=== PATIENT | female | born 1965 | race Caucasian/White ===

== ENCOUNTER 2021-03-25 08:45 | Emergency (ER) | payer BC, SELFPAY ==
[2021-03-25 08:55] VITALS: BP 124/97; PULSE 108; RESP 16; TEMP 36.5; O2SAT 100
--- NOTE | 2021-03-25 09:45 | ED.EAR ---
HPI - Ear Problem General Chief complaint: Ear Stated complaint: Ear Pain Time Seen by Provider: 03/25/21 09:35 Source: patient Mode of arrival: ambulatory Limitations: no limitations History of Present Illness HPI Narrative: Shanika Vazquez is a 55 yo female with a PMH of lupus [facility]-day illness where her primary care physician gave her cefdinir but still has left ear pain and some chest congestion. She states she is improving except for the ear that is really bothering her at this moment and rates the pain a 6 out of 10 Related Data Home Medications Medication Instructions Recorded Confirmed losartan 25 mg PO DAILY 04/23/19 03/25/21 aspirin 81 mg tablet,delayed 81 mg PO DAILY 01/05/20 03/25/21 release loratadine 10 mg tablet 10 mg PO DAILY 01/05/20 03/25/21 Allergies Allergy/AdvReac Type Severity Reaction Status Date / Time methotrexate AdvReac Mild Drowsy Verified 02/24/21 14:03 Review of Systems Review of Systems: CONSTITUTIONAL: Denies fever, chills, sweats. General congestion EYES: Denies visual changes, redness, discharge. ENT: Denies rhinorrhea, congestion, sore throat, left otalgia. CARDIOVASCULAR: Denies chest pain, palpitations, edema. RESPIRATORY: Denies dyspnea, wheezing, cough GASTROINTESTINAL: Denies abdominal pain, nausea, vomiting, diarrhea. GENITOURINARY: Denies dysuria, hematuria, abnormal discharge SKIN: Denies rash or itching. NEUROLOGIC: Denies numbness, or focal weakness. PSYCHIATRIC: Denies anxiety or depression. [facility] Past Medical History Medical History Migraines Mitral valve disorder Other specified counseling SLE (systemic lupus erythematosus related syndrome) (~2019) Spondylosis without myelopathy or radiculopathy, lumbar region Surgical History Surgical History History of section Family History Family History Mother Patient's mother is in good health Family history of thyroid disease Sibling Patient's sister is in good health Patient's brother is in good health Father Family history of cardiac disorder Family history of cardiovascular disease Grandparent Family history of cardiovascular disease Social History Social History Smoking status: Never smoker Alcohol intake: never 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 HEAD: normocephalic, atraumatic. EYES: Sclera clear/white. Vision is grossly intact. EARS: External ears normal, auditory canals clear on right , left with erythema and without drainage, TMs normal without perforation. Hearing grossly intact. NOSE: External nose normal without nasal discharge, nares without redness, mild rhinorrhea. THROAT: Mucous membranes moist, posterior pharynx mild erythema NECK: Neck supple, left lymph node anterior to auricle CARDIOVASCULAR: Regular rate and rhythm without murmurs, gallops, or rubs. RESPIRATORY: Clear to auscultation. Breath sounds equal bilaterally. No wheezes, rales, or rhonchi. GASTROINTESTINAL: Abdomen soft, non-tender, SKIN: warm, intact with no suspicious lesions or rash, good texture and turgor. NEURO: awake, alert, and oriented to person, place and time. There were no obvious focal neurologic abnormalities. Steady gait EXTREMITIES: Normal range of motion. BACK: Nontender without deformity Course Course Emergency Course: Patient comes with left over earache and some congestion after 10-day illness where she was treated with cefdinir by her primary care physician Started on prednisone 40 mg x 5 days and polymyxin eardrop Vital Signs Vital signs: Vital Signs Temperature 97.7 F 03/25/21 08:55 Pulse Rate 108 H 03/25/21 08:55 Respiratory Rate 16 03/25/21 08:55 Blo
== END 2021-03-25 09:53 | disposition home or self-care (01) ==
PROVIDERS: Emergency Provider Nurse Practitioner; PCP Registered Nurse
DX: H92.02 Otalgia, left ear (principal); R09.89 Other specified symptoms and signs involving the circulatory and respiratory systems; I34.1 Nonrheumatic mitral (valve) prolapse; M32.9 Systemic lupus erythematosus, unspecified; M47.816 Spondylosis without myelopathy or radiculopathy, lumbar region
CPT/HCPCS: 99213; G0463

== ENCOUNTER 2024-06-14 18:23 | Emergency (ER) | payer BC, SELFPAY ==
[2024-06-14 18:24] VITALS: BP 139/80; PULSE 89; RESP 18; TEMP 36.2; O2SAT 97
--- NOTE | 2024-06-14 19:25 | ED_ITS ---
HPI - Female Genitourinary General Chief complaint: Urogenital-Female Stated complaint: UTI Time Seen by Provider: 06/14/24 18:50 History of Present Illness HPI Narrative: 58-year-old otherwise healthy female presenting to the emergency room with chief complaint of urinary tract infection symptoms. She states she is having some pressure and burning with urination and started today as well as a pain from the tinge to her urine. Yesterday she had no complaints and denies any fever, c hills, nausea vomiting, abdominal or back pain. She states she has had urinary tract infections previously and this feels very similar. Denies any other injuries or illnesses. Related Data Home Medications ?Medication ?Instructions ?Recorded ?Confirmed ?Last Taken ?Type losartan 25 mg tablet 25 mg PO DAILY 04/23/19 09/03/23 Unknown History aspirin 81 mg tablet,delayed 81 mg PO DAILY 01/05/20 09/03/23 Unknown History release loratadine 10 mg tablet (Claritin) 10 mg PO DAILY 01/05/20 09/03/23 Unknown History Allergies Allergy/AdvReac Type Severity Reaction Status Date / Time methotrexate AdvReac Mild Drowsy Verified 09/03/23 09:48 Review of Systems Review of Systems: As reviewed above in HPI [facility] Past Medical History Medical History Vitamin D deficiency Bilateral hand pain SLE (systemic lupus erythematosus related syndrome) (~2019) Other specified counseling Spondylosis without myelopathy or radiculopathy, lumbar region Mitral valve disorder Migraines Surgical History Surgical History History of section Family History Family History Mother Patient's mother is in good health Family history of thyroid disease Sibling Patient's sister is in good health Patient's brother is in good health Father Family history of cardiac disorder Family history of cardiovascular disease Grandparent Family history of cardiovascular disease Social History Social History Smoking status: Never smoker Alcohol intake: never Substance use: never Substance use type: does not use Do You Feel Safe in your Home?: Yes Lack of Transportation: No Lack of Food: Never True Current Housing: I Have Housing Concerned About Future Housing: No Difficulty Paying Gas/Electric Bills: No Difficulty Paying for Meds: No Currently Unemployed: No Education: Decline to Answer Difficulty w/ Childcare or Family Care: No Living arrangements: with family Exam Narrative: GENERAL: [Well-appearing, well-nourished, and in no acute distress.] HEAD: [Normocephalic, atraumatic.] EYES: [PERRLA and EOMI.] NECK: Supple. CHEST: No respiratory distress ABDOMEN: [Soft, nondistended], [nontender], [No rigidity or guarding] EXTREMITIES: Normal range of motion. [No edema.] SKIN: Warm, dry, no rash. NEURO: [No focal deficits]. Alert and oriented [x3.] PSYCH: [Normal mood and affect.] Course Vital Signs Vital signs: Vital Signs Temperature 36.2 C L 06/14/24 18:24 Pulse Rate 89 06/14/24 18:24 Respiratory Rate 18 06/14/24 18:24 Blood Pressure 139/80 06/14/24 18:24 Pulse Oximetry 97 06/14/24 18:24 Oxygen Delivery Room Air 06/14/24 18:24 Temperature 36.2 C L 06/14/24 18:24 Pulse Rate 89 06/14/24 18:24 Respiratory Rate 18 06/14/24 18:24 Blood Pressure 139/80 06/14/24 18:24 Pulse Oximetry 97 06/14/24 18:24 Oxygen Delivery Room Air 06/14/24 18:24 MDM - Female Genitourinary MDM Narrative Medical decision making narrative: 58-year-old otherwise healthy female presenting for concerning signs for UTI. Patient is otherwise healthy and well-appearing, normal vital signs without any fever, hypoxia, tachycardia or blood pressure concerns. Clinical history including burning and pressure sensation with urination as well as pink tinge to her urine. Urinalysis will be sent as well as urine culture and she will be started on appropriate antibiotics. Urinalysis does show florid urinary tract infection. Will be sent for culture. She was given a dose of Bactrim and sent home with a 7 day course. Follow-up instructions and return precautions provided. Medical Records Attestation: I reviewed the patient's medical records. Lab Data Attestation: I reviewed the patient's lab results. Labs: Lab Results 06/14/24 Range/Units 19:29 Urine Color [place] H (Yellow) Urine Appearance Turbid H (Clear) Urine pH 5.5 (5.0-9.0) Ur Specific [place] 1.018 (1.001-1.035) Urine Protein 2+ H (Negative) mg/dL Urine Glucose (UA) Negative (Negative) mg/dL Urine Ketones Trace H (Negative) mg/dL Ur Blood (Man) 3+ H (Negative) Urine Nitrate Negative (Negative) Urine Bilirubin Negative (Negative) Urine Urobilinogen 1.0 (<2.0) mg/dL Leukocyte Esterase Rfl 3+ H (Negative) SINDY/UL Urine RBC >100 H (0-2) /hpf Urine WBC >100 H (0-3) /hpf Ur Squamous Epith Cells None seen (Few) /hpf Urine Bacteria 2+ H /hpf Urine Casts 0-2 Discharge Plan Discharge Clinical Impression: UTI (urinary tract infection) Patient Disposition: Home, Self-Care Condition: Stable Instructions: Antibiotic Form, Urinary Tract Infection in Women (ED) Additional Instructions: Your urine did test positive for urinary tract infection. We will send you home with a course of antibiotics. Please return with any new or worsening concerns otherwise follow-up with your regular primary care provider. Patient Language: Albanian Prescriptions: New sulfamethoxazole-trimethoprim [Bactrim DS] 800-160 mg tablet 1 tablet PO Q12H Qty: 14 0RF No Action losartan 25 mg Tablet 25 mg PO DAILY loratadine [Claritin] 10 mg tablet 10 mg PO DAILY aspirin 81 mg tablet,delayed release (DR/EC) 81 mg PO DAILY hydroxychloroquine 200 mg tablet See Rx Instructions .ROUTE .COMPLEX Qty: 180 1RF Dose Instruction: TAKE 2 TABLETS BY MOUTH DAILY Rx Instructions: TAKE 2 TABLETS BY MOUTH DAILY cholecalciferol (vitamin D3) 1,250 mcg (50,000 unit) capsule 50,000 unit PO WEEKLY Qty: 12 1RF Follow-up/Referrals: Mili,JOSE Lezama [Primary Care Provider] - Time of Disposition: 20:18
[2024-06-14 20:00] LABS: Bacteria Urine 2+ /hpf; Non Pathogenic Casts 0-2; RBC Urine >100 /hpf (0-2); Squamous Epithelial Cell Urine None Seen /hpf (Few); WBC Urine >100 /hpf (0-3)
[2024-06-14 20:02] LABS: Add Urine Microscopic? YES; Appearance Urine Turbid (Clear); Bilirubin Urine Negative (Negative); Blood Urine 3+ (Negative); Color Urine Orange (Yellow); Glucose Urine UA Negative (Negative); Ketones Urine Trace mg/dL (Negative); Leukocyte Esterase Ur 3+ LEU/UL (Negative); Nitrate Urine Negative (Negative); Protein Urine 2+ mg/dL (Negative); Specific Grav Ur 1.018 (1.001-1.035); pH Urine 5.5 (5.0-9.0)
[2024-06-14] MEDS: SULFAMETHOXAZOLE/TRIMETHOPRIM 800/160 MG DS TABLET 1 TAB PO (20:37)
[2024-06-14 20:39] VITALS: BP 128/77; PULSE 82; RESP 18; O2SAT 98
--- OUTSIDE RECORDS SUMMARY | 2024-06-21 08:54 | XMS_ITS | Encounter Summary ---
Author Organization [facility] Address [address] [place] [address]. [place] [address] [place] [address] Care Team Providers Care Farmworker [employer] Name Role Phone Lise Garces Primary Care Provider [phone] Reason for Visit * Reason Onset Date Comments Results 03/09/2024 Encounter Details Date Type Department Care Team (Late st Contact Info) Description 03/09/[address] [facility] [address] [place] [address] Lise Garces APNP [address] [place], [place] [id number] Results Social History Tobacco Use Types Packs/Day Years Used Date Smoking Tobacco: Never Passive Smoke Exposure: Never Smokeless Tobacco: Never Alcohol Use Standard Drinks/Week Comments No 0 (1 standard drink = 0.6 oz pur e alcohol) AUDIT-C Answer Date Recorded Frequency of Alcohol Consumption Never 10/03/2018 Average Number of Drinks Not on file 019 Frequency of Binge Drinking Not on file 09/09 PHQ-2 Answer Date Recorded Patient Health Questionnaire-2 Score 0 02/11/2024 Comments No Sex and Gender Information Value Date Recorded Sex Assigned at Female 05/21/2024 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[employer] Legal Sex Female 4:43 PM CDT Gender Identity Female 05/21/2024 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[employer] Sexual Orientation Not on file documented as of this encounter Progress Notes * Pallavi Chappell MA - 03/09/2024 1:38 PM CDT ----- Message from Lise Garces sent at 03/09/2024 12:35 PM CDT ----- Negative Repeat in 3 years documented in this encounter Plan of Treatment Not on file documented as of this encounter Visit Diagnoses Not on filedocumented in this encounter Additional Health Concerns Assessment Noted Time PHQ-9 Depression Total Score: 0 08/28/19 24 9:10 AM CDT documented as of this encounter Care Teams Farmworker [employer] Relationship Specialty Start Date End Date Lise Garces APNP [address] [place] [id number] PCP - General NURSE PRACTITIONER 10/03/18 documented as of this encounter
--- OUTSIDE RECORDS SUMMARY | 2024-06-21 08:54 | XMS_ITS | Encounter Summary ---
Author Organization [facility] Address [address] [place] [place] [address] Care Team Providers Care Mma Fighter Name Role Phone Natalia Rodriguez MD Primary Care Provider + Reason for Visit * Reason Onset Date Comments Follow-up 05/24/2016 Encounter Details Date Type Department Care Team (Late st Contact Info) Description 05/24/2016 Telephone [facility] [employer] [facility] [address] [phone] Jacob Augustin Follow-up Social History Tobacco Use Types Packs/Day Years Used Date Smoking Tobacco: Never Sex and Gender Information Value Date Recorded Sex Assigned at Not on file Gender Identity Not on file Sexual Orientation Not on file documented as of this encounter Plan of Treatment Not on file documented as of this encounter Visit Diagnoses Not on filedocumented in this encounter Care Teams Mma Fighter Relationship Specialty Start Date End Date Natalia Rodriguez MD [address] [facility] [address] [place] [address] PCP - General Family Medicine 05/22/16 documented as of this encounter
--- OUTSIDE RECORDS SUMMARY | 2024-06-21 08:54 | XMS_ITS | Encounter Summary ---
Author Organization [facility] Address [address] [facility] [place] [place] [address] Care Team Providers Care Stucco Applicator Name Role Phone Natalia Rodriguez MD Primary Care Provider + Reason for Visit * Reason Comments Congestion Ear Pain Headache Encounter Details Date Type Department Care Team (Late st Contact Info) Description 05/22/2016 11:20 AM OUTSOLE HANDLER Office Visit [facility] [address] [phone] Provider, [facility] Acute maxillary sinusitis, recurrence not specified (Primary Dx) Social History Tobacco Use Types Packs/Day Years Used Date Smoking Tobacco: Never Sex and Gender Information Value Date Recorded Sex Assigned at Not on file Gender Identity Not on file Sexual Orientation Not on file documented as of this encounter Last Filed Vital Signs Vital Sign Reading Time Taken Comments Blood Pressure 132/86 05/22/2016 11:56 AM OUTSOLE HANDLER Pulse 92 05/22/2016 11:56 AM OUTSOLE HANDLER Temperature 37.4 ??C (99.4 ??F) 05/22/2016 11:[address] Respiratory Rate 16 05/22/2016 11:56 AM OUTSOLE HANDLER Oxygen Saturation 98% 05/22/2016 11:56 AM OUTSOLE HANDLER Inhaled Oxygen Concentration - - Weight 81.6 kg (180 lb) 05/22/2016 11:56 AM OUTSOLE HANDLER Height 175.3 cm (5' 9 ) 05/22/2016 11:56 AM OUTSOLE HANDLER Body Mass Index 26.58 05/22/2016 11:56 AM OUTSOLE HANDLER documented in this encounter Patient Instructions * Patient Instructions* Lucina Rivers APRN-ROSY - 05/22/2016 12:06 PM OUTSOLE HANDLER Increase water intake and rest May take tylenol or ibuprofen per package directions for pain or fever. Continue flonase nasal spray for at least 2 weeks per package directions Consider plain mucinex for 3-5 days per package directions Be sure to take all the antibiotic Follow up if symptoms do not improve in 3-4 days or resolve as expected, sooner with any questions or concerns. Sinusitis, Controlled Area Checker GENERAL INFORMATION: Sinusitis is inflammation or infection of your sinuses. It is most often caused by a virus. Acute sinusitis may last up to 12 weeks. Chronic sinusitis lasts longer than 12 weeks. Recurrent sinusitis is when you have 3 or more episodes of sinusitis in 1 year. Common symptoms include the following: ?? Fever ?? Pain, pressure, redness, or swelling around the forehead, cheeks, or eyes ?? Thick yellow or green discharge from your nose ?? Tenderness when you touch your face over your sinuses ?? Dry cough that happens mostly at night or when you lie down ?? Headache and face pain that is worse when you lean forward ?? Teeth pain or pain when you chew Seek immediate care for the following symptoms: ?? Vision changes such as double vision ?? Confusion or trouble thinking clearly ?? Headache and stiff neck ?? Trouble breathing Treatment for sinusitis may include medicines to relieve nasal and sinus congestion or to decrease pain and fever. Ask your healthcare provider which medicines you should take and how much is safe. Manage sinusitis: ?? Drink liquids as directed. Ask your healthcare provider how much liquid to drink each day and which liquids are best for you. Liquids will help loosen and drain the mucus in your sinuses. ?? Breathe in steam. Heat a bowl of water until you see steam. Lean over the bowl and make a tent over your head with a large towel. Breathe deeply for about 20 minutes. Be careful not to get too close to the steam or burn yourself. Do this 3 times a day. You can also breathe deeply when you take ahot shower. ?? Rinse your sinuses. Use a sinus rinse device to rinse your nasal passages with a saline (salt water) solution. This will help thin the mucus in your nose and rinse away pollen and dirt. It will also help reduce swelling so you can breathe normally. Ask how often to do this. ?? Use heat on your sinuses to decrease pain. Apply heat for 15 to 20 minutes every hour for as many days as directed. ?? Sleep with your head elevated. Place an extra pillow under your head before you go to sleep to help your sinuses drain. ?? Do not smoke and avoid secondhand smoke. If you smoke, it is never too late to quit. Ask for information about how to stop smoking if you need help. Prevent the spread of germs that cause sinusitis: Wash your hands often with soap and water. Wash your hands after you use the bathroom, change a child's diaper, or sneeze. Wash your hands before youprepare or eat food. Follow up with your healthcare provider as directed: Write down your questions so you remember to ask them during your visits. CARE AGREEMENT: You have the right to help plan your care. Learn about your health condition and how it may be treated. Discuss treatment options with your caregivers to decide what care you want to receive. You always have the right to refuse treatment. The above information is an in home aide only. It is not intended as medical advice for individual conditions or treatments. Talk to your doctor, nurse or pharmacist before following any medical regimen to see if it is safe and effective for you. ?? 2015 [employer]. Information is for End User's use only and may not be sold, redistributed or otherwise used for commercial purposes. All illustrations and images included in CareNotes?? are the copyrighted property of [employer] or [employer]. OLE HANDLER documented in this encounter Progress Notes * Lucina Rivers APRN-CNP - 05/22/2016 11:57 AM CST [facility] Chief Complaint Patient presents with ??? Congestion ??? Ear Pain ??? Headache SUBJECTIVE: General The history is provided by the patient. This is a new problem. The current episode started more than 1 week ago. The problem occurs constantly. The problem has been gradually worsening. Associated symptoms include headaches. Pertinent negatives include no shortness of breath. Treatments tried: coricidin, robitussin at bedtime. The treatment provided mild relief. 10 days of uri symptoms worsening with sinus pressure and pain, ears ache and fatigue. She is a [employer] Past Medical History Diagnosis Date ??? Hypertension No current outpatient prescriptions on file prior to visit. No current facility-administered medications on file prior to visit. No past surgical history on file. History Social History ??? Marital status: Spouse name: N/A ??? Number of children: N/A ??? Years of education: N/A Occupational History ??? Not on file. Social History Main Topics ??? Smoking status: Never Smoker ??? Smokeless tobacco: Not on file ??? Alcohol use: Not on file ??? Drug use: Not on file ??? Sexual activity: Not on file Other Topics Concern ??? Not on file Social History Narrative ??? No narrative on file No family history on file. Current Outpatient Prescriptions Medication Sig Dispense Refill ??? LOSARTAN POTASSIUM PO ??? amoxicillin-clavulanate (AUGMENTIN) 875-125 MG tablet Take 1 Tab by mouth every 12 hours for 10days 20 Tab 0 No current facility-administered medications for this visit. No Known Allergies REVIEW OF SYSTEMS: Review of Systems Constitutional: Positive for fever and malaise/fatigue. HENT: Positive for congestion and ear pain. Post nasal drainage Respiratory: Positive for cough. Negative for sputum production, shortness of breath and wheezing. Gastrointestinal: Negative for nausea and vomiting. Skin: Negative for rash. Neurological: Positive for headaches. Negative for dizziness. OBJECTIVE: General appearance: alert, well appearing, and in no distress. BP 132/86 Pulse 92 Temp 99.4 ??F (Oral) Resp 16 Wt 81.6 kg (180 lb) BMI 26.58 kg/m2 Physical Exam Physical Exam Constitutional: He is well-developed, well-nourished, and in no distress. HENT: ?? Head: Normocephalic. Right Ear: Ear canal normal. Tympanic membrane is erythematous. Tympanic membrane is not bulging. Left Ear: Ear canal normal. Tympanic membrane is erythematous. Tympanic membrane is not bulging. ?? Nose: Mucosal edema and rhinorrhea present. Right sinus exhibits maxillary sinus tenderness. Purulent nasal drainage. Right sinus exhibits no masillary sinus tenderness. Left sinus exhibits maxillarysinus tenderness. Left sinus exhibits no frontal sinus tenderness. ?? Mouth/Throat: Uvula is midline and mucous membranes are normal. Oropharyngeal exudate present. No posterior oropharyngeal edema. Posterior oropharyngeal erythema present. Thick post nasal drainage present. Eyes: Conjunctivae are normal. Neck: Normal range of motion. Cardiovascular: elevated heart rate, regular rhythm. Pulmonary/Chest: Effort normal and breath sounds normal. He has no wheezes. He has no rales. No cough with deep breathing Lymphadenopathy: He has no cervical adenopathy. Right cervical: No superficial cervical and no posterior cervical adenopathy present. Left cervical: No superficial cervical and no posterior cervical adenopathy present. Neurological: He is alert. Skin: Skin is warm and dry. Psychiatric: Affect normal. Vitals reviewed. ASSESSMENT: Encounter Diagnosis Name Primary? Acute maxillary sinusitis, recurrence not specified Yes PLAN: Orders Placed This Encounter ??? amoxicillin-clavulanate (AUGMENTIN) 875-125 MG tablet Sig: Take 1 Tab by mouth every 12 hours for 10 days Dispense: 20 Tab Refill: 0 Increase water intake and rest May take tylenol or ibuprofen per package directions for pain or fever. flonase nasal spray for at least 2 weeks per package directions Consider plain robitussin for 3-5 days per package directions, decongestant may be elevating your heart rate Be sure to take all the antibiotic Follow up if symptoms do not improve in 3-4 days or resolve as expected, sooner with any questions or concerns. OLE HANDLER documented in this encounter Plan of Treatment Not on file documented as of this encounter Visit Diagnoses Diagnosis Acute maxillary sinusitis, recurrence not specified- Primary documented in this encounter Care Teams Stucco Applicator Relationship Specialty Start Date End Date Natalia Rodriguez MD [address] [place] [address] PCP - General Family Medicine 05/22/16 documented as of this encounter
--- OUTSIDE RECORDS SUMMARY | 2024-06-21 08:54 | XMS_ITS | Encounter Summary ---
Author Organization [facility] Address [address] [place] [address]. 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 Legal Sex Female 4:43 PM CDT Gender Identity Female 05/21/2024 8:15 AM LOGISTICS SYSTEM ENGINEER Sexual Orientation Not on file documented as of this encounter Plan of Treatment Not on file documented as of this encounter Visit Diagnoses Not on filedocumented in this encounter Additional Health Concerns Assessment Noted Time PHQ-9 Depression Total Score: 0 08/28/19 24 9:10 AM CDT documented as of this encounter Care Teams Instructor Knitting Relationship Specialty Start Date End Date Lise Garces APNP [address] [place] [address] PCP - General NURSE PRACTITIONER 10/03/18 documented as of this encounter
--- OUTSIDE RECORDS SUMMARY | 2024-06-21 08:54 | XMS_ITS | Clinical Summary ---
Author Organization [facility] Address [address] [place] [address]. [place] [address] [place] [address] Care Team Providers Care Manufacturing Supervisor 2Nd Shift Name Role Phone David Garces Primary Care Provider Allergies No known active allergies Medications Loratadine (CLARITIN OR) Take by mouth daily. Active hydroxychloroquin e 200 MG tablet Take 2 tablets (400 mg total) by mouth daily. 0 Active aspirin EC (ECOTRIN) 81 MG tablet Take 1 tablet (81 mg total) by mouth daily. Active Probiotic Product (PROBIOTIC OR) Take 2 capsules by mouth daily. Brand name: provitalize. Active vitamin D3 (CHOLECALCIFEROL) 1.25 mg capsule Take 1 capsule (1.25 mg total) by mouth once a week. 4 Active losartan (COZAAR) 25 MG tabletIndications :Essential hypertension Take 1 tablet (25 mg total) by mouth daily. 90 tablet 3 4 Active Active Problems Problem Noted Date Diagnosed Date Essential hypertension 10/03/2018 Vitamin D deficiency 10/03/2018 Lupus Encounters Date Type Department Care Team Description 06/02/2024 Telephone [facility] Medical Group Family & Internal Medicine [address] [address] David Garces APNP Radiology Results 05/25/2024 7:51 AM FILM DEVELOPING MACHINE OPERATOR - 05/25/2024 11:59 PM FILM DEVELOPING MACHINE OPERATOR Hospital Encounter [facility] [address] [place] [address] David Garces APNP Discharge Disposition: Home or Self Care (Routine Discharge) 05/25/2024 Travel from Last 3 Months Immunizations Name Administration Dates Next Due PFIZER COVID-19 (ORIGINAL FO RMULATION, PURPLE CAP) mRNA, LNP-S, PF, 30 MCG/0.3 ML DOSE 11/17/2020,10/27/2020 Tdap (Boostrix) 02/01/2017 Family History Medical History Relation Comments Miscarriages / Stillbirths Daughter Diagn osis PCOS Heart Disease Father Hypertension Father Heart Disease Maternal Grandmother Thyroid Mother HYPO Heart Disease Paternal Grandmother Miscarriages / Stillbirths Son 1 Miscarriages / Stillbirths Son 2 Relation Status Comments Daughter Father Alive Maternal Grandmother Mother Alive Paternal Grandmother Son 1 Son 2 Social History Tobacco Use Types Packs/Day Years Used Date Smoking Tobacco: Never Passive Smoke Exposure: Never Smokeless Tobacco: Never Tobacco Cessation:Counseling Given: Not Answered Alcohol Use Standard Drinks/Week Comments No 0 [...] Sex Assigned at Female 05/21/2024 8:15 AM FILM DEVELOPING MACHINE OPERATOR Legal Sex Female 4:43 PM CDT Gender Identity Female 05/21/2024 8:15 AM FILM DEVELOPING MACHINE OPERATOR Sexual Orientation Not on file Last Filed Vital Signs Vital Sign Reading Time Taken Comments Blood Pressure 118/78 02/11/2024 2:57 PM CDT Pulse 96 02/11/2024 2:57 PM CDT Temperature 36.2 ??C (97.2 ??F) 02/11/2024 2:57 PM CD T Respiratory Rate 16 02/11/2024 2:57 PM CDT Oxygen Saturation 96% 02/11/2024 2:57 PM CDT Inhaled Oxygen Concentration - - Weight 95.8 kg (211 lb 3.2 oz) 02/11/2024 2:57 P M CDT Height 175.3 cm (5' 9 ) 02/11/2024 2:57 PM CDT Body Mass Index 31.19 02/11/2024 2:57 PM CDT Plan of Treatment Health Maintenance Due Date Last Done Comments Hepatitis B Vaccines (1 of 3 - 19+ 3-dose series) 1984 Cervical Cancer Screening Pap with HPV Testing (Age 30 to 64) Every 5 Years 1995 Zoster Vaccines (1 of 2) 2015 COVID-19 Vaccine (3 - 2023- season) 2024 11/17/2020, 10/27/2020 Influenza Adult (#1) 2024 Cervical Cancer Screening Pap Smear (Age 30 to 64) Every 3 Years 01/02/2025 01/02/2022 Cervical Cancer Screening with HPV 01/02/2025 Annual Physical 02/10/2025 02/11/2024, 01/08, 01/02/2022, Additional history exists Mammogram Screening 05/25/2026 05/25/2024, DTaP, Tdap and Td Vaccines (2 - Td or Tdap) 02/01/2027 02/01/2017 Colorectal Cancer Screening FIT-DNA (3 Years) 03/02/2027 03/02/2024, 03/02/2024, 07/17/2020, Additional history exists Hepatitis C Completed 04/27/2020 Meningococcal Vaccine Aged Out No ivy anshu eligible based on patient's age to complete this topic Pneumococcal Vaccine: Pediatrics (0 to 5 Years) and At-Risk Patients (6 to 64 Years) Aged Out No longer eligible based on patient's age to complete this topic RSV Immunizations Under 20 Months Aged Out No longer eligible based on patient's age to complete this topic Procedures Procedure Name Priority Date/Time Associated Diagnosis Comments MG SCREENING W KHANG MILLY DIGI Routine 05/25/2024 8:24 AM FILM DEVELOPING MACHINE OPERATOR Encounter for screening mammogram for malignant neoplasm of breast BONE DENSITY/DEXA Routine 05/25/2024 8:2 3 AM FILM DEVELOPING MACHINE OPERATOR Postmenopausal COLOGUARD (EXACT SCIENCE) Routine 03/02/2024 5:15 PM CDT Colon cancer screening CYTOPATH CERV/VAG THIN LAYER Routine 01/02/2022 9:16 AM CDT Well woman exam with routine gynecological exam HEPATITIS C ANTIBODY W/RFX TO HCV RNA Routine 04/27/2020 6:20 AM FILM DEVELOPING MACHINE OPERATOR from Last 3 Months or Most Recently Relevant to Health Maintenance Results * MG SCREENING W KHANG MILLY DIGI (05/25/2024 8:24 AM FILM DEVELOPING MACHINE OPERATOR) Anatomical Region Laterality Modality Breast Bilateral Mammography 05/25/2024 11:2 9 AM FILM DEVELOPING MACHINE OPERATOR Impressions 05/25/2024 11:31 AM FILM DEVELOPING MACHINE OPERATOR ===== IMPRESSION: ===== 1. ??Stable mammographic appearance with no new findings to suggest malignancy in either breast. Assessment: ACR BI-RADS 1 - NEGATIVE Recommendation: 1:Routine Screening Bilateral Comments: Ordered By: DAVID GARCES Interpreted By: Ira Kirk, 05/25/2024 11:29 AM Narrative 05/25/2024 11:31 AM FILM DEVELOPING MACHINE OPERATOR [facility] [address] [place] [address] EXAMINATION: Digital bilateral screening mammogram with 3-D tomosynthesis EXAM DATE/TIME: 05/25/2024 8:23 AM REASON FOR EXAM: ??screening ? COMPARISON: 05/18/2023 Technique: Digital screening mammography of both breasts was performed in addition to 3-D Tomosynthesis technique. This study was read with the assistance of a computer-aided detection system. Tissue density: There are scattered areas of fibroglandular density. Findings: There is no new focal asymmetry, dominant mass lesion, area of skin thickening, or cluster of suspicious appearing calcifications in either breast to suggest malignancy. us David Garces APNP MAMMO Final Resul t * BONE DENSITY/DEXA (05/25/2024 8:23 AM FILM DEVELOPING MACHINE OPERATOR) Anatomical Region Laterality Modality Bone Mammography 05/25/2024 9:42 AM FILM DEVELOPING MACHINE OPERATOR Impressions 05/25/2024 9:42 AM FILM DEVELOPING MACHINE OPERATOR IMPRESSION: WHO Classification: Osteopenia. RECOMMENDATIONS: All patients should ensure an adequate intake of dietary calcium and vitamin D. The NOF recommend adults under the age of 50 need 1000 mg of calcium and 400-800 IU of vitamin D daily. Effective therapy for the prevention and treatment of osteoporosis include bisphosphonates. FOLLOW-UP: People with diagnosed cases of osteoporosis or at high risk for fracture should have regular bone mineral density test. For patients eligible for Medicare, routine testing is allowed once every 2 years. Testing frequency can be increased to one year for patients who have rapidly progressing disease, those who are receiving or discontinuing medical therapy to restore bone mass, or have additional risk factors. Ordered By: DAVID GARCES Interpreted By: Piero Mcgee, 05/25/2024 9:42 AM Narrative 05/25/2024 9:42 AM FILM DEVELOPING MACHINE OPERATOR [facility] [address] [place] [address] EXAMINATION: BONE DENSITY/DEXA INDICATIONS: Asymptomatic menopausal state COMPARISON: None TECHNIQUE: DEXA bone mineral density evaluation was performed in the AP projection over the lumbar spine and both hips utilizing standard imaging techniques. FINDINGS: The BMD measured at the AP spine L1-L4 is 0.913 g/cm? with a T-score of -1.2. The BMD measured at the left femoral neck is 0.700 g/cm? with a T-score of -1.3. The BMD measured at the left hip is 0.844 g/cm? with a T-score of -0.8. The BMD measured at the right femoral neck is 0.728 g/cm? with a T-score of - 1.1. The BMD measured at the right hip is 0.826 g/cm? with a T-score of -1.0. FRAX 10-year fracture risk: Major Osteoporotic Fracture: 12% Hip Fracture: 0.9% Procedure Note Piero Mcgee MD - 05/25/2024 [facility] [address] [place] [address] EXAMINATION: BONE DENSITY/DEXA INDICATIONS: Asymptomatic menopausal state COMPARISON: None TECHNIQUE: DEXA bone mineral density evaluation was performed in the APprojection over the lumbar spine and both hips utilizing standard imagingtechniques. FINDINGS: The BMD measured at the AP spine L1-L4 is 0.913 g/cm? with a T-score of-1.2. The BMD measured at the left femoral neck is 0.700 g/cm? with a T-score of-1.3. The BMD measured at the left hip is 0.844 g/cm? with a T-score of -0.8. The BMD measured at the right femoral neck is 0.728 g/cm? with a T-scoreof -1.1. The BMD measured at the right hip is 0.826 g/cm? with a T-score of -1.0. FRAX 10-year fracture risk: Major Osteoporotic Fracture: 12% Hip Fracture: 0.9% IMPRESSION: WHO Classification: Osteopenia. RECOMMENDATIONS: All patients should ensure an adequate intake of dietary calcium andvitamin D. The NOF recommend adults under the age of 50 need 1000 mg ofcalcium and 400-800 IU of vitamin D daily. Effective therapy for theprevention and treatment of osteoporosis include bisphosphonates. FOLLOW-UP: People with diagnosed cases of osteoporosis or at high risk for fractureshould have regular bone mineral density test. For patients eligible forMedicare, routine testing is allowed once every 2 years. Testing frequencycan be increased to one year for patients who have rapidly progressingdisease, those who are receiving or discontinuing medical therapy torestore bone mass, or have additional risk factors. Ordered By: DAVID GARCES Interpreted By: Piero Mcgee, 05/25/2024 9:42 AM us David Garces APNP DEXA Final Resul t * WILLIAMS (GenomOncology SCIENCE) (03/02/2024 5:15 PM CDT) [facility] Signature COLOGUARD RESULT Negative Negative Dishable [place] (CLIA #:[id number]) Comment: NEGATIVE TEST RESULT. A negative Cologuard result indicates a low likelihood that a colorectal cancer (CRC) or advanced adenoma (adenomatous polyps with more advanced pre-malignant features) ??is present. The chance that a person with a negative Cologuard test has a colorectal cancer is less than 1 in 1500 (negative predictive value >99.9%) or has an ??advanced adenoma is less than ??5.3% (negative predictive value 94.7%). These data are based on a prospective cross-sectional study of 10,000 individuals at average risk for colorectal cancer who were screened with both Cologuard and colonoscopy. (Jaspal Cobos al, N Engl J Med 2014;370(14):1286- 1297) The normal value (reference range) for this assay is negative. COLOGUARD RE-SCREENING RECOMMENDATION: Periodic colorectal cancer screening is an important part of preventive healthcare for asymptomatic individuals at average risk for colorectal cancer. ??Following a negative Cologuard result, the [place] Cancer Society and U.S. Multi-Society Task Force screening guidelines recommend a Cologuard re-screening interval of 3 years. References: [place] [employer] Guideline for Colorectal Cancer Screening: https://www.cancer.org/cancer/fptnw-uybepg-ptuukm/nikxyjjmx-ytkjtgows-zrddhea/ac s-rec ommendations.html.; Miguel Angel DK, Galen CR, Milagros NicoleK, Colorectal Cancer Screening: Recommendations for Physicians and Patients from the U.S. Multi-Society Task Force on Colorectal Cancer Screening , Am J Gastroenterology 2017; 112:8915-9642. TEST DESCRIPTION: Composite algorithmic analysis of stool DNA-biomarkers with hemoglobin immunoassay. ?? Quantitative values of individual biomarkers are not reportable and are not associated with individual biomarker result reference ranges. Cologuard is intended for colorectal cancer screening of adults of either sex, 45 years or older, who are at average-risk for colorectal cancer (CRC). Cologuard has been approved for use by the U.S. FDA. The performance of Cologuard was established in a cross sectional study of average-risk adults aged 50-84. Cologuard performance in patients ages 45 to 49 years was estimated by sub-group analysis of near-age groups. Colonoscopies performed for a positive result may find as the most clinically significant lesion: colorectal cancer [4.0%], advanced adenoma (including sessile serrated polyps greater than or equal to 1cm diameter) [20%] or non- advanced adenoma [31%]; or no colorectal neoplasia [45%]. These estimates are derived from a prospective cross-sectional screening study of 10,000 individuals at average risk for colorectal cancer who were screened with both Cologuard and colonoscopy. (Jaspal Cobos al, N Engl J Med 2014;370(14):9187-6279.) Cologuard may produce a false negative or false positive result (no colorectal cancer or precancerous polyp present at colonoscopy follow up). A negative Cologuard test result does not guarantee the absence of CRC or advanced adenoma (pre-cancer). The current Cologuard screening interval is every 3 years. ([place] [employer] Society and U.S. Multi-Society Task Force). Cologuard performance data in a 10,000 patient pivotal study using colonoscopy as the reference method can be accessed at the following location: www.[employer].Nasseo/results. Additional description of the Cologuard test process, warnings and precautions can be found at www.cologuard.com. STOOL STOOL SPECIMEN / Unknown 03/02/2024 5:15 PM CDT 03/04/2024 10:00 AM CDT David MCDOWELL BODY FLUIDS AND STOOLS RACHANA PRABHAKAR Final Result [facility] ([employer] [facility]) [address] [place] [address], Need (CLIA #:[id number]) [address] [place] [address] * Cytopath Cerv/Vag Thin Layer (01/02/2022 9:16 AM CDT) CLINICAL INFORMATION: Postmenopausal [facility] Clinical Information: 10 YRS AGO POST RACIEL [employer] [facility] Date of Last Pap INFORMATION NOT PROVIDED [facility] Previous Biopsy? INFORMATION NOT PROVIDED [facility] SOURCE (QST) Cervix, Endocervix [facility] STATEMENT OF ADEQUACY: [facility] Comment: Satisfactory for evaluation. Endocervical/transformation zone component present. PAP INTERPRETATION/RESU LTS Negative for intraepithelial lesion or malignancy. [facility] QUALITY REVIEW TRAINER [facility] Comment: YQ, CT(ASCP) CT screening location: [place] [address] Administration ELI [place] [address] REVIEW QUALITY REVIEW TRAINER: [facility] Comment: GAVIN, CT(ASCP) CT screening location: [place] [address] Administration [place] [address] COMMENT: [facility] Comment: EXPLANATORY NOTE: The Pap is a screening test for cervical cancer. It is not a diagnostic test and is subject to false negative and false positive results. It is most reliable when a satisfactory sample, regularly obtained, is submitted with relevant clinical findings and history, and when the Pap result is evaluated along with historic and current clinical information. 01/02/2022 9:16 AM CDT 01/03/2022 6:04 AM CDT David MCDOWELL PATHOLOGY/CYTOLOGY ORDERABL ES Final Result [facility] [place] [address] Administration [place] [id number] * HEPATITIS C ANTIBODY W/RFX TO HCV RNA (04/27/2020 6:20 AM FILM DEVELOPING MACHINE OPERATOR) HEPATITIS C AB NON-REACTI VE NON-REACT [facility] [employer] SIGNAL TO CUTOFF 0.01 <1.00 [facility] Comment: HCV antibody was non-reactive. There is no laboratory evidence of HCV infection. In most cases, no further action is required. However, if recent HCV exposure is suspected, a test for HCV RNA (test code 89436) is suggested. For additional information please refer to http://education.[employer]/faq/ZOR83e4 (This link is being provided for informational/ educational purposes only.) 04/27/2020 6:20 AM FILM DEVELOPING MACHINE OPERATOR 04/27/2020 6:22 AM FILM DEVELOPING MACHINE OPERATOR Narrative [facility] - 04/30/2020 6:30 PM FILM DEVELOPING MACHINE OPERATOR FASTING:YES FASTING: YES David MCDOWELL LABORATORY Final Resul t [facility] [address] [id number] from Last 3 Months or Most Recently Relevant to Health Maintenance Insurance Care Teams Manufacturing Supervisor 2Nd Shift Relationship Specialty Start Date End Date David Garces APNP [address] [place] [address] PCP - General NURSE PRACTITIONER 10/03/18
--- OUTSIDE RECORDS SUMMARY | 2024-06-21 08:54 | XMS_ITS | Encounter Summary ---
Author Organization [facility] Address [address] [place] [address]. [place] [address] [place] [address] Care Team Providers Care Assortment Planner Name Role Phone Lise Garces Primary Care Provider [phone]- [phone] Reason for Visit * Reason Onset Date Comments Lab Results 03/06/2024 Encounter Details Date Type Department Care Team (Late st Contact Info) Description 03/06/2024 Telephone [facility] Medical Group Family & Internal Medicine [facility] [address] [place] [address] Lise Garces APNP [address] [place], [place] [id number] Lab Results Social History Tobacco Use Types Packs/Day [...] Sex Assigned at Female 05/21/2024 8:15 AM POOL TABLE MECHANIC Legal Sex Female 4:43 PM CDT Gender Identity Female 05/21/2024 8:15 AM POOL TABLE MECHANIC Sexual Orientation Not on file documented as of this encounter Progress Notes * Pallavi Chappell MA - 03/06/2024 1:28 PM CDT ----- Message from Lise Garces sent at 03/06/2024 1:17 PM CDT ----- Labs stable Vit D is still a little low--increase Vit D by 1000 IU once daily documented in this encounter Plan of Treatment Not on file documented as of this encounter Visit Diagnoses Not on filedocumented in this encounter Additional Health Concerns Assessment Noted Time PHQ-9 Depression Total Score: 0 08/28/19 24 9:10 AM CDT documented as of this encounter Care Teams Assortment Planner Relationship Specialty Start Date End Date Lise Garces APNP [address] [place] [address] PCP - General NURSE PRACTITIONER 10/03/18 documented as of this encounter
--- OUTSIDE RECORDS SUMMARY | 2024-06-21 08:54 | XMS_ITS | Clinical Summary ---
Author Organization [facility] Address [address] [place] [address] Care Team Providers Care Caster Operator Name Role Phone Natalia Rodriguez MD Primary Care Provider + Source Comments [facility],non-owned Affiliates and Associated Physician Practices is amultiple site organization consisting of ambulatory clinics and hospital sitesin [place], [place] and [place]. This disclosure is being madepursuant to the Care Everywhere program and may not contain all information available regarding this patient. Last updated 18.[facility] Allergies No known active allergies Medications * Be aware that medications may not be up to date on this document. Alwaysverify current medications with the patient. Medication Sig Dispensed Refills Start Date End Date Status LOSARTAN POTASSIUM PO Act beto Social History Tobacco Use Types Packs/Day Years Used Date Smoking Tobacco: Never Sex and Gender Information Value Date Recorded Sex Assigned at Not on file Gender Identity Not on file Sexual Orientation Not on file Last Filed Vital Signs Vital Sign Reading Time Taken Comments Blood Pressure 132/86 05/22/2016 11:56 AM SALES ESTIMATOR Pulse 92 05/22/2016 11:56 AM SALES ESTIMATOR Temperature 37.4 ??C (99.4 ??F) 05/22/2016 11:[address] Respiratory Rate 16 05/22/2016 11:56 AM SALES ESTIMATOR Oxygen Saturation 98% 05/22/2016 11:56 AM SALES ESTIMATOR Inhaled Oxygen Concentration - - Weight 81.6 kg (180 lb) 05/22/2016 11:56 AM SALES ESTIMATOR Height 175.3 cm (5' 9 ) 05/22/2016 11:56 AM SALES ESTIMATOR Body Mass Index 26.58 05/22/2016 11:56 AM SALES ESTIMATOR Plan of Treatment Health Maintenance Due Date Last Done Comments COLOGUARD (AGES 45-75) - COL ON CA SCREENING 1965 COLON MONITORING 1965 COLONOSCOPY - COLON CA SCREENING 1965 CT COLONOGRAPHY - COLON CA SCREENING 1965 Colorectal Cancer Screening 1965 FIT - COLON CA SCREENING 1965 FLEX SIG - COLON CA SCREENING 1965 LIPID TESTING 1965 MAMMOGRAM 1965 PAP SMEAR 1965 HIV SCREENING 1980 HEPATITIS C SCREENING 06/26/1983 DTAP/TDAP/TD VACCINES (1 - Tdap) 1984 HEPATITIS B VACCINE (1 of 3 - 19+ 3-dose series) 1984 ZOSTER VACCINE (1 of 2) 2015 DEPRESSION SCREENING 06/10/2023 COVID-19 VACCINE (1 - 2023-2 5 season) 2024 INFLUENZA VACCINE (#1) 2024 HIB VACCINE Aged Out No longer eligi ble based on patient's age to complete this topic HPV VACCINE Aged Out No longer eligi ble based on patient's age to complete this topic MENINGOCOCCAL VACCINE Aged Out No ivy anshu eligible based on patient's age to complete this topic PNEUMOCOCCAL VACCINE Aged Out No long er eligible based on patient's age to complete this topic Care Teams Caster Operator Relationship Specialty Start Date End Date Natalia Rodriguez MD [address] [place] [address] PCP - General Family Medicine 05/22/16
--- OUTSIDE RECORDS SUMMARY | 2024-06-21 08:54 | XMS_ITS | Encounter Summary ---
Author Organization [facility] Address [address] [place] [address]. [place] [address] [place] [address] Care Team Providers Care Receiving Specialist Name Role Phone Lise Garces Primary Care Provider [phone]- [phone] Reason for Visit * Reason Onset Date Comments Results 02/20/2024 Encounter Details Date Type Department Care Team (Late st Contact Info) Description 02/20/2024 Telephone [facility] Family [facility] [address] [place] [address] Lise Garces APNP [address] [place], [place] [id number] Results Social History Tobacco Use Types Packs/Day [...] Sex Assigned at Female 05/21/2024 8:15 AM BULK STATION OPERATOR Legal Sex Female 4:43 PM CDT Gender Identity Female 05/21/2024 8:15 AM BULK STATION OPERATOR Sexual Orientation Not on file documented as of this encounter Progress Notes * Rosmery Cruz MA - 02/20/2024 9:29 AM CDT ----- Message from Lise Garces sent at 02/19/2024 1:11 PM CDT ----- Left neck palpable area corresponds with benign morphology lymph nodes detailed above. No sonographic findings of associated lymphadenitis suggested at this time. documented in this encounter Plan of Treatment Not on file documented as of this encounter Visit Diagnoses Not on filedocumented in this encounter Additional Health Concerns Assessment Noted Time PHQ-9 Depression Total Score: 0 08/28/19 9:10 AM CDT documented as of this encounter Care Teams Receiving Specialist Relationship Specialty Start Date End Date Lise Garces APNP [address] [place] [id number] PCP - General NURSE PRACTITIONER 10/03/18 documented as of this encounter
--- OUTSIDE RECORDS SUMMARY | 2024-06-21 08:54 | XMS_ITS | Encounter Summary ---
Author Organization [facility] Address [address] [place] [address]. [place] [address] [place] [address] Care Team Providers Care Data Typist Name Role Phone Lise Garces Primary Care Provider [phone] Reason for Visit * Reason Onset Date Comments Radiology Results 06/02/2024 Encounter Details Date Type Department Care Team (Late st Contact Info) Description 06/02/2024 Telephone [facility] Medical Group Family & Internal Medicine [facility] [address] [place] [address] Lise Garces APNP [address] [place] [address] Radiology Results Social History Tobacco Use Types Packs/Day [...] Sex Assigned at Female 05/21/2024 8:15 AM FISCAL ANALYST Legal Sex Female 4:43 PM CDT Gender Identity Female 05/21/2024 8:15 AM FISCAL ANALYST Sexual Orientation Not on file documented as of this encounter Progress Notes * Pallavi Chappell MA - 06/02/2024 9:24 AM CST ----- Message from Lise Garces sent at 05/27/2024 1:28 PM FISCAL ANALYST ----- ===== IMPRESSION: ===== 1. Stable mammographic appearance with no new findings to suggest malignancy in either breast. Assessment: ACR BI-RADS 1 - NEGATIVE Recommendation: 1:Routine Screening Bilateral Osteopenia noted with DEXA. Suggest resistance exercises And Calcium 1200 mg and Vit D3 2000 IU once daily AL ANALYST documented in this encounter Plan of Treatment Not on file documented as of this encounter Visit Diagnoses Not on filedocumented in this encounter Additional Health Concerns Assessment Noted Time PHQ-9 Depression Total Score: 0 08/28/19 9:10 AM CDT documented as of this encounter Care Teams Data Typist Relationship Specialty Start Date End Date Lise Garces APNP [address] [place] [id number] PCP - General NURSE PRACTITIONER 10/03/18 documented as of this encounter
--- OUTSIDE RECORDS SUMMARY | 2024-06-21 08:54 | XMS_ITS | Patient Health Summary ---
Author Organization [facility] Address [address] [place] [address] Care Team Providers Care Seo Team Lead Name Role Phone Natalia Rodriguez MD Primary Care Provider + Note from [facility],non-owned Affiliates and Associated Physician Practices is amultiple site organization consisting of ambulatory clinics and hospital sitesin [place], [place], [place] and [place]. This disclosure is being madepursuant to the Care Everywhere program and may not contain all information available regarding this patient. Last updated 18.[facility] Allergies No known active allergies Medications * Be aware that medications may not be up to date on this document. Alwaysverify current medications with the patient. * LOSARTAN POTASSIUM PO Social History Tobacco Use Types Packs/Day Years Used Date Smoking Tobacco: Never Sex and Gender Information Value Date Recorded Sex Assigned at Not on file Gender Identity Not on file Sexual Orientation Not on file Last Filed Vital Signs Vital Sign Reading Time Taken Comments Blood Pressure 132/86 05/22/2016 11:56 AM SET UP MACHINIST Pulse 92 05/22/2016 11:56 AM SET UP MACHINIST Temperature 37.4 ??C (99.4 ??F) 05/22/2016 11:[address] Respiratory Rate 16 05/22/2016 11:56 AM SET UP MACHINIST Oxygen Saturation 98% 05/22/2016 11:56 AM SET UP MACHINIST Inhaled Oxygen Concentration - - Weight 81.6 kg (180 lb) 05/22/2016 11:56 AM SET UP MACHINIST Height 175.3 cm (5' 9 ) 05/22/2016 11:56 AM SET UP MACHINIST Body Mass Index 26.58 05/22/2016 11:56 AM SET UP MACHINIST Care Teams Seo Team Lead Relationship Specialty Start Date End Date Natalia Rodriguez MD [address] [facility] [address] [place] [address] PCP - General Family Medicine 05/22/16
--- OUTSIDE RECORDS SUMMARY | 2024-06-21 08:54 | XMS_ITS | Encounter Summary ---
Author Organization [facility] Address [address] [place] [address]. 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 Legal Sex Female 4:43 PM CDT Gender Identity Female 05/21/2024 8:15 AM GLASS PULVERIZER EQUIPMENT OPERATOR Sexual Orientation Not on file documented as of this encounter Plan of Treatment Not on file documented as of this encounter Visit Diagnoses Not on filedocumented in this encounter Additional Health Concerns Assessment Noted Time PHQ-9 Depression Total Score: 0 08/28/19 24 9:10 AM CDT documented as of this encounter Care Teams Computer Programming Supervisor Relationship Specialty Start Date End Date Lise Garces APNP [address] [place] [address] PCP - General NURSE PRACTITIONER 10/03/18 documented as of this encounter
--- OUTSIDE RECORDS SUMMARY | 2024-06-21 08:54 | XMS_ITS | Referral Summary ---
Author Organization [facility] Address [address] [place] [address] Care Team Providers Care Rail Car Painter/Sandblaster Name Role Phone Natalia Rodriguez MD Primary Care Provider + Source Comments [facility],non-owned Affiliates and Associated Physician Practices is amultiple site organization consisting of ambulatory clinics and hospital sitesin [place], [place], [place] and [place]. This disclosure is being madepursuant to the Care Everywhere program and may not contain all information available regarding this patient. Last updated 18.[facility] Allergies No known active allergies Medications * [...] Comments Blood Pressure 132/86 05/22/2016 11:56 AM TAR WORKER Pulse 92 05/22/2016 11:56 AM TAR WORKER Temperature 37.4 ??C (99.4 ??F) 05/22/2016 11:[address] Respiratory Rate 16 05/22/2016 11:56 AM TAR WORKER Oxygen Saturation 98% 05/22/2016 11:56 AM TAR WORKER Inhaled Oxygen Concentration - - Weight 81.6 kg (180 lb) 05/22/2016 11:56 AM TAR WORKER Height 175.3 cm (5' 9 ) 05/22/2016 11:56 AM TAR WORKER Body Mass Index 26.58 05/22/2016 11:56 AM TAR WORKER Plan of Treatment Not on file Care Teams Rail Car Painter/Sandblaster Relationship Specialty Start Date End Date Natalia Rodriguez MD [address] [place] [address] PCP - General Family Medicine 05/22/16
--- OUTSIDE RECORDS SUMMARY | 2024-06-21 08:54 | XMS_ITS | Encounter Summary ---
Author Organization [facility] Address [address] [place] [address]. [place] [address] [place] [address] Care Team Providers Care Communications Consultant Name Role Phone David Garces Primary Care Provider [phone] Reason for Referral * Imaging (Routine) - New Request Specialty Diagnoses / Procedures Referred By Blake ceja Referred To Contact RADIOLOGY Diagnoses Encounter for screening mammogram for malignant neoplasm of breast Procedures MG SCREENING W KHANG MILLY DIGI David Garces APNP [address] [place] [address] Phone: tel: fax: Referral ID Status Reason Start Date Expiration Date V isits Requested Visits Authorized [id number] New Request 02/11/2024 04/12/2025 1 1 ASS TECHNICIAN * Imaging (Routine) - New Request Specialty Diagnoses / Procedures Referred By Blake ceja Referred To Contact RADIOLOGY Diagnoses Postmenopausal Procedures BONE DENSITY/DEXA David Garces APNP [address] [place] [address] Phone: tel: fax: Referral ID Status Reason Start Date Expiration Date V isits Requested Visits Authorized [id number] New Request 02/11/2024 03/12/2025 1 1 ASS TECHNICIAN Reason for Visit * Imaging (Routine) - New Request Specialty Diagnoses / Procedures Referred By Blake ceja Referred To Contact RADIOLOGY Diagnoses Postmenopausal Procedures BONE DENSITY/DEXA David Garces APNP [address] [place] [address] Phone: tel: fax: Referral ID Status Reason Start Date Expiration Date V isits Requested Visits Authorized [id number] New Request 02/11/2024 03/12/2025 1 1 Encounter Details Date Type Department Care Team (Latest Contact Info) Description 05/25/2024 7:51 AM BIOMASS TECHNICIAN - 05/25/2024 11:59 PM BIOMASS TECHNICIAN Hospital Encounter [facility] Mammography [address] [address] David Garces APNP [address] [place] [address] Discharge Disposition: Home or Self Care (Routine Discharge) Social History Tobacco Use Types Packs/Day Years [...] Sex Assigned at Female 05/21/2024 8:15 AM BIOMASS TECHNICIAN Legal Sex Female 4:43 PM CDT Gender Identity Female 05/21/2024 8:15 AM BIOMASS TECHNICIAN Sexual Orientation Not on file documented as of this encounter Medications at Time of Discharge aspirin EC (ECOTRIN) 81 MG tablet Take 1 tablet (81 mg total) by mouth daily. hydroxychloroquine 200 MG tablet Take 2 tablets (400 mg total) by mouth daily. 04/03/2020 Loratadine (CLARITIN OR) Take by mouth daily. losartan (COZAAR) 25 MG tabletIndications: Essential hypertension Take 1 tablet (25 mg total) by mouth daily. 90 tablet 3 02/11/2024 Probiotic Product (PROBIOTIC OR) Take 2 capsules by mouth daily. Brand name: provitalize. vitamin D3 (CHOLECALCIFEROL) 1.25 mg capsule Take 1 capsule (1.25 mg total) by mouth once a week. 11/23/2023 documented as of this encounter Plan of Treatment Not on file documented as of this encounter Procedures Procedure Name Priority Date/Time Associated Diagnosis Comments MG SCREENING W KHANG MILLY DIGI Routine 05/25/2024 8:24 AM BIOMASS TECHNICIAN Encounter for screening mammogram for malignant neoplasm of breast BONE DENSITY/DEXA Routine 05/25/2024 8:2 3 AM BIOMASS TECHNICIAN Postmenopausal documented in this encounter Results * MG SCREENING W KHANG MILLY DIGI (05/25/2024 8:24 AM BIOMASS TECHNICIAN) Anatomical Region Laterality Modality Breast Bilateral Mammography 05/25/2024 11:2 9 AM BIOMASS TECHNICIAN Impressions 05/25/2024 11:31 AM BIOMASS TECHNICIAN ===== IMPRESSION: ===== 1. ??Stable mammographic appearance with no new findings to suggest malignancy in either breast. Assessment: ACR BI-RADS 1 - NEGATIVE Recommendation: 1:Routine Screening Bilateral Comments: Ordered By: DAVID GARCES Interpreted By: Ira Kirk, 05/25/2024 11:29 AM Narrative 05/25/2024 11:31 AM BIOMASS TECHNICIAN [facility] [address] [place] [address] EXAMINATION: Digital bilateral screening mammogram with 3-D [...] t * BONE DENSITY/DEXA (05/25/2024 8:23 AM BIOMASS TECHNICIAN) Anatomical Region Laterality Modality Bone Mammography 05/25/2024 9:42 AM BIOMASS TECHNICIAN Impressions 05/25/2024 9:42 AM BIOMASS TECHNICIAN IMPRESSION: WHO Classification: Osteopenia. RECOMMENDATIONS: All patients [...] 05/25/2024 9:42 AM Narrative 05/25/2024 9:42 AM BIOMASS TECHNICIAN [facility] [address] [place] [address] EXAMINATION: BONE DENSITY/DEXA INDICATIONS: Asymptomatic menopausal state [...] Procedure Note Piero Mcgee MD - 05/25/2024 [facility] [address] [place] [address] EXAMINATION: BONE DENSITY/DEXA INDICATIONS: Asymptomatic menopausal state [...] Interpreted By: Piero Mcgee, 05/25/2024 9:42 AM David CHRISTINA Final Resul t documented in this encounter Visit Diagnoses Diagnosis Postmenopausal Asymptomatic postmenopausal status (age-related) (natural) Encounter for screening mammogram for malignant neoplasm of breast Other screening mammogram documented in this encounter Additional Health Concerns Assessment Noted Time PHQ-9 Depression Total Score: 0 08/28/19 24 9:10 AM CDT documented as of this encounter Care Teams Communications Consultant Relationship Specialty Start Date End Date David Garces APNP [address] [place] [address] PCP - General NURSE PRACTITIONER 10/03/18 documented as of this encounter
--- OUTSIDE RECORDS SUMMARY | 2024-06-21 08:55 | XMS_ITS | Encounter Summary ---
Author Organization [facility] Address [address] [place] [address]. [place] [address] [place] [address] Care Team Providers Care Biological Engineer Name Role Phone Mili Lise MCDOWELL Primary Care Provider [phone] Reason for Visit * Reason Comments Allergic Reaction Encounter Details Date Type Department Care Team (Latest Contact Info) Description 03/10/2023 3:10 PM CDT - 03/10/2023 4:01 PM CDT Hospital Encounter [facility] [address] [place] [address] Sakina Vazquez, HOLLEY [address] [place] [address] Allergic Reaction Discharge Disposition: Home or Self Care (Routine [...] Date Recorded Patient Health Questionnaire-2 Score 0 01/18/2023 Comments No Sex and Gender Information Value Date Recorded Sex Assigned at Female 05/21/2024 8:15 AM 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 Legal Sex Female 4:43 PM CDT Gender Identity Female 05/21/2024 8:15 AM 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 Sexual Orientation Not on file documented as of this encounter Last Filed Vital Signs Vital Sign Reading Time Taken Comments Blood Pressure 139/65 03/10/2023 3:14 PM CDT Pulse 88 03/10/2023 3:14 PM CDT Temperature 37.2 ??C (99 ??F) 03/10/2023 3:14 PM CDT Respiratory Rate 16 03/10/2023 3:14 PM CDT Oxygen Saturation 98% 03/10/2023 3:14 PM CDT Inhaled Oxygen Concentration - - Weight 90.7 kg (200 lb) 03/10/2023 3:14 PM CDT Height 175.3 cm (5' 9 ) 03/10/2023 3:14 PM CDT Body Mass Index 29.53 03/10/2023 3:14 PM CDT documented in this encounter Discharge Instructions * Discharge Instructions* HOLLEY Redding - 03/10/2023 3:44 PM CDT Stop the augmentin today. I would recommend taking something like pepcid or prilosec for stomach. * Attachments The following attachments cannot be sent through Care Everywhere. * Abdominal pain (Romansh) documented in this encounter Medications at Time of Discharge aspirin EC (ECOTRIN) 81 MG tablet Take 1 tablet (81 mg total) by mouth daily. hydroxychloroquine 200 MG tablet Take 2 tablets (400 mg total) by mouth daily. 04/03/2020 Loratadine (CLARITIN OR) Take by mouth daily. Probiotic Product (PROBIOTIC OR) Take 2 capsules by mouth daily. Brand name: provitalize. azithromycin (ZITHROMAX Z-PAULINE) 250 MG tablet 2 tablets today then 1 tab daily for the next 4 days 6 tablet 03/10/2023 3 benzonatate (TESSALON) 100 MG capsule Take 1 capsule (100 mg total) by mouth 3 (three) times daily as needed for Cough. 20 capsule 03/04/2023 3 losartan (COZAAR) 25 MG tabletIndications: Essential hypertension Take 1 tablet (25 mg total) by mouth daily. 90 tablet 3 01/18/2023 4 documented as of this encounter ED Notes * Sakina Vazquez, HOLLEY - 03/10/2023 4:01 PM CDTAssociated Order(s): EKG Reading Chief Complaint Chief Complaint Patient presents with Allergic Reaction History of Present Illness 57-year-old female into urgent care today for concern of having allergic response to her Augmentin.Patient has been on Augmentin for approximately. Over the past few days she has developed some chest pressure in her anterior chest right in the epigastric or sternal region. It does not radiate. Shestates that it feels more like a pressure. She has any nausea with it. She does feel like it is hard to get a big breath at times. She also has a new cough. Is a dry hacking cough. Denies any nausea or vomiting. Patient did state that she previously was on a probiotic and when she started taking the antibiotic she stopped the probiotic. Patient denies any diarrhea currently. Medical History ALLERGIES: Review of patient's allergies indicates: No Known Allergies MEDICATIONS: Prior to Admission medications Medication Sig Start Date End Date Taking? Authorizing Provider aspirin EC (ECOTRIN) 81 MG tablet Take 1 tablet (81 mg total) by mouth daily. Yes Doc [facility] azithromycin (ZITHROMAX Z-PAULINE) 250 MG tablet 2 tablets today then 1 tab daily for the next 4 days 03/10/23 03/15/23 Yes Sakina VazquezHOLLEY benzonatate (TESSALON) 100 MG capsule Take 1 capsule (100 mg total) by mouth 3 (three) times daily as needed for Cough. 03/04/23 03/11/23 Yes Denia Veliz, hydroxychloroquine 200 MG tablet Take 2 tablets (400 mg total) by mouth daily. 04/03/20 Yes Doc [facility] Loratadine (CLARITIN OR) Take by mouth daily. Yes Doc [facility] losartan (COZAAR) 25 MG tablet Take 1 tablet (25 mg total) by mouth daily. 01/18/23 Yes JULY Min Probiotic Product (PROBIOTIC OR) Take 2 capsules by mouth daily. Brand name: provitalize. Yes Doc [facility] PAST MEDICAL HISTORY: Past Medical History: Diagnosis Date Arthritis 11/2018 COVID-19 Heart murmur 01/1975 Hypertension Lupus ([facility]/HCC) ([facility]/H[facility]) PAST SURGICAL HISTORY: Past Surgical History: Procedure Laterality Date SECTION HC ABLATION UTERINE BALLOON TUBAL LIGATION 01/2000 FAMILY HISTORY: Family History Problem Relation Name Age of Onset Thyroid Mother HYPO Hypertension Father Brissa Mendoza Heart Disease Father Brissa Mendoza Heart Disease Maternal Grandmother Jordyn Saldaña Heart Disease Paternal Grandmother Miscarriages / Stillbirths Daughter Yury Eddy Diagnosis PCOS SOCIAL HISTORY: Social History Tobacco Use Smoking status: Never Passive exposure: Never Smokeless tobacco: Never Vaping Use Vaping Use: Never used Substance Use Topics Alcohol use: No Drug use: No Review of Systems Review of Systems Constitutional: Negative for chills, diaphoresis, fatigue and fever. HENT: Positive for sore throat. Negative for congestion, ear discharge, ear pain, mouth sores, postnasal drip, rhinorrhea, sinus pressure, sinus pain and tinnitus. Eyes: Negative for discharge and redness. Respiratory: Positive for cough. Negative for chest tightness, shortness of breath, wheezing and stridor. Cardiovascular: Negative for chest pain. Gastrointestinal: Negative for diarrhea, nausea and vomiting. Endocrine: Negative. Genitourinary: Negative. Musculoskeletal: Negative for arthralgias and myalgias. Skin: Negative for color change and rash. Neurological: Negative. Negative for dizziness, weakness, numbness and headaches. Psychiatric/Behavioral: Negative. Physical Exam Filed Vitals: 03/10/23 1514 BP: 139/65 Pulse: 88 Resp: 16 Temp: 99 ??F (37.2 ??C) TempSrc: Temporal SpO2: 98% Weight: 90.7 kg (200 lb) Height: 5' 9 (1.753 m) Physical Exam Vitals and nursing note reviewed. Constitutional: Appearance: Normal appearance. She is normal weight. HENT: Head: Normocephalic. Right Ear: Tympanic membrane, ear canal and external ear normal. Left Ear: Tympanic membrane, ear canal and external ear normal. Nose: Nose normal. Mouth/Throat: Mouth: Mucous membranes are moist. Cardiovascular: Rate and Rhythm: Normal rate and regular rhythm. Pulses: Normal pulses. Heart sounds: Normal heart sounds. Pulmonary: Effort: Pulmonary effort is normal. Breath sounds: Normal breath sounds. Abdominal: Tenderness: There is abdominal tenderness in the epigastric area. Comments: Tenderness epigastric extending upward. Skin: General: Skin is warm and dry. Capillary Refill: Capillary refill takes less than 2 seconds. Findings: No rash. Neurological: Mental Status: She is alert and oriented to person, place, and time. Psychiatric: Mood and Affect: Mood normal. Behavior: Behavior normal. Diagnostic Studies / Procedures ELECTROCARDIOGRAMS: Results for orders placed or performed during the hospital encounter of 03/10/[address] 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 IMAGING STUDIES No orders to display EKG Reading Date/Time: 03/10/2023 4:04 PM Performed by: HOLLEY Redding Authorized by: HOLLEY Redding Comparison: not compared with previous ECG Previous ECG: no previous ECG available Comments: Non Ischemic EKG. ED Course / Medical Decision Making Medical Decision Making 57-year-old female with history of hypertension currently on blood pressure medications. Well-controlled. Patient presenting for concern of reaction to Augmentin. Patient does have some reproducible pain in her epigastric region extending up to mid sternum. Otherwise exam unremarkable. Amount and/or Complexity of Data Reviewed Discussion of management or test interpretation with external provider(s): Patient had new onset ofcough in the past few days with this chest heaviness and epigastric discomfort. EKG was nonischemic. Patient did have some reproducible pain. Most likely patient has discomfort due to the Augmentin and the fact that she stopped her probiotics. She does diet denying any diarrhea. I did ask for COVIDtest as patient did have new cough that was dry. However patient declined to have it. She does not feel like she has COVID and she states she had before and she did not feel like this. Risk OTC drugs. Prescription drug management. Risk Details: Reviewed plan of care with patient to include diagnoses, Test results, medication andplan of care. Pt verbalized understanding. All questions answered. ED Course as of 03/10/23 1612 Sun Mar 10, 2023 1537 Pt with new onset of cough and chest heaviness, requested covid test , pt refused. [MB] ED Course User Index [MB] HOLLEY Redding Clinical Impression Epigastric abdominal pain (Primary) Cough Disposition: Discharge HOLLEY Redding 03/10/231611 Cosigned by Heather Arvizu MD at 03/20/2023 10:23 AM CDT * Sharon Manning RN - 03/10/2023 3:37 PM CDT Pt refuses COVID testing. 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 Pt states she has not taken Augmentin 875\mg previously and still is thinking she may be having an allergicreaction to Augmentin. Provider aware. * Sharon Manning RN - 03/10/2023 3:11 PM CDT Pt to with complaint of possible medicine reaction. Pt complains of heaviness in her chest and SOB for 2 days. Recently started taking Augmentin 03/04. Pt is being treated for Strep throat. Pt states she has developed dry cough in last 4 days. Pt states cough does not provoke chest pain. She cannot think of anything that provokes or relieves chest pain/SOB. documented in this encounter Plan of Treatment Not on file documented as of this encounter Procedures Procedure Name Priority Date/Time Associated Diagnosis Comments ELECTROCARDIOGRAM REPORT Routine 023 4:04 PM CDT ECG 12-LEAD STAT 03/10/2023 3:20 PM CDT documented in this encounter Results * EKG Reading (03/10/2023 4:04 PM CDT) Narrative Heather Arvizu MD - 03/10/2023 4:04 PM CDT HOLLEY Redding ? 03/10/2023 ??4:12 PM EKG Reading Date/Time: 03/10/2023 4:04 PM Performed by: HOLLEY Redding Authorized by: HOLLEY Redding Comparison: not compared with previous ECG Previous ECG: no previous ECG available Comments: Non Ischemic EKG. Sakina BABB MA [facility] Final Result * ECG 12 lead (03/10/2023 3:20 PM CDT) 03/10/2023 3:20 PM CDT Narrative [facility] LUIS MIGUEL - 03/12/2023 10:15 AM CDT ?[facility] ? [address] ? Test Date: ?2023-03-10 Pat Name: ? LUIS VAZQUEZ ?Department: ?? 41 ? Room: ? [facility] Gender: ? Female ? Automobile Spring Repairer: ?? [place] : ?1965 ? Requested By: SAKINA VAZQUEZ Order Number: [id number] ? Reading MD: ?? Alfredito Quiroga ? Measurements Intervals ?[place] ? Rate: ? 81 ? P: ?60 MA: ? 136 ?QRS: ?-26 QRSD: ? 107 ?T: ?57 QT: ? 346 ? QTc: ?403 ? 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 : 1965 Requested By: SAKINA VAZQUEZ Order Number: [id number] Reading MD: Alfredito Quiroga Measurements Intervals [place] Rate: 81 P: 60 MA: 136 QRS: -26 QRSD: 107 T: 57 QT: 346 QTc: 403 Interpretive Statements SINUS RHYTHM BORDERLINE LEFT AXIS DEVIATION [QRS AXIS < -20] INCOMPLETE RIGHT BUNDLE BRANCH BLOCK [90+ ms QRS DURATION, TERMINAL RIN V1/V2, 40+ ms S IN I/aVL/V4/V5/V6] Compared to ECG 08/16/2021 07:32:06 Left anterior fascicular block no longer present Myocardial infarct finding no longer present us Sakina Vazquez FINAL DRESSING CUTTER ECG ORDERABLES Final Re sult [facility] documented in this encounter Visit Diagnoses Diagnosis Epigastric abdominal pain- Primary Abdominal pain, epigastric Cough documented in this encounter Additional Health Concerns Infection Onset Date Last Indicated Resolved Time COVID-19 Rule Out 03/10/2023 03/10/2023 03/17/2023 12:32 AM CDT Assessment Noted Time PHQ-9 Depression Total Score: 3 01/03/20 22 9:20 AM CDT documented as of this encounter Care Teams Biological Engineer Relationship Specialty Start Date End Date Lise Garces APNP [address] [place] [id number] PCP - General NURSE PRACTITIONER 10/03/18 documented as of this encounter
--- OUTSIDE RECORDS SUMMARY | 2024-06-21 08:55 | XMS_ITS | Encounter Summary ---
Author Organization [facility] Address [address] [place] [address]. [place] [address] [place] [address] Care Team Providers Care Ruby Engineer Name Role Phone Mili Lise MCDOWELL Primary Care Provider [phone]- [phone] Reason for Visit * Reason Comments URI Encounter Details Date Type Department Care Team (Latest Contact Info) Description 03/04/2023 10:43 AM CDT - 03/04/2023 11:15 AM CDT Hospital Encounter [facility] [address] [place] [address] Denia Veliz, DO [address] [place] [address] URI Discharge Disposition: Home or Self Care (Routine [...] Sex Assigned at Female 05/21/2024 8:15 AM FERRULER Legal Sex Female 4:43 PM CDT Gender Identity Female 05/21/2024 8:15 AM FERRULER Sexual Orientation Not on file documented as of this encounter Last Filed Vital Signs Vital Sign Reading Time Taken Comments Blood Pressure 150/65 03/04/2023 10:47 AM CDT Pulse 100 03/04/2023 10:47 AM CDT Temperature 36.1 ??C (97 ??F) 03/04/2023 10:47 AM CDT Respiratory Rate 18 03/04/2023 10:47 AM CDT Oxygen Saturation 98% 03/04/2023 10:47 AM CDT Inhaled Oxygen Concentration - - Weight 92.5 kg (204 lb) 03/04/2023 10:47 AM CDT Height 175.3 cm (5' 9 ) 03/04/2023 10:47 AM CDT Body Mass Index 30.13 03/04/2023 10:47 AM CDT documented in this encounter Discharge Instructions * Discharge Instructions* Denia Veliz DO - 03/04/2023 11:09 AM CDT Please take the antibiotics as directed Recommend probiotics or yogurt with active cultures any time you take antibiotics Drink plenty of fluids and get adequate rest You can alternate Tylenol and Ibuprofen as needed for pain or fevers Please follow up with your primary care provider and return to urgent care for new or worsened symptoms * Attachments The following attachments cannot be sent through Care Everywhere. * Strep Throat Discharge Instructions ([place]) documented in this encounter Medications at Time of Discharge aspirin EC (ECOTRIN) 81 MG tablet Take 1 tablet (81 mg total) by mouth daily. hydroxychloroquine 200 MG tablet Take 2 tablets (400 mg total) by mouth daily. 04/03/2020 Loratadine (CLARITIN OR) Take by mouth daily. Probiotic Product (PROBIOTIC OR) Take 2 capsules by mouth daily. Brand name: provitalize. amoxicillin-clavul anate (AUGMENTIN) 875-125 MG tablet Take 1 tablet (875 mg total) by mouth 2 (two) times daily for 10 days. 20 tablet 03/04/2023 3 benzonatate (TESSALON) 100 MG capsule Take 1 capsule (100 mg total) by mouth 3 (three) times daily as needed for Cough. 20 capsule 03/04/2023 3 losartan (COZAAR) 25 MG tabletIndications: Essential hypertension Take 1 tablet (25 mg total) by mouth daily. 90 tablet 3 01/18/2023 4 documented as of this encounter ED Notes * Denia Veliz DO - 03/04/2023 11:01 AM CDT [facility] Urgent Care- [place], [place] HISTORICAL INFORMATION Primary Care Doctor: JULY Min Patient information was obtained primarily from the patient, nursing notes. History/Exam limitations: None Provider at Bedside Date/Time Event User Comments 03/04/23 1101 Provider at Bedside Assessing Patient DENIA VELIZ -- CHIEF COMPLAINT URI Chief Complaint Patient presents with URI HPI Shanika Vazquez is a 57-year-old female who presents with a ten day hx of congestion, drainage, sinuspressure/headaches, cough (particularly at night), and sore throat. 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 Has been taking allergy meds, Mucinex, and Flonase w/o s ignificant improvement in sxs ROS as per HPI PAST MEDICAL HISTORY Past Medical History: Diagnosis Date Arthritis 11/2018 COVID-19 Heart murmur 01/1975 Hypertension Lupus ([facility]/HCC) ([facility]/HCC) SURGICAL HISTORY Past Surgical History: Procedure Laterality Date SECTION HC ABLATION UTERINE BALLOON TUBAL LIGATION 01/2000 CURRENT MEDICATIONS No current facility-administered medications for this encounter. Current Outpatient Medications: amoxicillin-clavulanate (AUGMENTIN) 875-125 MG tablet, Take 1 tablet (875 mg total) by mouth 2 (two) times daily for 10 days., Disp: 20 tablet, Rfl: 0 benzonatate (TESSALON) 100 MG capsule, Take 1 capsule (100 mg total) by mouth 3 (three) times dailyas needed for Cough., Disp: 20 capsule, Rfl: 0 aspirin EC (ECOTRIN) 81 MG tablet, Take 1 tablet (81 mg total) by mouth daily., Disp: , Rfl: hydroxychloroquine 200 MG tablet, Take 2 tablets (400 mg total) by mouth daily., Disp: , Rfl: Loratadine (CLARITIN OR), Take by mouth daily., Disp: , Rfl: losartan (COZAAR) 25 MG tablet, Take 1 tablet (25 mg total) by mouth daily., Disp: 90 tablet, Rfl: 3 Probiotic Product (PROBIOTIC OR), Take 2 capsules by mouth daily. Brand name: provitalize., Disp: ,Rfl: ALLERGIES Review of patient's allergies indicates: No Known Allergies FAMILY HISTORY Family History Problem Relation Name Age of Onset Thyroid Mother HYPO Hypertension Father Brissa Mendoza Heart Disease Father Brissa Mendoza Heart Disease Maternal Grandmother Jordyn Saldaña Heart Disease Paternal Grandmother Miscarriages / Stillbirths Daughter Yury Eddy Diagnosis PCOS Family History of Heart Disease, Diabetes, Cancer Negative. SOCIAL HISTORY Social History Socioeconomic History Marital status: Tobacco Use Smoking status: Never Passive exposure: Never Smokeless tobacco: Never Vaping Use Vaping Use: Never used Substance and Sexual Activity Alcohol use: No Drug use: No Sexual activity: Yes Partners: Male control/protection: Post-menopausal , None Comment: only Review of Systems Constitutional: Negative for chills and fever. Respiratory: Positive for cough. Negative for shortness of breath. Gastrointestinal: Negative for abdominal pain, diarrhea, nausea and vomiting. Musculoskeletal: Negative for myalgias. Skin: Negative for rash. Psychiatric/Behavioral: Negative for depression and suicidal ideas. Physical Exam VITAL SIGNS: Filed Vitals: 03/04/23 1047 BP: (!) 150/65 Pulse: 100 Resp: 18 Temp: 97 ??F (36.1 ??C) TempSrc: Temporal SpO2: 98% Weight: 92.5 kg (204 lb) Height: 5' 9 (1.753 m) Physical Exam Vitals and nursing note reviewed. Constitutional: General: She is not in acute distress. Appearance: Normal appearance. She is normal weight. She is not ill-appearing, toxic-appearing or diaphoretic. HENT: Head: Normocephalic and atraumatic. Right Ear: Tympanic membrane, ear canal and external ear normal. There is no impacted cerumen. Left Ear: Tympanic membrane, ear canal and external ear normal. There is no impacted cerumen. Nose: Congestion present. No rhinorrhea. Comments: (+) erythematous, edematous nasal mucosa and turbinates BL Mouth/Throat: Mouth: Mucous membranes are moist. Pharynx: Oropharynx is clear. Posterior oropharyngeal erythema present. No oropharyngeal exudate. Comments: (+) post nasal drainage Eyes: General: No scleral icterus. Right eye: No discharge. Left eye: No discharge. Extraocular Movements: Extraocular movements intact. Conjunctiva/sclera: Conjunctivae normal. Pupils: Pupils are equal, round, and reactive to light. Cardiovascular: Rate and Rhythm: Normal rate and regular rhythm. Heart sounds: Normal heart sounds. No murmur heard. No gallop. Pulmonary: Effort: Pulmonary effort is normal. No respiratory distress. Breath sounds: Normal breath sounds. No stridor. No wheezing, rhonchi or rales. Musculoskeletal: General: No deformity. Normal range of motion. Cervical back: Normal range of motion and neck supple. No rigidity or tenderness. Lymphadenopathy: Cervical: No cervical adenopathy. Skin: General: Skin is warm and dry. Coloration: Skin is not jaundiced. Neurological: General: No focal deficit present. Mental Status: She is alert. Mental status is at baseline. Gait: Gait normal. Psychiatric: Mood and Affect: Mood normal. Behavior: Behavior normal. Thought Content: Thought content normal. Judgment: Judgment normal. EKG (interpreted by ED provider) No results found for this visit on 03/04/23. LABORATORY Labs Reviewed RAPID STREP A - Abnormal; Notable for the following components: Result Value RAPID STREP TEST POSITIVE (*) All other components within normal limits RADIOLOGY No orders to display PROCEDURES Procedures MDM Pt with HTN, SLE (immunosuppressed on Plaquenil), and allergic rhinitis presenting with a ten day Hx of URI sxs. Pulm exam clear, low suspicion for PNA so CXR not done. Flu/COVID swabs not obtained as would not changer fixer given duration of sxs. Strep swab pos (precautions discussed) but willbroaden coverage to Augmentin to cover concomitant bacterial sinusitis, to which she is agreeable. I have discussed today's findings with the patient and provided information regarding the likely diagnosis. The patient has been given information regarding their treatment, follow up and concerning symptoms for which they should seek urgent or emergent attention. I have expressed the the importance of seeking attention should there be any new, or worsening symptoms or persistence of their condition. The patient is stable at discharge and has verbalized understanding of these instructions. Impression/Disposition SNOMED CT(R) 1. Bacterial sinusitis BACTERIAL SINUSITIS 2. Strep pharyngitis STREPTOCOCCAL SORE THROAT Disposition: Discharge Medications - No data to display Current Discharge Medication List START taking these medications Details amoxicillin-clavulanate (AUGMENTIN) 875-125 MG tablet Take 1 tablet (875 mg total) by mouth 2 (two)times daily for 10 days. Qty: 20 tablet, Refills: 0 Class: Eprescribe Pharmacy: [facility] #[id number] [place] [address] [place] [address] (Ph #: [phone]) benzonatate (TESSALON) 100 MG capsule Take 1 capsule (100 mg total) by mouth 3 (three) times daily as needed for Cough. Qty: 20 capsule, Refills: 0 Class: Eprescribe Pharmacy: [facility] [address] [place] [address] [address] [facility] [place] [address] (Ph #: [phone]) DO Denia PAYAN DO 03/04/23 1109 * Maria Eugenia Dickey RN - 03/04/2023 10:46 AM CDT Reports 10 day hx of sinus congestion with post nasal drip. Reports increased sore throat with hoarseness upon waking this am. Denies fevers. documented in this encounter Plan of Treatment Not on file documented as of this encounter Procedures Procedure Name Priority Date/Time Associated Diagnosis Comments RAPID STREP A STAT 03/04/2023 10:51 AM CDT documented in this encounter Results * (ABNORMAL) RAPID STREP A (03/04/2023 10:51 AM CDT) SPECIMEN TYPE THROAT 03/04/2023 10:51 AM CDT [facility] CONVENIENT CARE RAPID STREP TEST POSITIVE(A ) NEGATIVE 03/04/2023 11:00 AM CDT [facility] CARE STRUCTURE OF ANTERIOR PORTION OF NECK / Unknown 03/04/2023 10:51 AM CDT us Denia Veliz DO MICROBIOLOGY - GENERAL ORDERA BLES Final Result [address] [address], documented in this encounter Visit Diagnoses Diagnosis Bacterial sinusitis- Primary Unspecified sinusitis (chronic) Strep pharyngitis Streptococcal sore throat documented in this encounter Additional Health Concerns Assessment Noted Time PHQ-9 Depression Total Score: 3 01/03/20 22 9:20 AM CDT documented as of this encounter Care Teams Ruby Engineer Relationship Specialty Start Date End Date Lise Garces APNP [address] [place] [id number] PCP - General NURSE PRACTITIONER 10/03/18 documented as of this encounter
--- OUTSIDE RECORDS SUMMARY | 2024-06-21 08:55 | XMS_ITS | Encounter Summary ---
Author Organization [facility] Address [address] [place] [address]. [place], [place] [id number] [place] [address] Care Team Providers Care Esthetician Permanent Makeup Artist Name Role Phone Lise Garces Primary Care Provider [phone]- [phone] Encounter Details Date Type Department Care Team (Latest Contact Info) Description 07/30/2022 Travel Social History Tobacco Use Types Packs/Day [...] on file 09/09 PHQ-2 Answer Date Recorded PHQ-2 Score - If the patient scores above 3, please move on to questions 3-9 0 01/02/2022 Comments No Sex and Gender Information Value Date Recorded Sex Assigned at Female 05/21/2024 8:15 AM RABBIT FANCIER Legal Sex Female 4:43 PM CDT Gender Identity Female 05/21/2024 8:15 AM RABBIT FANCIER Sexual Orientation Not on file COVID-19 Exposure Response Date Recorded In the last 10 days, have yo u been in contact with someone who was confirmed or suspected to have Coronavirus/COVID-19? Unable to assess 07/30/2022 8:46 AM RABBIT FANCIER documented as of this encounter Plan of Treatment Not on file documented as of this encounter Visit Diagnoses Not on filedocumented in this encounter Additional Health Concerns Assessment Noted Time PHQ-9 Depression Total Score: 3 01/03/20 22 9:20 AM CDT documented as of this encounter Care Teams Esthetician Permanent Makeup Artist Relationship Specialty Start Date End Date Lise Garces APNP [address] [place] [id number] PCP - General NURSE PRACTITIONER 10/03/18 documented as of this encounter
--- OUTSIDE RECORDS SUMMARY | 2024-06-21 08:55 | XMS_ITS | Encounter Summary ---
Author Organization [facility] Address [address] [place] [address]. [place] [address] [place] [address] Care Team Providers Care Flower Grader Name Role Phone Lise Garces Primary Care Provider [phone]- [phone] Reason for Visit * Reason Onset Date Comments Lab Results 02/22/2023 Encounter Details Date Type Department Care Team (Late st Contact Info) Description 02/22/2023 Telephone [facility] [address] [place] [address] Lise Garces APNP [address] [place], [place] [id number] Lab Results Social History Tobacco Use Types [...] Sex Assigned at Female 05/21/2024 8:15 AM TANK TERMINAL GAUGER Legal Sex Female 4:43 PM CDT Gender Identity Female 05/21/2024 8:15 AM TANK TERMINAL GAUGER Sexual Orientation Not on file documented as of this encounter Progress Notes * Pallavi Chappell MA - 02/22/2023 12:52 PM CDT Maddit message sent to pt. * Pallavi Chappell MA - 02/22/2023 12:48 PM CDT ----- Message from JULY Min sent at 02/01/2023 1:00 PM CDT ----- Let patient know that her white blood cell count has dipped down just below normal. Not a big concern at this time but I would like to recheck a CBC in about 2 months. Lipids are stable. Vitamin D is low. Would like for her to increase her daily vitamin D3 dose by 1 to 2000 IUs once daily. documented in this encounter Plan of Treatment Not on file documented as of this encounter Visit Diagnoses Not on filedocumented in this encounter Additional Health Concerns Assessment Noted Time PHQ-9 Depression Total Score: 3 01/03/20 22 9:20 AM CDT documented as of this encounter Care Teams Flower Grader Relationship Specialty Start Date End Date Lise Garces APNP [address] [place] [id number] PCP - General NURSE PRACTITIONER 10/03/18 documented as of this encounter
--- OUTSIDE RECORDS SUMMARY | 2024-06-21 08:55 | XMS_ITS | Encounter Summary ---
Author Organization [facility] Address [address] [place] [address]. [place] [address] [place] [address] Care Team Providers Care Plastic Dolls Mold Filler Name Role Phone Mili Lise MCDOWELL Primary Care Provider [phone]- [phone] Reason for Visit * Reason Comments URI Encounter Details Date Type Department Care Team (Latest Contact Info) Description 08/01/2023 4:48 PM MERCHANDISE CARRIER - 08/01/2023 5:46 PM MERCHANDISE CARRIER Hospital Encounter [facility] Care [address] [place] [address] [place] [address] Denia Veliz, DO [address] [place] [address] URI Discharge Disposition: Home or Self [...] Sex Assigned at Female 05/21/2024 8:15 AM MERCHANDISE CARRIER Legal Sex Female 4:43 PM CDT Gender Identity Female 05/21/2024 8:15 AM MERCHANDISE CARRIER Sexual Orientation Not on file documented as of this encounter Last Filed Vital Signs Vital Sign Reading Time Taken Comments Blood Pressure 123/66 08/01/2023 4:54 PM MERCHANDISE CARRIER Pulse 86 08/01/2023 4:54 PM MERCHANDISE CARRIER Temperature 37.4 ??C (99.4 ??F) 08/01/2023 4:54 PM CS T Respiratory Rate 18 08/01/2023 4:54 PM MERCHANDISE CARRIER Oxygen Saturation 98% 08/01/2023 4:54 PM MERCHANDISE CARRIER Inhaled Oxygen Concentration - - Weight 93 kg (205 lb) 08/01/2023 4:54 PM MERCHANDISE CARRIER Height 175.3 cm (5' 9 ) 08/01/2023 4:54 PM MERCHANDISE CARRIER Body Mass Index 30.27 08/01/2023 4:54 PM MERCHANDISE CARRIER documented in this encounter Discharge Instructions * Discharge Instructions* Denia Veliz DO - 08/01/2023 5:44 PM MERCHANDISE CARRIER Please take the antibiotics as directed Recommend probiotics or yogurt with active cultures any time you take antibiotics Drink plenty of fluids and get adequate rest Please follow up with your primary care provider and return to urgent care for new or worsened symptoms HANDISE CARRIER HANDISE CARRIER * Attachments The following attachments cannot be sent through Care Everywhere. * Strep Throat Discharge Instructions (Maori) documented in this encounter Medications at Time of Discharge aspirin EC (ECOTRIN) 81 MG tablet Take 1 tablet (81 mg total) by mouth daily. hydroxychloroquine 200 MG tablet Take 2 tablets (400 mg total) by mouth daily. 04/03/2020 Loratadine (CLARITIN OR) Take by mouth daily. Probiotic Product (PROBIOTIC OR) Take 2 capsules by mouth daily. Brand name: provitalize. amoxicillin (AMOXIL) 500 MG capsule Take 1 capsule (500 mg total) by mouth 2 (two) times daily for 10 days. 20 capsule 08/01/2023 4 benzonatate (TESSALON) 100 MG capsule Take 1 capsule (100 mg total) by mouth 3 (three) times daily as needed for Cough. 20 capsule 08/01/2023 4 losartan (COZAAR) 25 MG tabletIndications: Essential hypertension Take 1 tablet (25 mg total) by mouth daily. 90 tablet 3 01/18/2023 4 documented as of this encounter ED Notes * Denia Veliz, DO - 08/01/2023 5:11 PM CST [facility] Urgent Care- [place], [place] HISTORICAL INFORMATION Primary Care Doctor: JULY Min Patient information was obtained primarily from the patient, nursing notes. History/Exam limitations: None Provider at Bedside None CHIEF COMPLAINT URI Chief Complaint Patient presents with URI HPI Shanika Vazquez is a 58-year-old female who presents with a two week Hx of sore throat, congestion, Lsided otalgia, and cough. 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 Has tried OTC Tx w/o relief ROS as per HPI PAST MEDICAL HISTORY Past Medical History: Diagnosis Date Arthritis 11/2018 COVID-19 Heart murmur 01/1975 Hypertension Lupus ([facility]/HCC) (CMS/HCC) SURGICAL HISTORY Past Surgical History: Procedure Laterality Date SECTION HC ABLATION UTERINE BALLOON TUBAL LIGATION 01/2000 CURRENT MEDICATIONS No current facility-administered medications for this encounter. Current Outpatient Medications: amoxicillin (AMOXIL) 500 MG capsule, Take 1 capsule (500 mg total) by mouth 2 (two) times daily for10 days., Disp: 20 capsule, Rfl: 0 benzonatate (TESSALON) 100 MG capsule, [...] only Review of Systems Constitutional: Negative for fever. HENT: Positive for congestion, ear pain and sore throat. Respiratory: Positive for cough. Gastrointestinal: Negative for abdominal pain, diarrhea, nausea and vomiting. Physical Exam VITAL SIGNS: Filed Vitals: 08/01/23 1654 BP: 123/66 Pulse: 86 Resp: 18 Temp: 99.4 ??F (37.4 ??C) TempSrc: Temporal SpO2: 98% Weight: 93 kg (205 lb) Height: 1.753 m (5' 9 ) Physical Exam Vitals and nursing note reviewed. [...] impacted cerumen. Nose: Congestion present. No rhinorrhea. Mouth/Throat: Mouth: Mucous membranes are moist. Pharynx: Oropharynx is clear. Posterior oropharyngeal erythema (1+ tonsillar hypertrophy BL, uvula midline) present. No oropharyngeal exudate. Eyes: General: No scleral icterus. Right eye: No discharge. Left eye: No discharge. Extraocular Movements: Extraocular movements intact. Conjunctiva/sclera: Conjunctivae normal. Pupils: Pupils are equal, round, and reactive to light. Cardiovascular: Rate and Rhythm: Normal rate and regular rhythm. Heart sounds: Murmur heard. No gallop. Pulmonary: Effort: Pulmonary effort [...] No results found for this visit on 08/01/23. LABORATORY Labs Reviewed RAPID STREP A - Abnormal; Notable for the following components: Result Value RAPID STREP TEST POSITIVE (*) All other components within normal limits INFLUENZA A & B RADIOLOGY No orders to display PROCEDURES Procedures MDM Pt with Hx of HTN, arthritis, heart murmur, SLE, and high risk med use (immunosuppressed on Plaquenil) presenting today with a two week Hx of URI sxs. Maintaining airway, symmetric oropharyngeal exam, uvula midline. Low suspicion for Duane's angina or peritonsillar abscess. Flu swab neg. COVID swab not done as would not exchange underwriting consultant given duraiton of sxs. Pulmonary exam clear and VSS. Low suspicion for pneumonia so chest Xray not ordered (Offered and she declines). Strep swab pos - will Rx for Amox, Strep precautions discussed. I have discussed today's findings with the [...] of these instructions. Impression/Disposition SNOMED CT(R) 1. Strep pharyngitis STREPTOCOCCAL SORE THROAT 2. Cough COUGH Disposition: Discharge Medications - No data to display Current Discharge Medication List START taking these medications Details amoxicillin (AMOXIL) 500 MG capsule Take 1 capsule (500 mg total) by mouth 2 (two) times daily for 10 days. Qty: 20 capsule, Refills: 0 Class: Eprescribe [id number] - [place], [place] - [address] [place] [address] RD AT [facility] [address] (Ph #: [phone]) benzonatate (TESSALON) 100 MG capsule Take 1 capsule (100 mg total) by mouth 3 (three) times daily as needed for Cough. Qty: 20 capsule, Refills: 0 Class: Eprescribe [id number] AT [facility] [address] (Ph #: [phone]) DO Denia PAYAN DO 08/01/23 1745 HANDISE CARRIER * Arleth Marcum RN - 08/01/2023 4:54 PM CST Pt to cc with c/o sinus pressure headache and earache intermittently x two weeks. Pt took OTC products with some relief. Recent strep exposure. HANDISE CARRIER documented in this encounter Plan of Treatment Not on file documented as of this encounter Procedures Procedure Name Priority Date/Time Associated Diagnosis Comments RAPID STREP A STAT 08/01/2023 4:57 PM MERCHANDISE CARRIER INFLUENZA A & B STAT 08/01/2023 4:57 PM MERCHANDISE CARRIER documented in this encounter Results * INFLUENZA A & B (08/01/2023 4:57 PM MERCHANDISE CARRIER) SPECIMEN TYPE NASOPHARYNGEAL SWAB 08/01/2023 5:[address] [facility] INFLUENZA A NEGATIVE NEGATIVE 08/01/2023 5:19 PM MERCHANDISE CARRIER [facility] INFLUENZA B NEGATIVE NEGATIVE 08/01/2023 5:[address] [facility] Comment: Interpretation: Negative for Influenza A and B. A negative result does not exclude influenza virus infection. If influenza is circulating in your community, a diagnosis of influenza should be considered based on a patient's clinical presentation and empiric antiviral treatment should be considered, if indicated. If more conclusive testing is needed for hospitalized inpatients, follow-up confirmatory testing with RT-PCR requires a separate order. NASOPHARYNGEAL SWAB / Unknown 08/01/2023 4:57 PM MERCHANDISE CARRIER Denia Veliz DO MICROBIOLOGY - GENERAL ORDERA BLES Final Result Performing Organization Address City/[facility]/ZIP Co de Phone Number [facility] [address] [place] [address], * (ABNORMAL) RAPID STREP A (08/01/2023 4:57 PM MERCHANDISE CARRIER) SPECIMEN TYPE THROAT 08/01/2023 4:58 PM MERCHANDISE CARRIER [facility] RAPID STREP TEST POSITIVE(A ) NEGATIVE 08/01/2023 5:05 PM MERCHANDISE CARRIER [facility] STRUCTURE OF ANTERIOR PORTION OF NECK / Unknown 08/01/2023 4:57 PM MERCHANDISE CARRIER Denia Veliz DO MICROBIOLOGY - GENERAL ORDERA BLES Final Result Performing Organization Address [facility] [place] [address], documented in this encounter Visit Diagnoses Diagnosis Strep pharyngitis- Primary Streptococcal sore throat Cough documented in this encounter Additional Health Concerns Assessment Noted Time PHQ-9 Depression Total Score: 3 01/03/20 22 9:20 AM CDT documented as of this encounter Care Teams Plastic Dolls Mold Filler Relationship Specialty Start Date End Date Lise Garces APNP [address] [place] [address] PCP - General NURSE PRACTITIONER 10/03/18 documented as of this encounter
--- OUTSIDE RECORDS SUMMARY | 2024-06-21 08:55 | XMS_ITS | Encounter Summary ---
Author Organization [facility] Address [address] [place] [address]. [place], [place] [address] [place] [address] Care Team Providers Care Adjunct Mathematics Instructor Name Role Phone Lise Garces Primary Care Provider [phone]- [phone] Encounter Details Date Type Department Care Team (Latest Contact Info) Description 01/18/2023 Travel Social History Tobacco Use Types Packs/Day [...] Sex Assigned at Female 05/21/2024 8:15 AM STRATEGIC PARTNERSHIP SPECIALIST Legal Sex Female 4:43 PM CDT Gender Identity Female 05/21/2024 8:15 AM STRATEGIC PARTNERSHIP SPECIALIST Sexual Orientation Not on file documented as of this encounter Plan of Treatment Not on file documented as of this encounter Visit Diagnoses Not on filedocumented in this encounter Additional Health Concerns Assessment Noted Time PHQ-9 Depression Total Score: 3 01/03/20 22 9:20 AM CDT documented as of this encounter Care Teams Adjunct Mathematics Instructor Relationship Specialty Start Date End Date Lise Garces APNP [address] [place] [address] PCP - General NURSE PRACTITIONER 10/03/18 documented as of this encounter
--- OUTSIDE RECORDS SUMMARY | 2024-06-21 08:55 | XMS_ITS | Encounter Summary ---
Author Organization [facility] Address [address] [place] [address]. [place], [place] [address] [place] [address] Care Team Providers Care Orange Grower Name Role Phone Lise Garces Primary Care Provider [phone]- [phone] Encounter Details Date Type Department Care Team (Latest Contact Info) Description 09/03/2023 Travel Social History Tobacco Use Types Packs/Day [...] Date Recorded Patient Health Questionnaire-2 Score 0 08/28/2023 Comments No Sex and Gender Information Value Date Recorded Sex Assigned at Female 05/21/2024 8:15 AM VARITYPE OPERATOR Legal Sex Female 4:43 PM CDT Gender Identity Female 05/21/2024 8:15 AM VARITYPE OPERATOR Sexual Orientation Not on file documented as of this encounter Plan of Treatment Not on file documented as of this encounter Visit Diagnoses Not on filedocumented in this encounter Additional Health Concerns Infection Onset Date Last Indicated Resolved Time Influenza - Seasonal 08/28/2023 08/28/2023 024 12:32 AM CDT Assessment Noted Time PHQ-9 Depression Total Score: 0 08/28/19 24 9:10 AM CDT documented as of this encounter Care Teams Orange Grower Relationship Specialty Start Date End Date Lise Garces APNP [address] [place] [id number] PCP - General NURSE PRACTITIONER 10/03/18 documented as of this encounter
--- OUTSIDE RECORDS SUMMARY | 2024-06-21 08:55 | XMS_ITS | Encounter Summary ---
Author Organization [facility] Address [address] [place] [address]. [place] [address] [place] [address] Care Team Providers Care Portable Feed Mill Operator Name Role Phone David Garces Primary Care Provider [phone]- [phone] Reason for Visit * Reason Onset Date Comments Medication Request 01/08/2023 Encounter Details Date Type Department Care Team (Late st Contact Info) Description 01/08/2023 Telephone [facility] Family & Internal Medicine [facility] [address] [place] [address] David Garces APNP [address] [place], [place] [id number] Medication Request Social History Tobacco Use Types Packs/Day Years [...] Sex Assigned at Female 05/21/2024 8:15 AM MULTILITH OPERATOR Legal Sex Female 4:43 PM CDT Gender Identity Female 05/21/2024 8:15 AM MULTILITH OPERATOR Sexual Orientation Not on file documented as of this encounter Progress Notes * Pallavi Chappell MA - 01/09/2023 8:39 AM CDT Patient was notified last time this was sent that she needed to be seen for any further refills. There is still no upcoming appt scheduled. I am sending 30 day supply with duplicate instruction that she needs to be seen for further refills. Sending letter in mail as well. * Chasity Luevano - 01/08/2023 7:16 AM CDT Refill request received from Patient losartan (COZAAR) 25 MG tablet Last visit with DAVID GARCES in [facility] was on: 01/02/2022 in [facility] No future appointments. [id number] - [place], [place] - [address] [facility] [address] [facility] & [facility] [address] [facility] [phone] documented in this encounter Plan of Treatment Not on file documented as of this encounter Visit Diagnoses Diagnosis Essential hypertension Unspecified essential hypertension documented in this encounter Additional Health Concerns Assessment Noted Time PHQ-9 Depression Total Score: 3 01/03/20 22 9:20 AM CDT documented as of this encounter Care Teams Portable Feed Mill Operator Relationship Specialty Start Date End Date David Garces APNP [address] [place] [address] PCP - General NURSE PRACTITIONER 10/03/18 documented as of this encounter
--- OUTSIDE RECORDS SUMMARY | 2024-06-21 08:55 | XMS_ITS | Encounter Summary ---
Author Organization [facility] Address [address] [place] [address]. [place], [place] [address] [place] [address] Care Team Providers Care Mathematics Technician Name Role Phone Lise Garces Primary Care Provider +1- [phone] Encounter Details Date Type Department Care Team (Latest Contact Info) Description 08/01/2023 Travel Social History Tobacco Use Types Packs/Day [...] Sex Assigned at Female 05/21/2024 8:15 AM CHAIN TENDER Legal Sex Female 4:43 PM CDT Gender Identity Female 05/21/2024 8:15 AM CHAIN TENDER Sexual Orientation Not on file documented as of this encounter Plan of Treatment Not on file documented as of this encounter Visit Diagnoses Not on filedocumented in this encounter Additional Health Concerns Assessment Noted Time PHQ-9 Depression Total Score: 3 01/03/20 22 9:20 AM CDT documented as of this encounter Care Teams Mathematics Technician Relationship Specialty Start Date End Date Lise Garces APNP [address] [place] [address] PCP - General NURSE PRACTITIONER 10/03/18 documented as of this encounter
--- OUTSIDE RECORDS SUMMARY | 2024-06-21 08:55 | XMS_ITS | Encounter Summary ---
Author Organization [facility] Address [address] [place] [address]. [place] [address] [place] [address] Care Team Providers Care Civil Litigation Attorney Name Role Phone Lise Garces Primary Care Provider [phone] Reason for Visit * Reason Comments Physical Encounter Details Date Type Department Care Team (Late st Contact Info) Description 01/18/2023 8:00 AM CDT Office Visit [facility] Family & Internal Medicine [id number] [place] [address] Lise Garces APNP [facility] [place] [address] Physical Social History Tobacco Use Types Packs/Day Years [...] Sex Assigned at Female 05/21/2024 8:15 AM DRESSED POULTRY GRADER Legal Sex Female 4:43 PM CDT Gender Identity Female 05/21/2024 8:15 AM DRESSED POULTRY GRADER Sexual Orientation Not on file documented as of this encounter Last Filed Vital Signs Vital Sign Reading Time Taken Comments Blood Pressure 124/70 01/18/2023 8:09 AM CDT Pulse 93 01/18/2023 8:09 AM CDT Temperature 36.6 ??C (97.9 ??F) 01/18/2023 8:09 AM CD T Respiratory Rate 16 01/18/2023 8:09 AM CDT Oxygen Saturation 95% 01/18/2023 8:09 AM CDT Inhaled Oxygen Concentration - - Weight 92.9 kg (204 lb 12.8 oz) 01/18/2023 8:09 AM CDT Height 175.3 cm (5' 9 ) 01/18/2023 8:09 AM CDT Body Mass Index 30.24 01/18/2023 8:09 AM CDT documented in this encounter Progress Notes * JULY Min - 01/18/2023 8:00 AM CDT Images from the original note were not included. [facility] FAMILY AND INTERNAL MEDICINE OFFICE VISIT Reason for Visit: Physical History of Present Illness: The patient is being seen for a health maintenance evaluation. General Health: good Dental Health: Sees dentist regularly Vision Health: eye exam UTD Hearing Health: No hearing problems Immunizations Needed: Zoster Weight: Body mass index is 30.2 kg/m??. Physical Activity: Excersises regularly Cervical Cancer Screening: UTD She is not on any hormone therapy. Breast Cancer Screening: Ordered today. Last mammo was done in 2021---no abnormals in past Colorectal Cancer Screening: Cologuard done in 2020--negative Metabolic Screening: Patient needs to be screened today. PHQ-9 Screening Score: 0 Smoking Status: Smoking status: Never Smoker Smokeless tobacco: Never Used Chronic health conditions: HTN - takes losartan. Tolerates well. BP controlled. Denies any CP, SOB, CASIANO, dizziness, heart palpitations or lower ext edema. HLD - not currently on meds Vit D def--due to have checked, takes OTC Vit D ROS: Review of Systems Constitutional: Negative for chills, fever, malaise/fatigue and weight loss. HENT: Negative for congestion, ear pain, sinus pain and sore throat. Eyes: Negative for blurred vision and double vision. Respiratory: Negative for cough, shortness of breath and wheezing. Cardiovascular: Negative for chest pain, palpitations and leg swelling. Gastrointestinal: Negative for abdominal pain, constipation, diarrhea, heartburn, nausea and vomiting. Genitourinary: Negative for dysuria, frequency and urgency. Musculoskeletal: Negative for back pain, falls, joint pain and myalgias. Neurological: Negative for dizziness, speech change, loss of consciousness, weakness and headaches. Psychiatric/Behavioral: Negative for depression and suicidal ideas. Medications: Current Outpatient Medications: aspirin EC (ECOTRIN) 81 MG tablet, Take [...] mouth daily. Brand name: provitalize., Disp: ,Rfl: Allergies: Review of patient's allergies indicates: No Known Allergies Medical History: Past Medical History: Diagnosis Date Arthritis 11/2018 COVID-19 Heart murmur 01/1975 Hypertension Lupus ([facility]/HCC) ([facility]) Surgical History: Past Surgical History: Procedure Laterality Date SECTION HC ABLATION UTERINE BALLOON TUBAL LIGATION 01/2000 Social History: Social History Socioeconomic History Marital status: Tobacco Use Smoking status: Never Passive exposure: Never Smokeless tobacco: Never Vaping Use Vaping Use: Never used Substance and Sexual Activity Alcohol use: No Drug use: No Sexual activity: Yes Partners: Male control/protection: Post-menopausal , None Comment: only Family History: Family History Problem Relation Name Age of Onset Thyroid Mother HYPO Hypertension Father Brissa Mendoza Heart Disease Father Brissa Mendoza Heart Disease Maternal Grandmother Jordyn Saldaña Heart Disease Paternal Grandmother Miscarriages / Stillbirths Daughter Yury Eddy Diagnosis PCOS PE: Physical Exam Vitals and nursing note reviewed. HENT: Head: Atraumatic. Right Ear: Tympanic membrane normal. Left Ear: Tympanic membrane normal. Eyes: General: No scleral icterus. Extraocular Movements: Extraocular movements intact. Conjunctiva/sclera: Conjunctivae normal. Pupils: Pupils are equal, round, and reactive to light. Neck: Thyroid: No thyromegaly. Vascular: No JVD. Trachea: No tracheal deviation. Cardiovascular: Rate and Rhythm: Normal rate and regular rhythm. Heart sounds: No murmur heard. No friction rub. No gallop. Pulmonary: Effort: Pulmonary effort is normal. No respiratory distress. Breath sounds: Normal breath sounds. No wheezing or rales. Chest: Chest wall: No tenderness. Abdominal: General: Bowel sounds are normal. There is no distension. Palpations: Abdomen is soft. There is no mass. Tenderness: There is no abdominal tenderness. There is no guarding or rebound. Musculoskeletal: General: No tenderness. Normal range of motion. Cervical back: Normal range of motion and neck supple. Lymphadenopathy: Cervical: No cervical adenopathy. Skin: General: Skin is warm and dry. Coloration: Skin is not pale. Findings: No erythema or rash. Neurological: Mental Status: She is alert and oriented to person, place, and time. Gait: Gait is intact. Deep Tendon Reflexes: Reflexes are normal and symmetric. Psychiatric: Mood and Affect: Mood and affect normal. Filed Vitals: 01/18/23 0809 BP: 124/70 Pulse: 93 Resp: 16 Temp: 97.9 ??F (36.6 ??C) TempSrc: Skin SpO2: 95% Weight: 92.9 kg (204 lb 12.8 oz) Height: 5' 9 (1.753 m) Labs: Labs Reviewed Diagnoses/Impression: 1. General medical examination CBC W/DIFF AUTOMATED LIPID PANEL TSH W/REFLEX URINALYSIS WI REFLEX TO CULTURE COMPREHENSIVE METABOLIC PANEL 2. Encounter for screening mammogram for malignant neoplasm of breast MG SCREENING MILLY DIGI 3. Vitamin D deficiency VITAMIN D, 25 OH 4. Mixed hyperlipidemia LIPID PANEL TSH W/REFLEX 5. Essential hypertension Chronic losartan (COZAAR) 25 MG tablet Recommendations and Plan: 1. Encounter for screening mammogram for malignant neoplasm of breast - MG SCREENING MILLY DIGI; Future 2. General medical examination - CBC W/DIFF AUTOMATED; Future - LIPID PANEL; Future - TSH W/REFLEX; Future - URINALYSIS WI REFLEX TO CULTURE; Future - COMPREHENSIVE METABOLIC PANEL; Future - CBC W/DIFF AUTOMATED - LIPID PANEL - TSH W/REFLEX - URINALYSIS WI REFLEX TO CULTURE - COMPREHENSIVE METABOLIC PANEL Doing well. Will continue to discuss breast cancer screening and screen per patient preference and guidelines. Self-breast exams are a level D recommendation by the USPSTF. Follow up with PCM if any abnormalities are noted. Mammograms should continue annually. Reviewed with the patient BMI, blood pr essure, diet, exercise, and encouraged healthy lifestyle choices. I recommended weight-bearing exercise to decrease risks of osteoporosis. Screened for substance use, risk factors for STIs, diet and exercise habits, and symptoms of depression. Colon screening starting at 45. Recommended preventive immunizations according to age. 3. Vitamin D deficiency - VITAMIN D, 25 OH; Future - VITAMIN D, 25 OH 4. Mixed hyperlipidemia - LIPID PANEL; Future - TSH W/REFLEX; Future - LIPID PANEL - TSH W/REFLEX More plan after results 5. Essential hypertension - losartan (COZAAR) 25 MG tablet; Take 1 tablet (25 mg total) by mouth daily. Dispense: 90 tablet; Refill: 3 Stable. Continue meds Orders Placed This Encounter CBC W/DIFF AUTOMATED LIPID PANEL TSH W/REFLEX VITAMIN D, 25 OH URINALYSIS WI REFLEX TO CULTURE COMPREHENSIVE METABOLIC PANEL MG SCREENING MILLY DIGI losartan (COZAAR) 25 MG tablet Cannot display discharge medications since this is not an admission. PCP: JULY Min 01/18/2023 documented in this encounter Plan of Treatment Scheduled Orders Name Type Priority Associated Diagnoses Orde r Schedule VITAMIN D, 25 OH Lab Routine Vitamin D deficiency Expected: 01/18/2023, Expires: 01/19/2024 URINALYSIS WI REFLEX TO CULTURE Lab Routine General medical examination Expected: 01/18/2023, Expires: 01/19/2024 documented as of this encounter Procedures Procedure Name Priority Date/Time Associated Diagnosis Comments URINALYSIS WI REFLEX TO CULTURE Routine 01/26/2023 7:31 AM CDT TSH W/REFLEX Routine 01/26/2023 7:31 AM CDT General medical examination Mixed hyperlipidemia COMPREHENSIVE METABOLIC PANEL Routine 01/26/2023 7:31 AM CDT General medical examination LIPID PANEL Routine 01/26/2023 7:31 AM CDT General medical examination Mixed hyperlipidemia CBC W/DIFF AUTOMATED Routine 01/26/2023 7:31 AM CDT General medical examination VITAMIN D, 25 OH Routine 01/26/2023 7:31 AM CDT documented in this encounter Results * (ABNORMAL) VITAMIN D, 25 OH (01/26/2023 7:31 AM CDT) VITAMIN D 25 HYDROXY TOTAL S/P/B 23.1(L) >29.9 ng/mL [facility] Comment: This test was developed and its analytical performance characteristics have been determined by [employer] [facility]. It has not been cleared or approved by the U.S. Food and Drug Administration. This assay has been validated pursuant to the CLIA regulations and is used for clinical purposes. Vitamin D, 25-Hydroxy reports concentrations of two common forms, 25-OHD2 and 25-OHD3. 25-OHD3 indicates both endogenous production and supplementation. 25-OHD2 is an indicator of exogenous sources, such as diet or supplementation. Therapy is based on measurement of Total 25-OHD, with levels <20 ng/mL indicative of Vitamin D deficiency, while levels between 20 ng/mL and 30 ng/mL suggest insufficiency. Optimal levels are >=30 ng/mL. Vitamin D, 25-Hydroxy reports concentrations of two common forms, 25-OHD2 and 25-OHD3. 25-OHD3 indicates both endogenous production and supplementation. 25-OHD2 is an indicator of exogenous sources, such as diet or supplementation. Therapy is based on measurement of Total 25-OHD, with levels <20 ng/mL indicative of Vitamin D deficiency, while levels between 20 ng/mL and 30 ng/mL suggest insufficiency. Optimal levels are > or = 30 ng/mL. VITAMIN D 25 HYDROXY D3 S/P/B 23.1 ng/mL [facility] Comment: This test was developed and its analytical performance characteristics have been determined by [employer]. It has not been cleared or approved by the FDA. This assay has been validated pursuant to the CLIA regulations and is used for clinical purposes. VITAMIN D 25 HYDROXY D2 S/P/B <1.0 ng/mL [facility] Comment: This test was developed and its analytical performance characteristics have been determined by [employer]. It has not been cleared or approved by the FDA. This assay has been validated pursuant to the CLIA regulations and is used for clinical purposes. 01/26/2023 7:31 AM CDT 01/26/2023 7:33 AM CDT Narrative Resulting Agency Comment Performing Organization Information: ?Site ID: [id number] ?Name: [email or web address] ?Address: [address] [place] [address], [address] [place] [address] ?Director: Pramod Valles MD us Lise [facility] Final Resul t [facility] [address], [address] [place] [address], * (ABNORMAL) URINALYSIS WI REFLEX TO CULTURE (01/26/2023 7:31 AM CDT) COLOR (U) YELLOW YELLOW [facility] APPEARANCE SEMEN CLEAR CLEAR [facility] SPECIFIC GRAVITY (U) 1.007 1.001 - 1.035 [facility] PH (U) 6.5 5.0 - 8.0 [facility] URINE GLUCOSE NEGATIVE NEGATIVE [facility] BILIRUBIN (U) NEGATIVE NEGATIVE [facility] KETONE (U) NEGATIVE NEGATIVE [facility] BLOOD (U) NEGATIVE NEGATIVE [facility] PROTEIN (U) NEGATIVE NEGATIVE [facility] NITRITES NEGATIVE NEGATIVE [facility] LEUKOCYTES (U) 1+(A) NEGATIVE [facility] WBC/HPF NONE SEEN < OR = 5 /HPF [facility] RBC/HPF NONE SEEN < OR = 2 /HPF [facility] SQUAMOUS EPITHELIAL (U) NONE SEEN < OR = 5 /HPF [facility] BACTERIA (U) NONE SEEN NONE SEEN /HPF [facility] HYALINE CASTS NONE SEEN NONE SEEN /LPF [facility] REFLEX URINE CULTURE: [facility] Comment:CULTURE INDICATED - RESULTS TO FOLLOW CULTURE RESULT [facility] Comment: ??CULTURE, URINE, ROUTINE ?Micro Number: ?[id number] ??Test Status: ? Final ??Specimen Source: ?? Urine ??Specimen Quality: ??Adequate ??Result: ?Mixed genital margaret isolated. These superficial ? bacteria are not indicative of a urinary tract ? infection. No further organism identification is ? warranted on this specimen. If clinically ? indicated, recollect clean-catch, mid-stream ? urine and transfer immediately to Urine Culture ? Transport Tube. 01/26/2023 7:31 AM CDT 01/26/2023 7:33 AM CDT Narrative Resulting Agency Comment Performing Organization Information: ?Site ID: [place] ?Name: [facility] ?Address: [address] [facility] [place] [address] ?Director: Fawad Colmenares MD Lise [facility] ORDERABLES Final Resu lt [facility] [address] [place] [address], * COMPREHENSIVE METABOLIC PANEL (01/26/2023 7:31 AM CDT) GLUCOSE 96 65 - 99 mg/dL [facility] Comment: ? Fasting reference interval BUN 16 7 - 25 mg/dL [facility] CREATININE S/P/B 1.02 0.50 - 1.03 mg/dL [facility] GFR ESTIMATE 64 > OR = 60 mL/min/1. 73m2 [facility] BUN CREATININE RATIO SEE NOTE: (calc) [facility] Comment: ?? Not Reported: BUN and Creatinine are within ?? reference range. ? SODIUM S/P/B 138 135 - 146 mmol/L [facility] POTASSIUM S/P/B 4.3 3.5 - 5.3 mmol/L [facility] CHLORIDE S/P/B 105 98 - 110 mmol/L [facility] CO2 26 20 - 32 mmol/L [facility] CALCIUM S/P/B 9.4 8.6 - 10.4 mg/dL [facility] TOTAL PROTEIN S/P/B 6.6 6.1 - 8.1 g/dL [facility] ALBUMIN S/P/B 4.1 3.6 - 5.1 g/dL [facility] GLOBULIN 2.5 1.9 - 3.7 g/dL (calc) [facility] ALBUMIN/GLOBULI N RATIO 1.6 1.0 - 2.5 (calc) [facility] BILIRUBIN TOTAL S/P/B 0.7 0.2 - 1.2 mg/dL [facility] ALKALINE PHOSPHATASE S/P/B 100 37 - 153 U/L [facility] AST 18 10 - 35 U/L [facility] ALT 15 6 - 29 U/L [facility] 01/26/2023 7:31 AM CDT 01/26/2023 7:33 AM CDT Narrative Resulting Agency Comment Performing Organization Information: ?Site ID: [place] ?Name: [facility] ?Address: [address] [place] [address] ?Director: Fawad Colmenares MD us Lise [facility] Final Resul t [facility] [address] [place] [address], * TSH W/REFLEX (01/26/2023 7:31 AM CDT) TSH 1.37 0.40 - 4.50 mIU/L [facility] 01/26/2023 7:31 AM CDT 01/26/2023 7:33 AM CDT Narrative Resulting Agency Comment Performing Organization Information: ?Site ID: CHLOE ?Name: [facility] ?Address: [address] [place] [address] ?Director: Fawad Colmenares MD us Lise Garces [facility] Final Resul t [facility] [address] [place] [address], * (ABNORMAL) LIPID PANEL (01/26/2023 7:31 AM CDT) CHOLESTEROL 183 <200 mg/dL [facility] HDL 59 > OR = 50 mg/dL [facility] TRIGLYCERIDES 75 <150 mg/dL [facility] LDL (CALCULATED) 108(H) mg/dL (calc) [facility] Comment: Reference range: <100 Desirable range <100 mg/dL for primary prevention; ?? <70 mg/dL for patients with CHD or diabetic patients with > or = 2 CHD risk factors. LDL-C is now calculated using the Owen-Rox calculation, which is a validated novel method providing better accuracy than the Friedewald equation in the estimation of LDL-C. Owen SS et al. VIKI. 2013;310(19): 1170-1271 (http://education.Eventdoo/faq/GGI907) CHOL/HDL RATIO 3.1 <5.0 (calc) [facility] NON HDL CHOLESTEROL 124 <130 mg/dL (calc) [facility] Comment: For patients with diabetes plus 1 major ASCVD risk factor, treating to a non-HDL-C goal of <100 mg/dL (LDL-C of <70 mg/dL) is considered a therapeutic option. 01/26/2023 7:31 AM CDT 01/26/2023 7:33 AM CDT Narrative Resulting Agency Comment Performing Organization Information: ?Site ID: CHLOE ?Name: [facility] ?Address: [address] [place] [address] ?Director: Fawad Colmenares MD us Lise H Mili [facility] Final Resul t [facility] [address] [place] [address], * (ABNORMAL) CBC W/DIFF AUTOMATED (01/26/2023 7:31 AM CDT) WBC 3.4(L) 3.8 - 10.8 Thousand/u L [facility] RBC 3.97 3.80 - 5.10 Million/uL [facility] HGB 12.4 11.7 - 15.5 g/dL [facility] HCT 36.4 35.0 - 45.0 % [facility] MCV 91.7 80.0 - 100.0 fL [facility] MCH 31.2 27.0 - 33.0 pg [facility] MCHC 34.1 32.0 - 36.0 g/dL [facility] RDW 11.8 11.0 - 15.0 % [facility] PLT 256 140 - 400 Thousand/u L [facility] MPV 9.9 7.5 - 12.5 fL [facility] ABS. NEUTROPHILS 1,567 1,500 - 7,800 cells/uL [facility] ABS. LYMPHOCYTES 1,224 850 - 3,900 cells/uL [facility] ABS. MONOCYTES 320 200 - 950 cells/uL [facility] ABS. EOSINOPHILS 258 15 - 500 cells/uL [facility] ABS. BASOPHILS 31 0 - 200 cells/uL [facility] SEG NEUTROPHILS 46.1 % [facility] LYMPHOC[facility]TES 36.0 % [facility] MONOCYTES 9.4 % [facility] EOSINOPHILS 7.6 % [facility] BASOPHILS 0.9 % [facility] 01/26/2023 7:31 AM CDT 01/26/2023 7:33 AM CDT Narrative Resulting Agency Comment Performing Organization Information: ?Site ID: [place] ?Name: [facility] ?Address: [address] [place] [address] ?Director: Fawad Colmenares MD us Lise [facility] Final Resul t [facility] [address] [place] [address], documented in this encounter Visit Diagnoses Diagnosis General medical examination- Primary Unspecified general medical examination Encounter for screening mammogram for malignant neoplasm of breast Other screening mammogram Vitamin D deficiency Unspecified vitamin D deficiency Mixed hyperlipidemia Essential hypertension Unspecified essential hypertension documented in this encounter Additional Health Concerns Assessment Noted Time PHQ-9 Depression Total Score: 3 01/03/20 22 9:20 AM CDT documented as of this encounter Care Teams Civil Litigation Attorney Relationship Specialty Start Date End Date Lise Garces APNP [address] [place] [address] PCP - General NURSE PRACTITIONER 10/03/18 documented as of this encounter
--- OUTSIDE RECORDS SUMMARY | 2024-06-21 08:55 | XMS_ITS | Encounter Summary ---
Author Organization [facility] Address [address] [place] [address]. [place] [address] [place] [address] Care Team Providers Care Jet Ski Mechanic Name Role Phone Lise Garces Primary Care Provider [phone]- [phone] Reason for Visit * Reason Comments URI Sinus pressure and c ongestion/drainage-onset 08/21 Encounter Details Date Type Department Care Team (Late st Contact Info) Description 08/28/2023 9:00 AM CDT Office Visit [facility] Family & Internal Medicine [facility] [address] [place] [address] Lise Garces APNP [address] [place], [place] [id number] URI (Sinus pressure and congestion/drainage-o nset 08/21) Social History Tobacco Use Types Packs/Day Years [...] Sex Assigned at Female 05/21/2024 8:15 AM MACHINE DESIGN CHECKER Legal Sex Female 4:43 PM CDT Gender Identity Female 05/21/2024 8:15 AM MACHINE DESIGN CHECKER Sexual Orientation Not on file documented as of this encounter Last Filed Vital Signs Vital Sign Reading Time Taken Comments Blood Pressure 122/72 08/28/2023 9:12 AM CDT Pulse 97 08/28/2023 9:12 AM CDT Temperature 36.2 ??C (97.2 ??F) 08/28/2023 9:12 AM CD T Respiratory Rate 16 08/28/2023 9:12 AM CDT Oxygen Saturation 98% 08/28/2023 9:12 AM CDT Inhaled Oxygen Concentration - - Weight 92.5 kg (204 lb) 08/28/2023 9:12 AM CDT Height 175.3 cm (5' 9 ) 08/28/2023 9:12 AM CDT Body Mass Index 30.13 08/28/2023 9:12 AM CDT documented in this encounter Progress Notes * JULY Min - 08/28/2023 9:00 AM CDT Images from the original note were not included. [facility]ILY [facility] INTERNAL [facility]ICINE OFFICE VISIT Reason for Visit: URI (Sinus pressure and congestion/drainage-onset 08/21) History of Present Illness: 58 yo female here today with a 6-7 day history of sinus pain and pressure, sore throat. 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 She denies CP or SOB She has been treating at home with symptomatic meds ROS: Review of Systems Constitutional: Negative for chills and fever. HENT: Positive for congestion, sinus pain and sore throat. Respiratory: Positive for cough. Negative for shortness of breath. Cardiovascular: Negative for chest pain and palpitations. Gastrointestinal: Negative for abdominal pain, diarrhea, nausea and vomiting. Neurological: Negative for dizziness and headaches. Medications: Current Outpatient Medications: aspirin EC (ECOTRIN) [...] 11/2018 COVID-19 Heart murmur 01/1975 Hypertension Lupus ([facility]) Surgical History: Past Surgical History: [...] Vitals and nursing note reviewed. HENT: Head: Normocephalic and atraumatic. Comments: Maxillary sinus tenderness up on palpation Eyes: General: No scleral icterus. Conjunctiva/sclera: Conjunctivae normal. Neck: Trachea: No tracheal deviation. Cardiovascular: Rate and Rhythm: Normal rate and regular rhythm. Heart sounds: Normal heart sounds. No murmur heard. Pulmonary: Effort: Pulmonary effort is normal. No respiratory distress. Breath sounds: Normal breath sounds. No stridor. No wheezing. Musculoskeletal: General: No deformity. Normal range of motion. Cervical back: Normal range of motion and neck supple. Skin: General: Skin is warm and dry. Findings: No erythema. Neurological: Mental Status: She is alert and oriented to person, place, and time. Gait: Gait is intact. Psychiatric: Mood and Affect: Mood and affect normal. Filed Vitals: 08/28/23 0912 BP: 122/72 Pulse: 97 Resp: 16 Temp: 97.2 ??F (36.2 ??C) TempSrc: Skin SpO2: 98% Weight: 92.5 kg (204 lb) Height: 1.753 m (5' 9 ) Labs: Labs Reviewed Diagnoses/Impression: 1. Sore throat RAPID STREP A 2. Sinus congestion CORONAVIRUS (COVID-19) INFLUENZA A & B ANTIGEN IA PANEL Recommendations and Plan: 1. Sore throat - RAPID STREP A 2. Sinus congestion - CORONAVIRUS (COVID-19) INFLUENZA A & B ANTIGEN IA PANEL Pt tested positive for flu B. Declines tamiflu. We discussed OTC, symptomatic treatment and quarantine suggestions. Pt notes actually feeling a little better. She will let me know if symptoms do not continue to improve. Orders Placed This Encounter CORONAVIRUS (COVID-19) INFLUENZA A & B ANTIGEN IA PANEL RAPID STREP A Cannot display discharge medications since this is not an admission. PCP: JULY Min 08/28/2023 Cosigned by Ata Coughlin MD at 08/30/2023 9:22 AM CDT documented in this encounter Plan of Treatment Not on file documented as of this encounter Procedures Procedure Name Priority Date/Time Associated Diagnosis Comments CORONAVIRUS (COVID-19) INFLUENZA A & B ANTIGEN IA PANEL Routine 08/28/2023 Sinus congestion RAPID STREP A Routine 08/28/2023 Sore throat documented in this encounter Results * RAPID STREP A (08/28/2023) RAPID STREP TEST NEGATIVE NEGATIVE [facility] Internal Control: VALID VALID [facility] STRUCTURE OF ANTERIOR PORTION OF NECK / Unknown 08/28/2023 us Lise MCDOWELL MICROBIOLOGY - GENERAL ORDE AKI Final Result [facility] [address] [place] [address], * (ABNORMAL) CORONAVIRUS (COVID-19) INFLUENZA A & B ANTIGEN IA PANEL (08/28/2023) CORONAVIRUS ANTIGEN IA NEGATIVE NEGATIVE [facility] INFLUENZA A NEGATIVE NEGATIVE [facility] INFLUENZA B POSITIVE(A) NEGATIVE [facility] Internal Control: VALID VALID [facility] NASAL STRUCTURE / Unknown 08/28/2023 us Lise MCDOWELL MICROBIOLOGY - GENERAL RACHANA PRABHAKAR Final Result -[facility] [address] [place] [address], documented in this encounter Visit Diagnoses Diagnosis Sore throat- Primary Acute pharyngitis Sinus congestion Other diseases of nasal cavity and sinuses documented in this encounter Additional Health Concerns Infection Onset Date Last Indicated Resolved Time COVID-19 Rule Out 08/28/2023 08/28/2023 08/28/2023 9:36 AM CDT Influenza - Seasonal 08/28/2023 08/28/2023 024 12:32 AM CDT Assessment Noted Time PHQ-9 Depression Total Score: 0 08/28/19 24 9:10 AM CDT documented as of this encounter Care Teams Jet Ski Mechanic Relationship Specialty Start Date End Date Lise Garces APNP [facility] [place] [address] PCP - General NURSE PRACTITIONER 10/03/18 documented as of this encounter
--- OUTSIDE RECORDS SUMMARY | 2024-06-21 08:55 | XMS_ITS | Encounter Summary ---
Author Organization [facility] Address [address] [place] [address]. [place] [address] [place] [address] Care Team Providers Care Street Contractor Name Role Phone Lise Garces Primary Care Provider [phone] Encounter Details Date Type Department Care Team (Latest Contact Info) Description 04/13/2023 Scan [facility] INFO [facility] Scanned, Doc Med Group Social History Tobacco Use Types Packs/Day Years [...] Sex Assigned at Female 05/21/2024 8:15 AM DINKEY LOCOMOTIVE ENGINEER Legal Sex Female 4:43 PM CDT Gender Identity Female 05/21/2024 8:15 AM DINKEY LOCOMOTIVE ENGINEER Sexual Orientation Not on file documented as of this encounter Plan of Treatment Not on file documented as of this encounter Visit Diagnoses Not on filedocumented in this encounter Additional Health Concerns Assessment Noted Time PHQ-9 Depression Total Score: 3 01/03/20 22 9:20 AM CDT documented as of this encounter Care Teams Street Contractor Relationship Specialty Start Date End Date Lise Garces APNP [address] [place] [address] PCP - General NURSE PRACTITIONER 10/03/18 documented as of this encounter
--- OUTSIDE RECORDS SUMMARY | 2024-06-21 08:55 | XMS_ITS | Encounter Summary ---
Author Organization [facility] Address [address] [place] [address]. [place] [address] [place] [address] Care Team Providers Care Database Programmer Analyst Name Role Phone David Garces Primary Care Provider [phone] Reason for Referral * Imaging (Routine) - Closed Specialty Diagnoses / Procedures Referred By Blake ceja Referred To Contact Diagnoses Encounter for screening mammogram for malignant neoplasm of breast Procedures MG SCREENING W KHANG MILLY DIGI MG SCREENING MILLY David Hurtado APNP [address] [place] [address] Phone: tel: fax: [address] [place] [address] Phone: tel: fax: Referral ID Status Reason Start Date Expiration Date Visits Re quested Visits Authorized [id number] Closed 01/18/2023 01/19/2024 1 99 MANAGER Reason for Visit * Imaging (Routine) - Closed Specialty Diagnoses / Procedures Referred By Blake ceja Referred To Contact Diagnoses Encounter for screening mammogram for malignant neoplasm of breast Procedures MG SCREENING W KHANG MILLY DIGI MG SCREENING MILLY David Hurtado APNP [address] [place] [address] Phone: tel: fax: [address] [place] [address] Phone: tel: fax: Referral ID Status Reason Start Date Expiration Date Visits Re quested Visits Authorized [id number] Closed 01/18/2023 01/19/2024 1 99 Encounter Details Date Type Department Care Team (Latest Contact Info) Description 05/18/2023 2:20 PM CAFE MANAGER - 05/18/2023 11:59 PM CAFE MANAGER Hospital Encounter [facility] Mammography [address] [place] [address] David Garces APNP [address] [place] [address] Discharge Disposition: Home or Self Care (Routine [...] Sex Assigned at Female 05/21/2024 8:15 AM CAFE MANAGER Legal Sex Female 4:43 PM CDT Gender Identity Female 05/21/2024 8:15 AM CAFE MANAGER Sexual Orientation Not on file documented as [...] capsules by mouth daily. Brand name: provitalize. losartan (COZAAR) 25 MG tabletIndications: Essential hypertension Take 1 tablet (25 mg total) by mouth daily. 90 tablet 3 01/18/2023 4 documented as of this encounter Plan of Treatment Not on file documented as of this encounter Procedures Procedure Name Priority Date/Time Associated Diagnosis Comments MG SCREENING W KHANG MILLY DIGI Routine 05/18/2023 2:40 PM CAFE MANAGER Encounter for screening mammogram for malignant neoplasm of breast documented in this encounter Results * MG SCREENING W KHANG MILLY DIGI (05/18/2023 2:40 PM CAFE MANAGER) Anatomical Region Laterality Modality Breast Bilateral Mammography 06/13/2023 9:09 AM CAFE MANAGER Narrative 06/13/2023 9:12 AM CAFE MANAGER Examination: Screening bilateral mammogram Exam Date/Time: 05/18/2023 2:22 PM Clinical history: No current complaints. Comparison: None available, reestablishment of baseline imaging. Technique: Digital screening mammography of both breasts was performed. ? Breast tomosynthesis acquisitions were obtained and reviewed. ??This study was read with the assistance of a computer-aided detection system. Tissue density: There are scattered areas of fibroglandular density. Findings: No suspicious masses, malignant appearing calcifications, skin thickening or other abnormalities are present. ?? IMPRESSION: No suspicious mammographic findings. Recommendation: 1. Routine Screening, Bilateral Assessment: ACR BI-RADS 2 - BENIGN FINDING(S) Ordered By: DAVID GARCES Interpreted By: Inderjit Dougherty, 06/13/2023 9:09 AM us David MCDOWELL MAMMO Final Resul t documented in this encounter Visit Diagnoses Diagnosis Encounter for screening mammogram for malignant neoplasm of breast Other screening mammogram documented in this encounter Additional Health Concerns Assessment Noted Time PHQ-9 Depression Total Score: 3 01/03/20 22 9:20 AM CDT documented as of this encounter Care Teams Database Programmer Analyst Relationship Specialty Start Date End Date David Garces APNP [address] [place] [address] PCP - General NURSE PRACTITIONER 10/03/18 documented as of this encounter
--- OUTSIDE RECORDS SUMMARY | 2024-06-21 08:55 | XMS_ITS | Encounter Summary ---
Author Organization [facility] Address [address] [place] [address]. [place] [address] [place] [address] Care Team Providers Care Validation Technician Name Role Phone Lise Garces Primary Care Provider [phone]- [phone] Reason for Visit * Reason Comments Sinusitis Encounter Details Date Type Department Care Team (Late st Contact Info) Description 07/30/2022 11:00 AM WAITER/WAITRESS Telemedicine [facility] Family & Internal Medicine [place] [place] [address] Lise Garces APNP [facility] [place], [place] [id number] Sinusitis Social History Tobacco Use Types Packs/Day Years [...] Sex Assigned at Female 05/21/2024 8:15 AM WAITER/WAITRESS Legal Sex Female 4:43 PM CDT Gender Identity Female 05/21/2024 8:15 AM WAITER/WAITRESS Sexual Orientation Not on file COVID-19 Exposure Response Date Recorded In the last 10 days, have yo u been in contact with someone who was confirmed or suspected to have Coronavirus/COVID-19? Unable to assess 07/30/2022 8:46 AM WAITER/WAITRESS documented as of this encounter Progress Notes * Lise Garces, TIFFANIENP - 07/30/2022 11:00 AM CST Images from the original note were not included. [facility] FAMILY AND INTERNAL MEDICINE OFFICE VISIT I introduced and identified myself, received verbal consent from the patient to proceed with this video visit and made the patient aware that the same confidentiality and information systems operator practices apply. The patient joined the video visit from Home. I completed the virtual visit from Office. The following clinical staff helped with this visit MA: Katie. Total Time Spent in Minutes: 10 Reason for Visit: Sinusitus History of Present Illness: 57 yo female presents today via VV with complaints of cough, sore throat, nausea, vomiting, ear pain that started a little over a week ago. She notes ear pain and sore throat are the most bothersome of the symptoms and remain. Ear pain has worsened over the last few days. She was seen at on Saturday---tested negative for COVID, influenza, and strep. Does not recall if they checked her ears or not. Denies any fever or chills. She has been treating at home with multisymptom cold and flu and mucinex. ROS: Review of Systems Constitutional: Negative for chills and fever. HENT: Positive for congestion, ear pain and sore throat. Negative for ear discharge and sinus pain. Respiratory: Positive for cough. Negative for shortness of breath. Cardiovascular: Negative for chest pain and palpitations. Gastrointestinal: Negative for abdominal pain, diarrhea, nausea and vomiting. Musculoskeletal: Negative for myalgias. Neurological: Negative for dizziness and headaches. Medications: Current Outpatient Medications: ??? aspirin EC (ECOTRIN) 81 MG tablet, Take 81 mg by mouth daily., Disp: , Rfl: ??? cefdinir (OMNICEF) 300 MG Cap capsule, Take 1 capsule (300 mg total) by mouth 2 (two) times daily., Disp: 20 capsule, Rfl: 0 ??? fluticasone propionate (FLONASE) 50 MCG/ACT nasal spray, 1 spray by Nasal route daily., Disp: 18.2 mL, Rfl: 0 ??? hydroxychloroquine 200 MG tablet, Take 400 mg by mouth daily. , Disp: , Rfl: ??? Loratadine (CLARITIN OR), Take by mouth daily., Disp: , Rfl: ??? losartan (COZAAR) 25 MG tablet, Take 1 tablet (25 mg total) by mouth daily., Disp: 90 tablet, Rfl: 3 ??? Probiotic Product (PROBIOTIC OR), Take 2 capsules by mouth daily. Brand name: provitalize., Disp: , Rfl: Allergies: No Known Allergies Medical History: Past Medical History: Diagnosis Date ??? COVID-19 ??? Hypertension ??? Lupus (CMS/HCC) Surgical History: Past Surgical History: Procedure Laterality Date ??? SECTION ??? HC ABLATION UTERINE BALLOON Social History: Social History Socioeconomic History ??? Marital status: Tobacco Use ??? Smoking status: Never Passive exposure: Never ??? Smokeless tobacco: Never Vaping Use ??? Vaping Use: Never used Substance and Sexual Activity ??? Alcohol use: No ??? Drug use: No ??? Sexual activity: Yes Partners: Male Family History: Family History Problem Relation Name Age of Onset ??? Thyroid Mother HYPO ??? Hypertension Father ??? Heart Disease Father ??? Heart Disease Maternal Grandmother ??? Heart Disease Paternal Grandmother PE: Physical Exam Pulmonary: Effort: Pulmonary effort is normal. No respiratory distress. Neurological: Mental Status: She is alert and oriented to person, place, and time. There were no vitals filed for this visit. Labs: Labs Reviewed Diagnoses/Impression: 1. Upper respiratory tract infection, unspecified type cefdinir (OMNICEF) 300 MG Cap capsule 2. Dysfunction of both eustachian tubes fluticasone propionate (FLONASE) 50 MCG/ACT nasal spray Recommendations and Plan: 1. Upper respiratory tract infection, unspecified type - cefdinir (OMNICEF) 300 MG Cap capsule; Take 1 capsule (300 mg total) by mouth 2 (two) times daily. Dispense: 20 capsule; Refill: 0 2. Dysfunction of both eustachian tubes - fluticasone propionate (FLONASE) 50 MCG/ACT nasal spray; 1 spray by Nasal route daily. Dispense: 18.2 mL; Refill: 0 Symptoms suggesting of URI, ETD and possible AOM. Will treat accordingly. OTC and at home treatmentdiscussed and if no improvement in the next few days, she will let me know. Orders Placed This Encounter ??? fluticasone propionate (FLONASE) 50 MCG/ACT nasal spray ??? cefdinir (OMNICEF) 300 MG Cap capsule Cannot display discharge medications since this is not an admission. PCP: JULY Min 07/30/2022 ER/WAITRESS documented in this encounter Plan of Treatment Not on file documented as of this encounter Visit Diagnoses Diagnosis Upper respiratory tract infection, unspecified type- Primary Dysfunction of both eustachian tubes Dysfunction of Eustachian tube documented in this encounter Additional Health Concerns Assessment Noted Time PHQ-9 Depression Total Score: 3 01/03/20 22 9:20 AM CDT documented as of this encounter Care Teams Validation Technician Relationship Specialty Start Date End Date Lise Garces APNP [address] [place] [address] PCP - General NURSE PRACTITIONER 10/03/18 documented as of this encounter
--- OUTSIDE RECORDS SUMMARY | 2024-06-21 08:55 | XMS_ITS | Encounter Summary ---
Author Organization [facility] Address [address] [place] [address]. [place], [place] [address] [place] [address] Care Team Providers Care Bar Waiter/Waitress Name Role Phone Lise Garces Primary Care Provider [phone] Encounter Details Date Type Department Care Team (Latest Contact Info) Description 03/04/2023 Travel Social History Tobacco Use Types Packs/Day [...] Sex Assigned at Female 05/21/2024 8:15 AM EQUAL OPPORTUNITY COUNSELOR Legal Sex Female 4:43 PM CDT Gender Identity Female 05/21/2024 8:15 AM EQUAL OPPORTUNITY COUNSELOR Sexual Orientation Not on file documented as of this encounter Plan of Treatment Not on file documented as of this encounter Visit Diagnoses Not on filedocumented in this encounter Additional Health Concerns Assessment Noted Time PHQ-9 Depression Total Score: 3 01/03/20 22 9:20 AM CDT documented as of this encounter Care Teams Bar Waiter/Waitress Relationship Specialty Start Date End Date Lise Garces APNP [address] [place] [address] PCP - General NURSE PRACTITIONER 10/03/18 documented as of this encounter
--- OUTSIDE RECORDS SUMMARY | 2024-06-21 08:55 | XMS_ITS | Encounter Summary ---
Author Organization [facility] Address [address] [place] [address]. [place] [address] [place] [address] Care Team Providers Care Machine Hamper Maker Name Role Phone David Garces Primary Care Provider [phone] Reason for Referral * Imaging (Routine) - Closed Specialty Diagnoses / Procedures Referred By Coleenac t Referred To Contact RADIOLOGY Diagnoses Neck mass Procedures US SOFT TISS HEAD OR NECK David Garces APNP [address] [place] [address] Phone: tel: fax: Referral ID Status Reason Start Date Expiration Date Visits Re quested Visits Authorized [id number] Closed 02/11/2024 02/10/2025 1 1 Reason for Visit * Imaging (Routine) - Closed Specialty Diagnoses / Procedures Referred By Contele ceja Referred To Contact RADIOLOGY Diagnoses Neck mass Procedures US SOFT TISS HEAD OR NECK David Garces APNP [address] [place] [address] Phone: tel: fax: Referral ID Status Reason Start Date Expiration Date Visits Re quested Visits Authorized [id number] Closed 02/11/2024 02/10/2025 1 1 Encounter Details Date Type Department Care Team (Latest Contact Info) Description 02/17/2024 2:56 PM CDT - 02/17/2024 11:59 PM CDT Hospital Encounter [facility] [place] [address] David Garces, JULY [address] [place] [address] Discharge Disposition: Home or Self Care (Routine [...] Sex Assigned at Female 05/21/2024 8:15 AM REFRIGERATION SUPERVISOR Legal Sex Female 4:43 PM CDT Gender Identity Female 05/21/2024 8:15 AM REFRIGERATION SUPERVISOR Sexual Orientation Not on file documented as [...] Procedure Name Priority Date/Time Associated Diagnosis Comments US SOFT TISS HEAD OR NECK Routine 02/17/2024 3:19 PM CDT Neck mass documented in this encounter Results * US SOFT TISS HEAD OR NECK (02/17/2024 3:19 PM CDT) Anatomical Region Laterality Modality Head, Neck Ultrasound 02/18/2024 6:56 AM CDT Impressions 02/18/2024 6:59 AM CDT IMPRESSION: Left neck palpable area corresponds with benign morphology lymph nodes detailed above. No sonographic findings of associated lymphadenitis suggested at this time. AHIP Ordered By: DAVID GARCES Interpreted By: Juhi Berumen MD, 02/18/2024 6:56 AM Narrative 02/18/2024 6:59 AM CDT [address] [address] EXAMINATION: SUPERFICIAL SOFT TISSUE ULTRASOUND Exam Date: 02/17/2024 2:56 PM INDICATION: Left neck ordering provider appreciated palpable area of concern with associated tenderness to touch TECHNIQUE: Static sonographic grayscale images obtained and supplemented with Doppler. COMPARISON: None FINDINGS: In the palpable area of concern a benign morphology lymph node identified. Vascular hilum confirmed. No significant associated or surrounding hyperemic changes. No cortical thickening by criteria. Overall spans maximally nearly 7 mm transverse dimension. Procedure Note Juhi Berumen MD - 02/18/[address] [address] EXAMINATION: SUPERFICIAL SOFT TISSUE ULTRASOUND Exam Date: 02/17/2024 2:56 PM INDICATION: Left neck ordering provider appreciated palpable area ofconcern with associated tenderness to touch TECHNIQUE: Static sonographic grayscale images obtained and supplementedwith Doppler. COMPARISON: None FINDINGS: In the palpable area of concern a benign morphology lymph nodeidentified. Vascular hilum confirmed. No significant associated orsurrounding hyperemic changes. No cortical thickening by criteria. Overallspans maximally nearly 7 mm transverse dimension. IMPRESSION: Left neck palpable area corresponds with benign morphology lymph nodesdetailed above. No sonographic findings of associated lymphadenitis suggested at thistime. AHIP Ordered By: DAVID GARCES Interpreted By: Juhi Berumen MD, 02/18/2024 6:56 AM us David MCDOWELL ULTRASOUND Final Resul t documented in this encounter Visit Diagnoses Diagnosis Neck mass Swelling, mass, or lump in head and neck documented in this encounter Additional Health Concerns Assessment Noted Time PHQ-9 Depression Total Score: 0 08/28/19 24 9:10 AM CDT documented as of this encounter Care Teams Machine Hamper Maker Relationship Specialty Start Date End Date David Garces APNP [facility] [place] [address] PCP - General NURSE PRACTITIONER 10/03/18 documented as of this encounter
--- OUTSIDE RECORDS SUMMARY | 2024-06-21 08:55 | XMS_ITS | Encounter Summary ---
Author Organization [facility] Address [address] [place] [address]. [place] [address] [place] [address] Care Team Providers Care Hand Cigar Maker Name Role Phone David Piedra Primary Care Provider [phone] Reason for Referral * Imaging (Routine) - Closed Specialty Diagnoses / Procedures Referred By Blake ceja Referred To Contact RADIOLOGY Diagnoses Neck mass Procedures US SOFT TISS HEAD OR NECK David Piedra APNP [address] [id number] Phone: tel: fax: Referral ID Status Reason Start Date Expiration Date Visits Re quested Visits Authorized [id number] Closed 02/11/2024 02/10/2025 1 1 * Imaging (Routine) - New Request Specialty Diagnoses / Procedures Referred By Contac t Referred To Contact RADIOLOGY Diagnoses Encounter for screening mammogram for malignant neoplasm of breast Procedures MG SCREENING W KHANG MILLY DIGI David Piedra APNP [address] [place] [address] Phone: tel: fax: Referral ID Status Reason Start Date Expiration Date V isits Requested Visits Authorized [id number] New Request 02/11/2024 04/12/2025 1 1 * Imaging (Routine) - New Request Specialty Diagnoses / Procedures Referred By Contac t Referred To Contact RADIOLOGY Diagnoses Postmenopausal Procedures BONE DENSITY/DEXA David Piedra APNP [facility] [place] [address] Phone: tel: fax: Referral ID Status Reason Start Date Expiration Date V isits Requested Visits Authorized [id number] New Request 02/11/2024 03/12/2025 1 1 Reason for Visit * Reason Comments Physical Encounter Details Date Type Department Care Team (Late st Contact Info) Description 02/11/2024 2:40 PM CDT Office Visit [facility] Family & Internal Medicine - [address] [phone] David Piedra APNP [address] [place] [address] Physical Social History Tobacco Use Types Packs/Day [...] Sex Assigned at Female 05/21/2024 8:15 AM ADMINISTRATOR PESTICIDE Legal Sex Female 4:43 PM CDT Gender Identity Female 05/21/2024 8:15 AM ADMINISTRATOR PESTICIDE Sexual Orientation Not on file documented as [...] Mass Index 31.19 02/11/2024 2:57 PM CDT documented in this encounter Progress Notes * David Piedra JULY - 02/11/2024 2:40 PM CDT Images from the original note were not included. [facility] INTERNAL [facility]ICINE OFFICE VISIT Reason for Visit: Physical History of Present Illness: The patient is being seen for a health maintenance evaluation. General Health: good Dental Health: Sees dentist regularly Vision Health: eye exam UTD Hearing Health: No hearing problems Immunizations Needed: Zoster, declines Hep B Weight: Body mass index is 31.19 kg/m??. Physical Activity: Excersises regularly Cervical Cancer Screening: UTD She is not on any hormone therapy. Breast Cancer Screening: Ordered today. Last mammo was done in 2022---no abnormals in past Colorectal Cancer Screening: Cologuard done in 2020--negative Metabolic Screening: Patient needs to be screened today. PHQ-9 Screening Score: 0 Smoking Status: Smoking status: Never Smoker Smokeless tobacco: Never Used Chronic health conditions: HTN - takes losartan. Tolerates well. BP controlled. Denies any CP, SOB, CASIANO, dizziness, heart palpitations or lower ext edema. HLD - not currently on meds, due to have lipids checkd Vit D def--due to have checked, takes OTC Vit D BMI 31.19 - since menopause, has been steadily gaining weight. Concerning for her. Mother always had thyroid issues. Does not wish to start meds She has a lump to the left side of her neck, first noticed about a month ago. Has not changed in size over the last month, is not painful. Denies any URI type symptoms. ROS: Review of Systems Constitutional: Negative for chills and fever. HENT: Negative for congestion and hearing loss. Eyes: Negative for blurred vision and double vision. Respiratory: Negative for cough and shortness of breath. Cardiovascular: Negative for chest pain and palpitations. Gastrointestinal: Negative for abdominal pain and vomiting. Genitourinary: Negative for dysuria and urgency. Skin: Negative for itching and rash. Neurological: Negative for dizziness and headaches. Psychiatric/Behavioral: Negative for depression. The patient is not nervous/anxious. Medications: Current Outpatient Medications: aspirin EC (ECOTRIN) [...] mouth daily. Brand name: provitalize., Disp: ,Rfl: vitamin D3 (CHOLECALCIFEROL) 1.25 mg capsule, Take 1 capsule (1.25 mg total) by mouth once a week.,Disp: , Rfl: Allergies: Review of patient's allergies indicates: No Known Allergies Medical History: Past Medical History: Diagnosis Date Arthritis 11/2018 COVID-19 Heart murmur 01/1975 Hypertension Lupus ([facility]) MRSA (methicillin resistant Staphylococcus aureus) Surgical History: Past Surgical History: Procedure Laterality Date SECTION HC ABLATION UTERINE BALLOON TUBAL LIGATION 01/2000 Social History: Social History Socioeconomic History Marital status: Tobacco Use Smoking status: Never Passive exposure: Never Smokeless tobacco: Never Vaping Use Vaping status: Never Used Substance and Sexual Activity Alcohol use: No Drug use: No Sexual activity: Yes Partners: Male control/protection: Post-menopausal , None Comment: only Family History: Family History Problem Relation Name Age of Onset Thyroid Mother HYPO Hypertension Father Brissa Mendoza Heart Disease Father Brissa Mendoza Heart Disease Maternal Grandmother Jordyn Saldaña Heart Disease Paternal Grandmother Tolu Mendoza Miscarriages / Stillbirths Daughter Yury Eddy Diagnosis PCOS Miscarriages / Stillbirths Son Priyanka Vazquez Miscarriages / Stillbirths Son Cipriano Vazquez PE: Physical Exam Vitals and nursing note reviewed. HENT: Head: Normocephalic and atraumatic. Left Ear: Tympanic membrane normal. Mouth/Throat: Mouth: Mucous membranes are moist. Pharynx: No posterior oropharyngeal erythema. Eyes: General: No scleral icterus. Conjunctiva/sclera: Conjunctivae normal. Neck: Vascular: No carotid bruit. Trachea: No tracheal deviation. Comments: Soft, nonmobile lymph node noted of left side of neck Cardiovascular: Rate and Rhythm: Normal rate and regular rhythm. Heart sounds: Normal heart sounds. No murmur heard. Pulmonary: Effort: Pulmonary effort is normal. No respiratory distress. Breath sounds: Normal breath sounds. No stridor. No wheezing. Abdominal: General: Bowel sounds are normal. There is no distension. Palpations: Abdomen is soft. There is no mass. Tenderness: There is no abdominal tenderness. There is no guarding or rebound. Musculoskeletal: General: No deformity. Normal range of motion. Cervical back: Normal range of motion and neck supple. No rigidity or tenderness. Lymphadenopathy: Cervical: Cervical adenopathy present. Skin: General: Skin is warm and dry. Findings: No erythema. Neurological: Mental Status: She is alert and oriented to person, place, and time. Gait: Gait is intact. Psychiatric: Mood and Affect: Mood and affect normal. Filed Vitals: 02/11/24 1457 BP: 118/78 Pulse: 96 Resp: 16 Temp: 97.2 ??F (36.2 ??C) TempSrc: Skin SpO2: 96% Weight: 95.8 kg (211 lb 3.2 oz) Height: 1.753 m (5' 9 ) Labs: Labs Reviewed Diagnoses/Impression: 1. Colon cancer screening COLOGUARD (EXACT SCIENCE) 2. Encounter for screening mammogram for malignant neoplasm of breast MG SCREENING W KHANG MILLY DIGI 3. Postmenopausal BONE DENSITY/DEXA 4. Essential hypertension Chronic TSH W/REFLEX URIC ACID BLOOD COMPREHENSIVE METABOLIC PANEL URINALYSIS losartan (COZAAR) 25 MG tablet 5. Vitamin D deficiency VITAMIN D, 25 OH 6. General medical exam CBC W/DIFF AUTOMATED LIPID PANEL TSH W/REFLEX URIC ACID BLOOD COMPREHENSIVE METABOLIC PANEL URINALYSIS 7. BMI 31.0-31.9,adult CBC W/DIFF AUTOMATED LIPID PANEL TSH W/REFLEX URIC ACID BLOOD COMPREHENSIVE METABOLIC PANEL URINALYSIS 8. Screening for lipid disorders LIPID PANEL 9. Neck mass US SOFT TISS HEAD OR NECK Recommendations and Plan: 1. Colon cancer screening - COLOGUARD (EXACT SCIENCE) 2. Encounter for screening mammogram for malignant neoplasm of breast - MG SCREENING W KHANG MILLY DIGI; Future 3. Postmenopausal - BONE DENSITY/DEXA; Future 4. Essential hypertension - TSH W/REFLEX; Future - URIC ACID BLOOD; Future - COMPREHENSIVE METABOLIC PANEL; Future - URINALYSIS; Future - TSH W/REFLEX - URIC ACID BLOOD - COMPREHENSIVE METABOLIC PANEL - URINALYSIS - losartan (COZAAR) 25 MG tablet; Take 1 tablet (25 mg total) by mouth daily. Dispense: 90 tablet; Refill: 3 Stable. Cont meds 5. Vitamin D deficiency - VITAMIN D, 25 OH; Future - VITAMIN D, 25 OH 6. General medical exam - CBC W/DIFF AUTOMATED; Future - LIPID PANEL; Future - TSH W/REFLEX; Future - URIC ACID BLOOD; Future - COMPREHENSIVE METABOLIC PANEL; Future - URINALYSIS; Future - CBC W/DIFF AUTOMATED - LIPID PANEL - TSH W/REFLEX - URIC ACID BLOOD - COMPREHENSIVE METABOLIC PANEL - URINALYSIS Doing well. Will continue to discuss breast [...] 45. Recommended preventive immunizations according to age. 7. BMI 31.0-31.9,adult - CBC W/DIFF AUTOMATED; Future - LIPID PANEL; Future - TSH W/REFLEX; Future - URIC ACID BLOOD; Future - COMPREHENSIVE METABOLIC PANEL; Future - URINALYSIS; Future - CBC W/DIFF AUTOMATED - LIPID PANEL - TSH W/REFLEX - URIC ACID BLOOD - COMPREHENSIVE METABOLIC PANEL - URINALYSIS 8. Screening for lipid disorders - LIPID PANEL; Future - LIPID PANEL 9. Neck mass - US SOFT TISS HEAD OR NECK; Future More plan after results Orders Placed This Encounter CBC W/DIFF AUTOMATED LIPID PANEL TSH W/REFLEX VITAMIN D, 25 OH URIC ACID BLOOD COMPREHENSIVE METABOLIC PANEL URINALYSIS MG SCREENING W KHANG MILLY DIGI US SOFT TISS HEAD OR NECK vitamin D3 (CHOLECALCIFEROL) 1.25 mg capsule losartan (COZAAR) 25 MG tablet BONE DENSITY/DEXA COLOGUARD ([email or web address]) Cannot display discharge medications since this is not an admission. PCP: JULY Min 02/11/2024 documented in this encounter Plan of Treatment Scheduled Orders Name Type Priority Associated Diagnoses Orde r Schedule VITAMIN D, 25 OH Lab Routine Vitamin D deficiency Expected: 02/11/2024, Expires: 02/10/2025 URINALYSIS Lab Routine Essential hypertension General medical exam BMI 31.0-31.9,adult Expected: 02/11/2024, Expires: 02/10/2025 documented as of this encounter Procedures Procedure Name Priority Date/Time Associated Diagnosis Comments COLOGUARD (EXACT SCIENCE) Routine 03/02/2024 5:15 PM CDT Colon cancer screening TSH W/REFLEX Routine 02/22/2024 7:45 AM CDT Essential hypertension General medical exam BMI 31.0-31.9,adult URINALYSIS Routine 02/22/2024 7:45 AM CDT COMPREHENSIVE METABOLIC PANEL Routine 02/22/2024 7:45 AM CDT Essential hypertension General medical exam BMI 31.0-31.9,adult LIPID PANEL Routine 02/22/2024 7:45 AM CDT General medical exam BMI 31.0-31.9,adult Screening for lipid disorders CBC W/DIFF AUTOMATED Routine 02/22/2024 7:45 AM CDT General medical exam BMI 31.0-31.9,adult VITAMIN D, 25 OH Routine 02/22/2024 7:45 AM CDT URIC ACID BLOOD Routine 02/22/2024 7:45 AM CDT Essential hypertension General medical exam BMI 31.0-31.9,adult documented in this encounter Results * MG SCREENING W KHANG MILLY DIGI (05/25/2024 8:24 AM ADMINISTRATOR PESTICIDE) Anatomical Region Laterality Modality Breast Bilateral Mammography 05/25/2024 11:2 9 AM ADMINISTRATOR PESTICIDE Impressions 05/25/2024 11:31 AM ADMINISTRATOR PESTICIDE ===== IMPRESSION: ===== 1. ??Stable mammographic appearance with no new findings to suggest malignancy in either breast. Assessment: ACR BI-RADS 1 - NEGATIVE Recommendation: 1:Routine Screening Bilateral Comments: Ordered By: DAVID PIEDRA Interpreted By: Ira Kirk, 05/25/2024 11:29 AM Narrative 05/25/2024 11:31 AM ADMINISTRATOR PESTICIDE [facility] [place] [address] EXAMINATION: Digital bilateral screening mammogram with 3-D [...] calcifications in either breast to suggest malignancy. David Piedra AP MAMMO Final Resul t * BONE DENSITY/DEXA (05/25/2024 8:23 AM ADMINISTRATOR PESTICIDE) Anatomical Region Laterality Modality Bone Mammography 05/25/2024 9:42 AM ADMINISTRATOR PESTICIDE Impressions 05/25/2024 9:42 AM ADMINISTRATOR PESTICIDE IMPRESSION: WHO Classification: Osteopenia. RECOMMENDATIONS: All patients [...] have additional risk factors. Ordered By: DAVID PIEDRA Interpreted By: Piero Mcgee, 05/25/2024 9:42 AM Narrative 05/25/2024 9:42 AM ADMINISTRATOR PESTICIDE [facility] [address] [place] [address] EXAMINATION: BONE DENSITY/DEXA INDICATIONS: Asymptomatic menopausal state [...] Procedure Note Piero Mcgee MD - 05/25/2024 [facility] [address] [place] [address] EXAMINATION: BONE DENSITY/DEXA INDICATIONS: Asymptomatic menopausal state [...] or have additional risk factors. Ordered By: DAIVD PIEDRA Interpreted By: Piero Mcgee, 05/25/2024 9:42 AM David Piedra APNP DEXA Final Resul t * COLOGUARD ([employer] SCIENCE) (03/02/2024 5:15 PM CDT) COLOGUARD RESULT Negative Negative [employer] (CLIA #:[id number]) Comment: NEGATIVE TEST RESULT. A negative Cologuard [...] cancer. ??Following a negative Cologuard result, the [place] Cancer Society and U.S. Multi-Society Task Force screening guidelines recommend a Cologuard re-screening interval of 3 years. References: [place] [employer] Guideline for Colorectal Cancer Screening: https://www.cancer.org/cancer/qfrkk-btolae-tqpbsv/xyoevsbwk-seodxlgeh-edxanjd/ac s-rec ommendations.html.; Miguel Angel DK, Galen KULKARNI, Milagros NicoleK, Colorectal Cancer Screening: Recommendations for Physicians and Patients from the U.S. Multi-Society Task Force on Colorectal Cancer Screening , Am J Gastroenterology 2017; 112:4914-1895. TEST DESCRIPTION: Composite algorithmic analysis of stool [...] screened with both Cologuard and colonoscopy. (Jaspal Bartholomew et al, N Engl J Med 2014;370(14):6685-4814.) Cologuard may produce a false negative or false positive result (no colorectal cancer or precancerous polyp present at colonoscopy follow up). A negative Cologuard test result does not guarantee the absence of CRC or advanced adenoma (pre-cancer). The current Cologuard screening interval is every 3 years. ([place] [employer] Society and U.S. Multi-Society Task Force). Cologuard performance data in a 10,000 patient pivotal study using colonoscopy as the reference method can be accessed at the following location: www.[email or web address].com/results. Additional description of the Cologuard test process, warnings and precautions can be found at [email or web address] [email or web address]. STOOL STOOL SPECIMEN / Unknown 03/02/2024 5:15 PM CDT 03/04/2024 10:00 AM CDT David MCDOWELL BODY FLUIDS AND STOOLS RACHANA PRABHAKAR Final Result [facility] ([facility]) [address] [place] [address], [employer] (CLIA #:[id number]) [address] [place] [address] * (ABNORMAL) VITAMIN D, 25 OH (02/22/2024 7:45 AM CDT) VITAMIN D 25 HYDROXY TOTAL S/P/B 27.4(L) >29.9 ng/mL [facility] Comment: This test was developed and its analytical performance characteristics have been determined by [facility]. It has not been cleared or approved [...] ng/mL. VITAMIN D 25 HYDROXY D3 S/P/B 27.4 ng/mL [facility] Comment: This test was developed and its analytical performance characteristics have been determined by [facility]. It has not been cleared or approved by the FDA. This assay has been validated pursuant to the CLIA regulations and is used for clinical purposes. VITAMIN D 25 HYDROXY D2 S/P/B <1.0 ng/mL [facility] Comment: This test was developed and its analytical performance characteristics have been determined by [facility]. It has not been cleared or approved by the FDA. This assay has been validated pursuant to the CLIA regulations and is used for clinical purposes. 02/22/2024 7:45 AM CDT 02/22/2024 7:46 AM CDT Narrative Resulting Agency Comment Performing Organization Information: ?Site ID: [id number] ?Name: [facility] ?Address: [address] [place] [address], [address] [place] [address] ?Director: Presley Moncada PhD,[facility] David MCDOWELL LABORATORY Final Resul t [facility] [address], [address] [place] [address], * URINALYSIS (02/22/2024 7:45 AM CDT) COLOR (U) YELLOW YELLOW [employer] [facility] APPEARANCE SEMEN CLEAR CLEAR [employer] [facility] SPECIFIC GRAVITY (U) 1.006 1.001 - 1.[address] [employer] [facility] PH (U) 6.0 5.0 - 8.[address] [employer] [facility] URINE GLUCOSE NEGATIVE NEGATIVE [employer] [facility] KETONE (U) NEGATIVE NEGATIVE [employer] [facility] BLOOD (U) NEGATIVE NEGATIVE [employer] PATRICIA PROTEIN (U) NEGATIVE NEGATIVE [employer] [facility] 02/22/2024 7:45 AM CDT 02/22/2024 7:46 AM CDT Narrative Resulting Agency Comment Performing Organization Information: ?Site ID: [id number] ?Name: [facility] ?Address: [address] [place] [address] [place] [address] ?Director: Fawad Colmenares MD David MCDOWELL URINE ORDERABLES Final Resu lt Performing Organization Address City/State/[facility] Co de Phone Number [employer] [facility] [address] [place] [address], * COMPREHENSIVE METABOLIC PANEL (02/22/2024 7:45 AM CDT) [facility] GLUCOSE 86 65 - 99 mg/dL [facility] [employer] [facility] Comment: ? Fasting reference interval BUN 18 7 - 25 mg/dL [employer] [facility] CREATININE S/P/B 1.03 0.50 - 1.03 mg/dL [employer] [facility] GFR ESTIMATE 63 > OR = 60 mL/min/1. 73m2 [facility] BUN CREATININE RATIO SEE NOTE: (calc) [employer] [facility] Comment: ?? Not Reported: BUN and Creatinine are within ?? reference range. ? SODIUM S/P/B 141 135 - 146 mmol/L [employer] [facility] POTASSIUM S/P/B 4.5 3.5 - 5.3 mmol/L [employer] [facility] CHLORIDE S/P/B 106 98 - 110 mmol/L [employer] [facility] CO2 25 20 - 32 mmol/L [employer] [facility] CALCIUM S/P/B 9.1 8.6 - 10.4 mg/dL [facility] TOTAL PROTEIN S/P/B 6.5 6.1 - 8.1 g/dL [facility] ALBUMIN S/P/B 4.0 3.6 - 5.1 g/dL [facility] GLOBULIN 2.5 1.9 - 3.7 g/dL (calc) [facility] ALBUMIN/GLOBULI N RATIO 1.6 1.0 - 2.5 (calc) [facility] BILIRUBIN TOTAL S/P/B 0.6 0.2 - 1.2 mg/dL [facility] ALKALINE PHOSPHATASE S/P/B 99 37 - 153 U/L [facility] AST 18 10 - 35 U/L [facility] ALT 17 6 - 29 U/L [employer] [facility] 02/22/2024 7:45 AM CDT 02/22/2024 7:46 AM CDT Narrative Resulting Agency Comment Performing Organization Information: ?Site ID: OK ?Name: [facility] ?Address: [address] [place] [phone] ?Director: Fawad Colmenares MD David MCDOWELL LABORATORY Final Resul t [facility] [id number] [place] [address], * URIC ACID BLOOD (02/22/2024 7:45 AM CDT) URIC ACID 6.0 2.5 - 7.0 mg/dL [facility] Comment: Therapeutic target for gout patients: <6.0 mg/dL ?? 02/22/2024 7:45 AM CDT 02/22/2024 7:46 AM CDT Narrative Resulting Agency Comment Performing Organization Information: ?Site ID: OK ?Name: [facility] ?Address: [address] [place] [phone] ?Director: Fawad Colmenares MD David MCDOWELL LABORATORY Final Resul t Performing Organization Address City/[facility] Co de Phone Number [employer] [facility] [employer] [facility] [address] [place] [address], * TSH W/REFLEX (02/22/2024 7:45 AM CDT) Pathologist [facility] TSH 1.63 0.40 - 4.50 mIU/L [facility] 02/22/2024 7:45 AM CDT 02/22/2024 7:46 AM CDT Narrative Resulting Agency Comment Performing Organization Information: ?Site ID: OK ?Name: [facility] ?Address: [address] [place] [phone] ?Director: Fawad Colmenares MD David MCDOWELL LABORATORY Final Resul t Performing Organization Address [facility] de Phone Number [employer] Tye CARTER [employer] [facility] [address] [place] [address], * (ABNORMAL) LIPID PANEL (02/22/2024 7:45 AM CDT) [facility] CHOLESTEROL 176 <200 mg/dL [facility] HDL 56 > OR = 50 mg/dL [facility] TRIGLYCERIDES 73 <150 mg/dL [facility] LDL (CALCULATED) 104(H) mg/dL (calc) [facility] Comment: Reference range: <100 Desirable range <100 mg/dL for primary prevention; ?? <70 mg/dL for patients with CHD or diabetic patients with > or = 2 CHD risk factors. LDL-C is now calculated using the Alba calculation, which is a validated novel method providing better accuracy than the Friedewald equation in the estimation of LDL-C. Owen SS et al. VIKI. 2013;310(19): 6583-7207 (http://education.boarding pass/faq/SJD176) CHOL/HDL RATIO 3.1 <5.0 (calc) [facility] NON HDL CHOLESTEROL 120 <130 mg/dL (calc) [facility] Comment: For patients with diabetes plus 1 major ASCVD risk factor, treating to a non-HDL-C goal of <100 mg/dL (LDL-C of <70 mg/dL) is considered a therapeutic option. 02/22/2024 7:45 AM CDT 02/22/2024 7:46 AM CDT Narrative Resulting Agency Comment Performing Organization Information: ?Site ID: OK ?Name: [facility] [facility] ?Address: [address] [place] [phone] ?Director: Fawad Colmenares MD us David MCDOWELL LABORATORY Final Resul t [employer] Tye CARTER [employer] [facility] [address] [place] [address], * CBC W/DIFF AUTOMATED (02/22/2024 7:45 AM CDT) WBC 4.2 3.8 - 10.8 Thousand/u L [employer] [facility] RBC 4.01 3.80 - 5.10 Million/uL [employer] [facility] HGB 12.6 11.7 - 15.5 g/dL [employer] PATRICIA HCT 38.8 35.0 - 45.0 % [employer] [facility] MCV 96.8 80.0 - 100.[address] [employer] [facility] MCH 31.4 27.0 - 33.[address] [employer] [facility] MCHC 32.5 32.0 - 36.0 g/dL [employer] [facility] RDW 11.9 11.0 - 15.0 % [employer] [facility] PLT 274 140 - 400 Thousand/u L [employer] [facility] MPV 10.1 7.5 - 12.5 fL [employer] PATRICIA ABS. NEUTROPHILS 2,066 1,500 - 7,800 cells/uL [facility] PATRICIA ABS. LYMPHOCYTES 1,365 850 - 3,900 cells/uL [facility] PATRICIA ABS. MONOCYTES 353 200 - 950 cells/uL [facility] PATRICIA ABS. EOSINOPHILS 374 15 - 500 cells/uL [facility] PATRICIA ABS. BASOPHILS 42 0 - 200 cells/uL [facility] PATRICIA SEG NEUTROPHILS 49.2 % [place] [employer] [facility] LYMPHOCYTES 32.5 % [facility] [place] MONOCYTES 8.4 % [facility] [place] EOSINOPHILS 8.9 % [facility] [place] BASOPHILS 1.0 % [facility] [place] 02/22/2024 7:45 AM CDT 02/22/2024 7:46 AM CDT Narrative Resulting Agency Comment Performing Organization Information: ?Site ID: [id number] ?Name: Thiago Grigsby ?Address: [address] [id number] ?Director: Fawad Colmenares MD us [facility] Final Resul t THIAGO GOMEZ [address] [address], [place] * US SOFT TISS HEAD OR NECK (02/17/2024 3:19 PM CDT) Anatomical Region Laterality Modality Head, Neck Ultrasound 02/18/2024 6:56 AM CDT Impressions 02/18/2024 6:59 AM CDT IMPRESSION: Left neck palpable area corresponds with benign morphology lymph nodes detailed above. No sonographic findings of associated lymphadenitis suggested at this time. AHIP Ordered By: DAVID PIEDRA Interpreted By: Juhi Berumen MD, 02/18/2024 6:56 AM Narrative 02/18/2024 6:59 AM CDT [address] [address] EXAMINATION: SUPERFICIAL SOFT TISSUE ULTRASOUND Exam Date: [...] Procedure Note Juhi Berumen MD - 02/18/[address] [address] EXAMINATION: SUPERFICIAL SOFT TISSUE ULTRASOUND Exam Date: [...] suggested at thistime. AHIP Ordered By: DAVID PIEDRA Interpreted By: Juhi Berumen MD, 02/18/2024 6:56 AM [facility] Final Resul t documented in this encounter Visit Diagnoses Diagnosis Colon cancer screening- Primary Special screening for malignant neoplasms, colon Encounter for screening mammogram for malignant neoplasm of breast Other screening mammogram Postmenopausal Asymptomatic postmenopausal status (age-related) (natural) Essential hypertension Unspecified essential hypertension Vitamin D deficiency Unspecified vitamin D deficiency General medical exam Unspecified general medical examination BMI 31.0-31.9,adult Body Mass Index 31.0-31.9, adult Screening for lipid disorders Neck mass Swelling, mass, or lump in head and neck Neck mass Swelling, mass, or lump in head and neck Postmenopausal Asymptomatic postmenopausal status (age-related) (natural) Encounter for screening mammogram for malignant neoplasm of breast Other screening mammogram documented in this encounter Additional Health Concerns Assessment Noted Time PHQ-9 Depression Total Score: 0 08/28/19 24 9:10 AM CDT documented as of this encounter Care Teams Hand Cigar Maker Relationship Specialty Start Date End Date David Piedra APNP [address] [place] [address] PCP - General NURSE PRACTITIONER 10/03/18 documented as of this encounter
--- OUTSIDE RECORDS SUMMARY | 2024-06-21 08:55 | XMS_ITS | Encounter Summary ---
Author Organization [facility] Address [address] [place] [address]. [place], [place] [address] [place] [address] Care Team Providers Care Car Examiner Name Role Phone Lise Garces Primary Care Provider +1- [phone] Encounter Details Date Type Department Care Team (Latest Contact Info) Description 08/07/2023 Travel Social History Tobacco Use Types Packs/Day [...] Sex Assigned at Female 05/21/2024 8:15 AM LOAN APPROVER Legal Sex Female 4:43 PM CDT Gender Identity Female 05/21/2024 8:15 AM LOAN APPROVER Sexual Orientation Not on file documented as of this encounter Plan of Treatment Not on file documented as of this encounter Visit Diagnoses Not on filedocumented in this encounter Additional Health Concerns Assessment Noted Time PHQ-9 Depression Total Score: 3 01/03/20 22 9:20 AM CDT documented as of this encounter Care Teams Car Examiner Relationship Specialty Start Date End Date Lise Garces APNP [address] [place] [address] PCP - General NURSE PRACTITIONER 10/03/18 documented as of this encounter
--- OUTSIDE RECORDS SUMMARY | 2024-06-21 08:55 | XMS_ITS | Encounter Summary ---
Author Organization [facility] Address [address] [place] [address]. [place] [address] [place] [address] Care Team Providers Care Street Light Mechanic Name Role Phone Lise Garces Primary Care Provider +1- [phone] Reason for Visit * Reason Onset Date Comments Results 06/13/2023 Encounter Details Date Type Department Care Team (Late st Contact Info) Description 06/13/2023 Telephone [facility] Family & Internal Medicine [facility] [address] [place] [address] Lise Garces APNP [address] [place], [place] [id number] Results Social History Tobacco Use Types Packs/Day [...] Sex Assigned at Female 05/21/2024 8:15 AM LINEN ATTENDANT Legal Sex Female 4:43 PM CDT Gender Identity Female 05/21/2024 8:15 AM LINEN ATTENDANT Sexual Orientation Not on file documented as of this encounter Progress Notes * Monika Bellamy MA - 06/13/2023 4:01 PM CST Patient notified and v/u N ATTENDANT * Monika Bellamy MA - 06/13/2023 4:01 PM CST ----- Message from JULY Min sent at 06/13/2023 1:01 PM LINEN ATTENDANT ----- IMPRESSION: No suspicious mammographic findings. Recommendation: 1. Routine Screening, Bilateral N ATTENDANT documented in this encounter Plan of Treatment Not on file documented as of this encounter Visit Diagnoses Not on filedocumented in this encounter Additional Health Concerns Assessment Noted Time PHQ-9 Depression Total Score: 3 01/03/20 22 9:20 AM CDT documented as of this encounter Care Teams Street Light Mechanic Relationship Specialty Start Date End Date Lise Garces APNP [address] [place] [address] PCP - General NURSE PRACTITIONER 10/03/18 documented as of this encounter
--- OUTSIDE RECORDS SUMMARY | 2024-06-21 08:55 | XMS_ITS | Encounter Summary ---
Author Organization [facility] Address [address] [place] [address]. [place], [place] [address] [place] [address] Care Team Providers Care Medical Communication Specialist Name Role Phone Lise Garces Primary Care Provider +1- [phone] Encounter Details Date Type Department Care Team (Latest Contact Info) Description 02/11/2024 Travel Social History Tobacco Use Types Packs/Day [...] Sex Assigned at Female 05/21/2024 8:15 AM PROJECT ENGINEERING MANAGER Legal Sex Female 4:43 PM CDT Gender Identity Female 05/21/2024 8:15 AM PROJECT ENGINEERING MANAGER Sexual Orientation Not on file documented as of this encounter Plan of Treatment Not on file documented as of this encounter Visit Diagnoses Not on filedocumented in this encounter Additional Health Concerns Assessment Noted Time PHQ-9 Depression Total Score: 0 08/28/19 24 9:10 AM CDT documented as of this encounter Care Teams Medical Communication Specialist Relationship Specialty Start Date End Date Lise Garces APNP [address] [place] [address] PCP - General NURSE PRACTITIONER 10/03/18 documented as of this encounter
--- OUTSIDE RECORDS SUMMARY | 2024-06-21 08:55 | XMS_ITS | Encounter Summary ---
Author Organization [facility] Address [address] [place] [address]. [place], [place] [address] [place] [address] Care Team Providers Care Machine Repairer Maintenance Name Role Phone Lise Garces Primary Care Provider +1- [phone] Encounter Details Date Type Department Care Team (Latest Contact Info) Description 03/10/2023 Travel Social History Tobacco Use Types Packs/Day [...] Sex Assigned at Female 05/21/2024 8:15 AM MINE EXPERT Legal Sex Female 4:43 PM CDT Gender Identity Female 05/21/2024 8:15 AM MINE EXPERT Sexual Orientation Not on file documented as [...] as of this encounter Care Teams Machine Repairer Maintenance Relationship Specialty Start Date End Date Lise Garces APNP [address] [place] [address] PCP - General NURSE PRACTITIONER 10/03/18 documented as of this encounter
--- OUTSIDE RECORDS SUMMARY | 2024-06-21 08:55 | XMS_ITS | Encounter Summary ---
Author Organization [facility] Address [address] [place] [address]. [place], [place] [address] [place] [address] Care Team Providers Care Crisis Counselor Name Role Phone Lise Garces Primary Care Provider +1- [phone] Encounter Details Date Type Department Care Team (Latest Contact Info) Description 05/09/2023 Travel Social History Tobacco Use Types Packs/Day [...] Sex Assigned at Female 05/21/2024 8:15 AM MOLECULAR BIOLOGY PROFESSOR Legal Sex Female 4:43 PM CDT Gender Identity Female 05/21/2024 8:15 AM MOLECULAR BIOLOGY PROFESSOR Sexual Orientation Not on file documented as of this encounter Plan of Treatment Not on file documented as of this encounter Visit Diagnoses Not on filedocumented in this encounter Additional Health Concerns Assessment Noted Time PHQ-9 Depression Total Score: 3 01/03/20 22 9:20 AM CDT documented as of this encounter Care Teams Crisis Counselor Relationship Specialty Start Date End Date Lise Garces APNP [address] [place] [address] PCP - General NURSE PRACTITIONER 10/03/18 documented as of this encounter
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
--- OUTSIDE RECORDS SUMMARY | 2024-06-21 08:55 | XMS_ITS | Encounter Summary ---
Author Organization [facility] Address [address] [place] [address]. [place], [place] [address] [place] [address] Care Team Providers Care Clerk Guide Name Role Phone Lise Garces Primary Care Provider +1- [phone] Encounter Details Date Type Department Care Team (Latest Contact Info) Description 05/18/2023 Travel Social History Tobacco Use Types Packs/Day [...] Sex Assigned at Female 05/21/2024 8:15 AM PIANO TUNER Legal Sex Female 4:43 PM CDT Gender Identity Female 05/21/2024 8:15 AM PIANO TUNER Sexual Orientation Not on file documented as of this encounter Plan of Treatment Not on file documented as of this encounter Visit Diagnoses Not on filedocumented in this encounter Additional Health Concerns Assessment Noted Time PHQ-9 Depression Total Score: 3 01/03/20 22 9:20 AM CDT documented as of this encounter Care Teams Clerk Guide Relationship Specialty Start Date End Date Lise Garces APNP [address] [place] [address] PCP - General NURSE PRACTITIONER 10/03/18 documented as of this encounter
--- OUTSIDE RECORDS SUMMARY | 2024-06-21 08:55 | XMS_ITS | Encounter Summary ---
Author Organization [facility] Address [address] [place] [address]. [place], [place] [phone] [place] [address] Care Team Providers Care Validation Manager Name Role Phone Lise Garces Primary Care Provider +1- [phone] Encounter Details Date Type Department Care Team (Latest Contact Info) Description 08/28/2023 Travel Social History Tobacco Use Types Packs/Day [...] Sex Assigned at Female 05/21/2024 8:15 AM HYDROGEN PLANT OPERATIONS MANAGER Legal Sex Female 4:43 PM CDT Gender Identity Female 05/21/2024 8:15 AM HYDROGEN PLANT OPERATIONS MANAGER Sexual Orientation Not on file documented [...] as of this encounter Care Teams Validation Manager Relationship Specialty Start Date End Date Lise Garces APNP [address] [place] [address] PCP - General NURSE PRACTITIONER 10/03/18 documented as of this encounter
--- OUTSIDE RECORDS SUMMARY | 2024-06-21 08:55 | XMS_ITS | Encounter Summary ---
Author Organization [facility] Address [address] [place] [address]. [place], [place] [address] [place] [address] Care Team Providers Care Accountant Certified Public Name Role Phone Lise Garces Primary Care Provider +1- [phone] Encounter Details Date Type Department Care Team (Latest Contact Info) Description 07/28/2022 Travel Social History Tobacco Use Types Packs/Day [...] Sex Assigned at Female 05/21/2024 8:15 AM MARBLE RUBBER Legal Sex Female 4:43 PM CDT Gender Identity Female 05/21/2024 8:15 AM MARBLE RUBBER Sexual Orientation Not on file COVID-19 Exposure Response Date Recorded In the last 10 days, have yo u been in contact with someone who was confirmed or suspected to have Coronavirus/COVID-19? No / Unsure 07/28/2022 5:38 PM MARBLE RUBBER documented as of this encounter Plan of Treatment Not on file documented as of this encounter Visit Diagnoses Not on filedocumented in this encounter Additional Health Concerns Infection Onset Date Last Indicated Resolved Time COVID-19 Rule Out 07/28/2022 07/28/2022 07/28/2022 8:29 PM MARBLE RUBBER Assessment Noted Time PHQ-9 Depression Total Score: 3 01/03/20 22 9:20 AM CDT documented as of this encounter Care Teams Accountant Certified Public Relationship Specialty Start Date End Date Lise Garces APNP [address] [place] [address] PCP - General NURSE PRACTITIONER 10/03/18 documented as of this encounter
--- OUTSIDE RECORDS SUMMARY | 2024-06-21 08:55 | XMS_ITS | Encounter Summary ---
Author Organization [facility] Address [address] [place] [address]. [place] [address] [place] [address] Care Team Providers Care Supervisor Wet End Name Role Phone Mili Lise MCDOWELL Primary Care Provider [phone] Reason for Visit * Reason Comments Foot Pain Encounter Details Date Type Department Care Team (Latest Contact Info) Description 08/07/2023 4:31 PM DELIMBER OPERATOR - 08/07/2023 5:17 PM DELIMBER OPERATOR Hospital Encounter [facility] Care [address] [place] [address] [place] [address] Denia Veliz, DO [address] [place] [address] Foot Pain Discharge Disposition: Home or Self Care [...] Sex Assigned at Female 05/21/2024 8:15 AM DELIMBER OPERATOR Legal Sex Female 4:43 PM CDT Gender Identity Female 05/21/2024 8:15 AM DELIMBER OPERATOR Sexual Orientation Not on file documented as of this encounter Last Filed Vital Signs Vital Sign Reading Time Taken Comments Blood Pressure 128/80 08/07/2023 4:29 PM DELIMBER OPERATOR Pulse 82 08/07/2023 4:29 PM DELIMBER OPERATOR Temperature 36.7 ??C (98 ??F) 08/07/2023 4:29 PM DELIMBER OPERATOR Respiratory Rate 16 08/07/2023 4:29 PM DELIMBER OPERATOR Oxygen Saturation 99% 08/07/2023 4:29 PM DELIMBER OPERATOR Inhaled Oxygen Concentration - - Weight 88.5 kg (195 lb) 08/07/2023 4:29 PM DELIMBER OPERATOR Height 175.3 cm (5' 9 ) 08/07/2023 4:29 PM DELIMBER OPERATOR Body Mass Index 28.8 08/07/2023 4:29 PM DELIMBER OPERATOR documented in this encounter Discharge Instructions * Discharge Instructions* Denia Veliz DO - 08/07/2023 5:10 PM DELIMBER OPERATOR Wear the walking boot until cleared by podiatry Apply ice 3-4 times daily Elevate leg as much as possible to help with swelling Alternate Tylenol and Ibuprofen as needed for pain Follow up with podiatry Return for further injury or other new symptoms MBER OPERATOR * Attachments The following attachments cannot be sent through Care Everywhere. * Foot Fracture Discharge Instructions ([place]ierra Leonean) documented in this encounter Medications at Time [...] ED Notes * Denia Veliz, DO - 08/07/2023 4:45 PM CST Images from the original note were not included. [facility] Urgent Care- [place], [place] HISTORICAL INFORMATION Primary Care Doctor: JULY Min Patient information was obtained primarily from the patient, nursing notes. History/Exam limitations: None Provider at Bedside None CHIEF COMPLAINT Foot Pain Chief Complaint Patient presents with Foot Pain HPI Shanika Vazquez is a 58-year-old female who presents with L foot pain. She reports she rolled her foot stepping off a sidewalk yesterday (did not fall at this time) and has had foot pain since. Denies other injury, weakness, numbness, or tingling. Has been applying ice and taking OTC analgesics w/o relief. Still able to weight bear ROS as per HPI PAST MEDICAL HISTORY Past Medical History: Diagnosis Date Arthritis 11/2018 COVID-19 Heart murmur 01/1975 Hypertension Lupus (HHS/HCC) ([facility]/HCC) SURGICAL HISTORY Past Surgical History: Procedure Laterality Date SECTION HC ABLATION UTERINE BALLOON TUBAL LIGATION 01/2000 CURRENT MEDICATIONS No current facility-administered medications for this encounter. Current Outpatient Medications: amoxicillin (AMOXIL) 500 MG capsule, Take 1 capsule (500 mg total) by mouth 2 (two) times daily for10 days., Disp: 20 capsule, Rfl: 0 aspirin EC (ECOTRIN) 81 MG tablet, Take 1 tablet (81 mg total) by mouth daily., Disp: , Rfl: benzonatate (TESSALON) 100 MG capsule, Take 1 capsule (100 mg total) by mouth 3 (three) times dailyas needed for Cough., Disp: 20 capsule, Rfl: 0 hydroxychloroquine 200 MG tablet, Take 2 tablets [...] , None Comment: only Review of Systems Musculoskeletal: Positive for falls and joint pain. Neurological: Negative for sensory change and focal weakness. Psychiatric/Behavioral: Negative for suicidal ideas. Physical Exam VITAL SIGNS: Filed Vitals: 08/07/23 1629 BP: 128/80 Pulse: 82 Resp: 16 Temp: 98 ??F (36.7 ??C) TempSrc: Temporal SpO2: 99% Weight: 88.5 kg (195 lb) Height: 1.753 m (5' 9 ) Physical Exam Vitals and nursing note reviewed. Constitutional: General: She is not in acute distress. Appearance: Normal appearance. She is normal weight. She is not ill-appearing, toxic-appearing or diaphoretic. HENT: Head: Normocephalic and atraumatic. Eyes: General: No scleral icterus. Right eye: No discharge. Left eye: No discharge. Extraocular Movements: Extraocular movements intact. Conjunctiva/sclera: Conjunctivae normal. Cardiovascular: Rate and Rhythm: Normal rate and regular rhythm. Pulses: Normal pulses. Comments: L dorsalis pedis 2+ Pulmonary: Effort: Pulmonary effort is normal. No respiratory distress. Breath sounds: No stridor. Musculoskeletal: General: No deformity. Normal range of motion. Cervical back: Normal range of motion and neck supple. No rigidity. Feet: Skin: General: Skin is warm and dry. Capillary Refill: Capillary refill takes less than 2 seconds. L foot Neurological: General: No focal deficit present. Mental Status: She is alert. Mental status is at baseline. Sensory: No sensory deficit (intact to light touch distal L foot). Motor: No weakness (5/5 L foot). Gait: Gait abnormal (slowed, favoring LLE). Psychiatric: Mood and Affect: Mood normal. Behavior: Behavior normal. Thought Content: Thought content normal. Judgment: Judgment normal. EKG (interpreted by ED provider) No results found for this visit on 08/07/23. LABORATORY Labs Reviewed - No data to display RADIOLOGY XR FOOT LT 3V (Results Pending) PROCEDURES Procedures MDM Pt with Hx of arthritis, SLE, HTN, heart murmur, arthritis, and high risk med use (immunosuppressedon Plaquenil) presenting today with post-traumatic L foot pain. Neurovascularly intact w/o evidenceof cellulitis or septic joint. Per my read, XR shows displaced fx of distal fifth metatarsal. Advised pt of results. Placed in walking boot. Offered [place] script, which she declines. Recommend RICE, NSAIDs, and f/u with podiatry I have discussed today's findings with the [...] of these instructions. Impression/Disposition SNOMED CT(R) 1. 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 Pain to top of foot with bruising noted. Pt has taken ibuprofen and used ice for relief. MBER OPERATOR MBER OPERATOR documented in this encounter Plan of Treatment Not on file documented as of this encounter Procedures Procedure Name Priority Date/Time Associated Diagnosis Comments XR FOOT LT 3V STAT 08/07/2023 5:03 PM DELIMBER OPERATOR documented in this encounter Results * XR FOOT LT 3V (08/07/2023 5:03 PM DELIMBER OPERATOR) Anatomical Region Laterality Modality Foot Radiographic Brianna ging 08/07/2023 6:06 PM DELIMBER OPERATOR Impressions 08/07/2023 6:10 PM DELIMBER OPERATOR IMPRESSION: Fracture of the fifth metatarsal. Referred By: ?? Interpreted By: Jonh Martinez MD, 08/07/2023 6:06 PM Narrative 08/07/2023 6:10 PM DELIMBER OPERATOR EXAM: XR FOOT LT 3V DATE: 08/07/2023 ?? No comparison INDICATION: Rolled foot yesterday, pain and bruising laterally. TECHNIQUE: 3 views FINDINGS: There is an oblique fracture of the distal shaft of the fifth metatarsal. ??Mild displacement and mild overriding. ??Normal alignment of the tarsal- metatarsal joint and the metatarsal phalangeal joint. Bone and soft tissue bunion changes at the first metatarsal-phalangeal joint with mild hallux valgus. ??Osteoarthritis with osteophytes and diffuse joint space reduction. ??Lateral displacement of mildly hypertrophied sesamoid bones. Possible accessory ossicle near the talonavicular joint measures about 5 mm. Procedure Note Jonh Martinez MD - 08/07/2023 EXAM: XR FOOT LT 3V DATE: 08/07/2023 No comparison INDICATION: Rolled foot yesterday, pain and bruising laterally. TECHNIQUE: 3 views FINDINGS: There is an oblique fracture of the distal shaft of the fifthmetatarsal. Mild displacement and mild overriding. Normal alignment ofthe tarsal-metatarsal joint and the metatarsal phalangeal joint. Bone and soft tissue bunion changes at the first metatarsal-phalangealjoint with mild hallux valgus. Osteoarthritis with osteophytes anddiffuse joint space reduction. Lateral displacement of mildlyhypertrophied sesamoid bones. Possible accessory ossicle near the talonavicular joint measures about 5mm. IMPRESSION: Fracture of the fifth metatarsal. Referred By: Interpreted By: Jonh Martinez MD, 08/07/2023 6:06 PM Denia Veliz DO GENERAL IMAGING Final Result documented in this encounter Visit Diagnoses Diagnosis Closed fracture of fifth metatarsal bone of left foot, initial encounter- Primary documented in this encounter Additional Health Concerns Assessment Noted Time PHQ-9 Depression Total Score: 3 01/03/20 22 9:20 AM CDT documented as of this encounter Care Teams Supervisor Wet End Relationship Specialty Start Date End Date Lise Garces APNP [address] [place] [id number] PCP - General NURSE PRACTITIONER 10/03/18 documented as of this encounter
--- OUTSIDE RECORDS SUMMARY | 2024-06-21 08:55 | XMS_ITS | Encounter Summary ---
Author Organization [facility] Address [address] [place] [address]. [place] [address] [place] [address] Care Team Providers Care Optical Laboratory Technician Name Role Phone Mili Lise MCDOWELL Primary Care Provider [phone] Reason for Visit * Reason Comments Eye Problem Encounter Details Date Type Department Care Team (Latest Contact Info) Description 09/03/2023 11:23 AM CDT - 09/03/2023 11:46 AM T Hospital Encounter [facility] Care [address] [place] [address] Sakina Vazquez, H[address]LEY [address] [place] [address] Eye Problem Discharge Disposition: Home or Self Care (Routine [...] Assigned at Female 05/21/2024 8:15 AM LEAD DESIGNER Legal Sex Female 4:43 PM CDT Gender Identity Female 05/21/2024 8:15 AM LEAD DESIGNER Sexual Orientation Not on file documented as of this encounter Last Filed Vital Signs Vital Sign Reading Time Taken Comments Blood Pressure 146/91 09/03/2023 11:25 AM CDT Pulse 87 09/03/2023 11:25 AM CDT Temperature 36.6 ??C (97.8 ??F) 09/03/2023 11:25 AM C DT Respiratory Rate 20 09/03/2023 11:25 AM CDT Oxygen Saturation 99% 09/03/2023 11:25 AM CDT Inhaled Oxygen Concentration - - Weight 88.5 kg (195 lb) 09/03/2023 11:25 AM CDT Height 175.3 cm (5' 9 ) 09/03/2023 11:25 AM CDT Body Mass Index 28.8 09/03/2023 11:25 AM CDT documented in this encounter Discharge Instructions * Discharge Instructions* HOLLEY [place] - 09/03/2023 11:42 AM CDT Avoid touching the eye. Avoid using make-up as she can contaminate your make up. Make sure you clean the eye with soap and warm water. May use soap such as Arnold's baby soap. You are considered contagious until you have been on your antibiotics for 24 hours * Attachments The following attachments cannot be sent through Care Everywhere. * Conjunctivitis ([facility]) ED ([place]) * How to Use Eye Drops ([place]) documented in this encounter Medications at Time [...] by mouth daily. 90 tablet 3 01/18/2023 ofloxacin (OCUFLOX) 0.3 % ophthalmic solution Place 1 drop into the right eye 4 (four) times daily for 7 days. 5 mL 09/03/2023 4 documented as of this encounter ED Notes * Sakina VazquezHOLLEY - 09/03/2023 11:43 AM CDT Chief Complaint Chief Complaint Patient presents with Eye Problem History of Present Illness 58-year-old female in the clinic for complaint of right eye drainage. That started last night. Now has green drainage little bit of crusting on the lashes. Increased redness in the eye itself. No earpain, no fevers. Patient did have influenza 10 days ago. Medical History ALLERGIES: Review of patient's allergies [...] total) by mouth daily. 01/18/23 JULY Min ofloxacin (OCUFLOX) 0.3 % ophthalmic solution Place 1 drop into the right eye 4 (four) times daily for 7 days. 09/03/23 09/10/23 Sakina Veliz HOLLEY Vazquez Probiotic Product (PROBIOTIC OR) Take 2 capsules by mouth daily. Brand name: provitalize. Doc [facility] Abstract PAST MEDICAL HISTORY: Past Medical History: Diagnosis Date Arthritis 11/2018 COVID-19 Heart murmur 01/1975 Hypertension Lupus ([facility]) MRSA (methicillin resistant Staphylococcus aureus) PAST SURGICAL HISTORY: Past Surgical History: Procedure Laterality Date SECTION HC ABLATION UTERINE BALLOON TUBAL LIGATION 01/2000 FAMILY HISTORY: Family History Problem Relation Name Age of Onset Thyroid Mother HYPO Hypertension Father Brissa Mendoza Heart Disease Father Brissa Mendoza Heart Disease Maternal Grandmother Jordynsravani BranchPiotr Heart Disease Paternal Grandmother Miscarriages / Stillbirths Daughter Yury Eddy Diagnosis PCOS SOCIAL HISTORY: Social History Tobacco Use Smoking status: Never Passive exposure: Never Smokeless tobacco: Never Vaping Use Vaping Use: Never used Substance Use Topics Alcohol use: No Drug use: No Review of Systems Review of Systems Constitutional: Negative. HENT: Negative. Eyes: Positive for discharge, redness and itching. Negative for photophobia, pain and visual disturbance. Respiratory: Negative. Cardiovascular: Negative. Physical Exam Filed Vitals: 09/03/23 1125 BP: (!) 146/91 Pulse: 87 Resp: 20 Temp: 97.8 ??F (36.6 ??C) TempSrc: Temporal SpO2: 99% Weight: 88.5 kg (195 lb) Height: 1.753 m (5' 9 ) Physical Exam Vitals and nursing note reviewed. Constitutional: Appearance: Normal appearance. She is normal weight. HENT: Head: Normocephalic. Right Ear: Tympanic membrane, ear canal and external ear normal. Left Ear: Tympanic membrane, ear canal and external ear normal. Eyes: General: Lids are normal. Right eye: Discharge present. Left eye: No discharge. Conjunctiva/sclera: Right eye: Right conjunctiva is injected. Left eye: Left conjunctiva is not injected. Pupils: Pupils are equal, round, and reactive to light. Cardiovascular: Rate and Rhythm: Normal rate. Pulmonary: Effort: Pulmonary effort is normal. Skin: General: Skin is warm and dry. Neurological: Mental Status: She is alert and oriented to person, place, and time. Sensory: No sensory deficit. Psychiatric: Mood and Affect: Mood normal. Behavior: Behavior normal. Diagnostic Studies / Procedures ELECTROCARDIOGRAMS: No results found for this visit on 09/03/23. LABORATORY STUDIES: No results found for this visit on 09/03/23. IMAGING STUDIES No orders to display ED Course / Medical Decision Making Medical Decision Making 58-year-old female with history of lupus, high blood pressure and arthritis. Patient is on medication for her lupus and her blood pressure. Blood pressure slightly elevated today at 146/91. Patient presenting for possible pinkeye. Has greenish drainage and conjunctiva is injected in the right eye. Amount and/or Complexity of Data Reviewed Discussion of management or test interpretation with external provider(s): Reviewed findings with the patient. At this time we will start on antibiotic eyedrops. Use as directed. Reiterated good handwashing. Advised her that she is contagious until she been on the drops 24 hours. Risk OTC drugs. Prescription drug management. Risk Details: Reviewed plan of care with patient to include diagnoses, Test results, medication andplan of care. Pt verbalized understanding. All questions answered. Clinical Impression Conjunctivitis (Primary) Disposition: Discharge Sakina VazquezHOLLEY 09/03/23 1146 Cosigned by Heather Arvizu MD at 09/14/2023 8:59 AM CDT * Jane Trejo RN - 09/03/2023 11:24 AM CDT Pt reports last PM she developed Right eye drainage, redness, and mild itching. Pt does not wear contact lenses. Wearing glasses upon arrival. Denies blurred viion. documented in this encounter Plan of Treatment Not on file documented as of this encounter Visit Diagnoses Diagnosis Conjunctivitis- Primary Conjunctivitis, unspecified documented in this encounter Additional Health Concerns Infection Onset Date Last Indicated Resolved Time Influenza - Seasonal 08/28/2023 08/28/2023 024 12:32 AM CDT Assessment Noted Time PHQ-9 Depression Total Score: 0 08/28/19 24 9:10 AM CDT documented as of this encounter Care Teams Optical Laboratory Technician Relationship Specialty Start Date End Date Lise Garces APNP [address] [place] [id number] PCP - General NURSE PRACTITIONER 10/03/18 documented as of this encounter
--- OUTSIDE RECORDS SUMMARY | 2024-06-21 08:56 | XMS_ITS | Encounter Summary ---
Author Organization [facility] Address [address] [place] [address]. [place] [address] [place] [address] Care Team Providers Care Sergeant Of Officers Name Role Phone Lise Garces Primary Care Provider [phone] Encounter Details Date Type Department Care Team (Late st Contact Info) Description 07/06/2021 Orders Only [facility] Family & Internal Medicine [facility] [address] [place] [address] Lise Garces APNP [facility] [place] [address] Social History Tobacco Use Types Packs/Day Years Used Date Smoking Tobacco: Never Smokeless Tobacco: Never Alcohol Use Standard Drinks/Week Comments No 0 (1 standard drink = 0.6 oz pur e alcohol) AUDIT-C Answer Date Recorded Frequency of Alcohol Consumption Never 10/03/2018 Average Number of Drinks Not on file 019 Frequency of Binge Drinking Not on file 09/09 PHQ-2 Answer Date Recorded PHQ-2 Score 1 10/03/2018 Comments No Sex and Gender Information Value Date Recorded Sex Assigned at Female 05/21/2024 8:15 AM TENTER FEEDER Legal Sex Female 4:43 PM CDT Gender Identity Female 05/21/2024 8:15 AM TENTER FEEDER Sexual Orientation Not on file COVID-19 Exposure Response Date Recorded In the last month, have you been in contact with someone who was confirmed or suspected to have Coronavirus / COVID-19? Unable to assess 07/06/2021 8:05 AM TENTER FEEDER documented as of this encounter Plan of Treatment Not on file documented as of this encounter Procedures Procedure Name Priority Date/Time Associated Diagnosis Comments CORONAVIRUS (COVID 19) PCR Routine 07/06/2021 2:12 PM TENTER FEEDER Acute intractable headache, unspecified headache type Fever, unspecified fever cause Body aches Close exposure to COVID-19 virus documented in this encounter Results * (ABNORMAL) CORONAVIRUS (COVID 19) PCR ([facility]) (07/06/2021 2:12 PM TENTER FEEDER) SPEC DESCRIPTION NASAL 07/06/19 2:12 PM TENTER FEEDER [facility] CORONAVIRUS SARS COV 2 PCR (RESP) POSITIVE(AA ) NEGATIVE 07/07/2021 2:00 AM TENTER FEEDER [facility] Comment: THE SARS-CoV-2 TEST HAS BEEN AUTHORIZED BY THE FDA UNDER AN EUA FOR USE BY AUTHORIZED LABORATORIES. PERFORMED BY NUCLEIC ACID AMPLIFICATION PCR FIRST TEST NO 07/06/2021 2:12 PM TENTER FEEDER [facility] EMPLOYED IN HEALTHCARE NO 07/06/2021 2:12 PM TENTER FEEDER [facility] SYMPTOMATIC DEFINED BY CDC YES 07/06/2021 2:12 PM TENTER FEEDER [facility] DATE OF SYMPTOM ONSET [id number]/06/2021 2:12 PM TENTER FEEDER [facility] HOSPITALIZATION STATUS NO 07/06/2021 2:12 PM TENTER FEEDER [facility] PATIENT IN ICU NO 07/06/2021 2:12 PM TENTER FEEDER [facility] RESIDENT OF [facility] NO 07/06/2021 2:12 PM TENTER FEEDER [facility] NOT 07/06/2021 2:12 PM TENTER FEEDER [facility] NASOPHARYNGEAL SWAB / Unknown 07/06/2021 2:12 PM TENTER FEEDER Lise MCDOWELL MICROBIOLOGY - GENERAL RACHANA PRABHAKAR Final Result [facility] [address] [place] [address], documented in this encounter Visit Diagnoses Diagnosis Acute intractable headache, unspecified headache type Fever, unspecified fever cause Body aches Generalized pain Close exposure to COVID-19 virus documented in this encounter Additional Health Concerns Infection Onset Date Last Indicated Resolved Time COVID-19 Rule Out 07/06/2021 07/06/2021 07/06/2021 10:14 AM TENTER FEEDER COVID-19 Rule Out 07/06/2021 07/06/2021 07/07/2021 2:00 AM TENTER FEEDER COVID-19 Confirmed 07/06/2021 07/06/2021 12:32 AM TENTER FEEDER documented as of this encounter Care Teams Sergeant Of Officers Relationship Specialty Start Date End Date Lise Garces APNP [address] [place] [id number] PCP - General NURSE PRACTITIONER 10/03/18 documented as of this encounter
--- OUTSIDE RECORDS SUMMARY | 2024-06-21 08:56 | XMS_ITS | Encounter Summary ---
Author Organization [facility] Address [address] [place] [address]. [place] [address] [place] [address] Care Team Providers Care Rod Mill Operator Name Role Phone Lise Garces Primary Care Provider [phone] Encounter Details Date Type Department Care Team (Latest Contact Info) Description 03/25/2021 Scan [facility] Scanned, Documents Social History Tobacco Use Types Packs/Day Years [...] Sex Assigned at Female 05/21/2024 8:15 AM MANAGER INTERFACE Legal Sex Female 4:43 PM CDT Gender Identity Female 05/21/2024 8:15 AM MANAGER INTERFACE Sexual Orientation Not on file COVID-19 Exposure Response Date Recorded In the last month, have you been in contact with someone who was confirmed or suspected to have Coronavirus / COVID-19? Unable to assess 03/08/2021 6:42 AM CDT documented as of this encounter Plan of Treatment Not on file documented as of this encounter Visit Diagnoses Not on filedocumented in this encounter Care Teams Rod Mill Operator Relationship Specialty Start Date End Date Lise Garces APNP [address] [place] [id number] PCP - General NURSE PRACTITIONER 10/03/18 documented as of this encounter
--- OUTSIDE RECORDS SUMMARY | 2024-06-21 08:56 | XMS_ITS | Encounter Summary ---
Author Organization [facility] Address [address] [place] [address]. [place] [address] [place] [address] Care Team Providers Care Divinity Teacher Name Role Phone Lise Garces Primary Care Provider [phone] Reason for Referral * Imaging (Emergency) - Closed Specialty Diagnoses / Procedures Referred By Blake ceja Referred To Contact RADIOLOGY Procedures CTA CHEST J Carlos Russo MD [address] [address] Phone: tel: fax: Referral ID Status Reason Start Date Expiration Date Visits Re quested Visits Authorized [id number] Closed 08/16/2021 09/16/2022 1 1 ENSATION AND BENEFITS ANALYST Reason for Visit * Reason Comments Palpitations Encounter Details Date Type Department Care Team (Late st Contact Info) Description 08/16/2021 7:27 AM COMPENSATION AND BENEFITS ANALYST - 08/16/2021 12:18 PM COMPENSATION AND BENEFITS ANALYST Emergency [facility] [place] [address] J Carlos Russo MD [address] [address] Palpitations Discharge Disposition: Home or Self Care (Routine [...] Sex Assigned at Female 05/21/2024 8:15 AM COMPENSATION AND BENEFITS ANALYST Legal Sex Female 4:43 PM CDT Gender Identity Female 05/21/2024 8:15 AM COMPENSATION AND BENEFITS ANALYST Sexual Orientation Not on file COVID-19 Exposure Response Date Recorded In the last 10 days, have yo u been in contact with someone who was confirmed or suspected to have Coronavirus/COVID-19? No / Unsure 08/16/2021 7:19 AM COMPENSATION AND BENEFITS ANALYST documented as of this encounter Last Filed Vital Signs Vital Sign Reading Time Taken Comments Blood Pressure 108/61 08/16/2021 12:15 PM COMPENSATION AND BENEFITS ANALYST Pulse 84 08/16/2021 12:15 PM COMPENSATION AND BENEFITS ANALYST Temperature 37 ??C (98.6 ??F) 08/16/2021 7:19 AM COMPENSATION AND BENEFITS ANALYST Respiratory Rate 24 08/16/2021 12:15 PM COMPENSATION AND BENEFITS ANALYST Oxygen Saturation 97% 08/16/2021 12:15 PM COMPENSATION AND BENEFITS ANALYST Inhaled Oxygen Concentration - - Weight 91 kg (200 lb 9.9 oz) 08/16/2021 7:19 AM COMPENSATION AND BENEFITS ANALYST Height 175.3 cm (5' 9 ) 08/16/2021 7:19 AM COMPENSATION AND BENEFITS ANALYST Body Mass Index 29.63 08/16/2021 7:19 AM COMPENSATION AND BENEFITS ANALYST documented in this encounter Discharge Instructions * Discharge Instructions* J Carlos Russo MD - 08/16/2021 11:40 AM COMPENSATION AND BENEFITS ANALYST Thank you for entrusting your health with me. I have obtained information about your health and reviewed your work-up. Please access [employer] to see my note and work-up. Medical care is complex and your health is important to me. I encourage you to ask questions for further understanding of today's visit and return if something changes. Sincerely, Dr. Russo ENSATION AND BENEFITS ANALYST * Attachments The following attachments cannot be sent through Care Everywhere. * Palpitations ([place]) * Palpitations Discharge Instructions ([place]) documented in this encounter Medications at Time of Discharge aspirin EC (ECOTRIN) 81 MG tablet Take 1 tablet (81 mg total) by mouth daily. hydroxychloroquine 200 MG tablet Take 2 tablets (400 mg total) by mouth daily. 04/03/2020 Loratadine (CLARITIN OR) Take by mouth daily. Probiotic Product (PROBIOTIC OR) Take 2 capsules by mouth daily. Brand name: provitalize. LOSARTAN 25 MG tabletIndications: Essential hypertension TAKE 1 TABLET(25 MG) BY MOUTH DAILY 90 tablet 3 04/13/2021 2 documented as of this encounter ED Notes * Britteny Anderson CNA - 08/16/2021 9:44 AM CST Patient Experience rounding completed. Brittney Anderson CNA, Director Of Operations, Patient Experience ENSATION AND BENEFITS ANALYST * Kisha Turcios - 08/16/2021 8:50 AM CST Blue top sent down to lab for added on DDimer ENSATION AND BENEFITS ANALYST * J Carlos Russo MD - 08/16/2021 8:01 AM CST Emergency Department Note Chief Complaint Chief Complaint Patient presents with ??? Palpitations History of Present Illness Luis Vazquez is a 56-year-old female who presents with palpitations that began early this morning.She reports some associated nausea. No chest pain. Denies any shortness of breath. Denies any lowerextremity pain or edema. Currently feeling improved upon her arrival. Denies any current palpitations. No recent infections. No recent medication changes. Denies the use of alcohol. History of MVP, HTN, and Lupus. Medical History ALLERGIES: No Known Allergies MEDICATIONS: Prior to Admission medications Medication Sig Start Date End Date Taking? Authorizing Provider aspirin EC (ASPIRIN EC) 81 MG tablet Take 81 mg by mouth daily. Yes Doc Abstract hydroxychloroquine 200 MG tablet Take 400 mg by mouth daily. 04/03/20 Yes Doc Abstract Loratadine (CLARITIN OR) Take by mouth daily. Yes Doc Abstract LOSARTAN 25 MG tablet TAKE 1 TABLET(25 MG) BY MOUTH DAILY 04/13/21 Yes JULY Min Probiotic Product (PROBIOTIC OR) Take 2 capsules by mouth daily. Brand name: provitalize. Yes Doc Abstract PAST MEDICAL HISTORY: Past Medical History: Diagnosis Date ??? Hypertension ??? Lupus (CMS/HCC) PAST SURGICAL HISTORY: Past Surgical History: Procedure Laterality Date ??? SECTION ??? HC ABLATION UTERINE BALLOON FAMILY HISTORY: Family History Problem Relation Name Age of Onset ??? Hypertension Father ??? Heart Disease Father ??? Heart Disease Paternal Grandmother ??? Thyroid Mother HYPO ??? Heart Disease Maternal Grandmother SOCIAL HISTORY: Social History Tobacco Use ??? Smoking status: Never Smoker ??? Smokeless tobacco: Never Used Substance Use Topics ??? Alcohol use: No ??? Drug use: No Review of Systems Review of Systems Constitutional: Denies fever Eyes: Denies visual changes HENT: Denies sore throat or ear pain. Respiratory: Denies shortness of breath. Cardiovascular: See HPI. GI: See HPI. Musculoskeletal: Denies back pain Skin: Denies rash. Neurologic: Denies headache Endocrine: Denies hypoglycemia Lymphatic: Denies swollen glands. Psychiatric: Denies depression, SI See HPI for further details. All systems negative except as marked. Physical Exam Filed Vitals: 08/16/21 0719 08/16/21 0745 08/16/21 0830 08/16/21 0930 BP: (!) 145/90 123/80 (!) 142/82 112/69 Pulse: 94 86 90 83 Resp: 16 15 20 14 Temp: 98.6 ??F (37 ??C) TempSrc: Temporal SpO2: 100% 97% 97% 98% Weight: 91 kg (200 lb 9.9 oz) Height: 5' 9 (1.753 m) Physical Exam Constitutional: Well developed, Well nourished, No acute distress, Non-toxic appearance. HEENT: Normocephalic, Atraumatic, Bilateral external ears normal, EOMI, Conjunctiva normal, No discharge.Oropharynx moist, Nose normal. Respiratory: Normal breath sounds, No respiratory distress. Cardiovascular: Normal heart rate, Normal rhythm GI: Soft, No tenderness, No masses, No pulsatile masses. Neck: Normal range of motion, No tenderness, Supple, No stridor. Back: No tenderness Extremities: Intact distal pulses, No edema, No tenderness, Good range of motion in all major joints. Skin: Warm, Dry, No erythema, No rash. Neurologic: Alert & oriented x 3, Normal motor function, Normal sensory function, No focal deficits noted. Psychiatric: Affect normal, Judgment normal, Mood normal. Medical decision making: Problem list: Palpitations Differential: Arrhythmia, anemia, dehydration, less likely PE, other Plan for diagnostic labs, EKG, troponin, D-dimer, TSH Diagnostic Studies / Procedures ELECTROCARDIOGRAMS: 0737 EKG by my interpretation demonstrates sinus rhythm, rate of 93. Normal NV interval, normal QTc. Incomplete RBBB. PULSE OX: SpO2: 100 % Normal LABORATORY STUDIES: Results for orders placed or performed during the hospital encounter of 08/16/21 CBC W/DIFF AUTOMATED Result Value Ref Range WBC 7.5 4.5 - 11.0 x10'3/uL RBC 4.08 (L) 4.20 - 5.40 x10'6/uL HGB 12.8 12.0 - 16.0 G/DL HCT 39.1 38.0 - 48.0 % MCV 95.8 81.0 - 99.0 FL MCH 31.4 (H) 27.0 - 31.0 PG MCHC 32.7 32.0 - 36.0 G/DL RDW 12.7 11.5 - 14.5 % PLT 281 130 - 400 x10'3/uL MPV 9.5 9.3 - 12.2 FL DIFFERENTIAL TYPE MANUAL DIFFERENTIAL SEG NEUTROPHILS 83 % LYMPHOCYTES 4 % MONOCYTES 5 % EOSINOPHILS 8 % ABS. NEUTROPHIL COUNT 6.23 1.80 - 7.70 x10'3/uL ABS.LYMPHOCYTES CALCULATED 0.30 (L) 1.00 - 4.80 x10'3/uL ABS. MONOCYTES CALCULATED 0.38 0.24 - 0.86 x10'3/uL ABS. EOSINOPHIL CALCULATED 0.60 (H) 0.04 - 0.36 x10'3/uL RBC MORPHOLOGY RBC MORPHOLOGY APPEARS NORMAL. SLIDE REVIEWED. PLT EST. ADEQUATE COMPREHENSIVE METABOLIC PANEL Result Value Ref Range GLUCOSE 98 70 - 99 MG/DL BUN 19 (H) 7 - 18 MG/DL CREATININE S/P/B 1.01 0.55 - 1.02 MG/DL SODIUM 139 136 - 145 MMOL/L POTASSIUM 4.0 3.5 - 5.1 MMOL/L CHLORIDE S/P/B 109 (H) 100 - 108 MMOL/L CO2 24.3 21 - 32 MMOL/L CALCIUM 9.1 8.5 - 10.1 MG/DL BILIRUBIN TOTAL S/P/B 0.8 0.2 - 1.2 MG/DL TOTAL PROTEIN S/P/B 7.5 6.4 - 8.2 G/DL ALBUMIN S/P/B 3.7 3.4 - 5.0 G/DL AST 24 15 - 37 U/L ALT 26 14 - 55 U/L ALKALINE PHOSPHATASE S/P/B 114 50 - 136 U/L ANION GAP 5.7 5 - 15 MMOL/L BUN CREATININE RATIO 18.8 6 - 26 A/G RATIO 1.0 1.0 - 2.0 RATIO eGFR Non-Afr. Amer. 62 (L) >90 ML/MIN/1.73 M2 eGFR Afr. Amer. 72 (L) >90 ML/MIN/1.73 M2 TROPONIN, QUANT Result Value Ref Range TROPONIN I HIGH SENSITIVITY 3 <54 ng/L THYROID STIM HORMONE, TSH Result Value Ref Range TSH 1.370 0.358 - 3.74 uIU/ML D-DIMER, QUANTITATIVE Result Value Ref Range D-DIMER 666 (HH) 0 - 500 ng[FEU]/mL IMAGING STUDIES CTA CHEST Result Date: 08/16/2021 IMPRESSION: ===== 1. No pulmonary embolism. Normal caliber aorta. 2. No acute thoracic abnormalities. 3. Small hiatal hernia. Referred By: Interpreted By: King Chavis MD, 08/16/2021 11:13 AM XR CHEST PORTABLE Result Date: 08/16/2021 IMPRESSION: No active cardiopulmonary disease. Ordered By: J CARLOS RUSSO Interpreted By: Chano Christopher MD, 08/16/2021 7:52 AM ED Course Hemoglobin 12. Labs benign. Troponin negative. TSH normal. Patient with elevated D-dimer. Chest x-ray negative. Will proceed with CT chest CT without evidence of PE. No other acute process seen. Reevaluated the patient. No return of symptoms while in the ER. I discussed the workup as well as plan of care. I discussed medications and well as other therapiesneeded. I discussed follow-up instructions as well as return precautions. The patient agrees with the plan of care and is stable for discharge at this time. Medications iopamidol (ISOVUE-370) 76 % injection 80 mL (80 mLs Intravenous Given 08/16/21 1033) Clinical Impression Palpitations (Primary) Current Discharge Medication List Disposition: Discharge Follow-Up: JULY Min [address] [facility] [address] Call in 1 day As needed Colt Tinoco MD,PHD [address] [facility], [address] [facility] [address] Call in 1 day for cardiology follow-up J CARLOS RUSSO MD 08/16/2021 J Carlos Russo MD 08/16/21 1201 ENSATION AND BENEFITS ANALYST * Nuzhat Hurtado RN - 08/16/2021 7:21 AM CST Ambulatory to triage with financial reporting accountant heart palpitations that started early this morning. She denies any SOB or chest pain. She reports feeling nauseated. Hx of heart murmur in the past. VSS. NUZHAT HURTADO RN ENSATION AND BENEFITS ANALYST documented in this encounter Plan of Treatment Not on file documented as of this encounter Procedures Procedure Name Priority Date/Time Associated Diagnosis Comments CTA CHEST STAT 08/16/2021 10:33 AM COMPENSATION AND BENEFITS ANALYST D-DIMER, QUANTITATIVE STAT 08/16/2021 8:53 AM COMPENSATION AND BENEFITS ANALYST XR CHEST PORTABLE STAT 08/16/2021 7:5 2 AM COMPENSATION AND BENEFITS ANALYST COMPREHENSIVE METABOLIC PANEL STAT 08/16/2021 7:43 AM COMPENSATION AND BENEFITS ANALYST CBC W/DIFF AUTOMATED STAT 08/16/2021 7:43 AM COMPENSATION AND BENEFITS ANALYST TROPONIN, QUANT STAT 08/16/2021 7:43 AM COMPENSATION AND BENEFITS ANALYST THYROID STIM HORMONE TSH STAT 08/16/2021 7:43 AM COMPENSATION AND BENEFITS ANALYST ECG 12-LEAD STAT 08/16/2021 7:32 AM COMPENSATION AND BENEFITS ANALYST documented in this encounter Results * CTA CHEST (08/16/2021 10:33 AM COMPENSATION AND BENEFITS ANALYST) Anatomical Region Laterality Modality Chest Computed Tomogra phy 08/16/2021 11:1 3 AM COMPENSATION AND BENEFITS ANALYST Impressions 08/16/2021 11:16 AM COMPENSATION AND BENEFITS ANALYST IMPRESSION: ===== 1. ??No pulmonary embolism. ??Normal caliber aorta. 2. ??No acute thoracic abnormalities. 3. ??Small hiatal hernia. Referred By: ?? Interpreted By: King Chavis MD, 08/16/2021 11:13 AM Narrative 08/16/2021 11:16 AM COMPENSATION AND BENEFITS ANALYST EXAMINATION: CTA CHEST WITH CONTRAST EXAM DATE/TIME: 08/16/2021 10:27 AM REASON FOR EXAM: ??PE suspected, low/intermediate prob, positive D-dimer ?? Heart palpitations began earlier this morning. ??Nausea. ??Elevated d-dimer. COMPARISON: No prior CT TECHNIQUE: Axial CT images of the chest are obtained following uneventful intravenous administration of 80 cc Isovue-370. Subsequent coronal and sagittal reformatted sequences are greater for evaluation. In addition 3-D rotational MIP imaging of the thoracic arterial vasculature is created on a separate workstation for review. ??A dose lowering technique was used for this procedure, which may include, but is not limited to, dose reduction technique, automated exposure control, iterative reconstruction, ALARA (As Low As Reasonably Achievable), or Image Gently techniques. FINDINGS: Pulmonary arteries are well-opacified. ??No evidence of pulmonary embolism. ??Left aortic arch. ??Thoracic aorta normal in caliber throughout. ??No dissection, extravasation, or significant stenosis. ??Minimal dependent atelectasis bilaterally. ??No abnormal pulmonary nodules or masses. ??No pleural effusion or pneumothorax. ??The central airways are patent. ??No mucous plugging. ??No axillary or mediastinal lymphadenopathy. ??Heart size normal. ??No pericardial effusion. ??Limited evaluation of upper abdominal viscera shows no acute abnormality. ??There is a tiny hiatal hernia. ??Bone level imaging shows no acute osseous abnormalities. ===== Procedure Note King Chavis MD - 08/16/2021 EXAMINATION: CTA CHEST WITH CONTRAST EXAM DATE/TIME: 08/16/2021 10:27 AM REASON FOR EXAM: PE suspected, low/intermediate prob, positive D-dimer Heart palpitations began earlier this morning. Nausea. Elevatedd-dimer. COMPARISON: No prior CT TECHNIQUE: Axial CT images of the chest are obtained following uneventfulintravenous administration of 80 cc Isovue-370. Subsequent coronal andsagittal reformatted sequences are greater for evaluation. In addition 3-Drotational MIP imaging of the thoracic arterial vasculature is created nida separate workstation for review. A dose lowering technique was used forthis procedure, which may include, but is not limited to, dose reductiontechnique, automated exposure control, iterative reconstruction, ALARA (AsLow As Reasonably Achievable), or Image Gently techniques. FINDINGS: Pulmonary arteries are well-opacified. No evidence of pulmonary embolism.Left aortic arch. Thoracic aorta normal in caliber throughout. Nodissection, extravasation, or significant stenosis. Minimal dependentatelectasis bilaterally. No abnormal pulmonary nodules or masses. Nopleural effusion or pneumothorax. The central airways are patent. Nomucous plugging. No axillary or mediastinal lymphadenopathy. Heart sizenormal. No pericardial effusion. Limited evaluation of upper abdominalviscera shows no acute abnormality. There is a tiny hiatal hernia. Bonelevel imaging shows no acute osseous abnormalities. ===== IMPRESSION: ===== 1. No pulmonary embolism. Normal caliber aorta. 2. No acute thoracic abnormalities. 3. Small hiatal hernia. Referred By: Interpreted By: King Chavis MD, 08/16/2021 11:13 AM J Carlos Russo MD CT Final Result * (ABNORMAL) D-DIMER, QUANTITATIVE (08/16/2021 8:53 AM COMPENSATION AND BENEFITS ANALYST) D-DIMER 666(HH) 0 - 500 ng{FEU}/mL 08/16/2021 9:45 AM COMPENSATION AND BENEFITS ANALYST [facility] Comment: D-Dimer values less than or equal to 500 ng/mL FEU have a negative predictive value of >95% for exclusion of deep vein thrombosis and pulmonary embolism. In patients over 50 (who tend to have higher normal baseline D-Dimer values), recent studies suggest age-adjusted D-Dimer cutoff values (calculated as: age [years] x 10 ng/mL) result in equivalent outcomes and no additional false negative findings. Successful Call: DDIMR called 08/16/2021 09:46 AM to EMERGENCY ROOM ([id number]/VADIM ZHOU) by [id number]. Read Back: Yes 08/16/2021 8:53 AM COMPENSATION AND BENEFITS ANALYST J Carlos Russo MD LABORATORY Final Result [facility] [address] [place] [address], [place] [phone] * XR CHEST PORTABLE (08/16/2021 7:52 AM COMPENSATION AND BENEFITS ANALYST) Anatomical Region Laterality Modality Chest Radiographic Brianna ging 08/16/2021 7:52 AM COMPENSATION AND BENEFITS ANALYST Impressions 08/16/2021 7:53 AM COMPENSATION AND BENEFITS ANALYST IMPRESSION: No active cardiopulmonary disease. Ordered By: J CARLOS RUSSO Interpreted By: Chano Christopher MD, 08/16/2021 7:52 AM Narrative 08/16/2021 7:53 AM COMPENSATION AND BENEFITS ANALYST 08/16/2021, 7:45 AM. HISTORY: Heart palpitations that started this morning. History of heart murmur. EXAM: Erect portable AP chest. No comparison. FINDINGS: The lungs are clear of active infiltrates. The heart size and pulmonary vascularity are within normal limits. No pleural effusion. No pneumothorax. Procedure Note Chano Christopher MD - 08/16/2021 08/16/2021, 7:45 AM. HISTORY: Heart palpitations that started this morning. History of heartmurmur. EXAM: Erect portable AP chest. No comparison. FINDINGS: The lungs are clear of active infiltrates. The heart size andpulmonary vascularity are within normal limits. No pleural effusion. Nopneumothorax. IMPRESSION: No active cardiopulmonary disease. Ordered By: J CARLOS RUSSO Interpreted By: Chano Christopher MD, 08/16/2021 7:52 AM J Carlos Russo MD GENERAL IMAGING Final Result * THYROID STIM HORMONE, TSH (08/16/2021 7:43 AM COMPENSATION AND BENEFITS ANALYST) TSH 1.370 0.358 - 3.74 uIU/ML 08/16/2021 8:27 AM COMPENSATION AND BENEFITS ANALYST [facility] Comment: HIGH DOSES OF BIOTIN MAY INTERFERE WITH THIS TEST RESULT. CORRELATION TO CLINICAL HISTORY AND PRESENTATION RECOMMENDED. 08/16/2021 7:43 AM COMPENSATION AND BENEFITS ANALYST J Carlos Russo MD LABORATORY Final Result [facility] [address] [place] [address], [place] [phone] * TROPONIN, QUANT (08/16/2021 7:43 AM COMPENSATION AND BENEFITS ANALYST) Pathologist [facility] [place] TROPONIN I HIGH SENSITIVITY 3 <54 ng/L 08/16/2021 8:27 AM COMPENSATION AND BENEFITS ANALYST [facility] Comment: HIGH DOSES OF BIOTIN, TROPONIN-SPECIFIC AUTOANTIBODIES, AND ANTIBODY THERAPY CONTAINING HAMA MAY INTERFERE WITH THIS TEST RESULT. CORRELATION TO CLINICAL HISTORY AND PRESENTATION RECOMMENDED. 08/16/2021 7:43 AM COMPENSATION AND BENEFITS ANALYST J Carlos Russo MD LABORATORY Final Result [facility] [address] [place] [address], * (ABNORMAL) COMPREHENSIVE METABOLIC PANEL (08/16/2021 7:43 AM COMPENSATION AND BENEFITS ANALYST) Pathologist [facility] [place] GLUCOSE 98 70 - 99 MG/DL 08/16/2021 8:27 AM COMPENSATION AND BENEFITS ANALYST [facility] BUN 19(H) 7 - 18 MG/DL 08/16/2021 8:27 AM [facility] CREATININE S/P/B 1.01 0.55 - 1.02 MG/DL 08/16/2021 8:27 AM COMPENSATION AND BENEFITS ANALYST [facility] SODIUM S/P/B 139 136 - 145 MMOL/L 08/16/2021 8:27 AM [facility] POTASSIUM S/P/B 4.0 3.5 - 5.1 MMOL/L 08/16/2021 8:27 AM [facility] CHLORIDE S/P/B 109(H) 100 - 108 MMOL/L 08/16/2021 8:27 AM COMPENSATION AND BENEFITS ANALYST [facility] CO2 24.3 21 - 32 MMOL/L 08/16/2021 8:27 AM [facility] CALCIUM S/P/B 9.1 8.5 - 10.1 MG/DL 08/16/2021 8:27 AM [facility] BILIRUBIN TOTAL S/P/B 0.8 0.2 - 1.2 MG/DL 08/16/2021 8:27 AM [facility] Comment: THIS ASSAY IS NOT RECOMMENDED FOR PATIENTS UNDERGOING TREATMENT WITH ELTROMBOPAG DUE TO THE POTENTIAL FOR FALSELY ELEVATED RESULTS. TOTAL PROTEIN S/P/B 7.5 6.4 - 8.2 G/DL 08/16/2021 8:27 AM [facility] ALBUMIN S/P/B 3.7 3.4 - 5.0 G/DL 08/16/2021 8:27 AM [facility] AST 24 15 - 37 U/L 08/16/2021 8:27 AM [facility] ALT 26 14 - 55 U/L 08/16/2021 8:27 AM [facility] ALKALINE PHOSPHATASE S/P/B 114 50 - 136 U/L 08/16/2021 8:27 AM [facility] ANION GAP 5.7 5 - 15 MMOL/L 08/16/2021 8:27 AM [facility] BUN CREATININE RATIO 18.8 6 - 26 08/16/2021 8:27 AM [facility] A/G RATIO 1.0 1.0 - 2.0 RATIO 08/16/2021 8:27 AM [facility] EGFR NON-AFR. AMER. 62(L) >90 ML/MIN/1.7 3 M2 08/16/2021 8:27 AM [facility] EGFR AFR. AMER. 72(L) >90 ML/MIN/1.7 3 M2 08/16/2021 8:27 AM [facility] Comment: NOTE: eGFR is not calculated for patients <18 years of age. This is an estimated GFR (CKD EPI) and should not be used for calculating drug doses. 08/16/2021 7:43 AM COMPENSATION AND BENEFITS ANALYST us J Carlos Russo MD LABORATORY Final Result [facility] [address] [place] [address], [place] [phone] * (ABNORMAL) CBC W/DIFF AUTOMATED (08/16/2021 7:43 AM COMPENSATION AND BENEFITS ANALYST) [facility] WBC 7.5 4.5 - 11.0 x10'3/uL 08/16/2021 7:53 AM [facility] RBC 4.08(L) 4.20 - 5.40 x10'6/uL 08/16/2021 7:53 AM [facility] HGB 12.8 12.0 - 16.0 G/DL 08/16/2021 7:53 AM [facility] HCT 39.1 38.0 - 48.0 % 08/16/2021 7:53 AM [facility] MCV 95.8 81.0 - 99.0 FL 08/16/2021 7:53 AM [facility] MCH 31.4(H) 27.0 - 31.0 PG 08/16/2021 7:53 AM [facility] MCHC 32.7 32.0 - 36.0 G/DL 08/16/2021 7:53 AM [facility] RDW 12.7 11.5 - 14.5 % 08/16/2021 7:53 AM [facility] PLT 281 130 - 400 x10'3/uL 08/16/2021 7:53 AM [facility] MPV 9.5 9.3 - 12.2 FL 08/16/2021 7:53 AM [facility] DIFFERENTIAL TYPE MANUAL DIFFERENTIAL 08/16/2021 8:19 AM [facility] SEG NEUTROPHILS 83 % 8:19 AM [facility] LYMPHOCYTES 4 % 08/16/2021 8:19 AM [facility] MONOCYTES 5 % 08/16/2021 8:19 AM [facility] EOSINOPHILS 8 % 08/16/2021 8:19 AM [facility] ABS. NEUTROPHILS CALCULATED 6.23 1.80 - 7.70 x10'3/uL 08/16/2021 8:19 AM [facility] ABS.LYMPHOCYTES CALCULATED 0.30(L) 1.00 - 4.80 x10'3/uL 08/16/2021 8:19 AM [facility] ABS. MONOCYTES CALCULATED 0.38 0.24 - 0.86 x10'3/uL 08/16/2021 8:19 AM [facility] ABS. EOSINOPHIL CALCULATED 0.60(H) 0.04 - 0.36 x10'3/uL 08/16/2021 8:19 AM [facility] RBC MORPHOLOGY RBC MORPHOLOGY APPEARS NORMAL. SLIDE REVIEWED. 08/16/2021 8:19 AM [facility] PLT EST. ADEQUATE 08/16/2021 8:19 AM [facility] 08/16/2021 7:43 AM COMPENSATION AND BENEFITS ANALYST us J Carlos Russo MD LABORATORY Final Result [facility] [address] [place] [address], [place] [phone] * ECG 12 lead (08/16/2021 7:32 AM COMPENSATION AND BENEFITS ANALYST) 08/16/2021 7:32 AM COMPENSATION AND BENEFITS ANALYST Narrative [facility] - 08/16/2021 2:55 PM COMPENSATION AND BENEFITS ANALYST ?[facility] ? [address], [place] ? Test Date: ?2021-08-16 Pat Name: ? LUIS VAZQUEZ ?Department: ? Room: ? EXAM09 Gender: ? Female ? 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 [employer] : ?1965 ? Requested By: J CARLOS RUSSO Order Number: [id number] ? Reading MD: ?? Merrick Hushion ? Measurements Intervals ?[place] ? Rate: ? 93 ? P: ?44 NV: ? 159 ?QRS: ?-46 QRSD: ? 96 ? T: ?59 QT: ? 339 ? QTc: ?422 ? Interpretive Statements SINUS RHYTHM INCOMPLETE RIGHT BUNDLE BRANCH BLOCK LEFT ANTERIOR FASCICULAR BLOCK PROBABLE SEPTAL MYOCARDIAL INFARCTION, PROBABLY OLD No previous ECG available for comparison Preliminary EKG interpretation by ED Physician No ischemic changes J Carlos Russo M.D. CRITICAL ALERT ISSUED ON 08-16-2021 7:37:17 ENSATION AND BENEFITS ANALYST Procedure Note Merrick Sam MD - 08/16/2021 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 CRITICAL ALERT ISSUED ON 08-16-2021 7:37:17 ENSATION AND BENEFITS ANALYST us J Carlos Russo MD ECG ORDERABLES Final Result [facility] RAD documented in this encounter Visit Diagnoses Diagnosis Palpitations- Primary documented in this encounter Administered Medications Inactive Administered Medications - up to 3 most recent administrations Medication Order MAR Action Action Date Dose Rate Site iopamidol (ISOVUE-370) 76 % injection 80 mL 80 mL, Intravenous, IMG once as needed, Contrast, 1 dose, Starting on Sat08/16/21 at 1033, Until Sat08/16/21 at 1033 Given 08/16/2021 10:33 AM COMPENSATION AND BENEFITS ANALYST 80 mLs documented in this encounter Active and Recently Administered Medications Times are shown in COMPENSATION AND BENEFITS ANALYST. PRN Medication Order 08/14/2021 08/15/2021 08/16/2021 iopamidol (ISOVUE-370) 76 % injection 80 mL (COMPLETED) 80 mL, Intravenous, IMG once as needed, Contrast, 1 dose, Starting on Sat08/16/21 at 1033, Until Sat08/16/21 at 1033 1033 (Given - Provid er: He Mcdowell, RTR) documented in this encounter Care Teams Divinity Teacher Relationship Specialty Start Date End Date Lise Garces APNP [address] [place] [id number] PCP - General NURSE PRACTITIONER 10/03/18 documented as of this encounter
--- OUTSIDE RECORDS SUMMARY | 2024-06-21 08:56 | XMS_ITS | Encounter Summary ---
Author Organization [facility] Address [address] [place] [address]. [place] [address] [place] [address] Care Team Providers Care Stock Dealer Name Role Phone Lise Garces Primary Care Provider [phone] Encounter Details Date Type Department Care Team (Latest Contact Info) Description 05/04/2020 Scan [facility] Scanned, Documents [...] Sex Assigned at Female 05/21/2024 8:15 AM PROFESSIONAL EMPLOYER CONSULTANT Legal Sex Female 4:43 PM CDT Gender Identity Female 05/21/2024 8:15 AM PROFESSIONAL EMPLOYER CONSULTANT Sexual Orientation Not on file COVID-19 Exposure Response Date Recorded In the last month, have you been in contact with someone who was confirmed or suspected to have Coronavirus / COVID-19? No / Unsure 04/11/2020 10:45 AM PROFESSIONAL EMPLOYER CONSULTANT documented as of this encounter Plan of Treatment Not on file documented as of this encounter Visit Diagnoses Not on filedocumented in this encounter Care Teams Stock Dealer Relationship Specialty Start Date End Date Lise Garces APNP [address] [place] [id number] PCP - General NURSE PRACTITIONER 10/03/18 documented as of this encounter
--- OUTSIDE RECORDS SUMMARY | 2024-06-21 08:56 | XMS_ITS | Encounter Summary ---
Author Organization [facility] Address [address] [place] [address]. [place] [address] [place] [address] Care Team Providers Care Compensator Name Role Phone Lise Garces Primary Care Provider [phone] Reason for Referral * Imaging (Routine) - Closed Specialty Diagnoses / Procedures Referred By Contac t Referred To Contact RADIOLOGY Diagnoses Encounter for screening mammogram for malignant neoplasm of breast Procedures MG SCREENING MILLY DIGI Lise Garces APNP [address] [place] [address] Phone: tel: fax: [address] [place] [address] Phone: tel: fax: Referral ID Status Reason Start Date Expiration Date Visits Re quested Visits Authorized [id number] Closed 01/02/2022 01/03/2023 1 1 Reason for Visit * Reason Comments Physical Encounter Details Date Type Department Care Team (Late st Contact Info) Description 01/02/2022 8:20 AM CDT Office Visit [facility] Family & Internal Medicine - [address] [phone] Lise Garces APNP [address] [place] [phone] Physical Social History Tobacco Use Types Packs/Day [...] Sex Assigned at Female 05/21/2024 8:15 AM COSTUME MAKER Legal Sex Female 4:43 PM CDT Gender Identity Female 05/21/2024 8:15 AM COSTUME MAKER Sexual Orientation Not on file COVID-19 Exposure Response Date Recorded In the last 10 days, have yo u been in contact with someone who was confirmed or suspected to have Coronavirus/COVID-19? No / Unsure 01/02/2022 8:05 AM CDT documented as of this encounter Last Filed Vital Signs Vital Sign Reading Time Taken Comments Blood Pressure 117/75 01/02/2022 8:19 AM CDT Pulse 84 01/02/2022 8:19 AM CDT Temperature 36.8 ??C (98.3 ??F) 01/02/2022 8:19 AM CD T Respiratory Rate 12 01/02/2022 8:19 AM CDT Oxygen Saturation 96% 01/02/2022 8:19 AM CDT Inhaled Oxygen Concentration - - Weight 93.9 kg (207 lb) 01/02/2022 8:19 AM CDT Height 175.3 cm (5' 9 ) 01/02/2022 8:19 AM CDT Body Mass Index 30.57 01/02/2022 8:19 AM CDT documented in this encounter Progress Notes * JULY Min - 01/02/2022 8:20 AM CDT Images from the original note were not included. [facility] FAMILY AND INTERNAL MEDICINE OFFICE VISIT Reason for Visit: Physical History of Present Illness: The patient is being seen for a health maintenance evaluation. General Health: good Dental Health: Sees dentist regularly Vision Health: eye exam UTD Hearing Health: No hearing problems Immunizations Needed: Zoster, 2nd COVID booster Weight: Body mass index is 30.57 kg/m??. Physical Activity: Excersises regularly Cervical Cancer Screening: obtained today--Last pap was about 5 years ago. Denies any hx of negative results. Due for routine screening mammo. Denies any abnormal vaginal d/c or bleeding. LMP was 10 years ago. She is sexually active with one partner and has no concerns for STD's. Unsure if she has had a DEXA or not, but thinks she has --ordered per her administrative medical director. She is not on any hormone therapy. Breast Cancer Screening: Ordered today. Last mammo was done in 2018---no abnormals in past Colorectal Cancer Screening: Cologuard done in 2020--negative Metabolic Screening: Patient needs to be screened today. PHQ-9 Screening Score: 3 Smoking Status: Smoking status: Never Smoker Smokeless tobacco: Never Used Chronic health conditions: HTN - takes losartan. Tolerates well. BP controlled. ROS: Review of Systems Constitutional: Negative for chills, fever and malaise/fatigue. HENT: Negative for congestion, sinus pain and sore throat. Eyes: Negative for blurred vision and double vision. Respiratory: Negative for cough and shortness of breath. Cardiovascular: Negative for chest pain and palpitations. Gastrointestinal: Negative for abdominal pain, diarrhea, nausea and vomiting. Genitourinary: Negative for dysuria and urgency. Musculoskeletal: Negative for myalgias. Skin: Negative for itching and rash. Neurological: Negative for dizziness and headaches. Psychiatric/Behavioral: Negative for depression. The patient is not nervous/anxious. Medications: Current Outpatient Medications: ??? aspirin EC (ECOTRIN) 81 MG tablet, Take 81 mg by mouth daily., Disp: , Rfl: ??? hydroxychloroquine 200 MG tablet, Take 400 [...] History: Past Medical History: Diagnosis Date ??? Hypertension ??? Lupus (CMS/HCC) Surgical History: Past Surgical History: Procedure Laterality Date ??? SECTION ??? HC ABLATION UTERINE BALLOON Social History: Social History Socioeconomic History ??? Marital status: Tobacco Use ??? Smoking status: Never Smoker ??? Smokeless tobacco: Never Used Substance and Sexual Activity ??? Alcohol use: No ??? Drug use: No ??? Sexual activity: Yes Partners: Male Family History: Family History Problem Relation Name Age of Onset ??? Hypertension Father ??? Heart Disease Father ??? Heart Disease Paternal Grandmother ??? Thyroid Mother HYPO ??? Heart Disease Maternal Grandmother PE: Physical Exam Vitals and nursing note reviewed. HENT: Head: Normocephalic and atraumatic. Right Ear: Tympanic membrane normal. Left Ear: Tympanic membrane normal. Eyes: General: No scleral icterus. Extraocular Movements: Extraocular movements intact. Conjunctiva/sclera: Conjunctivae normal. Pupils: Pupils are equal, round, and reactive to light. Neck: Trachea: No tracheal deviation. Cardiovascular: Rate [...] tenderness. There is no guarding or rebound. Genitourinary: General: Normal vulva. Rectum: Normal. Comments: Sensitive portion of exam completed with Katie as a brand protection manager. Breast exam-no abnormal lumps, masses or adenopathy noted. Breast symmetrical. No skin abnormalities noted. No nipple drainage noted. No axillary lymphadenopathy noted. DIRECTOR OF PARTNERSHIPS exam -no external lumps or skin abnormalities noted. Hair distribution appears to be normal. Nourethral prolapse noted. Vaginal oviedo mood, no abnormalities noted. Cervix closed, no cysts noted.No CMT. No adnexal tenderness noted with palpation. No urethral prolapse noted. No tenderness with palpation of uterus or bladder. No hemorrhoids noted. No rectal fissure noted. Musculoskeletal: General: No deformity. Normal range of motion. Cervical back: Normal range of motion and neck supple. Skin: General: Skin is warm and dry. Findings: No erythema. Neurological: Mental Status: She is alert and oriented to person, place, and time. Gait: Gait is intact. Psychiatric: Mood and Affect: Mood and affect normal. Filed Vitals: 01/02/22 0819 BP: 117/75 Pulse: 84 Resp: 12 Temp: 98.3 ??F (36.8 ??C) SpO2: 96% Weight: 93.9 kg (207 lb) Height: 5' 9 (1.753 m) Labs: Labs Reviewed Diagnoses/Impression: 1. Well woman exam with routine gynecological exam CBC W/DIFF AUTOMATED LIPID PANEL TSH W/REFLEX VITAMIN D, 25 OH URINALYSIS WI REFLEX TO CULTURE URIC ACID BLOOD COMPREHENSIVE METABOLIC PANEL Cytopath Cerv/Vag Thin Layer 2. Essential hypertension Chronic losartan (COZAAR) 25 MG tablet TSH W/REFLEX URINALYSIS WI REFLEX TO CULTURE URIC ACID BLOOD COMPREHENSIVE METABOLIC PANEL 3. Vitamin D deficiency VITAMIN D, 25 OH 4. Lupus (CMS/HCC) Chronic CBC W/DIFF AUTOMATED TSH W/REFLEX URINALYSIS WI REFLEX TO CULTURE URIC ACID BLOOD COMPREHENSIVE METABOLIC PANEL 5. Encounter for screening mammogram for malignant neoplasm of breast MG SCREENING MILLY DIGI Recommendations and Plan: 1. Well woman exam with routine gynecological exam - CBC W/DIFF AUTOMATED; Future - LIPID PANEL; Future - TSH W/REFLEX; Future - VITAMIN D, 25 OH; Future - URINALYSIS WI REFLEX TO CULTURE; Future - URIC ACID BLOOD; Future - COMPREHENSIVE METABOLIC PANEL; Future - CBC W/DIFF AUTOMATED - LIPID PANEL - TSH W/REFLEX - VITAMIN D, 25 OH - URINALYSIS WI REFLEX TO CULTURE - URIC ACID BLOOD - COMPREHENSIVE METABOLIC PANEL - Cytopath Cerv/Vag Thin Layer; Future - Cytopath Cerv/Vag Thin Layer Routine fasting labs ordered today. Immunizations up-to-date other than her Shingrix. Well woman/Pap performed and will notify patient of results. Well woman education to include appropriate doses of calcium and vitamin D discussed. 2. Essential hypertension - losartan (COZAAR) 25 MG tablet; Take 1 tablet (25 mg total) by mouth daily. Dispense: 90 tablet; Refill: 3 - TSH W/REFLEX; Future - URINALYSIS WI REFLEX TO CULTURE; Future - URIC ACID BLOOD; Future - COMPREHENSIVE METABOLIC PANEL; Future - TSH W/REFLEX - URINALYSIS WI REFLEX TO CULTURE - URIC ACID BLOOD - COMPREHENSIVE METABOLIC PANEL Stable. Continue meds 3. Vitamin D deficiency - VITAMIN D, 25 OH; Future - VITAMIN D, 25 OH 4. Lupus (CMS/HCC) - CBC W/DIFF AUTOMATED; Future - TSH W/REFLEX; Future - URINALYSIS WI REFLEX TO CULTURE; Future - URIC ACID BLOOD; Future - COMPREHENSIVE METABOLIC PANEL; Future - CBC W/DIFF AUTOMATED - TSH W/REFLEX - URINALYSIS WI REFLEX TO CULTURE - URIC ACID BLOOD - COMPREHENSIVE METABOLIC PANEL Patient will continue follow-up with rheumatology. We will continue current dose of hydroxychloroquine for now. 5. Encounter for screening mammogram for malignant neoplasm of breast - MG SCREENING MILLY DIGI More plan after results. Orders Placed This Encounter ??? CBC W/DIFF AUTOMATED ??? LIPID PANEL ??? TSH W/REFLEX ??? VITAMIN D, 25 OH ??? URINALYSIS WI REFLEX TO CULTURE ??? URIC ACID BLOOD ??? COMPREHENSIVE METABOLIC PANEL ??? MG SCREENING MILLY DIGI ??? Cytopath Cerv/Vag Thin Layer ??? losartan (COZAAR) 25 MG tablet Cannot display discharge medications since this is not an admission. PCP: JULY Min 01/02/2022 documented in this encounter Plan of Treatment Scheduled Orders Name Type Priority Associated Diagnoses Orde r Schedule MG SCREENING MILLY DIGI MAMMO Routine Encounter for screening mammogram for malignant neoplasm of breast Ordered: 01/02/2022 documented as of this encounter Procedures Procedure Name Priority Date/Time Associated Diagnosis Comments URINALYSIS WI REFLEX TO CULTURE Routine 01/04/2022 6:14 AM CDT Well woman exam with routine gynecological exam Essential hypertension Lupus (CMS/HCC HHS/HCC) TSH W/REFLEX Routine 01/04/2022 6:14 AM CDT COMPREHENSIVE METABOLIC PANEL Routine 01/04/2022 6:14 AM CDT LIPID PANEL Routine 01/04/2022 6:14 AM CDT CBC W/DIFF AUTOMATED Routine 01/04/2022 6:14 AM CDT VITAMIN D, 25 OH Routine 01/04/2022 6:14 AM CDT Well woman exam with routine gynecological exam Vitamin D deficiency URIC ACID BLOOD Routine 01/04/2022 6:14 AM CDT CYTOPATH CERV/VAG THIN LAYER Routine 01/02/2022 9:16 AM CDT Well woman exam with routine gynecological exam documented in this encounter Results * TSH W/REFLEX (01/04/2022 6:14 AM CDT) TSH 3.09 0.40 - 4.50 mIU/L [facility] 01/04/2022 6:14 AM CDT 01/04/2022 6:18 AM CDT Narrative [facility] - 01/10/2022 5:09 PM CDT FASTING:YES FASTING: YES Lise [facility]OWE[facility] Final Resul t [facility] [address] [place] [address] * CBC W/DIFF AUTOMATED (01/04/2022 6:14 AM CDT) WBC 4.3 3.8 - 10.8 Thousand/u L [facility] RBC 3.82 3.80 - 5.10 Million/uL [facility] HGB 11.9 11.7 - 15.5 g/dL [facility] HCT 35.2 35.0 - 45.0 % [facility] MCV 92.1 80.0 - 100.0 fL [facility] MCH 31.2 27.0 - 33.0 pg [facility] MCHC 33.8 32.0 - 36.0 g/dL [facility] RDW 12.3 11.0 - 15.0 % [facility] PLT 245 140 - 400 Thousand/u L [facility] MPV 9.8 7.5 - 12.5 fL [facility] ABS. NEUTROPHILS 2,017 1,500 - 7,800 cells/uL [facility] ABS. LYMPHOCYTES 1,496 850 - 3,900 cells/uL [facility] ABS. MONOCYTES 378 200 - 950 cells/uL [facility] ABS. EOSINOPHILS 378 15 - 500 cells/uL [facility] ABS. BASOPHILS 30 0 - 200 cells/uL [facility] SEG NEUTROPHILS 46.9 % [facility] LYMPHOCYTES 34.8 % [facility] MONOCYTES 8.8 % [facility] EOSINOPHILS 8.8 % [facility] BASOPHILS 0.7 % [facility] 01/04/2022 6:14 AM CDT 01/04/2022 6:18 AM CDT Narrative [facility] - 01/10/2022 5:09 PM CDT FASTING:YES FASTING: YES Lise [facility] Final Resul t [facility] [address] [place] [address] * COMPREHENSIVE METABOLIC PANEL (01/04/2022 6:14 AM CDT) Pathologist [facility] GLUCOSE 83 65 - 99 mg/dL [facility] Comment: ? Fasting reference interval BUN 19 7 - 25 mg/dL [facility] CREATININE S/P/B 0.99 0.50 - 1.03 mg/dL [facility] GFR ESTIMATE 67 > OR = 60 mL/min/1. 73m2 [facility] Comment: The eGFR is based on the CKD-EPI 2020 equation. To calculate the new eGFR from a previous Creatinine or Cystatin C result, go to https://www.kidney.org/professionals/ kdoqi/gfr%5Fcalculator BUN CREATININE RATIO NOT APPLICABLE (calc) [facility] SODIUM S/P/B 140 135 - 146 mmol/L [facility] POTASSIUM S/P/B 4.0 3.5 - 5.3 mmol/L [facility] CHLORIDE S/P/B 104 98 - 110 mmol/L [facility] CO2 28 20 - 32 mmol/L [facility] CALCIUM S/P/B 9.3 8.6 - 10.4 mg/dL [facility] TOTAL PROTEIN S/P/B 6.6 6.1 - 8.1 g/dL [facility] ALBUMIN S/P/B 4.1 3.6 - 5.1 g/dL [facility] GLOBULIN 2.5 1.9 - 3.7 g/dL (calc) [facility] ALBUMIN/GLOBULI N RATIO 1.6 1.0 - 2.5 (calc) [facility] BILIRUBIN TOTAL S/P/B 0.8 0.2 - 1.2 mg/dL [facility] ALKALINE PHOSPHATASE S/P/B 102 37 - 153 U/L [facility] AST 18 10 - 35 U/L [facility] ALT 19 6 - 29 U/L [facility] 01/04/2022 6:14 AM CDT 01/04/2022 6:18 AM CDT Narrative [facility] - 01/10/2022 5:09 PM CDT FASTING:YES FASTING: YES us Lise [facility] Final Resul t [facility] [address] [place] [address] * URIC ACID BLOOD (01/04/2022 6:14 AM CDT) URIC ACID 5.8 2.5 - 7.0 mg/dL [facility] Comment: Therapeutic target for gout patients: <6.0 mg/dL ?? 01/04/2022 6:14 AM CDT 01/04/2022 6:18 AM CDT Narrative [facility] - 01/10/2022 5:09 PM CDT FASTING:YES FASTING: YES us Lise [facility] Final Resul t Performing Organization Address [facility]/ZIP Co de Phone Number [facility] [address] [place] [phone] * (ABNORMAL) LIPID PANEL (01/04/2022 6:14 AM CDT) CHOLESTEROL 201(H) <200 mg/dL [facility] HDL 48(L) > OR = 50 mg/dL [facility] TRIGLYCERIDES 141 <150 mg/dL [facility] LDL (CALCULATED) 128(H) mg/dL (calc) [facility] Comment: Reference range: <100 Desirable range <100 mg/dL for primary prevention; ?? <70 mg/dL for patients with CHD or diabetic patients with > or = 2 CHD risk factors. LDL-C is now calculated using the Alba calculation, which is a validated novel method providing better accuracy than the Friedewald equation in the estimation of LDL-C. Owen SILVEIRA et al. VIKI. 2013;310(19): 4088-6732 (http://education.GAMINSIDE/faq/SJM669) CHOL/HDL RATIO 4.2 <5.0 (calc) [facility] NON HDL CHOLESTEROL 153(H) <130 mg/dL (calc) [facility] Comment: For patients with diabetes plus 1 major ASCVD risk factor, treating to a non-HDL-C goal of <100 mg/dL (LDL-C of <70 mg/dL) is considered a therapeutic option. 01/04/2022 6:14 AM CDT 01/04/2022 6:18 AM CDT Narrative [facility] - 01/10/2022 5:09 PM CDT FASTING:YES FASTING: YES Lise [facility] Final Resul t Performing Organization Address City/[facility]/ZIP Co de Phone Number [facility] [address] [place] [phone] * (ABNORMAL) URINALYSIS WI REFLEX TO CULTURE (01/04/2022 6:14 AM CDT) COLOR (U) YELLOW YELLOW [facility] APPEARANCE SEMEN CLEAR CLEAR [facility] SPECIFIC GRAVITY (U) 1.007 1.001 - 1.035 [facility] PH (U) 5.5 5.0 - 8.0 [facility] URINE GLUCOSE NEGATIVE NEGATIVE [facility] BILIRUBIN (U) NEGATIVE NEGATIVE [facility] KETONE (U) NEGATIVE NEGATIVE [facility] BLOOD (U) NEGATIVE NEGATIVE [facility] PROTEIN (U) NEGATIVE NEGATIVE [facility] NITRITES NEGATIVE NEGATIVE [facility] LEUKOCYTES (U) 2+(A) NEGATIVE [facility] WBC/HPF 6-10(A) < OR = 5 /HPF [facility] RBC/HPF NONE SEEN < OR = 2 /HPF [facility] SQUAMOUS EPITHELIAL (U) 0-5 < OR = 5 /HPF [facility] BACTERIA (U) NONE SEEN NONE SEEN /HPF [facility] HYALINE CASTS NONE SEEN NONE SEEN /LPF [facility] REFLEX URINE CULTURE: [facility] Comment:CULTURE INDICATED - RESULTS TO FOLLOW CULTURE RESULT [facility] Comment: ??CULTURE, URINE, ROUTINE ?Micro Number: ?[id number] ??Test Status: ? Final ??Specimen Source: ?? Urine ??Specimen Quality: ??Adequate ??Result: ?No Growth URINE SPECIMEN OBTAINED BY CLEAN CATCH PROCEDURE / Unknown 01/04/2022 6:14 AM CDT 01/04/2022 6:18 AM CDT Narrative [facility] - 01/10/2022 5:09 PM CDT FASTING:YES FASTING: YES us Lise MCDOWELL URINE ORDERABLES Final Resu lt [facility] [address] [place] [phone] * (ABNORMAL) VITAMIN D, 25 OH (01/04/2022 6:14 AM CDT) [facility] VITAMIN D 25 HYDROXY TOTAL S/P/B 28.4(L) >29.9 ng/mL [facility] julia [facility]. Comment: Vitamin D, 25-Hydroxy reports concentrations of two common forms, 25-OHD2 and 25-OHD3. 25-OHD3 indicates both endogenous production and supplementation. 25-OHD2 is an indicator of exogenous sources, such as diet or supplementation. Therapy is based on measurement of Total 25-OHD, with levels <20 ng/mL indicative of Vitamin D deficiency, while levels between 20 ng/mL and 30 ng/mL suggest insufficiency. Optimal levels are >=30 ng/mL. Vitamin-D is fat-soluble and therefore inadvertent or intentional ingestion of excessively high amounts could be toxic. Studies in children and adults suggest blood levels would need to exceed 150 ng/mL before there is any concern. Kota MF, Jyothi HULL, Alda CASIANO, et al. Evaluation, treatment, and prevention of vitamin D deficiency: an Endocrine Society clinical practice guideline. J Clin Endocrinol Metab. 2011;96(7):1911-30.This test is performed by a Liquid Chromatography-Tandem Mass Spectrometry (LC-MS/MS) method. This test was developed and its performance characteristics determined by the [facility], [facility]. It has not been cleared or approved by the U.S. FDA. The [facility], [employer]. is regulated under Clinical Laboratory Improvement Amendments (CLIA) as qualified to perform high-complexity testing. This test is used for clinical purposes. It should not be regarded as investigational or for research. Vitamin D, 25-Hydroxy reports concentrations of two [...] levels are > or = 30 ng/mL. Vitamin D is fat-soluble and therefore inadvertent or intentional ingestion of excessively high amounts could be toxic. Studies in children and adults suggest blood levels would need to exceed 150 ng/mL before there is any concern. Kota MF, Jyothi NC, Alda CASIANO, et al., Evaluation, treatment, and prevention of vitamin D deficiency: an Endocrine Society clinical practice guideline. J Clin. Endocrinol. Metab. 2011;96(7):1911-30. VITAMIN D 25 HYDROXY D3 S/P/B 28.4 ng/mL [facility] Comment: This test was developed and its analytical performance characteristics have been determined by [employer]. It has not been cleared or approved by the FDA. This assay has been validated pursuant to the CLIA regulations and is used for clinical purposes. VITAMIN D 25 HYDROXY D2 S/P/B <1.0(L) ng/mL [facility] [employer] [employer]. Comment: This test was developed and its analytical performance characteristics have been determined by [employer]. It has not been cleared or approved by the FDA. This assay has been validated pursuant to the CLIA regulations and is used for clinical purposes. 01/04/2022 6:14 AM CDT 01/04/2022 6:18 AM CDT Narrative [facility] - 01/10/2022 5:09 PM CDT FASTING:YES FASTING: YES Lise [facility] Final Resul t [facility] [employer] [employer] [address] [place] [address] * Cytopath Cerv/Vag Thin Layer (01/02/2022 9:16 AM CDT) CLINICAL INFORMATION: Postmenopausal [facility] Clinical Information: 10 YRS AGO POST RACIEL [facility] Date of Last Pap INFORMATION NOT PROVIDED [facility] [employer] [facility] Previous Biopsy? INFORMATION NOT PROVIDED [facility] [employer] [facility] SOURCE (QST) Cervix, Endocervix [employer] STATEMENT OF ADEQUACY: [employer] [facility] Comment: Satisfactory for evaluation. Endocervical/transformation zone component present. PAP INTERPRETATION/RESU LTS Negative for intraepithelial lesion or malignancy. [facility] THERAPEUTIC RECREATION ASSISTANT [facility] Comment: YQ, CT(ASCP) CT screening location: [place] [address] Administration ELI [place] [address] REVIEW THERAPEUTIC RECREATION ASSISTANT: [facility] Comment: GAVIN, CT(ASCP) CT screening location: [place] [address] Administration ELI [place] [address] COMMENT: [facility] Comment: EXPLANATORY NOTE: The Pap is [...] 9:16 AM CDT 01/03/2022 6:04 AM CDT Lise MCDOWELL PATHOLOGY/CYTOLOGY ORDERABL ES Final Result [facility] [place] [address] Administration ELI [place] [phone] documented in this encounter Visit Diagnoses Diagnosis Well woman exam with routine gynecological exam- Primary Routine gynecological examination Essential hypertension Unspecified essential hypertension Vitamin D deficiency Unspecified vitamin D deficiency Lupus Systemic lupus erythematosus Encounter for screening mammogram for malignant neoplasm of breast Other screening mammogram documented in this encounter Additional Health Concerns Assessment Noted Time PHQ-9 Depression Total Score: 3 01/03/20 22 9:20 AM CDT documented as of this encounter Care Teams Compensator Relationship Specialty Start Date End Date Lise Garces APNP [address] [place] [id number] PCP - General NURSE PRACTITIONER 10/03/18 documented as of this encounter
--- OUTSIDE RECORDS SUMMARY | 2024-06-21 08:56 | XMS_ITS | Encounter Summary ---
Author Organization [facility] Address [address] [place] [address]. [place] [address] [place] [address] Care Team Providers Care Brush Clearing Laborer Name Role Phone Lise Garces Primary Care Provider +1- [phone] Reason for Visit * Reason Comments Sinus Problem Encounter Details Date Type Department Care Team (Late st Contact Info) Description 03/08/2021 11:20 AM CDT Telemedicine [facility] Family & Internal Medicine [id number] [place] [address] Lise Garces APNP [facility] [place] [address] Sinus Problem Social History Tobacco Use Types Packs/Day Years [...] Sex Assigned at Female 05/21/2024 8:15 AM PRINCIPAL SYSTEMS ENGINEER Legal Sex Female 4:43 PM CDT Gender Identity Female 05/21/2024 8:15 AM PRINCIPAL SYSTEMS ENGINEER Sexual Orientation Not on file COVID-19 Exposure Response Date Recorded In the last month, have you been in contact with someone who was confirmed or suspected to have Coronavirus / COVID-19? Unable to assess 03/08/2021 6:42 AM CDT documented as of this encounter Progress Notes * Lise Garces, JULY - 03/08/2021 11:20 AM CDT Images from the original note were not included. [facility] FAMILY AND INTERNAL MEDICINE OFFICE VISIT I introduced and identified myself, received verbal consent from the patient to proceed with this video visit and made the patient aware that the same confidentiality and information technology audit manager practices apply. The patient joined the video visit from Home. I completed the virtual visit from Office. The following clinical staff helped with this visit MA: Katie. Total Time Spent in Minutes: 10 Reason for Visit: Sinus Problem History of Present Illness: 55 yo female presents today via VV with complaints of sore throat, post nasal drainage, ear pain/pressure, frontal headache that started about a week ago. She denies fever/chills, body aches, fatigue, loss of taste or smell, GI symptoms. She has treated at home with ibuprofen, coricidin HBP with no real improvement in symptoms. 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 ROS: Review of Systems Constitutional: Negative for chills, fever and malaise/fatigue. HENT: Positive for congestion, ear pain, sinus pain and sore throat. Negative for hearing loss. Respiratory: Negative for cough and shortness of breath. Cardiovascular: Negative for chest pain and palpitations. Gastrointestinal: Negative for abdominal pain, diarrhea, nausea and vomiting. Musculoskeletal: Negative for myalgias. Neurological: Positive for headaches. Negative for dizziness. Medications: Current Outpatient Medications: ??? cefdinir 300 MG Cap capsule, Take 1 capsule (300 mg total) by mouth 2 (two) times daily., Disp:20 capsule, Rfl: 0 ??? hydroxychloroquine 200 MG tablet, TK 2 TS PO D, Disp: , Rfl: ??? Loratadine (CLARITIN OR), Take by mouth daily., Disp: , Rfl: ??? losartan 25 MG tablet, Take 1 tablet (25 mg total) by mouth daily., Disp: 90 tablet, Rfl: 3 Allergies: No Known Allergies Medical History: Past Medical History: Diagnosis Date ??? Hypertension ??? Lupus (CMS/HCC) Surgical History: Past Surgical History: Procedure Laterality Date ??? SECTION ??? HC ABLATION UTERINE BALLOON Social History: Social History Socioeconomic History ??? Marital status: Spouse name: Not on file ??? Number of children: Not on file ??? Years of education: Not on file ??? Highest education level: Not on file Occupational History ??? Not on file Tobacco Use ??? Smoking status: Never Smoker ??? Smokeless tobacco: Never Used Substance and Sexual Activity ??? Alcohol use: No ??? Drug use: No ??? Sexual activity: Yes Partners: Male Other Topics Concern ??? Not on file Social History Narrative ??? Not on file Social Determinants of Health Financial Resource Strain: ??? Difficulty of Paying Living Expenses: Food Insecurity: ??? Worried About Running Out of Food in the Last Year: ??? Ran Out of Food in the Last Year: Transportation Needs: ??? Lack of Transportation (Medical): ??? Lack of Transportation (Non-Medical): Physical Activity: ??? Days of Exercise per Week: ??? Minutes of Exercise per Session: Stress: ??? Feeling of Stress : Social Connections: ??? Frequency of Communication with Friends and Family: ??? Frequency of Social Gatherings with Friends and Family: ??? Attends [employer] Services: ??? Active Member of Clubs or Organizations: ??? Attends Club or Organization Meetings: ??? Marital Status: Intimate Partner Violence: ??? Fear of Current or Ex-Partner: ??? Emotionally Abused: ??? Physically Abused: ??? Sexually Abused: Family History: Family History Problem Relation Name Age of Onset ??? Hypertension Father ??? Heart Disease Father ??? Heart Disease Paternal Grandmother ??? Thyroid Mother HYPO ??? Heart Disease Maternal Grandmother PE: Physical Exam Constitutional: She is oriented to person, place, and time and well-developed, well-nourished, and in no distress. HENT: Head: Normocephalic and atraumatic. Pulmonary/Chest: Effort normal. No respiratory distress. Neurological: She is alert and oriented to person, place, and time. Psychiatric: Mood and affect normal. There were no vitals filed for this visit. Labs: Labs Reviewed Diagnoses/Impression: 1. Acute non-recurrent maxillary sinusitis cefdinir 300 MG Cap capsule Recommendations and Plan: 1. Acute non-recurrent maxillary sinusitis - cefdinir 300 MG Cap capsule; Take 1 capsule (300 mg total) by mouth 2 (two) times daily. Dispense: 20 capsule; Refill: 0 Due to overlapping symptoms I did suggest patient be Covid tested, patient declined at this time. Would suggest patient quarantine for 10 days from symptom onset if she does not want to be Covid tested. She is let me know if symptoms change or worsen. She will let me know if she changes her mind regarding Covid testing. Orders Placed This Encounter ??? cefdinir 300 MG Cap capsule Cannot display discharge medications since this is not an admission. PCP: JULY Min 03/08/2021 documented in this encounter Plan of Treatment Not on file documented as of this encounter Visit Diagnoses Diagnosis Acute non-recurrent maxillary sinusitis- Primary documented in this encounter Care Teams Brush Clearing Laborer Relationship Specialty Start Date End Date Lise Garces APNP [address] [place] [address] PCP - General NURSE PRACTITIONER 10/03/18 documented as of this encounter
--- OUTSIDE RECORDS SUMMARY | 2024-06-21 08:56 | XMS_ITS | Encounter Summary ---
Author Organization [facility] Address [address] [place] [address]. [place] [address] [place] [address] Care Team Providers Care Nurse Wound Name Role Phone Lise Garces Primary Care Provider +1- [phone] Reason for Visit * Reason Comments Headache Encounter Details Date Type Department Care Team (Late st Contact Info) Description 07/06/2021 9:00 AM POT PRESS OPERATOR Telemedicine [facility] Medical Group Family & Internal Medicine [id number] [place] [address] Lise Garces APNP [facility] [place], [place] [id number] Headache Social History Tobacco Use Types Packs/Day Years [...] Sex Assigned at Female 05/21/2024 8:15 AM POT PRESS OPERATOR Legal Sex Female 4:43 PM CDT Gender Identity Female 05/21/2024 8:15 AM POT PRESS OPERATOR Sexual Orientation Not on file COVID-19 Exposure Response Date Recorded In the last month, have you been in contact with someone who was confirmed or suspected to have Coronavirus / COVID-19? Unable to assess 07/06/2021 8:05 AM POT PRESS OPERATOR documented as of this encounter Progress Notes * Lise Garces, JULY - 07/06/2021 9:00 AM CST Images from the original note were not included. [facility] FAMILY AND INTERNAL MEDICINE OFFICE VISIT I introduced and identified myself, received verbal consent from the patient to proceed with this video visit and made the patient aware that the same confidentiality and computer information systems instructor practices apply. The patient joined the video visit from Home. I completed the virtual visit from Office. The following clinical staff helped with this visit MA: Katie. Total Time Spent in Minutes: 10 Reason for Visit: Headache History of Present Illness: 56 yo female presents today via VV with c/o headache, fever, chills, body aches, She did have a close exposure as her just tested positive. She denies any CP or SOB, loss of taste or smell, GI symptoms. She has been treating with ibuprofen. She is vaccinated, but not boosted. ROS: Review of Systems Constitutional: Positive for chills, fever and malaise/fatigue. HENT: Positive for congestion. Negative for sore throat. Respiratory: Negative for cough and shortness of breath. Cardiovascular: Negative for chest pain and palpitations. Gastrointestinal: Negative for abdominal pain, diarrhea, nausea and vomiting. Musculoskeletal: Positive for myalgias. Neurological: Positive for headaches. Negative for dizziness. Medications: Current Outpatient Medications: ??? hydroxychloroquine 200 MG tablet, TK 2 TS PO D, Disp: , Rfl: ??? Loratadine (CLARITIN OR), Take by mouth daily., Disp: , Rfl: ??? LOSARTAN 25 MG tablet, TAKE 1 TABLET(25 MG) BY MOUTH DAILY, Disp: 90 tablet, Rfl: 3 Allergies: No [...] Social Determinants of Health Financial Resource Strain: Not on file Food Insecurity: Not on file Transportation Needs: Not on file Physical Activity: Not on file Stress: Not on file Social Connections: Not on file Intimate Partner Violence: Not on file Family History: Family History Problem Relation Name Age of Onset ??? Hypertension Father ??? Heart Disease Father ??? Heart Disease Paternal Grandmother ??? Thyroid Mother HYPO ??? Heart Disease Maternal Grandmother PE: Physical Exam Pulmonary: Effort: Pulmonary effort is normal. No respiratory distress. Neurological: Mental Status: She is alert and oriented to person, place, and time. There were no vitals filed for this visit. Labs: Labs Reviewed Diagnoses/Impression: 1. Acute intractable headache, unspecified headache type CORONAVIRUS (COVID 19) PCR ([facility]) CORONAVIRUS (COVID-19) ANTIGEN 2. Fever, unspecified fever cause CORONAVIRUS (COVID 19) PCR ([facility]) CORONAVIRUS (COVID-19) ANTIGEN 3. Body aches CORONAVIRUS (COVID 19) PCR ([facility]) CORONAVIRUS (COVID-19) ANTIGEN 4. Close exposure to COVID-19 virus CORONAVIRUS (COVID 19) PCR ([facility]) CORONAVIRUS (COVID-19) ANTIGEN Recommendations and Plan: 1. Acute intractable headache, unspecified headache type - CORONAVIRUS (COVID 19) PCR ([facility]); Future - CORONAVIRUS (COVID-19) ANTIGEN 2. Fever, unspecified fever cause - CORONAVIRUS (COVID 19) PCR ([facility]); Future - CORONAVIRUS (COVID-19) ANTIGEN 3. Body aches - CORONAVIRUS (COVID 19) PCR ([facility]); Future - CORONAVIRUS (COVID-19) ANTIGEN 4. Close exposure to COVID-19 virus - CORONAVIRUS (COVID 19) PCR ([facility]); Future - CORONAVIRUS (COVID-19) ANTIGEN Symptoms suggestive of have a viral illness. Due to her close exposure to Covid suspect her Covid to be positive. Patient will come to office for testing. Home treatment discussed. Danger signs discussed and patient is aware of when to seek a higher level of care. Will notify patient of results andmake treatment recommendations accordingly. Orders Placed This Encounter ??? CORONAVIRUS (COVID 19) PCR ([facility]) ??? CORONAVIRUS (COVID-19) ANTIGEN Cannot display discharge medications since this is not an admission. PCP: JULY Min 07/06/2021 PRESS OPERATOR documented in this encounter Plan of Treatment Not on file documented as of this encounter Procedures Procedure Name Priority Date/Time Associated Diagnosis Comments CORONAVIRUS (COVID-19) ANTIGEN Routine 07/06/2021 Acute intractable headache, unspecified headache type Fever, unspecified fever cause Body aches Close exposure to COVID-19 virus documented in this encounter Results * (ABNORMAL) CORONAVIRUS (COVID 19) PCR ([facility]) (07/06/2021 2:12 PM POT PRESS OPERATOR) SPEC DESCRIPTION NASAL 07/06/19 2:12 PM POT PRESS OPERATOR [facility] CORONAVIRUS SARS COV 2 PCR (RESP) POSITIVE(AA ) NEGATIVE 07/07/2021 2:00 AM POT PRESS OPERATOR [facility] Comment: THE SARS-CoV-2 TEST HAS BEEN AUTHORIZED BY THE FDA UNDER AN EUA FOR USE BY AUTHORIZED LABORATORIES. PERFORMED BY NUCLEIC ACID AMPLIFICATION PCR FIRST TEST NO 07/06/2021 2:12 PM [facility] EMPLOYED IN HEALTHCARE NO 07/06/2021 2:12 PM POT PRESS OPERATOR [facility] SYMPTOMATIC DEFINED BY CDC YES 07/06/2021 2:12 PM POT PRESS OPERATOR [facility] DATE OF SYMPTOM ONSET [id number]/06/2021 2:12 PM POT PRESS OPERATOR [facility] HOSPITALIZATION STATUS NO 07/06/2021 2:12 PM POT PRESS OPERATOR [facility] PATIENT IN ICU NO 07/06/2021 2:12 PM POT PRESS OPERATOR [facility] RESIDENT OF [facility] NO 07/06/2021 2:12 PM [facility] NOT 07/06/2021 2:12 PM POT PRESS OPERATOR [facility] NASOPHARYNGEAL SWAB / Unknown 07/06/2021 2:12 PM POT PRESS OPERATOR Lise MCDOWELL MICROBIOLOGY - GENERAL ORDE AKI Final Result [facility] [address] [place] [address], * CORONAVIRUS (COVID-19) ANTIGEN (07/06/2021) CORONAVIRUS ANTIGEN IA POSITIVE NEGATIVE [facility] Internal Control: VALID VALID [facility] Specimen from nose (specimen) NASAL STRUCTURE / Unknown 07/06/2021 Lise MCDOWELL MICROBIOLOGY - GENERAL RACHANA PRABHAKAR Final Result Performing Organization Address [facility]/ZIP Co de Phone Number [facility] [address] [place] [address], documented in this encounter Visit Diagnoses Diagnosis Acute intractable headache, unspecified headache type- Primary Fever, unspecified fever cause Body aches Generalized pain Close exposure to COVID-19 virus documented in this encounter Additional Health Concerns Infection Onset Date Last Indicated Resolved Time COVID-19 Rule Out 07/06/2021 07/06/2021 07/06/2021 10:14 AM POT PRESS OPERATOR documented as of this encounter Care Teams Nurse Wound Relationship Specialty Start Date End Date Lise Garces APNP [address] [place] [phone] PCP - General NURSE PRACTITIONER 10/03/18 documented as of this encounter
--- OUTSIDE RECORDS SUMMARY | 2024-06-21 08:56 | XMS_ITS | Encounter Summary ---
Author Organization [facility] Address [address] [place] [address]. [place] [address] [place] [address] Care Team Providers Care Pattern Data Operator Name Role Phone Lise Garces Primary Care Provider +1- [phone] Reason for Visit * Reason Onset Date Comments Question 06/15/2020 Encounter Details Date Type Department Care Team (Late st Contact Info) Description 06/15/2020 Telephone [facility] Medical Group Family & Internal Medicine [facility] [address] [place] [address] Lise Garces APNP [address] [place] [address] Question Social History Tobacco Use Types Packs/Day Years [...] Sex Assigned at Female 05/21/2024 8:15 AM FIBERGLASS INSULATION INSTALLER Legal Sex Female 4:43 PM CDT Gender Identity Female 05/21/2024 8:15 AM FIBERGLASS INSULATION INSTALLER Sexual Orientation Not on file documented as of this encounter Progress Notes * Katie Bearden MA - 06/15/2020 3:24 PM CST Pt does plan on getting cologuard test done. BB 06/15/20. RGLASS INSULATION INSTALLER documented in this encounter Plan of Treatment Not on file documented as of this encounter Visit Diagnoses Not on filedocumented in this encounter Care Teams Pattern Data Operator Relationship Specialty Start Date End Date Lise Garces APNP [address] [place] [address] PCP - General NURSE PRACTITIONER 10/03/18 documented as of this encounter
--- OUTSIDE RECORDS SUMMARY | 2024-06-21 08:56 | XMS_ITS | Encounter Summary ---
Author Organization [facility] Address [address] [place] [address]. [place], [place] [address] [place] [address] Care Team Providers Care Cylinder Die Machine Helper Name Role Phone Lise Garces Primary Care Provider +1- [phone] Encounter Details Date Type Department Care Team (Latest Contact Info) Description 02/24/2021 Scan [facility] Scanned, Documents [...] Sex Assigned at Female 05/21/2024 8:15 AM PRESALES ENGINEER Legal Sex Female 4:43 PM CDT Gender Identity Female 05/21/2024 8:15 AM PRESALES ENGINEER Sexual Orientation Not on file documented as of this encounter Plan of Treatment Not on file documented as of this encounter Visit Diagnoses Not on filedocumented in this encounter Care Teams Cylinder Die Machine Helper Relationship Specialty Start Date End Date Lise Garces APNP [address] [place] [address] PCP - General NURSE PRACTITIONER 10/03/18 documented as of this encounter
--- OUTSIDE RECORDS SUMMARY | 2024-06-21 08:56 | XMS_ITS | Encounter Summary ---
Author Organization [facility] Address [address] [place] [address]. [place], [place] [address] [place] [address] Care Team Providers Care Commander Police Reserves Name Role Phone Mili Lise MCDOWELL Primary Care Provider +1- [phone] Reason for Visit * Reason Comments Lab (SCAN) Encounter Details Date Type Department Care Team (Latest Contact Info) Description 07/17/2020 Scan [facility] Scanned, Documents Lab (SCAN) Social History Tobacco Use Types Packs/Day Years [...] Sex Assigned at Female 05/21/2024 8:15 AM DIRECTOR REACTOR PROJECTS Legal Sex Female 4:43 PM CDT Gender Identity Female 05/21/2024 8:15 AM DIRECTOR REACTOR PROJECTS Sexual Orientation Not on file documented as of this encounter Plan of Treatment Not on file documented as of this encounter Procedures Procedure Name Priority Date/Time Associated Diagnosis Comments COLOGUARD (SCAN ORDER) Routine 07/17/2020 documented in this encounter Results * COLOGUARD (SCAN) (07/17/2020) COLOGUARD NEGATIVE [facility] Stool specimen (specimen) 07/17/2020 us Documents Scanned SCANNING Final Result [facility] documented in this encounter Visit Diagnoses Not on filedocumented in this encounter Care Teams Commander Police Reserves Relationship Specialty Start Date End Date Lise Garces APNP [address] [place] [address] PCP - General NURSE PRACTITIONER 10/03/18 documented as of this encounter
--- OUTSIDE RECORDS SUMMARY | 2024-06-21 08:56 | XMS_ITS | Encounter Summary ---
Author Organization [facility] Address [address] [place] [address]. [place] [address] [place] [address] Care Team Providers Care Silverware Washer Name Role Phone Lise Garces Primary Care Provider +1- [phone] Encounter Details Date Type Department Care Team (Latest Contact Info) Description 03/08/2021 Travel Social History Tobacco Use Types Packs/Day [...] Assigned at Female 05/21/2024 8:15 AM DIRECTOR OF OUTREACH Legal Sex Female 4:43 PM CDT Gender Identity Female 05/21/2024 8:15 AM DIRECTOR OF OUTREACH Sexual Orientation Not on file COVID-19 Exposure [...] on filedocumented in this encounter Care Teams Silverware Washer Relationship Specialty Start Date End Date Lise Garces APNP [address] [place] [address] PCP - General NURSE PRACTITIONER 10/03/18 documented as of this encounter
--- OUTSIDE RECORDS SUMMARY | 2024-06-21 08:56 | XMS_ITS | Encounter Summary ---
Author Organization [facility] Address [address] [place] [address]. [place] [address] [place] [address] Care Team Providers Care Puppet Maker Name Role Phone Lise Garces Primary Care Provider +1- [phone] Reason for Visit * Reason Onset Date Comments Lab Results 05/02/2020 Encounter Details Date Type Department Care Team (Late st Contact Info) Description 05/02/2020 Telephone [facility] Medical Group Family & Internal Medicine [address] [place] [address] Lise Garces APNP [address] [place], [place] [id number] Lab Results Social History Tobacco Use Types [...] Sex Assigned at Female 05/21/2024 8:15 AM WHEEL SETTER Legal Sex Female 4:43 PM CDT Gender Identity Female 05/21/2024 8:15 AM WHEEL SETTER Sexual Orientation Not on file COVID-19 Exposure Response Date Recorded In the last month, have you been in contact with someone who was confirmed or suspected to have Coronavirus / COVID-19? No / Unsure 04/11/2020 10:45 AM WHEEL SETTER documented as of this encounter Progress Notes * Susana Wen RN - 05/04/2020 11:52 AM CST No answer, no voicemil 05/04/20 letter printed. L SETTER * Susana Wen RN - 05/03/2020 10:46 AM CST No answer, no voicemail 05/03/20 L SETTER * Susana Wen RN - 05/02/2020 1:32 PM CST No answer, no voicemail 05/02/20 L SETTER * Susana Wen RN - 05/02/2020 1:14 PM CST ----- Message from JULY Min sent at 05/02/2020 9:19 AM WHEEL SETTER ----- Lipids improved. Make sure to stay adequately hydrated and reduce NSAID use if possible. Vit D low, increase current Vit D3 dose by 1000 IU daily. L SETTER documented in this encounter Plan of Treatment Not on file documented as of this encounter Visit Diagnoses Not on filedocumented in this encounter Care Teams Puppet Maker Relationship Specialty Start Date End Date Lise Garces APNP [address] [place] [phone] PCP - General NURSE PRACTITIONER 10/03/18 documented as of this encounter
--- OUTSIDE RECORDS SUMMARY | 2024-06-21 08:56 | XMS_ITS | Encounter Summary ---
Author Organization [facility] Address [address] [place] [address]. [place] [address] [place] [address] Care Team Providers Care Docking Pilot Name Role Phone Lise Garces Primary Care Provider +1- [phone] Encounter Details Date Type Department Care Team (Latest Contact Info) Description 08/16/2021 Travel Social History Tobacco Use Types Packs/Day [...] at Female 05/21/2024 8:15 AM DIRECTOR OF BUSINESS SYSTEMS Legal Sex Female 4:43 PM CDT Gender Identity Female 05/21/2024 8:15 AM DIRECTOR OF BUSINESS SYSTEMS Sexual Orientation Not on file COVID-19 Exposure Response Date Recorded In the last 10 days, have yo u been in contact with someone who was confirmed or suspected to have Coronavirus/COVID-19? No / Unsure 08/16/2021 7:19 AM DIRECTOR OF BUSINESS SYSTEMS documented as of this encounter Plan of Treatment Not on file documented as of this encounter Visit Diagnoses Not on filedocumented in this encounter Care Teams Docking Pilot Relationship Specialty Start Date End Date Lise Garces APNP [address] [place] [address] PCP - General NURSE PRACTITIONER 10/03/18 documented as of this encounter
--- OUTSIDE RECORDS SUMMARY | 2024-06-21 08:56 | XMS_ITS | Encounter Summary ---
Author Organization [facility] Address [address] [place] [address]. [place], [place] [address] [place] [address] Care Team Providers Care Cooker Helper Name Role Phone Lise Garces Primary Care Provider +1- [phone] Encounter Details Date Type Department Care Team (Latest Contact Info) Description 01/02/2022 Travel Social History Tobacco Use Types Packs/Day [...] Sex Assigned at Female 05/21/2024 8:15 AM YARD TRUCK DRIVER Legal Sex Female 4:43 PM CDT Gender Identity Female 05/21/2024 8:15 AM YARD TRUCK DRIVER Sexual Orientation Not on file COVID-19 Exposure [...] documented as of this encounter Care Teams Cooker Helper Relationship Specialty Start Date End Date Lise Garces APNP [address] [place] [address] PCP - General NURSE PRACTITIONER 10/03/18 documented as of this encounter
--- OUTSIDE RECORDS SUMMARY | 2024-06-21 08:56 | XMS_ITS | Encounter Summary ---
Author Organization [facility] Address [address] [place] [address]. [place], [place] [address] [place] [address] Care Team Providers Care Light Rail Transit Operator Name Role Phone Lise Garces Primary Care Provider +1- [phone] Encounter Details Date Type Department Care Team (Latest Contact Info) Description 08/23/2020 Scan [facility] Scanned, Documents [...] Sex Assigned at Female 05/21/2024 8:15 AM COMPUTER AIDED DRAFTER Legal Sex Female 4:43 PM CDT Gender Identity Female 05/21/2024 8:15 AM COMPUTER AIDED DRAFTER Sexual Orientation Not on file documented as of this encounter Plan of Treatment Not on file documented as of this encounter Visit Diagnoses Not on filedocumented in this encounter Care Teams Light Rail Transit Operator Relationship Specialty Start Date End Date Lise Garces APNP [address] [place] [address] PCP - General NURSE PRACTITIONER 10/03/18 documented as of this encounter
--- OUTSIDE RECORDS SUMMARY | 2024-06-21 08:56 | XMS_ITS | Encounter Summary ---
Author Organization [facility] Address [address] [place] [address]. [place], [place] [address] [place] [address] Care Team Providers Care Auto Mechanics Instructor Name Role Phone Lise Garces Primary Care Provider +1- [phone] Encounter Details Date Type Department Care Team (Latest Contact Info) Description 07/06/2021 - 07/06/2021 11:59 PM DERMATOPATHOLOGIST Hospital Encounter [facility] [address] [place] [address] Discharge Disposition: Home or Self Care (Routine [...] Sex Assigned at Female 05/21/2024 8:15 AM DERMATOPATHOLOGIST Legal Sex Female 4:43 PM CDT Gender Identity Female 05/21/2024 8:15 AM DERMATOPATHOLOGIST Sexual Orientation Not on file COVID-19 Exposure Response Date Recorded In the last month, have you been in contact with someone who was confirmed or suspected to have Coronavirus / COVID-19? Unable to assess 07/06/2021 8:05 AM DERMATOPATHOLOGIST documented as of this encounter Medications at Time of Discharge hydroxychloroquine 200 MG tablet Take 2 tablets (400 mg total) by mouth daily. 04/03/2020 Loratadine (CLARITIN OR) Take by mouth daily. LOSARTAN 25 MG tabletIndications: Essential hypertension TAKE 1 TABLET(25 MG) BY MOUTH DAILY 90 tablet 3 04/13/2021 2 documented as of this encounter Plan of Treatment Not on file documented as of this encounter Visit Diagnoses Not on filedocumented in this encounter Additional Health Concerns Infection Onset Date Last Indicated Resolved Time COVID-19 Rule Out 07/06/2021 07/06/2021 07/06/2021 10:14 AM DERMATOPATHOLOGIST COVID-19 Rule Out 07/06/2021 07/06/2021 07/07/2021 2:00 AM DERMATOPATHOLOGIST documented as of this encounter Care Teams Auto Mechanics Instructor Relationship Specialty Start Date End Date Lise Garces APNP [address] [place] [address] PCP - General NURSE PRACTITIONER 10/03/18 documented as of this encounter
--- OUTSIDE RECORDS SUMMARY | 2024-06-21 08:56 | XMS_ITS | Encounter Summary ---
Author Organization [facility] Address [address] [place] [address]. [place], [place] [address] [place] [address] Care Team Providers Care Fruit Thinner Machine Operator Name Role Phone Lise Garces Primary Care Provider +1- [phone] Encounter Details Date Type Department Care Team (Latest Contact Info) Description 06/13/2020 Scan [facility] Scanned, Documents [...] Sex Assigned at Female 05/21/2024 8:15 AM MERCHANT PATROLLER Legal Sex Female 4:43 PM CDT Gender Identity Female 05/21/2024 8:15 AM MERCHANT PATROLLER Sexual Orientation Not on file documented as of this encounter Plan of Treatment Not on file documented as of this encounter Visit Diagnoses Not on filedocumented in this encounter Care Teams Fruit Thinner Machine Operator Relationship Specialty Start Date End Date Lise Garces APNP [address] [place] [address] PCP - General NURSE PRACTITIONER 10/03/18 documented as of this encounter
--- OUTSIDE RECORDS SUMMARY | 2024-06-21 08:56 | XMS_ITS | Encounter Summary ---
Author Organization [facility] Address [address] [place] [address]. [place] [address] [place] [address] Care Team Providers Care Drafter Refrigeration Name Role Phone Lise Garces Primary Care Provider +1- [phone] Reason for Visit * Reason Onset Date Comments Results 01/11/2022 Encounter Details Date Type Department Care Team (Late st Contact Info) Description 01/11/2022 Telephone [facility] Medical Group Family & Internal Medicine [facility] [address] [place] [address] Lise Garces APNP [facility] [place] [address] Results Social History Tobacco Use Types Packs/Day [...] Sex Assigned at Female 05/21/2024 8:15 AM DEPUTY CHIEF EXECUTIVE Legal Sex Female 4:43 PM CDT Gender Identity Female 05/21/2024 8:15 AM DEPUTY CHIEF EXECUTIVE Sexual Orientation Not on file COVID-19 Exposure Response Date Recorded In the last 10 days, have yo u been in contact with someone who was confirmed or suspected to have Coronavirus/COVID-19? No / Unsure 01/02/2022 8:05 AM CDT documented as of this encounter Progress Notes * Beatriz Mora RN - 01/11/2022 3:22 PM CDTAddended by: BEATRIZ MORA on: 01/11/2022 03:22 PM Modules accepted: Orders * Beatriz Mora RN - 01/11/2022 3:18 PM CDT Spoke with patient and informed her of her lab results and recommendations per provider. Patient will restart her vit D and work on diet. Patient verbalized understanding of results. Opportunity given for all questions to be answered, no further needs voiced at this time. LL-01/11/22 * Katie Bearden MA - 01/11/2022 2:13 PM CDT Left message on machine to please call the office. BB 01/11/2022 * Katie Bearden MA - 01/11/2022 2:11 PM CDT ----- Message from JULY Min sent at 01/11/2022 10:12 AM CDT ----- Vit D a little low--is she taking a Vit D supplement currently. Lipids elevated----we can either discuss a statin or reduce carbs and animal fats in diet and recheck lipids in 3 months. documented in this encounter Plan of Treatment Scheduled Orders Name Type Priority Associated Diagnoses Orde r Schedule LIPID PANEL Lab Routine Elevated lipids Expected: 04/13/2022, Expires: 01/11/2023 documented as of this encounter Visit Diagnoses Diagnosis Elevated lipids- Primary Other and unspecified hyperlipidemia documented in this encounter Additional Health Concerns Assessment Noted Time PHQ-9 Depression Total Score: 3 01/03/20 22 9:20 AM CDT documented as of this encounter Care Teams Drafter Refrigeration Relationship Specialty Start Date End Date Lise Garces APNP [address] [place] [address] PCP - General NURSE PRACTITIONER 10/03/18 documented as of this encounter
--- OUTSIDE RECORDS SUMMARY | 2024-06-21 08:56 | XMS_ITS | Encounter Summary ---
Author Organization [facility] Address [address] [place] [address]. [place] [address] [place] [address] Care Team Providers Care Home Visitor Home Base Head Start Name Role Phone Lise Garces Primary Care Provider +1- [phone] Reason for Visit * Reason Onset Date Comments Results 07/22/2020 Encounter Details Date Type Department Care Team (Late st Contact Info) Description 07/22/2020 Telephone [facility] Medical Group Family & Internal Medicine [facility] [address] [place] [address] Lise Garces APNP [facility] [place], [place] [id number] Results Social History Tobacco Use Types Packs/Day [...] Sex Assigned at Female 05/21/2024 8:15 AM SR RISK MANAGEMENT CONSULTANT Legal Sex Female 4:43 PM CDT Gender Identity Female 05/21/2024 8:15 AM SR RISK MANAGEMENT CONSULTANT Sexual Orientation Not on file documented as of this encounter Progress Notes * Yary Chacko - 07/22/2020 10:57 AM CST Patient called in, advised of the following. Patient voice understanding. RISK MANAGEMENT CONSULTANT * Katie Bearden MA - 07/22/2020 10:42 AM CST LMOM to please call the office regarding cologuard results. Cologuard results were negative. BB 07/22/20 RISK MANAGEMENT CONSULTANT documented in this encounter Plan of Treatment Not on file documented as of this encounter Visit Diagnoses Not on filedocumented in this encounter Care Teams Home Visitor Home Base Head Start Relationship Specialty Start Date End Date Lise Garces APNP [address] [place] [address] PCP - General NURSE PRACTITIONER 10/03/18 documented as of this encounter
--- OUTSIDE RECORDS SUMMARY | 2024-06-21 08:56 | XMS_ITS | Encounter Summary ---
Author Organization [facility] Address [address] [place] [address]. [place] [address] [place] [address] Care Team Providers Care Upholsterer Outside Name Role Phone Lise Garces Primary Care Provider +1- [phone] Reason for Visit * Reason Onset Date Comments Results 07/06/2021 Encounter Details Date Type Department Care Team (Late st Contact Info) Description 07/06/2021 Telephone [facility] Medical Group Family & Internal Medicine [facility] [address] [place] [address] Lise Garces APNP [facility] [place] [address] Results Social History Tobacco Use [...] Sex Assigned at Female 05/21/2024 8:15 AM ROLL ON MAN Legal Sex Female 4:43 PM CDT Gender Identity Female 05/21/2024 8:15 AM ROLL ON MAN Sexual Orientation Not on file COVID-19 Exposure Response Date Recorded In the last month, have you been in contact with someone who was confirmed or suspected to have Coronavirus / COVID-19? Unable to assess 07/06/2021 8:05 AM ROLL ON MAN documented as of this encounter Progress Notes * Katie Bearden MA - 07/06/2021 4:58 PM CST Pt notified and v/u to this. BB 07/06/2021 ON MAN * Katie Bearden MA - 07/06/2021 4:57 PM CST ----- Message from JULY Min sent at 07/06/2021 3:08 PM ROLL ON MAN ----- Let patient know her Covid antigen was positive. She would need to quarantine according to CDC guidelines. ON MAN documented in this encounter Plan of Treatment Not on file documented as of this encounter Visit Diagnoses Not on filedocumented in this encounter Additional Health Concerns Infection Onset Date Last Indicated Resolved Time COVID-19 Rule Out 07/06/2021 07/06/2021 07/06/2021 10:14 AM ROLL ON MAN COVID-19 Rule Out 07/06/2021 07/06/2021 07/07/2021 2:00 AM ROLL ON MAN documented as of this encounter Care Teams Upholsterer Outside Relationship Specialty Start Date End Date Lise Garces APNP [address] [place] [address] PCP - General NURSE PRACTITIONER 10/03/18 documented as of this encounter
--- OUTSIDE RECORDS SUMMARY | 2024-06-21 08:56 | XMS_ITS | Encounter Summary ---
Author Organization [facility] Address [address] [place] [address]. [place] [address] [place] [address] Care Team Providers Care Drywall Finisher Name Role Phone Lise Garces Primary Care Provider +1- [phone] Reason for Visit * Reason Onset Date Comments Results 07/07/2021 Encounter Details Date Type Department Care Team (Late st Contact Info) Description 07/07/2021 Telephone [facility] Medical Group Family & Internal Medicine [facility] [address] [place] [address] Lise Garces APNP [facility] [place], [place] [id number] Results Social History Tobacco Use Types Packs/Day [...] Sex Assigned at Female 05/21/2024 8:15 AM VULCANIZED FIBER UNIT OPERATOR Legal Sex Female 4:43 PM CDT Gender Identity Female 05/21/2024 8:15 AM VULCANIZED FIBER UNIT OPERATOR Sexual Orientation Not on file COVID-19 Exposure Response Date Recorded In the last month, have you been in contact with someone who was confirmed or suspected to have Coronavirus / COVID-19? Unable to assess 07/06/2021 8:05 AM VULCANIZED FIBER UNIT OPERATOR documented as of this encounter Progress Notes * Katie Bearden MA - 07/07/2021 3:43 PM CST Pt is aware. BB 07/07/2021 ANIZED FIBER UNIT OPERATOR * Katie Bearden MA - 07/07/2021 3:43 PM CST ----- Message from JULY Min sent at 07/07/2021 3:30 PM VULCANIZED FIBER UNIT OPERATOR ----- PCR COVID positive. Pt already aware as her antigen was positive as well ANIZED FIBER UNIT OPERATOR documented in this encounter Plan of Treatment Not on file documented as of this encounter Visit Diagnoses Not on filedocumented in this encounter Additional Health Concerns Infection Onset Date Last Indicated Resolved Time COVID-19 Rule Out 07/06/2021 07/06/2021 07/07/2021 2:00 AM VULCANIZED FIBER UNIT OPERATOR COVID-19 Confirmed 07/06/2021 07/06/2021 12:32 AM VULCANIZED FIBER UNIT OPERATOR documented as of this encounter Care Teams Drywall Finisher Relationship Specialty Start Date End Date Lise Garces APNP [address] [place] [address] PCP - General NURSE PRACTITIONER 10/03/18 documented as of this encounter
--- OUTSIDE RECORDS SUMMARY | 2024-06-21 08:56 | XMS_ITS | Encounter Summary ---
Author Organization [facility] Address [address] [place] [address]. [place], [place] [address] [place] [address] Care Team Providers Care Inductor Tester Name Role Phone Lise Garces Primary Care Provider +1- [phone] Encounter Details Date Type Department Care Team (Latest Contact Info) Description 07/06/2021 Travel Social History Tobacco Use Types Packs/Day [...] Sex Assigned at Female 05/21/2024 8:15 AM CAN LABELER Legal Sex Female 4:43 PM CDT Gender Identity Female 05/21/2024 8:15 AM CAN LABELER Sexual Orientation Not on file COVID-19 Exposure Response Date Recorded In the last month, have you been in contact with someone who was confirmed or suspected to have Coronavirus / COVID-19? Unable to assess 07/06/2021 8:05 AM CAN LABELER documented as of this encounter Plan of Treatment Not on file documented as of this encounter Visit Diagnoses Not on filedocumented in this encounter Additional Health Concerns Infection Onset Date Last Indicated Resolved Time COVID-19 Rule Out 07/06/2021 07/06/2021 07/06/2021 10:14 AM CAN LABELER COVID-19 Rule Out 07/06/2021 07/06/2021 07/07/2021 2:00 AM CAN LABELER documented as of this encounter Care Teams Inductor Tester Relationship Specialty Start Date End Date Lise Garces APNP [address] [place] [address] PCP - General NURSE PRACTITIONER 10/03/18 documented as of this encounter
--- OUTSIDE RECORDS SUMMARY | 2024-06-21 08:56 | XMS_ITS | Encounter Summary ---
Author Organization [facility] Address [address] [place] [address]. [place] [address] [place] [address] Care Team Providers Care Cuff Folder Name Role Phone Lise Garces Primary Care Provider +1- [phone] Reason for Visit * Reason Onset Date Comments Results 01/08/2022 Encounter Details Date Type Department Care Team (Late st Contact Info) Description 01/08/2022 Telephone [facility] Medical Group Family & Internal Medicine [facility] [address] [place] [address] Lise Garces APNP [facility] [place] [address] Results Social History Tobacco Use [...] Sex Assigned at Female 05/21/2024 8:15 AM TICKER MAINTAINER Legal Sex Female 4:43 PM CDT Gender Identity Female 05/21/2024 8:15 AM TICKER MAINTAINER Sexual Orientation Not on file COVID-19 Exposure Response Date Recorded In the last 10 days, have yo u been in contact with someone who was confirmed or suspected to have Coronavirus/COVID-19? No / Unsure 01/02/2022 8:05 AM CDT documented as of this encounter Progress Notes * Katie Bearden MA - 01/08/2022 2:30 PM CDT Pt notified and v/u to this.. BB 01/08/2022 * Katie Bearden MA - 01/08/2022 2:30 PM CDT ----- Message from JULY Min sent at 01/08/2022 9:50 AM CDT ----- Pap negative documented in this encounter Plan of Treatment Not on file documented as of this encounter Visit Diagnoses Not on filedocumented in this encounter Additional Health Concerns Assessment Noted Time PHQ-9 Depression Total Score: 3 01/03/20 22 9:20 AM CDT documented as of this encounter Care Teams Cuff Folder Relationship Specialty Start Date End Date Lise Garces APNP [address] [place] [address] PCP - General NURSE PRACTITIONER 10/03/18 documented as of this encounter
--- OUTSIDE RECORDS SUMMARY | 2024-06-21 08:56 | XMS_ITS | Encounter Summary ---
Author Organization [facility] Address [address] [place] [address]. [place] [address] [place] [address] Care Team Providers Care Medical Detailist Name Role Phone Lise Garces Primary Care Provider [phone] Reason for Visit * Reason Comments Flu Like Symptoms Encounter Details Date Type Department Care Team (Latest Contact Info) Description 07/28/2022 5:44 PM GRAPHIC ARTS INSTRUCTOR - 07/28/2022 6:13 PM GRAPHIC ARTS INSTRUCTOR Hospital Encounter [facility] Care [address] [place] [address] [place] [address] Denia Vleiz, DO [address] [place] [address] Flu Like Symptoms Discharge Disposition: Home or Self Care (Routine [...] Sex Assigned at Female 05/21/2024 8:15 AM GRAPHIC ARTS INSTRUCTOR Legal Sex Female 4:43 PM CDT Gender Identity Female 05/21/2024 8:15 AM GRAPHIC ARTS INSTRUCTOR Sexual Orientation Not on file COVID-19 Exposure Response Date Recorded In the last 10 days, have yo u been in contact with someone who was confirmed or suspected to have Coronavirus/COVID-19? No / Unsure 07/28/2022 5:38 PM GRAPHIC ARTS INSTRUCTOR documented as of this encounter Last Filed Vital Signs Vital Sign Reading Time Taken Comments Blood Pressure 141/90 07/28/2022 5:48 PM GRAPHIC ARTS INSTRUCTOR Pulse 120 07/28/2022 5:48 PM GRAPHIC ARTS INSTRUCTOR Temperature 37.3 ??C (99.2 ??F) 07/28/2022 5:48 PM CS T Respiratory Rate 20 07/28/2022 5:48 PM GRAPHIC ARTS INSTRUCTOR Oxygen Saturation 97% 07/28/2022 5:48 PM GRAPHIC ARTS INSTRUCTOR Inhaled Oxygen Concentration - - Weight 8.618 kg (19 lb) 07/28/2022 5:48 PM GRAPHIC ARTS INSTRUCTOR Height 175.3 cm (5' 9 ) 07/28/2022 5:48 PM GRAPHIC ARTS INSTRUCTOR Body Mass Index 2.81 07/28/2022 5:48 PM GRAPHIC ARTS INSTRUCTOR documented in this encounter Discharge Instructions * Discharge Instructions* Denia Veliz DO - 07/28/2022 6:12 PM GRAPHIC ARTS INSTRUCTOR Get plenty of rest and fluids Your follow up Strep, COVID and flu swab results will be on your MyChart later today Recommend salt water gargles, warm tea with honey, throat drops, humidifier in the bedroom at night, and Mucinex as needed You can alternate Tylenol and Ibuprofen as needed for pain or fevers Follow up with PCP as needed Return for symptoms that last longer than 10-14 days or are worsening HIC ARTS INSTRUCTOR * Attachments The following attachments cannot be sent through Care Everywhere. * Viral Syndrome Discharge Instructions (Khmer) documented in this encounter Medications at Time [...] total) by mouth daily. 90 tablet 3 01/02/2022 3 documented as of this encounter ED Notes * Denia Veliz, DO - 07/28/2022 5:54 PM CST [facility] [place], [place] HISTORICAL INFORMATION Primary Care Doctor: JULY Min Patient information was obtained primarily from the patient, nursing notes. History/Exam limitations: None Provider at Bedside None CHIEF COMPLAINT Flu Like Symptoms Chief Complaint Patient presents with ??? Flu Like Symptoms HPI Shanika Vazquez is a 57-year-old female with Hx of SLE (on Plaquenil) and HTN, who presents with a one day Hx of flu-like sxs. She reports myalgias, fevers (Tmax 100), fatigue, and chills for the past day after she had GI sxs 3-4 days prior (which have now resolved). She also then began to develop a mild sore throat this AM. She has no associated lingering GI sxs (has been able to tolerate po intake), rash, cough, or dyspnea. Has tried Mucinex and Marylou [place] cold and flu without significant improvement ROS as per HPI PAST MEDICAL HISTORY Past Medical History: Diagnosis Date ??? COVID-19 ??? Hypertension ??? Lupus (CMS/HCC) SURGICAL HISTORY Past Surgical History: Procedure Laterality Date ??? SECTION ??? HC ABLATION UTERINE BALLOON CURRENT MEDICATIONS No current facility-administered medications for this encounter. Current Outpatient Medications: ??? aspirin EC (ECOTRIN) [...] daily. Brand name: provitalize., Disp: , Rfl: ALLERGIES No Known Allergies FAMILY HISTORY Family History Problem Relation Name Age of Onset ??? Thyroid Mother HYPO ??? Hypertension Father ??? Heart Disease Father ??? Heart Disease Maternal Grandmother ??? Heart Disease Paternal Grandmother Family History of Heart Disease, Diabetes, Cancer Negative. SOCIAL HISTORY Social History Socioeconomic History ??? Marital status: Tobacco Use ??? Smoking status: Never Passive exposure: Never ??? Smokeless tobacco: Never Vaping Use ??? Vaping Use: Never used Substance and Sexual Activity ??? Alcohol use: No ??? Drug use: No ??? Sexual activity: Yes Partners: Male Review of Systems Constitutional: Positive for chills, fever and malaise/fatigue. Respiratory: Negative for cough and shortness of breath. Cardiovascular: Negative for chest pain. Gastrointestinal: Negative for abdominal pain, diarrhea, nausea and vomiting. Musculoskeletal: Positive for myalgias. Skin: Negative for rash. Psychiatric/Behavioral: Negative for depression and suicidal ideas. Physical Exam VITAL SIGNS: Filed Vitals: 07/28/22 1748 BP: (!) 141/90 Pulse: (!) 120 Resp: 20 Temp: 99.2 ??F (37.3 ??C) TempSrc: Oral SpO2: 97% Weight: 8.618 kg (19 lb) Height: 5' 9 (1.753 m) Physical [...] normal. There is no impacted cerumen. Nose: Nose normal. No congestion or rhinorrhea. Mouth/Throat: Mouth: Mucous membranes are moist. Pharynx: Oropharynx is clear. Posterior oropharyngeal erythema present. No oropharyngeal exudate. Eyes: General: No [...] No results found for this visit on 07/28/22. LABORATORY Labs Reviewed CORONAVIRUS (COVID-19) INFLUENZA A & B ANTIGEN IA PANEL RAPID STREP A STREP A, DNA RADIOLOGY No orders to display PROCEDURES Procedures MDM Pt presenting today with a one day Hx of flu-like illness. Prior viral gastroenteritis has since resolved. Strep swab neg but sent for confirmatory DNA d/t recent Strep+ exposures. COVID/flu swab collected and sent. HR initially elevated, which I suspect is d/t acute illness (resolved to 88 on recheck). Advised supportive care for likely viral etiology, to which she is amenable I have discussed today's findings with the [...] of these instructions. Impression/Disposition SNOMED CT(R) 1. Influenza-like illness INFLUENZA-LIKE ILLNESS 2. Viral illness VIRAL DISEASE Disposition: Discharge Medications - No data to display Current Discharge Medication List DO Denia PAYAN DO 07/28/221811 HIC ARTS INSTRUCTOR * Jane Trejo RN - 07/28/2022 5:47 PM CST Pt reports Saturday and Saturday she had a stomach bug that has resolved. Pt states yesterday shedeveloped body aches, fatigue, and chills. Pt did not check her temperature. Mild sore throat started this AM. 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 HIC ARTS INSTRUCTOR documented in this encounter Plan of Treatment Not on file documented as of this encounter Procedures Procedure Name Priority Date/Time Associated Diagnosis Comments STREP A, DNA STAT 07/28/2022 6:12 PM GRAPHIC ARTS INSTRUCTOR CORONAVIRUS (COVID-19) INFLUENZA A & B ANTIGEN IA PANEL STAT 07/28/2022 5:53 PM GRAPHIC ARTS INSTRUCTOR RAPID STREP A STAT 07/28/2022 5:53 PM GRAPHIC ARTS INSTRUCTOR documented in this encounter Results * STREP A, DNA (CONFIRMATION ONLY) (07/28/2022 6:12 PM GRAPHIC ARTS INSTRUCTOR) SPECIMEN SOURCE THROAT 6:13 PM GRAPHIC ARTS INSTRUCTOR [facility] STREP A MOLECULAR NEGATIVE NEGATIVE 023 10:24 PM GRAPHIC ARTS INSTRUCTOR [facility] Comment:SPECIMEN NEGATIVE FO R GROUP A STREPTOCOCCUS BY DNA AMPLIFICATION STRUCTURE OF ANTERIOR PORTION OF NECK / Unknown 07/28/2022 6:12 PM GRAPHIC ARTS INSTRUCTOR Denia Veliz DO MICROBIOLOGY - GENERAL ORDERA BLES Final Result [facility] [address] [place] [address], [place] [phone] [facility] [place] [address], [place] * CORONAVIRUS (COVID-19) INFLUENZA A & B ANTIGEN IA PANEL (07/28/2022 5:53 PM GRAPHIC ARTS INSTRUCTOR) CORONAVIRUS ANTIGEN IA NEGATIVE NEGATIVE 07/28/2022 8:29 PM GRAPHIC ARTS INSTRUCTOR [facility] Comment: NEGATIVE RESULTS SHOULD BE TREATED PRESUMPTIVE AND CONFIRMED WITH A MOLECULAR ASSAY IF NECESSARY FOR PATIENT MANAGEMENT. NEGATIVE RESULTS DO NOT RULE OUT COVID 19 AND SHOULD NOT BE USED THE SOLE BASIS FOR TREATMENT OR PATIENT MANAGEMENT DECISIONS, INCLUDING INFECTION CONTROL DECISIONS. NEGATIVE RESULTS SHOULD BE CONSIDERED IN THE CONTEXT OF A PATIENT'S RECENT EXPOSURES, HISTORY AND THE PRESENCE OF CLINICAL SIGNS AND SYMPTOMS CONSISTENT WITH COVID 19. THIS TEST HAS BEEN AUTHORIZED BY THE FDA UNDER AN EMERGENCY USE AUTHORIZATION (EUA) FOR USE BY AUTHORIZED LABORATORIES. INFLUENZA A NEGATIVE NEGATIVE 07/28/2022 8:29 PM GRAPHIC ARTS INSTRUCTOR [facility] INFLUENZA B NEGATIVE NEGATIVE 07/28/2022 8:29 PM GRAPHIC ARTS INSTRUCTOR [facility] Comment: Interpretation: Negative for Influenza A and [...] testing with RT-PCR requires a separate order. SPECIMEN TYPE NASAL 07/28/2022 5:53 PM GRAPHIC ARTS INSTRUCTOR [facility] CARE FIRST TEST NO 07/28/2022 5:53 PM GRAPHIC ARTS INSTRUCTOR [facility] EMPLOYED IN HEALTHCARE NO 07/28/2022 5:53 PM GRAPHIC ARTS INSTRUCTOR [facility] SYMPTOMATIC DEFINED BY CDC YES 07/28/2022 5:53 PM GRAPHIC ARTS INSTRUCTOR [facility] DATE OF SYMPTOM ONSET [id number] 07/28/2022 5:53 PM GRAPHIC ARTS INSTRUCTOR [facility] HOSPITALIZATION STATUS NO 07/28/2022 5:53 PM GRAPHIC ARTS INSTRUCTOR [facility] RESIDENT OF [facility] NO 07/28/2022 5:53 PM GRAPHIC ARTS INSTRUCTOR [facility] NASAL STRUCTURE / Unknown 07/28/2022 5:53 PM GRAPHIC ARTS INSTRUCTOR Denia Lazet DO MICROBIOLOGY - GENERAL ORDERA BLES Final Result Performing Organization Address City/[facility]/ZIP Co de Phone Number [facility] [place] [address], [facility] [address] [place] [address], * RAPID STREP A (07/28/2022 5:53 PM GRAPHIC ARTS INSTRUCTOR) SPECIMEN TYPE THROAT 07/28/2022 5:53 PM GRAPHIC ARTS INSTRUCTOR [facility] CARE RAPID STREP TEST NEGATIVE NEGATIVE 07/28/2022 8:04 PM GRAPHIC ARTS INSTRUCTOR [facility] STRUCTURE OF ANTERIOR PORTION OF NECK / Unknown 07/28/2022 5:53 PM GRAPHIC ARTS INSTRUCTOR Denia Vleiz DO MICROBIOLOGY - GENERAL ORDERA BLES Final Result [facility] [address] [place] [address], documented in this encounter Visit Diagnoses Diagnosis Influenza-like illness- Primary Influenza with other respiratory manifestations Viral illness Unspecified viral infection, in conditions classified elsewhere and of unspecified site documented in this encounter Additional Health Concerns Infection Onset Date Last Indicated Resolved Time COVID-19 Rule Out 07/28/2022 07/28/2022 07/28/2022 8:29 PM GRAPHIC ARTS INSTRUCTOR Assessment Noted Time PHQ-9 Depression Total Score: 3 01/03/20 22 9:20 AM CDT documented as of this encounter Care Teams Medical Detailist Relationship Specialty Start Date End Date Lise Garces APNP [address] [place] [address] PCP - General NURSE PRACTITIONER 10/03/18 documented as of this encounter
--- OUTSIDE RECORDS SUMMARY | 2024-06-21 08:56 | XMS_ITS | Encounter Summary ---
Author Organization [facility] Address [address] [place] [address]. [place] [address] [place] [address] Care Team Providers Care Water Manager Name Role Phone Lise Garces Primary Care Provider [phone] Encounter Details Date Type Department Care Team (Latest Contact Info) Description 04/11/2020 Travel Social History Tobacco Use Types Packs/Day [...] Sex Assigned at Female 05/21/2024 8:15 AM ARCHITECTURE PROFESSOR Legal Sex Female 4:43 PM CDT Gender Identity Female 05/21/2024 8:15 AM ARCHITECTURE PROFESSOR Sexual Orientation Not on file COVID-19 Exposure Response Date Recorded In the last month, have you been in contact with someone who was confirmed or suspected to have Coronavirus / COVID-19? No / Unsure 04/11/2020 10:45 AM ARCHITECTURE PROFESSOR documented as of this encounter Plan of Treatment Not on file documented as of this encounter Visit Diagnoses Not on filedocumented in this encounter Care Teams Water Manager Relationship Specialty Start Date End Date Lise Garces APNP [address] [place] [id number] PCP - General NURSE PRACTITIONER 10/03/18 documented as of this encounter
--- OUTSIDE RECORDS SUMMARY | 2024-06-21 08:57 | XMS_ITS | Encounter Summary ---
Author Organization [facility] Address [address] [place] [address]. [place] [address] [place] [address] Care Team Providers Care Hims Clerk Name Role Phone Lise Garces Primary Care Provider [phone]- [phone] Reason for Visit * Reason Comments URI Encounter Details Date Type Department Care Team (Late st Contact Info) Description 2019 3:20 PM WOOD VENEER TAPER Office Visit [facility] Family & Internal Medicine [place] [id number] [place] [address] Lise Garces APNP [facility] [place] [address] URI Social History Tobacco Use Types Packs/Day Years [...] Date Recorded PHQ-2 Score 1 10/03/2018 Comments Unknown Sex and Gender Information Value Date Recorded Sex Assigned at Female 05/21/2024 8:15 AM WOOD VENEER TAPER Legal Sex Female 4:43 PM CDT Gender Identity Female 05/21/2024 8:15 AM WOOD VENEER TAPER Sexual Orientation Not on file documented as of this encounter Last Filed Vital Signs Vital Sign Reading Time Taken Comments Blood Pressure 132/77 2019 3:21 PM WOOD VENEER TAPER Pulse 94 2019 3:21 PM WOOD VENEER TAPER Temperature 35.8 ??C (96.4 ??F) 2019 3:21 PM CS T Respiratory Rate 16 2019 3:21 PM WOOD VENEER TAPER Oxygen Saturation 99% 2019 3:21 PM WOOD VENEER TAPER Inhaled Oxygen Concentration - - Weight 85.7 kg (189 lb) 2019 3:21 PM WOOD VENEER TAPER Height 175.3 cm (5' 9 ) 2019 3:21 PM WOOD VENEER TAPER Body Mass Index 27.91 2019 3:21 PM WOOD VENEER TAPER documented in this encounter Progress Notes * JULY Min - 2019 3:20 PM CST Images from the original note were not included. [facility] INTERNAL MEDICINE OFFICE VISIT Reason for Visit: URI History of Present Illness: Patient here today for complaints of URI symptoms since June 10, 2019, she complains of productive cough, green sputum, nasal drainage, maxillary sinus pain and pressure, sore throat. She denies any rash, nausea vomiting, abdominal pain or diarrhea. She is treated at home with Coricidin HBP with some improvement. She denies any chest pain or shortness of breath. ROS: Review of Systems Constitutional: Positive for malaise/fatigue. Negative for chills and fever. HENT: Positive for congestion, sinus pain and sore throat. Negative for ear pain. Eyes: Negative for pain and discharge. Respiratory: Positive for cough and sputum production. Negative for hemoptysis, shortness of breathand wheezing. Cardiovascular: Negative for chest pain and leg swelling. Gastrointestinal: Negative for abdominal pain, diarrhea, nausea and vomiting. Musculoskeletal: Negative for joint pain and myalgias. Skin: Negative for itching and rash. Neurological: Negative for dizziness and headaches. Medications: Current Outpatient Medications: ??? benzonatate 100 MG capsule, Take 1 capsule (100 mg total) by mouth 3 (three) times daily as needed., Disp: 30 capsule, Rfl: 0 ??? cefdinir 300 MG Cap capsule, Take 1 capsule (300 mg total) by mouth 2 (two) times daily., Disp:20 capsule, Rfl: 0 ??? HYDROXYCHLOROQUINE SULFATE OR, Take by mouth 2 (two) times a day., Disp: , Rfl: ??? Loratadine (CLARITIN OR), Take by mouth daily., Disp: , Rfl: ??? losartan 25 MG tablet, Take 1 tablet (25 mg total) by mouth daily., Disp: 90 tablet, Rfl: 3 ??? methotrexate 2.5 MG tablet, Take 2.5 mg by mouth once a week., Disp: , Rfl: Allergies: No Known Allergies [...] file Occupational History ??? Not on file Social Needs ??? Financial resource strain: Not on file ??? Food insecurity: Worry: Not on file Inability: Not on file ??? Transportation needs: Medical: Not on file Non-medical: Not on file Tobacco Use ??? Smoking status: Never Smoker ??? Smokeless tobacco: Never Used Substance and Sexual Activity ??? Alcohol use: No Frequency: Never ??? Drug use: No ??? Sexual activity: Yes Partners: Male Lifestyle ??? Physical activity: Days per week: Not on file Minutes per session: Not on file ??? Stress: Not on file Relationships ??? Social connections: Talks on phone: Not on file Gets together: Not on file Attends confucianist service: Not on file Active member of club or organization: Not on file Attends meetings of clubs or organizations: Not on file Relationship status: Not on file ??? Intimate partner violence: Fear of current or ex partner: Not on file Emotionally abused: Not on file Physically abused: Not on file Forced sexual activity: Not on file Other Topics Concern ??? Not on file Social History Narrative ??? Not on file Family History: Family History Problem Relation Name Age of Onset ??? Hypertension Father ??? Heart Disease Father ??? Heart Disease Paternal Grandmother ??? Thyroid Mother HYPO ??? Heart Disease Maternal Grandmother PE: Physical Exam Constitutional: She is oriented to person, place, and time and well-developed, well-nourished, and in no distress. HENT: Head: Normocephalic and atraumatic. Right Ear: External ear normal. Left Ear: External ear normal. Maxillary sinus tenderness upon palpation Erythema of oropharynx, no exudate Eyes: Conjunctivae and EOM are normal. No scleral icterus. Neck: Normal range of motion. Neck supple. No tracheal deviation present. Cardiovascular: Normal rate, regular rhythm and normal heart sounds. No murmur heard. Pulmonary/Chest: Effort normal and breath sounds normal. No stridor. No respiratory distress. She has no wheezes. She has no rales. Lungs CTA Musculoskeletal: Normal range of motion. She exhibits no deformity. Neurological: She is alert and oriented to person, place, and time. Gait normal. Skin: Skin is warm and dry. No rash noted. No erythema. No pallor. Psychiatric: Mood and affect normal. Nursing note and vitals reviewed. Filed Vitals: 06/30/19 1521 BP: 132/77 Pulse: 94 Resp: 16 Temp: 96.4 ??F (35.8 ??C) SpO2: 99% Weight: 85.7 kg (189 lb) Height: 5' 9 (1.753 m) Labs: Labs Reviewed Diagnoses/Impression: 1. Bronchitis cefdinir 300 MG Cap capsule 2. Acute recurrent maxillary sinusitis cefdinir 300 MG Cap capsule 3. Cough benzonatate 100 MG capsule Recommendations and Plan: 1. Bronchitis - cefdinir 300 MG Cap capsule; Take 1 capsule (300 mg total) by mouth 2 (two) times daily. Dispense: 20 capsule; Refill: 0 2. Acute recurrent maxillary sinusitis - cefdinir 300 MG Cap capsule; Take 1 capsule (300 mg total) by mouth 2 (two) times daily. Dispense: 20 capsule; Refill: 0 ?? Started on Cefdinir. Advised of risks, benefits and side effects ?? Instructed to perform sinus rinses twice daily ?? Instructed to follow up if no improvement ?? Pt education given 3. Cough - benzonatate 100 MG capsule; Take 1 capsule (100 mg total) by mouth 3 (three) times daily as needed. Dispense: 30 capsule; Refill: 0 Orders Placed This Encounter ??? HYDROXYCHLOROQUINE SULFATE OR ??? methotrexate 2.5 MG tablet ??? cefdinir 300 MG Cap capsule ??? benzonatate 100 MG capsule Cannot display discharge medications since this is not an admission. PCP: JULY Min 2019 VENEER TAPER documented in this encounter Plan of Treatment Not on file documented as of this encounter Visit Diagnoses Diagnosis Bronchitis- Primary Bronchitis, not specified as acute or chronic Acute recurrent maxillary sinusitis Acute maxillary sinusitis Cough documented in this encounter Care Teams Hims Clerk Relationship Specialty Start Date End Date Lise Garces APNP [address] [place] [id number] PCP - General NURSE PRACTITIONER 10/03/18 documented as of this encounter
--- OUTSIDE RECORDS SUMMARY | 2024-06-21 08:57 | XMS_ITS | Encounter Summary ---
Author Organization [facility] Address [address] [place] [address]. [place] [address] [place] [address] Care Team Providers Care Administrative Technician Name Role Phone Lise Garces Primary Care Provider [phone] Reason for Referral * Consultation (Routine) - Closed Specialty Diagnoses / Procedures Referred By Contele t Referred To Contact INTERNAL MEDICINE Diagnoses Positive ESTELITA (antinuclear antibody) Lise Garces APNP [address] [place] [address] Phone: tel: fax: Tereso Wu MD [address] [address] Phone: tel: fax: Referral ID Status Reason Start Date Expiration Date V isits Requested Visits Authorized [id number] Closed Specialty Services 10/09/2018 11/08/2019 1 1 Reason for Visit * Reason Onset Date Comments Lab Results 10/09/2018 Encounter Details Date Type Department Care Team (Late st Contact Info) Description 10/09/2018 Telephone [facility] Family & Internal Medicine - [place] [address] [place] [address] Lise Garces APNP [address] [place] [address] Lab Results Social History Tobacco Use Types [...] Sex Assigned at Female 05/21/2024 8:15 AM TUBE PULLER Legal Sex Female 4:43 PM CDT Gender Identity Female 05/21/2024 8:15 AM TUBE PULLER Sexual Orientation Not on file documented as of this encounter Progress Notes * Monika Bellamy MA - 10/13/2018 9:58 AM CDT Patient notified and v/u * Monika Bellamy MA - 10/13/2018 8:35 AM CDT [id number] * Monika Bellamy MA - 10/13/2018 8:35 AM CDT ----- Message from JULY Min sent at 10/10/2018 5:48 PM CDT ----- Let pt know her HGB A1C was 5.5. No diabetes. Other labs have been resulted. * Susana Wen RN - 10/10/2018 10:06 AM CDT [facility] 10/10/18 * JULY Min - 10/09/2018 4:20 PM CDT Great. Thanks! Have her to repeat UA or mail order if needed if she does not live close. Just at her convenience. UA C/S. * Monika Bellamy MA - 10/09/2018 3:53 PM CDT Patient notified and v/u of the following 1) a1c added per [facility] 2) no culture was done per [facility] and patient states she is asymptomatic. 3) lipid ordered for 3 months and 4) Rheumatology referral entered * Susana Wen RN - 10/09/2018 12:38 PM CDT [facility] 10/09/18 * Susana Wen RN - 10/09/2018 12:38 PM CDT ----- Message from JULY Min sent at 10/08/2018 9:55 PM CDT ----- Let pt know her lipids were elevated. Would like for her to start on a heart healthy/low cholesterol diet and increase her exercise. Would like to recheck this in 3 months. Her glucose was sl elevated. If not too late, can we try to add on a HGB A1C. UA shows some bacteria. Can we make sure this was sent for a culture. Find out if she is having any UTI symptoms. Vit D was WNL. CBC WNL. TSH was WNL. Her ESTELITA was positive. Would like to refer her to a clerical supervisor for further eval of this as this could be an indication of an autoimmune disorder as we discussed at her visit. documented in this encounter Plan of Treatment Scheduled Referrals Name Type Priority Associated Diagnoses Orde r Schedule Ambulatory referral to Rheumatology Referral Routine Positive ESTELITA (antinuclear antibody) Ordered: 10/09/2018 documented as of this encounter Visit Diagnoses Diagnosis Hyperlipidemia- Primary Other and unspecified hyperlipidemia Positive ESTELITA (antinuclear antibody) Other and unspecified nonspecific immunological findings Abnormal urine finding Other nonspecific finding on examination of urine documented in this encounter Care Teams Administrative Technician Relationship Specialty Start Date End Date Lise Garces APNP [address] [place] [id number] PCP - General NURSE PRACTITIONER 10/03/18 documented as of this encounter
--- OUTSIDE RECORDS SUMMARY | 2024-06-21 08:57 | XMS_ITS | Encounter Summary ---
Author Organization [facility] Address [address] [place] [address]. [place], [place] [address] [place] [address] Care Team Providers Care Evening Sitter Name Role Phone Lise Garces Primary Care Provider +1- [phone] Encounter Details Date Type Department Care Team (Latest Contact Info) Description 10/16/2018 Scan [facility] INFO SRVCS Scanned, Documents [...] Sex Assigned at Female 05/21/2024 8:15 AM ROLLER TURNER Legal Sex Female 4:43 PM CDT Gender Identity Female 05/21/2024 8:15 AM ROLLER TURNER Sexual Orientation Not on file documented as of this encounter Plan of Treatment Not on file documented as of this encounter Visit Diagnoses Not on filedocumented in this encounter Care Teams Evening Sitter Relationship Specialty Start Date End Date Lise Garces APNP [address] [place] [address] PCP - General NURSE PRACTITIONER 10/03/18 documented as of this encounter
--- OUTSIDE RECORDS SUMMARY | 2024-06-21 08:57 | XMS_ITS | Encounter Summary ---
Author Organization [facility] Address [address] [place] [address]. 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 Legal Sex Female 4:43 PM CDT Gender Identity Female 05/21/2024 8:15 AM MOTOR POWER CONNECTOR Sexual Orientation Not on file documented as of this encounter Plan of Treatment Not on file documented as of this encounter Procedures Procedure Name Priority Date/Time Associated Diagnosis Comments OUTSIDE LAB (SCAN ORDER) Routine 10/04/2018 documented in this encounter Results * OUTSIDE LAB (10/04/2018) 10/04/2018 us Documents Scanned SCANNING Final Result documented in this encounter Visit Diagnoses Not on filedocumented in this encounter Care Teams Eligibility Consultant Relationship Specialty Start Date End Date Lise Garces APNP [address] [place] [address] PCP - General NURSE PRACTITIONER 10/03/18 documented as of this encounter
--- OUTSIDE RECORDS SUMMARY | 2024-06-21 08:57 | XMS_ITS | Encounter Summary ---
Author Organization [facility] Address [address] [place] [address]. 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 No diabetes. Other labs have been resulted. * JULY Min - 10/08/2018 9:55 PM CDT Let pt know her lipids were elevated. [...] Would like to refer her to a ground layer for further eval of this as this could be an indication of an autoimmune disorder as we discussed at her visit. documented in this encounter Plan of Treatment Not on file documented as of this encounter Procedures Procedure Name Priority Date/Time Associated Diagnosis Comments TEST AUTHORIZATION Routine 10/04/2018 8: 17 AM CDT ESTELITA IFA SCRN, WI REFLEX TO TITER Routine 10/04/2018 8:17 AM CDT TSH W/REFLEX Routine 10/04/2018 8:17 AM CDT VITAMIN D, 25 OH TOTAL Routine 9 8:17 AM CDT RHEUMATOID FACTOR, QUANT Routine 10/04/2018 8:17 AM CDT HEMOGLOBIN, GLYCOSYLATED Routine 10/04/2018 8:17 AM CDT URINALYSIS, AUTO, COMPLETE Routine 10/04/2018 8:17 AM CDT COMPREHENSIVE METABOLIC PANEL Routine 10/04/2018 8:17 AM CDT LIPID PANEL Routine 10/04/2018 8:17 AM CDT CBC W/DIFF AUTOMATED Routine 10/04/2018 8:17 AM CDT URIC ACID BLOOD Routine 10/04/2018 8:17 AM CDT documented in this encounter Results * HEMOGLOBIN, GLYCOSYLATED (10/04/2018 8:17 AM CDT) HGB A1C 5.5 <5.7 % of total Hgb [facility] Comment: For the purpose of screening for the presence of diabetes: <5.7% ? Consistent with the absence of diabetes 5.7-6.4% ?Consistent with increased risk for diabetes ?(prediabetes) > or =6.5% ??Consistent with diabetes This assay result is consistent with a decreased risk of diabetes. Currently, no consensus exists regarding use of hemoglobin A1c for diagnosis of diabetes in children. According to [place] Diabetes Association (ADA) guidelines, hemoglobin A1c <7.0% represents optimal control in non- diabetic patients. Different metrics may apply to specific patient populations. Standards of Medical Care in Diabetes(ADA). ?? 10/04/2018 8:17 AM CDT 10/04/2018 8:20 AM CDT Narrative Resulting Agency Comment Performing Organization Information: ?Site ID: [place] ?Name: [facility] ?Address: [address] [address] ?Director: Cal Perez D.O., MPH [facility] Final Resul t [facility] * TEST AUTHORIZATION (10/04/2018 8:17 AM CDT) TEST NAME: HEMOGLOBIN A1c [facility] REFERENCE LAB TEST #: [id number] [facility] CLIENT ACCN NO. KHALIDA Contreras [facility] Report Received [facility] Comment: The laboratory testing on this patient was verbally requested or confirmed by the ordering physician or his or her authorized community relations representative after contact with an employee of [facility]. Federal regulations require that we maintain on file written authorization for all laboratory testing. ??Accordingly we are asking that the ordering physician or his or her authorized community relations representative sign a copy of this report and promptly return it to the client account specialist. Signature: Comment: [facility] Comment: Fax number: [phone] 10/04/2018 8:17 AM CDT 10/04/2018 8:20 AM CDT Narrative Resulting Agency Comment Performing Organization Information: ?Site ID: [place] ?Name: [facility] ?Address: [facility] [place] [address] ?Director: Cal Perez D.O., MPH [facility] Final Resul t [facility] * VITAMIN D, 25 OH (10/04/2018 8:17 AM CDT) VITAMIN D 25 HYDROXY TOTAL S/P/B 33 30 - 100 ng/mL [facility] Comment: Vitamin D Status ? 25-OH Vitamin D: Deficiency: ?<20 ng/mL Insufficiency: ? 20 - 29 ng/mL Optimal: ? > or = 30 ng/mL For 25-OH Vitamin D testing on patients on D2-supplementation and patients for whom quantitation of D2 and D3 fractions is required, the QuestAssureD(TM) 25-OH VIT D, (D2,D3), LC/MS/MS is recommended: order code 45671 (patients >2yrs). For more information on this test, go to: http://education.R&L/faq/MJM652 (This link is being provided for informational/educational purposes only.) 10/04/2018 8:17 AM CDT 10/04/2018 8:20 AM CDT Narrative Resulting Agency Comment Performing Organization Information: ?Site ID: [place]LOE ?Name: [facility] ?Address: [facility] [place] [address] ?Director: Cal Perez D.O. MPH [facility] Final Resul t Performing Organization Address [facility] de Phone Number [facility] * TSH W/REFLEX (10/04/2018 8:17 AM CDT) TSH 1.50 mIU/L [facility] Comment: ?Reference Range ?> or = 20 Years ??0.40-4.50 ? Ranges ?First trimester ?0.26-2.66 ?Second trimester ?? 0.55-2.73 ?Third trimester ?0.43-2.91 10/04/2018 8:17 AM CDT 10/04/2018 8:20 AM CDT Narrative Resulting Agency Comment Performing Organization Information: ?Site ID: CHLOE ?Name: [facility] ?Address: [facility] [place] [address] ?Director: Cal Perez D.O. MPH [facility]sie [facility] Final Resul t Performing Organization Address [facility] Co de Phone Number [facility] * RHEUMATOID FACTOR, QUANT (10/04/2018 8:17 AM CDT) RHEUMATOID FACTOR <14 <14 IU/mL [facility] 10/04/2018 8:17 AM CDT 10/04/2018 8:20 AM CDT Narrative Resulting Agency Comment Performing Organization Information: ?Site ID: [place] ?Name: [facility] ?Address: [address] [address] ?Director: Cal Perez D.O., MPH us [facility] Final Resul t [facility] * (ABNORMAL) ESTELITA IFA ROBINSON ANNA REFLEX TO TITER (10/04/2018 8:17 AM CDT) ESTELITA POSITIVE( A) NEGATIVE [facility] Comment: ESTELITA IFA is a first line screen for detecting the presence of up to approximately 150 autoantibodies in various autoimmune diseases. A positive ESTELITA IFA result is suggestive of autoimmune disease and reflexes to titer and pattern. Further laboratory testing may be considered if clinically indicated. Visit Physician FAQs for interpretation of all antibodies in the [place], prevalence, and association with diseases at http://education.Soufun/ faq/KWT133 ?? ESTELITA PATTERN DUAL(A) [facility] Comment: CENTROMERE: Centromere pattern is associated with limited cutaneous systemic sclerosis, CREST (Calcinosis, Raynaud's, Esophageal dysmotility, Sclerodactyly, Telangiectasia)and primary biliary cirrhosis (PBC). HOMOGENEOUS: Homogeneous pattern is associated with systemic lupus erythematosus (SLE), drug induced lupus and juvenile idiopathic arthritis. ESTELITA TITER SEE BELOW(A) titer [facility] Comment: Pattern:CENTROMERE Titer: ??1:1280 Pattern:HOMOGENEOUS Titer: ??1:40 A low level ESTELITA titer may be present in pre-clinical autoimmune diseases and normal individuals. ?Reference Range ?<1:40 ?Negative ?1:40-1:80 ?Low Antibody Level ?>1:80 ?Elevated Antibody Level 10/04/2018 8:17 AM CDT 10/04/2018 8:20 AM CDT Narrative Resulting Agency Comment Performing Organization Information: ?Site ID: [place] ?Name: [facility] ?Address: [address] [address] ?Director: Cal Perez D.O., MPH us [facility] Final Resul t [facility] * CBC W/DIFF AUTOMATED (10/04/2018 8:17 AM CDT) WBC 5.1 3.8 - 10.8 Thousand/u L [facility] RBC 4.14 3.80 - 5.10 Million/uL [facility] HGB 12.8 11.7 - 15.5 g/dL [facility] HCT 38.3 35.0 - 45.0 % [facility] MCV 92.5 80.0 - 100.0 fL [facility] MCH (QHPE) 30.9 27.0 - 33.0 pg [facility] MCHC 33.4 32.0 - 36.0 g/dL [facility] RDW (QHPE) 12.9 11.0 - 15.0 % [facility] PLT 291 140 - 400 Thousand/u L [facility] MPV 9.9 7.5 - 12.5 fL [facility] ABS. NEUTROPHILS 2,831 1,500 - 7,800 cells/uL [facility] ABS. LYMPHOCYTES 1,515 850 - 3,900 cells/uL [facility] ABS. MONOCYTES 367 200 - 950 cells/uL [facility] ABS. EOSINOPHILS 347 15 - 500 cells/uL [facility] ABS. BASOPHILS 41 0 - 200 cells/uL [facility] SEG NEUTROPHILS 55.5 % [facility] LYMPHOCYTES 29.7 % [facility] MONOCYTES 7.2 % [facility] EOSINOPHILS 6.8 % [facility] BASOPHILS 0.8 % [facility] 10/04/2018 8:17 AM CDT 10/04/2018 8:20 AM CDT Narrative Resulting Agency Comment Performing Organization Information: ?Site ID: CHLOE ?Name: [facility] ?Address: [address] [address] ?Director: Cal Perez D.O., MPH us [facility] Final Resul t [facility] * (ABNORMAL) URINALYSIS, AUTO, COMPLETE (10/04/2018 8:17 AM CDT) COLOR (U) YELLOW YELLOW [facility] APPEARANCE SEMEN CLEAR CLEAR [facility] SPECIFIC GRAVITY (U) 1.006 1.001 - 1.035 [facility] PH (U) 7.5 5.0 - 8.0 [facility] URINE GLUCOSE NEGATIVE NEGATIVE [facility] BILIRUBIN (U) NEGATIVE NEGATIVE [facility] KETONE (U) NEGATIVE NEGATIVE [facility] BLOOD (U) 1+(A) NEGATIVE [facility] PROTEIN (U) NEGATIVE NEGATIVE [facility] NITRITES NEGATIVE NEGATIVE [facility] LEUKOCYTES (U) 3+(A) NEGATIVE [facility] WBC/HPF 20-40(A) < OR = 5 /HPF [facility] RBC/HPF 0-2 < OR = 2 /HPF [facility] POLYVALENT KAROLYN 0-5 < OR = 5 /HPF [facility] BACTERIA (U) FEW(A) NONE SEEN /HPF [facility] HYALINE CASTS NONE SEEN NONE SEEN /LPF [facility] 10/04/2018 8:17 AM CDT 10/04/2018 8:20 AM CDT Narrative Resulting Agency Comment Performing Organization Information: ?Site ID: [place] ?Name: [facility] ?Address: [address] [address] ?Director: Cal Perez D.O., MPH us Lise Garces APNP URINE ORDERABLES Final Resu lt [facility] * (ABNORMAL) COMPREHENSIVE METABOLIC PANEL (10/04/2018 8:17 AM CDT) GLUCOSE 102(H) 65 - 99 mg/dL [facility] Comment: ? Fasting reference interval For someone without known diabetes, a glucose value between 100 and 125 mg/dL is consistent with prediabetes and should be confirmed with a follow-up test. BUN 14 7 - 25 mg/dL [facility] CREATININE S/P/B 0.95 0.50 - 1.05 mg/dL [facility] Comment: For patients >49 years of age, the reference limit for Creatinine is approximately 13% higher for people identified as -Sudanese. EGFR NON-AFR. AMER. 68 > OR = 60 mL/min/1 .73m2 [facility] EGFR AFR. AMER. 79 > OR = 60 mL/min/1 .73m2 [facility] BUN CREATININE RATIO NOT APPLICABLE 6 - 22 (calc) [facility] SODIUM S/P/B 139 135 - 146 mmol/L [facility] POTASSIUM S/P/B 4.3 3.5 - 5.3 mmol/L [facility] CHLORIDE S/P/B 102 98 - 110 mmol/L [facility] CO2 29 20 - 32 mmol/L [facility] CALCIUM S/P/B 10.0 8.6 - 10.4 mg/dL [facility] TOTAL PROTEIN S/P/B 7.2 6.1 - 8.1 g/dL [facility] ALBUMIN S/P/B 4.3 3.6 - 5.1 g/dL [facility] GLOBULIN 2.9 1.9 - 3.7 g/dL (calc) [facility] ALBUMIN/GLOBULIN RATIO 1.5 1.0 - 2.5 (calc) [facility] BILIRUBIN TOTAL (FLUID) 0.7 0.2 - 1.2 mg/dL [facility] ALK PHOS 112 33 - 130 U/L [facility] AST 21 10 - 35 U/L [facility] ALT 22 6 - 29 U/L [facility] 10/04/2018 8:17 AM CDT 10/04/2018 8:20 AM CDT Narrative Resulting Agency Comment Performing Organization Information: ?Site ID: [place] ?Name: [facility] ?Address: [facility] [place] [address] ?Director: Cal Perez D.O. MPH [facility] Final Resul t Performing Organization Address [facility] Phone Number [facility] * URIC ACID BLOOD (10/04/2018 8:17 AM CDT) URIC ACID 6.2 2.5 - 7.0 mg/dL [facility] Comment: Therapeutic target for gout patients: <6.0 mg/dL ?? 10/04/2018 8:17 AM CDT 10/04/2018 8:20 AM CDT Narrative Resulting Agency Comment Performing Organization Information: ?Site ID: [place]E ?Name: [facility] ?Address: [facility] [place] [address] ?Director: Cal Perez D.O. MPH [facility] Final Resul t Performing Organization Address [facility] de Phone Number [facility] * (ABNORMAL) LIPID PANEL (10/04/2018 8:17 AM CDT) CHOLESTEROL 220(H) <200 mg/dL [facility] HDL 53 >50 mg/dL [facility] TRIGLYCERIDES 174(H) <150 mg/dL [facility] LDL (CALCULATED) 136(H) mg/dL (calc) [facility] Comment: Reference range: <100 Desirable range <100 mg/dL for primary prevention; ?? <70 mg/dL for patients with CHD or diabetic patients with > or = 2 CHD risk factors. LDL-C is now calculated using the Alba calculation, which is a validated novel method providing better accuracy than the Friedewald equation in the estimation of LDL-C. Owen SS et al. VIKI. 2013;310(19): 6537-6036 (http://education.Soufun/faq/YYO913) CHOL/HDL RATIO 4.2 <5.0 (calc) [facility] NON HDL CHOLESTEROL 167(H) <130 mg/dL (calc) [facility] Comment: For patients with diabetes plus 1 major ASCVD risk factor, treating to a non-HDL-C goal of <100 mg/dL (LDL-C of <70 mg/dL) is considered a therapeutic option. 10/04/2018 8:17 AM CDT 10/04/2018 8:20 AM CDT Narrative Resulting Agency Comment Performing Organization Information: ?Site ID: [place] ?Name: [facility] ?Address: [address] [address] ?Director: aCl Perez D.O., MPH [facility] Final Resul t [facility] documented in this encounter Visit Diagnoses Not on filedocumented in this encounter Care Teams Microfilm Processor Relationship Specialty Start Date End Date Lise Garces APNP [address] [place], [place] [id number] PCP - General NURSE PRACTITIONER 10/03/18 documented as of this encounter
--- OUTSIDE RECORDS SUMMARY | 2024-06-21 08:57 | XMS_ITS | Encounter Summary ---
Author Organization [facility] Address [address] [place] [address]. 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 Legal Sex Female 4:43 PM CDT Gender Identity Female 05/21/2024 8:15 AM MACHINE I COREMAKER Sexual Orientation Not on file documented as of this encounter Plan of Treatment Not on file documented as of this encounter Procedures Procedure Name Priority Date/Time Associated Diagnosis Comments IMAGE GENERIC Routine 03/17/2019 documented in this encounter Results * IMAGE STUDY (03/17/2019) Anatomical Region Laterality Modality Other us Documents Scanned SCANNING Final Result documented in this encounter Visit Diagnoses Not on filedocumented in this encounter Care Teams Semiconductor Engineer Relationship Specialty Start Date End Date Lise Garces APNP [address] [place] [address] PCP - General NURSE PRACTITIONER 10/03/18 documented as of this encounter
--- OUTSIDE RECORDS SUMMARY | 2024-06-21 08:57 | XMS_ITS | Encounter Summary ---
Author Organization [facility] Address [address] [place] [address]. [place] [address] [place] [address] Care Team Providers Care Steel Division Supervisor Name Role Phone Lise Garces Primary Care Provider [phone] [phone] Reason for Referral * Consultation (Routine) - Closed Specialty Diagnoses / Procedures Referred By Blake ceja Referred To Contact GASTROENTEROLOGY Diagnoses Colon cancer screening Lise Garces APNP [facility] [place] [address] Phone: tel: fax: [facility] - [address], [address] [place] [address] Phone: tel: fax: Referral ID Status Reason Start Date Expiration Date Visits Re quested Visits Authorized [id number] Closed 10/03/2018 11/03/2019 1 1 Reason for Visit * Reason Comments Establish Care Encounter Details Date Type Department Care Team (Late st Contact Info) Description 10/03/2018 1:40 PM CDT Office Visit [facility] Family & Internal Medicine - [place] [address] [place] [address] Lise Garces APNP [address] [place], [place] [phone] Establish Care Social History Tobacco Use Types Packs/Day Years [...] Sex Assigned at Female 05/21/2024 8:15 AM STADIUM MANAGER Legal Sex Female 4:43 PM CDT Gender Identity Female 05/21/2024 8:15 AM STADIUM MANAGER Sexual Orientation Not on file documented as of this encounter Last Filed Vital Signs Vital Sign Reading Time Taken Comments Blood Pressure 134/78 10/03/2018 1:52 PM CDT Pulse 90 10/03/2018 1:52 PM CDT Temperature 35.8 ??C (96.5 ??F) 10/03/2018 1:52 PM CD T Respiratory Rate 14 10/03/2018 1:52 PM CDT Oxygen Saturation 100% 10/03/2018 1:52 PM CDT Inhaled Oxygen Concentration - - Weight 88.5 kg (195 lb) 10/03/2018 1:52 PM CDT Height 175.3 cm (5' 9 ) 10/03/2018 1:52 PM CDT Body Mass Index 28.8 10/03/2018 1:52 PM CDT documented in this encounter Progress Notes * JULY Min - 10/03/2018 1:40 PM CDT Images from the original note were not included. [facility] FAMILY AND INTERNAL [facility]ICINE OFFICE VISIT Reason for Visit: Establish Care History of Present Illness: 53 yo female here today to establish care as a new pt. 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 She is treated for HTN with losartan 25 mg once daily. Tolerates well. BP controlled. Pap: Feb 2017--nml. No hx of abnormals. Mammo: last mammo 2016---due now. No hx of abnormals. Colonoscopy: Had a colonoscopy several years ago due to some weight loss. Last c-scope was about 20years ago. Denies any family history of colon CA. Is willing to have her routine screening colonoscopy. Immunizations: had Tdap in 2017 before grandchildren were born. Due for Shingrix. She does have some intermittent joint pain in her hands---seems to be worse in the mornings. She takes ibuprofen on some days for this which she feels helps. Denies any other joint pain. She does have bunions on both of her feet that at some point would like to see a orthodontic assistant, not not at this time. She is due for routine labs and is agreeable to have this ordered today. She had a Lifescreening recently and was told her Vit D was low. Would like this rechecked if possible. UTD with eye and dental exams. Does not wear glasses or contacts. ROS: Review of Systems Constitutional: Negative for chills and fever. HENT: Negative for congestion, hearing loss and sore throat. Eyes: Negative for blurred vision and double vision. Respiratory: Negative for cough, shortness of breath and wheezing. Cardiovascular: Negative for chest pain, palpitations and leg swelling. Gastrointestinal: Negative for abdominal pain, blood in stool, constipation, diarrhea, melena, nausea and vomiting. Genitourinary: Negative for dysuria, flank pain, frequency, hematuria and urgency. Musculoskeletal: Positive for joint pain. Skin: Negative for itching and rash. Neurological: Negative for dizziness and headaches. Psychiatric/Behavioral: Negative for depression. The patient is not nervous/anxious. Medications: Current Outpatient Medications: ??? Loratadine (CLARITIN OR), Take by mouth daily., Disp: , Rfl: ??? losartan 25 MG tablet, Take 1 tablet (25 mg total) by mouth daily., Disp: 90 tablet, Rfl: 3 Allergies: No Known Allergies Medical History: Past Medical History: Diagnosis Date ??? Hypertension Surgical History: Past Surgical History: Procedure Laterality [...] file Gets together: Not on file Attends oriental orthodox service: Not on file Active member of [...] She is oriented to person, place, and time. She appears distressed. HENT: Head: Normocephalic and atraumatic. Eyes: Conjunctivae and EOM are normal. Pupils are equal, round, and reactive to light. No scleral icterus. Neck: Normal range of motion. Neck supple. No tracheal deviation present. No thyromegaly present. Cardiovascular: Normal rate, regular rhythm and normal heart sounds. No murmur heard. Pulmonary/Chest: Effort normal and breath sounds normal. No stridor. No respiratory distress. She has no wheezes. Abdominal: Soft. Bowel sounds are normal. She exhibits no distension and no mass. There is no tenderness. There is no rebound and no guarding. Musculoskeletal: Normal range of motion. She exhibits no edema, tenderness or deformity. No redness, swelling or bruising noted of hands/joints. Lymphadenopathy: She has no cervical adenopathy. Neurological: She is alert and oriented to person, place, and time. Gait normal. Skin: Skin is warm and dry. No rash noted. She is not diaphoretic. No erythema. No pallor. Psychiatric: Mood and affect normal. Nursing note and vitals reviewed. Filed Vitals: 10/03/18 1352 BP: 134/78 Pulse: 90 Resp: 14 Temp: 96.5 ??F (35.8 ??C) SpO2: 100% Weight: 88.5 kg (195 lb) Height: 5' 9 (1.753 m) Labs: Labs Reviewed Diagnoses/Impression: 1. Essential hypertension losartan 25 MG tablet ESTELITA IFA SCRN, WI REFLEX TO TITER RHEUMATOID FACTOR, CSF COMPREHENSIVE METABOLIC PANEL URIC ACID BLOOD URINALYSIS COMPLETE W/RFX TO CULTURE VITAMIN D, 25 OH TSH W/REFLEX LIPID PANEL CBC W/DIFF AUTOMATED CANCELED: COMPREHENSIVE METABOLIC PANEL 2. Colon cancer screening AMB REF TO GASTROENTEROLOGY URIC ACID BLOOD LIPID PANEL 3. Need for shingles vaccine zoster vaccine (SHINGRIX) injection URIC ACID BLOOD LIPID PANEL 4. Healthcare maintenance RHEUMATOID FACTOR, CSF COMPREHENSIVE METABOLIC PANEL URIC ACID BLOOD URINALYSIS COMPLETE W/RFX TO CULTURE VITAMIN D, 25 OH TSH W/REFLEX LIPID PANEL CBC W/DIFF AUTOMATED CANCELED: CBC W/DIFF AUTOMATED CANCELED: TSH W/REFLEX CANCELED: URINALYSIS WI REFLEX TO CULTURE CANCELED: URIC ACID BLOOD CANCELED: COMPREHENSIVE METABOLIC PANEL 5. Lipid screening ESTELITA IFA SCRN, WI REFLEX TO TITER RHEUMATOID FACTOR, CSF COMPREHENSIVE METABOLIC PANEL URIC ACID BLOOD URINALYSIS COMPLETE W/RFX TO CULTURE VITAMIN D, 25 OH TSH W/REFLEX LIPID PANEL CBC W/DIFF AUTOMATED CANCELED: LIPID PANEL CANCELED: TSH W/REFLEX 6. Screening for endocrine disorder ESTELITA IFA SCRN, WI REFLEX TO TITER RHEUMATOID FACTOR, CSF COMPREHENSIVE METABOLIC PANEL URIC ACID BLOOD URINALYSIS COMPLETE W/RFX TO CULTURE VITAMIN D, 25 OH TSH W/REFLEX LIPID PANEL CBC W/DIFF AUTOMATED 7. Vitamin D deficiency ESTELITA IFA SCRN, WI REFLEX TO TITER RHEUMATOID FACTOR, CSF COMPREHENSIVE METABOLIC PANEL URIC ACID BLOOD URINALYSIS COMPLETE W/RFX TO CULTURE VITAMIN D, 25 OH TSH W/REFLEX LIPID PANEL CBC W/DIFF AUTOMATED CANCELED: VITAMIN D, 25 OH 8. Arthralgia of both hands ESTELITA IFA SCRN, WI REFLEX TO TITER RHEUMATOID FACTOR, CSF COMPREHENSIVE METABOLIC PANEL URIC ACID BLOOD URINALYSIS COMPLETE W/RFX TO CULTURE VITAMIN D, 25 OH TSH W/REFLEX LIPID PANEL CBC W/DIFF AUTOMATED CANCELED: RHEUMATOID FACTOR, QUANT CANCELED: ESTELITA IFA SCREEN WI RFX TO TITER/CASCADE Recommendations and Plan: 1. Essential hypertension - losartan 25 MG tablet; Take 1 tablet (25 mg total) by mouth daily. Dispense: 90 tablet; Refill: 3 - ESTELITA IFA SCRN, WI REFLEX TO TITER; Future - RHEUMATOID FACTOR, CSF; Future - COMPREHENSIVE METABOLIC PANEL; Future - URIC ACID BLOOD; Future - URINALYSIS COMPLETE W/RFX TO CULTURE; Future - VITAMIN D, 25 OH; Future - TSH W/REFLEX; Future - LIPID PANEL; Future - CBC W/DIFF AUTOMATED; Future - ESTELITA IFA SCRN, WI REFLEX TO TITER - COMPREHENSIVE METABOLIC PANEL - URIC ACID BLOOD - URINALYSIS COMPLETE W/RFX TO CULTURE - VITAMIN D, 25 OH - TSH W/REFLEX - LIPID PANEL - CBC W/DIFF AUTOMATED BP stable. Continue meds. 2. Colon cancer screening - AMB REF TO GASTROENTEROLOGY - URIC ACID BLOOD; Future - LIPID PANEL; Future - URIC ACID BLOOD - LIPID PANEL 3. Need for shingles vaccine - zoster vaccine (SHINGRIX) injection; Inject 0.5 mLs into the muscle once for 1 dose. Dispense: 0.5 mL; Refill: 0 - URIC ACID BLOOD; Future - LIPID PANEL; Future - URIC ACID BLOOD - LIPID PANEL 4. Healthcare maintenance - RHEUMATOID FACTOR, CSF; Future - COMPREHENSIVE METABOLIC PANEL; Future - URIC ACID BLOOD; Future - URINALYSIS COMPLETE W/RFX TO CULTURE; Future - VITAMIN D, 25 OH; Future - TSH W/REFLEX; Future - LIPID PANEL; Future - CBC W/DIFF AUTOMATED; Future - COMPREHENSIVE METABOLIC PANEL - URIC ACID BLOOD - URINALYSIS COMPLETE W/RFX TO CULTURE - VITAMIN D, 25 OH - TSH W/REFLEX - LIPID PANEL - CBC W/DIFF AUTOMATED Routine fasting labs ordered. Routine screening mammo ordered. GI referral for colonoscopy. Sees REGULATORY MANAGER for well woman exams. Will be due for pap in 2020. Current on eye and dental exams. 5. Lipid screening - ESTELITA IFA SCRN, WI REFLEX TO TITER; Future - RHEUMATOID FACTOR, CSF; Future - COMPREHENSIVE METABOLIC PANEL; Future - URIC ACID BLOOD; Future - URINALYSIS COMPLETE W/RFX TO CULTURE; Future - VITAMIN D, 25 OH; Future - TSH W/REFLEX; Future - LIPID PANEL; Future - CBC W/DIFF AUTOMATED; Future - ESTELITA IFA SCRN, WI REFLEX TO TITER - COMPREHENSIVE METABOLIC PANEL - URIC ACID BLOOD - URINALYSIS COMPLETE W/RFX TO CULTURE - VITAMIN D, 25 OH - TSH W/REFLEX - LIPID PANEL - CBC W/DIFF AUTOMATED 6. Screening for endocrine disorder - ESTELITA IFA SCRN, WI REFLEX TO TITER; Future - RHEUMATOID FACTOR, CSF; Future - COMPREHENSIVE METABOLIC PANEL; Future - URIC ACID BLOOD; Future - URINALYSIS COMPLETE W/RFX TO CULTURE; Future - VITAMIN D, 25 OH; Future - TSH W/REFLEX; Future - LIPID PANEL; Future - CBC W/DIFF AUTOMATED; Future - ESTELITA IFA SCRN, WI REFLEX TO TITER - COMPREHENSIVE METABOLIC PANEL - URIC ACID BLOOD - URINALYSIS COMPLETE W/RFX TO CULTURE - VITAMIN D, 25 OH - TSH W/REFLEX - LIPID PANEL - CBC W/DIFF AUTOMATED 7. Vitamin D deficiency - ESTELITA IFA SCRN, WI REFLEX TO TITER; Future - RHEUMATOID FACTOR, CSF; Future - COMPREHENSIVE METABOLIC PANEL; Future - URIC ACID BLOOD; Future - URINALYSIS COMPLETE W/RFX TO CULTURE; Future - VITAMIN D, 25 OH; Future - TSH W/REFLEX; Future - LIPID PANEL; Future - CBC W/DIFF AUTOMATED; Future - ESTELITA IFA SCRN, WI REFLEX TO TITER - COMPREHENSIVE METABOLIC PANEL - URIC ACID BLOOD - URINALYSIS COMPLETE W/RFX TO CULTURE - VITAMIN D, 25 OH - TSH W/REFLEX - LIPID PANEL - CBC W/DIFF AUTOMATED 8. Arthralgia of both hands - ESTELITA IFA SCRN, WI REFLEX TO TITER; Future - RHEUMATOID FACTOR, CSF; Future - COMPREHENSIVE METABOLIC PANEL; Future - URIC ACID BLOOD; Future - URINALYSIS COMPLETE W/RFX TO CULTURE; Future - VITAMIN D, 25 OH; Future - TSH W/REFLEX; Future - LIPID PANEL; Future - CBC W/DIFF AUTOMATED; Future - ESTELITA IFA SCRN, WI REFLEX TO TITER - COMPREHENSIVE METABOLIC PANEL - URIC ACID BLOOD - URINALYSIS COMPLETE W/RFX TO CULTURE - VITAMIN D, 25 OH - TSH W/REFLEX - LIPID PANEL - CBC W/DIFF AUTOMATED Plan to check RF and ESTELITA. More plan after results. Orders Placed This Encounter ??? ESTELITA IFA SCREEN W/ REFLEX TITER ??? COMPREHENSIVE METABOLIC PANEL ??? URIC ACID BLOOD ??? URINALYSIS W/RFX TO CULTURE ([facility] only) ??? VITAMIN D, 25 OH ??? TSH W/REFLEX ??? LIPID PANEL ??? CBC W/DIFF AUTOMATED ??? Ambulatory referral to Gastroenterology (OTHER) ??? DISCONTD: losartan 25 MG tablet ??? Loratadine (CLARITIN OR) ??? zoster vaccine (SHINGRIX) injection ??? losartan 25 MG tablet ??? RHEUMATOID FACTOR, CSF Cannot display discharge medications since this is not an admission. PCP: JULY Min 10/05/2018 documented in this encounter Plan of Treatment Scheduled Orders Name Type Priority Associated Diagnoses Orde r Schedule MG SCREENING MILLY DIGI MAMMO Routine Breast cancer screening Ordered: 10/05/2018 Scheduled Referrals Name Type Priority Associated Diagnoses Orde r Schedule Ambulatory referral to Gastroenterology (OTHER) Referral Routine Colon cancer screening Ordered: 10/03/2018 documented as of this encounter Visit Diagnoses Diagnosis Essential hypertension- Primary Unspecified essential hypertension Colon cancer screening Special screening for malignant neoplasms, colon Need for shingles vaccine Need for prophylactic vaccination and inoculation against other viral diseases Healthcare maintenance Routine general medical examination at a health care facility Lipid screening Screening for lipoid disorders Screening for endocrine disorder Vitamin D deficiency Unspecified vitamin D deficiency Arthralgia of both hands documented in this encounter Care Teams Steel Division Supervisor Relationship Specialty Start Date End Date Lise Garces APNP [address] [place] [address] PCP - General NURSE PRACTITIONER 10/03/18 documented as of this encounter
--- OUTSIDE RECORDS SUMMARY | 2024-06-21 08:57 | XMS_ITS | Encounter Summary ---
Author Organization [facility] Address [address] [place] [address]. [place], [place] [address] [place] [address] Care Team Providers Care Reinforcement Maker Name Role Phone Lise Garces Primary Care Provider +1- [phone] Reason for Visit * Reason Comments Image (SCAN) Encounter Details Date Type Department Care Team (Latest Contact Info) Description 12/05/2018 Scan HEALTH INFO SRVCS Scanned, Documents Image [...] Sex Assigned at Female 05/21/2024 8:15 AM EQUIPMENT MAINTENANCE TECH Legal Sex Female 4:43 PM CDT Gender Identity Female 05/21/2024 8:15 AM EQUIPMENT MAINTENANCE TECH Sexual Orientation Not on file documented as of this encounter Plan of Treatment Not on file documented as of this encounter Procedures Procedure Name Priority Date/Time Associated Diagnosis Comments IMAGE GENERIC Routine 12/05/2018 documented in this encounter Results * IMAGE STUDY (12/05/2018) Anatomical Region Laterality Modality Other us Documents Scanned SCANNING Edited Result - Final documented in this encounter Visit Diagnoses Not on filedocumented in this encounter Care Teams Reinforcement Maker Relationship Specialty Start Date End Date Lise Garces APNP [address] [place] [address] PCP - General NURSE PRACTITIONER 10/03/18 documented as of this encounter
--- OUTSIDE RECORDS SUMMARY | 2024-06-21 08:57 | XMS_ITS | Encounter Summary ---
Author Organization [facility] Address [address] [place] [address]. [place], [place] [address] [place] [address] Care Team Providers Care Beck Operator Name Role Phone Lise Garces Primary Care Provider +1- [phone] Encounter Details Date Type Department Care Team (Latest Contact Info) Description 12/05/2018 Scan MG HEALTH INFO SRVCS Scanned, Documents [...] Sex Assigned at Female 05/21/2024 8:15 AM WATCH REPAIR PERSON Legal Sex Female 4:43 PM CDT Gender Identity Female 05/21/2024 8:15 AM WATCH REPAIR PERSON Sexual Orientation Not on file documented as of this encounter Plan of Treatment Not on file documented as of this encounter Visit Diagnoses Not on filedocumented in this encounter Care Teams Beck Operator Relationship Specialty Start Date End Date Lise Garces APNP [address] [place] [address] PCP - General NURSE PRACTITIONER 10/03/18 documented as of this encounter
--- OUTSIDE RECORDS SUMMARY | 2024-06-21 08:57 | XMS_ITS | Encounter Summary ---
Author Organization [facility] Address [address] [place] [address]. [place], [place] [address] [place] [address] Care Team Providers Care Heavy Equipment Supervisor Name Role Phone Lise Garces Primary Care Provider +1- [phone] Reason for Visit * Reason Comments Image [...] Sex Assigned at Female 05/21/2024 8:15 AM FIRE OBSERVER Legal Sex Female 4:43 PM CDT Gender Identity Female 05/21/2024 8:15 AM FIRE OBSERVER Sexual Orientation Not on file documented as [...] on filedocumented in this encounter Care Teams Heavy Equipment Supervisor Relationship Specialty Start Date End Date Lise Garces APNP [address] [place] [address] PCP - General NURSE PRACTITIONER 10/03/18 documented as of this encounter
--- OUTSIDE RECORDS SUMMARY | 2024-06-21 08:57 | XMS_ITS | Encounter Summary ---
Author Organization [facility] Address [address] [place] [address]. [place] [address] [place] [address] Care Team Providers Care Nursing Scheduler Name Role Phone Lise Garces Primary Care Provider +1- [phone] Reason for Visit * Reason Onset Date Comments Lab Order 10/31/2018 Faxed to [facility] Encounter Details Date Type Department Care Team (Late st Contact Info) Description 10/31/2018 Telephone [facility] Family & Internal Medicine [facility] [address] [place] [address] Lise Garces APNP [address] [place], [place] [phone] Lab Order (Faxed to [facility]) Social History Tobacco Use Types Packs/Day Years [...] Sex Assigned at Female 05/21/2024 8:15 AM CUSTOMER TRAINING SPECIALIST Legal Sex Female 4:43 PM CDT Gender Identity Female 05/21/2024 8:15 AM CUSTOMER TRAINING SPECIALIST Sexual Orientation Not on file documented as of this encounter Progress Notes * Francia Gaitan, RECRUITMENT SPECIALIST - 10/31/2018 7:33 AM CDT Pt requesting UA order be faxed to [facility] in [place]. Order faxed to [phone] documented in this encounter Plan of Treatment Not on file documented as of this encounter Visit Diagnoses Not on filedocumented in this encounter Care Teams Nursing Scheduler Relationship Specialty Start Date End Date Lise Garces APNP [address] [place] [address] PCP - General NURSE PRACTITIONER 10/03/18 documented as of this encounter
--- OUTSIDE RECORDS SUMMARY | 2024-06-21 08:57 | XMS_ITS | Encounter Summary ---
Author Organization [facility] Address [address] [place] [address]. [place], [place] [address] [place] [address] Care Team Providers Care Roll Former Name Role Phone Lise Garces Primary Care Provider +1- [phone] Encounter Details Date Type Department Care Team [...] Sex Assigned at Female 05/21/2024 8:15 AM MICA LAMINATING MACHINE FEEDER Legal Sex Female 4:43 PM CDT Gender Identity Female 05/21/2024 8:15 AM MICA LAMINATING MACHINE FEEDER Sexual Orientation Not on file documented as of this encounter Plan of Treatment Not on file documented as of this encounter Visit Diagnoses Not on filedocumented in this encounter Care Teams Roll Former Relationship Specialty Start Date End Date Lise Garces APNP [address] [place] [address] PCP - General NURSE PRACTITIONER 10/03/18 documented as of this encounter
--- OUTSIDE RECORDS SUMMARY | 2024-06-21 08:57 | XMS_ITS | Encounter Summary ---
Author Organization [facility] Address [address] [place] [address]. [place], [place] [address] [place] [address] Care Team Providers Care Jewel Flat Surfacer Name Role Phone Unavailable Primary Care Provider Unavailabl e Encounter Details Date Type Department Care Team (Late st Contact Info) Description 10/24/1993 Abstract [place] [address] , Generic Conversion, Social History Tobacco Use Types Packs/Day Years Used Date Smoking Tobacco: Never Assessed Comments Unknown Sex and Gender Information Value Date Recorded Sex Assigned at Female 05/21/2024 8:15 AM PRODUCE FIELD MERCHANDISER Legal Sex Female 4:43 PM CDT Gender Identity Female 05/21/2024 8:15 AM PRODUCE FIELD MERCHANDISER Sexual Orientation Not on file documented as of this encounter Plan of Treatment Not on file documented as of this encounter Visit Diagnoses Not on filedocumented in this encounter
--- OUTSIDE RECORDS SUMMARY | 2024-06-21 08:57 | XMS_ITS | Encounter Summary ---
Author Organization [facility] Address [address] [place] [address]. [place], [place] [address] [place] [address] Care Team Providers Care Car Mechanic Name Role Phone Lise Garces Primary Care Provider +1- [phone] Encounter Details Date Type Department Care Team (Latest Contact Info) Description 10/03/2018 Scan MG HEALTH INFO SRVCS Scanned, Documents [...] Sex Assigned at Female 05/21/2024 8:15 AM BINDING CEMENTER FRENCH CORD Legal Sex Female 4:43 PM CDT Gender Identity Female 05/21/2024 8:15 AM BINDING CEMENTER FRENCH CORD Sexual Orientation Not on file documented as of this encounter Plan of Treatment Not on file documented as of this encounter Visit Diagnoses Not on filedocumented in this encounter Care Teams Car Mechanic Relationship Specialty Start Date End Date Lise Garces APNP [address] [place] [address] PCP - General NURSE PRACTITIONER 10/03/18 documented as of this encounter
--- OUTSIDE RECORDS SUMMARY | 2024-06-21 08:57 | XMS_ITS | Encounter Summary ---
Author Organization [facility] Address [address] [place] [address]. [place], [place] [address] [place] [address] Care Team Providers Care Shrinking Machine Operator Name Role Phone Lise Garces Primary Care Provider +1- [phone] Reason for Visit * Reason Comments Image [...] Sex Assigned at Female 05/21/2024 8:15 AM DORMITORY KEEPER Legal Sex Female 4:43 PM CDT Gender Identity Female 05/21/2024 8:15 AM DORMITORY KEEPER Sexual Orientation Not on file documented as [...] on filedocumented in this encounter Care Teams Shrinking Machine Operator Relationship Specialty Start Date End Date Lise Garces APNP [address] [place] [address] PCP - General NURSE PRACTITIONER 10/03/18 documented as of this encounter
--- OUTSIDE RECORDS SUMMARY | 2024-06-21 08:57 | XMS_ITS | Encounter Summary ---
Author Organization [facility] Address [address] [place] [address]. [place], [place] [address] [place] [address] Care Team Providers Care Graphic Production Artist Name Role Phone Lise Garces Primary Care Provider +1- [phone] Encounter Details Date Type Department Care Team (Latest Contact Info) Description 01/05/2020 Scan MG HEALTH INFO SRVCS Scanned, Documents [...] Sex Assigned at Female 05/21/2024 8:15 AM BARREL ENDSHAKER ADJUSTER Legal Sex Female 4:43 PM CDT Gender Identity Female 05/21/2024 8:15 AM BARREL ENDSHAKER ADJUSTER Sexual Orientation Not on file documented as of this encounter Plan of Treatment Not on file documented as of this encounter Visit Diagnoses Not on filedocumented in this encounter Care Teams Graphic Production Artist Relationship Specialty Start Date End Date Lise Garces APNP [address] [place] [address] PCP - General NURSE PRACTITIONER 10/03/18 documented as of this encounter
--- OUTSIDE RECORDS SUMMARY | 2024-06-21 08:57 | XMS_ITS | Encounter Summary ---
Author Organization [facility] Address [address] [place] [address]. [place], [place] [id number] [place] [address] Care Team Providers Care Cigarette And Filter Chief Inspector Name Role Phone Lise Garces Primary Care Provider [phone]- [phone] Encounter Details Date Type Department Care Team (Latest Contact Info) Description 04/23/2019 Scan [facility] SRVCS Scanned, Documents [...] Sex Assigned at Female 05/21/2024 8:15 AM AMBULATORY CARE COORDINATOR Legal Sex Female 4:43 PM CDT Gender Identity Female 05/21/2024 8:15 AM AMBULATORY CARE COORDINATOR Sexual Orientation Not on file documented as of this encounter Plan of Treatment Not on file documented as of this encounter Visit Diagnoses Not on filedocumented in this encounter Care Teams Cigarette And Filter Chief Inspector Relationship Specialty Start Date End Date Lise Garces APNP [address] [place] [address] PCP - General NURSE PRACTITIONER 10/03/18 documented as of this encounter
--- OUTSIDE RECORDS SUMMARY | 2024-06-21 08:57 | XMS_ITS | Encounter Summary ---
Author Organization [facility] Address [address] [place] [address]. [place], [place] [address] [place] [address] Care Team Providers Care Product Advisor Name Role Phone Lise Garces Primary Care Provider [phone]- [phone] Reason for Visit * Reason Comments Image [...] Assigned at Female 05/21/2024 8:15 AM ARCHITECTURE CONSULTANT Legal Sex Female 4:43 PM CDT Gender Identity Female 05/21/2024 8:15 AM ARCHITECTURE CONSULTANT Sexual Orientation Not on file documented [...] on filedocumented in this encounter Care Teams Product Advisor Relationship Specialty Start Date End Date Lise Garces APNP [address] [place] [address] PCP - General NURSE PRACTITIONER 10/03/18 documented as of this encounter
--- OUTSIDE RECORDS SUMMARY | 2024-06-21 08:57 | XMS_ITS | Encounter Summary ---
Author Organization [facility] Address [address] [place] [address]. [place] [address] [place] [address] Care Team Providers Care Proof Reader Name Role Phone Lise Garces Primary Care Provider [phone] Reason for Referral * Imaging (Routine) - Closed Specialty Diagnoses / Procedures Referred By Contac t Referred To Contact RADIOLOGY Diagnoses Encounter for screening mammogram for malignant neoplasm of breast Procedures MG SCREENING MILLY DIGI Lise Garces APNP [address] [place] [address] Phone: tel: fax: [address] [place] [address] Phone: tel: fax: Referral ID Status Reason Start Date Expiration Date Visits Re quested Visits Authorized [id number] Closed 04/11/2020 04/12/2021 1 1 RIDE OPERATOR Reason for Visit * Reason Comments Follow Up medication refills. Encounter Details Date Type Department Care Team (Late st Contact Info) Description 04/11/2020 11:00 AM BOAT RIDE OPERATOR Office Visit [facility] Internal Medicine - [address] [phone] Lise Garces APNP [address] [place] [address] Follow Up (medication refills. ) Social History Tobacco Use Types Packs/Day Years [...] Sex Assigned at Female 05/21/2024 8:15 AM BOAT RIDE OPERATOR Legal Sex Female 4:43 PM CDT Gender Identity Female 05/21/2024 8:15 AM BOAT RIDE OPERATOR Sexual Orientation Not on file COVID-19 Exposure Response Date Recorded In the last month, have you been in contact with someone who was confirmed or suspected to have Coronavirus / COVID-19? No / Unsure 04/11/2020 10:45 AM BOAT RIDE OPERATOR documented as of this encounter Last Filed Vital Signs Vital Sign Reading Time Taken Comments Blood Pressure 120/72 04/11/2020 11:16 AM BOAT RIDE OPERATOR Pulse 97 04/11/2020 11:16 AM BOAT RIDE OPERATOR Temperature 36.2 ??C (97.1 ??F) 04/11/2020 11:[address] Respiratory Rate 16 04/11/2020 11:16 AM BOAT RIDE OPERATOR Oxygen Saturation 96% 04/11/2020 11:16 AM BOAT RIDE OPERATOR Inhaled Oxygen Concentration - - Weight 90.9 kg (200 lb 8 oz) 04/11/2020 11:16 AM BOAT RIDE OPERATOR Height 175.3 cm (5' 9 ) 04/11/2020 11:16 AM BOAT RIDE OPERATOR Body Mass Index 29.61 04/11/2020 11:16 AM BOAT RIDE OPERATOR documented in this encounter Progress Notes * JULY Min - 04/11/2020 11:00 AM CST Images from the original note were not included. [facility] OFFICE VISIT Reason for Visit: Follow Up (medication refills. ) History of Present Illness: 54-year-old female here today for routine physical and refill of her losartan. Hypertension -blood pressures well controlled at today's visit. She tolerates her losartan well with no bothersome side effects including cough or facial edema. She denies any chest pain, shortness of breath, headache, dizziness, heart palpitations or lower extreme edema. Lupus -patient is currently treated for lupus with hydroxychloroquine. She sees Dr. Wu on a regular basis and is due for follow-up with her in the next couple of months. Tolerates her meds well.Denies any bothersome side effects. She is due for routine fasting labs and these will be ordered today. Immunizations -last Tdap was in 2017. She declines a flu shot this season, despite education. Breast cancer screening -she is due for routine screening mammogram is to be ordered today. Cervical cancer screening -she is due for Pap smear and this will be scheduled at a later date. Colon cancer screening -denies any family history of colon cancer. Is interested in Cologuard as compared to colonoscopy. Cologuard education given today. He has no new complaints or concerns at today's visit. ROS: Review of Systems Constitutional: Negative for [...] and suicidal ideas. Medications: Current Outpatient Medications: ??? folic acid 1 MG tablet, Take 1 mg by mouth daily., Disp: , Rfl: ??? hydroxychloroquine 200 MG tablet, TK 2 TS PO D, Disp: , Rfl: ??? ibuprofen 800 MG tablet, Take 800 mg by mouth every 6 (six) hours as needed., Disp: , Rfl: ??? Loratadine (CLARITIN OR), [...] resource strain: Not on file ??? Food insecurity Worry: Not on file Inability: Not on file ??? Transportation needs Medical: Not on file Non-medical: Not on file Tobacco Use ??? Smoking status: Never Smoker ??? Smokeless tobacco: Never Used Substance and Sexual Activity ??? Alcohol use: No Frequency: Never ??? Drug use: No ??? Sexual activity: Yes Partners: Male Lifestyle ??? Physical activity Days per week: Not on file Minutes per session: Not on file ??? Stress: Not on file Relationships ??? Social connections Talks on phone: Not on file Gets together: Not on file Attends tenriism service: Not on file Active member of club or organization: Not on file Attends meetings of clubs or organizations: Not on file Relationship status: Not on file ??? Intimate partner violence Fear of current or ex partner: Not [...] ear normal. Left Ear: External ear normal. Mouth/Throat: Oropharynx is clear and moist. Eyes: Pupils are equal, round, and reactive to light. Conjunctivae and EOM are normal. No scleral icterus. Neck: Normal range of motion. Neck supple. No JVD present. No tracheal deviation present. No thyromegaly present. Cardiovascular: Normal rate, regular rhythm and intact distal pulses. Exam reveals no gallop and nofriction rub. No murmur heard. Pulmonary/Chest: Effort normal and breath sounds normal. No respiratory distress. She has no wheezes. She has no rales. She exhibits no tenderness. Abdominal: Soft. Bowel sounds are normal. She exhibits no distension and no mass. There is no abdominal tenderness. There is no rebound and no guarding. Musculoskeletal: Normal range of motion. General: No tenderness or edema. Lymphadenopathy: She has no cervical adenopathy. Neurological: She is alert and oriented to person, place, and time. She has normal reflexes. Gait normal. Skin: Skin is warm and dry. No rash noted. No erythema. No pallor. Psychiatric: Mood and affect normal. Nursing note and vitals reviewed. Filed Vitals: 04/11/20 1116 BP: 120/72 Pulse: 97 Resp: 16 Temp: 97.1 ??F (36.2 ??C) TempSrc: Oral SpO2: 96% Weight: 90.9 kg (200 lb 8 oz) Height: 5' 9 (1.753 m) Labs: Labs Reviewed Diagnoses/Impression: 1. General medical examination CBC W/DIFF AUTOMATED LIPID PANEL TSH W/REFLEX URINALYSIS WI REFLEX TO CULTURE COMPREHENSIVE METABOLIC PANEL 2. Essential hypertension Chronic TSH W/REFLEX URINALYSIS WI REFLEX TO CULTURE COMPREHENSIVE METABOLIC PANEL losartan 25 MG tablet 3. Vitamin D deficiency VITAMIN D, 25 OH 4. Lupus (CMS/HCC) Chronic 5. BMI 29.0-29.9,adult CBC W/DIFF AUTOMATED LIPID PANEL TSH W/REFLEX URINALYSIS WI REFLEX TO CULTURE COMPREHENSIVE METABOLIC PANEL 6. Encounter for screening mammogram for malignant neoplasm of breast MG SCREENING MILLY DIGI 7. Colon cancer screening Cologuard CANCELED: COLOGUARD 8. Need for hepatitis C screening test HEPATITIS C ANTIBODY Recommendations and Plan: 1. Essential hypertension - TSH W/REFLEX; Future - URINALYSIS WI REFLEX TO CULTURE; Future - COMPREHENSIVE METABOLIC PANEL; Future - TSH W/REFLEX - URINALYSIS WI REFLEX TO CULTURE - COMPREHENSIVE METABOLIC PANEL - losartan 25 MG tablet; Take 1 tablet (25 mg total) by mouth daily. Dispense: 90 tablet; Refill: 3 Stable. Continue meds. 2. Vitamin D deficiency - VITAMIN D, 25 OH; Future - VITAMIN D, 25 OH 3. Lupus (CMS/HCC) Continue follow-up with rheumatology. 4. General medical examination - CBC W/DIFF AUTOMATED; Future - LIPID PANEL; Future - TSH W/REFLEX; Future - URINALYSIS WI REFLEX TO CULTURE; Future - COMPREHENSIVE METABOLIC PANEL; Future - CBC W/DIFF AUTOMATED - LIPID PANEL - TSH W/REFLEX - URINALYSIS WI REFLEX TO CULTURE - COMPREHENSIVE METABOLIC PANEL Immunizations up-to-date. Patient declined flu shot, despite education today. Routine screening mammogram ordered today. Patient will schedule Pap later. Cologuard ordered today, per patient request after colon cancer screening education. Routine fasting labs ordered today. More plan after results. 5. BMI 29.0-29.9,adult - CBC W/DIFF AUTOMATED; Future - LIPID PANEL; Future - TSH W/REFLEX; Future - URINALYSIS WI REFLEX TO CULTURE; Future - COMPREHENSIVE METABOLIC PANEL; Future - CBC W/DIFF AUTOMATED - LIPID PANEL - TSH W/REFLEX - URINALYSIS WI REFLEX TO CULTURE - COMPREHENSIVE METABOLIC PANEL Therapeutic lifestyle changes and dietary changes conducive to weight loss discussed with patient today. We will continue to monitor. 6. Encounter for screening mammogram for malignant neoplasm of breast - MG SCREENING MILLY DIGI 7. Colon cancer screening - Cologuard 8. Need for hepatitis C screening test - HEPATITIS C ANTIBODY; Future Shared decision making performed today. Orders Placed This Encounter ??? CBC W/DIFF AUTOMATED ??? LIPID PANEL ??? TSH W/REFLEX ??? VITAMIN D, 25 OH ??? URINALYSIS WI REFLEX TO CULTURE ??? COMPREHENSIVE METABOLIC PANEL ??? HEPATITIS C ANTIBODY ??? MG SCREENING MILLY DIGI ??? folic acid 1 MG tablet ??? hydroxychloroquine 200 MG tablet ??? ibuprofen 800 MG tablet ??? losartan 25 MG tablet ??? Cologuard Cannot display discharge medications since this is not an admission. PCP: JULY Min 04/11/2020 RIDE OPERATOR * JULY Min - 04/11/2020 11:00 AM CST Lipids improved. Make sure to stay adequately hydrated and reduce NSAID use if possible. Vit D low, increase current Vit D3 dose by 1000 IU daily. RIDE OPERATOR documented in this encounter Plan of Treatment Scheduled Orders Name Type Priority Associated Diagnoses Orde r Schedule MG SCREENING MILLY DIGI MAMMO Routine Encounter for screening mammogram for malignant neoplasm of breast Ordered: 04/11/2020 documented as of this encounter Procedures Procedure Name Priority Date/Time Associated Diagnosis Comments HEPATITIS C ANTIBODY W/RFX TO HCV RNA Routine 04/27/2020 6:20 AM BOAT RIDE OPERATOR URINALYSIS WI REFLEX TO CULTURE Routine 04/27/2020 6:20 AM BOAT RIDE OPERATOR TSH W/REFLEX Routine 04/27/2020 6:20 AM BOAT RIDE OPERATOR Essential hypertension General medical examination BMI 29.0-29.9,adult COMPREHENSIVE METABOLIC PANEL Routine 04/27/2020 6:20 AM BOAT RIDE OPERATOR Essential hypertension General medical examination BMI 29.0-29.9,adult LIPID PANEL Routine 04/27/2020 6:20 AM BOAT RIDE OPERATOR General medical examination BMI 29.0-29.9,adult CBC W/DIFF AUTOMATED Routine 04/27/2020 6:20 AM BOAT RIDE OPERATOR General medical examination BMI 29.0-29.9,adult VITAMIN D, 25 OH Routine 04/27/2020 6:20 AM BOAT RIDE OPERATOR documented in this encounter Results * (ABNORMAL) VITAMIN D, 25 OH (04/27/2020 6:20 AM BOAT RIDE OPERATOR) VITAMIN D 25 HYDROXY TOTAL S/P/B 28(L) 30 - 100 ng/mL [facility] Comment: Vitamin D, 25-Hydroxy reports concentrations of [...] 2011;96(7):1911-30. VITAMIN D 25 HYDROXY D3 S/P/B 28 See Note: ng/mL [facility] Comment: Reference Range: Reference Range Not established This test was developed and its analytical performance characteristics have been determined by [employer]. It has not been cleared or approved by the FDA. This assay has been validated pursuant to the CLIA regulations and is used for clinical purposes. VITAMIN D 25 HYDROXY D2 S/P/B <4 See Note: ng/mL [facility] Comment: Reference Range: Reference Range Not established This test was developed and its analytical performance characteristics have been determined by [employer] [facility]. It has not been cleared or approved by the FDA. This assay has been validated pursuant to the CLIA regulations and is used for clinical purposes. See Note 1 Note 1 For additional information, please refer to http://education.YouNoodle/faq/SDF864 (This link is being provided for informational/ educational purposes only.) 04/27/2020 6:20 AM BOAT RIDE OPERATOR 04/27/2020 6:22 AM BOAT RIDE OPERATOR Narrative [facility] - 04/30/2020 6:30 PM BOAT RIDE OPERATOR FASTING:YES FASTING: YES Lise MCDOWELL LABORATORY Final Resul t [facility] [address] [place] [address] * HEPATITIS C ANTIBODY W/RFX TO HCV RNA (04/27/2020 6:20 AM BOAT RIDE OPERATOR) HEPATITIS C AB NON-REACTI VE NON-REACT FLOYD [facility] SIGNAL TO CUTOFF 0.01 <1.[address] [facility] Comment: HCV antibody was non-reactive. There is no laboratory evidence of HCV infection. In most cases, no further action is required. However, if recent HCV exposure is suspected, a test for HCV RNA (test code 96497) is suggested. For additional information please refer to http://education.Adhesive.co/faq/KOB07e4 (This link is being provided for informational/ educational purposes only.) 04/27/2020 6:20 AM BOAT RIDE OPERATOR 04/27/2020 6:22 AM BOAT RIDE OPERATOR Narrative [facility] - 04/30/2020 6:30 PM BOAT RIDE OPERATOR FASTING:YES FASTING: YES us Lise MCDOWELL LABORATORY Final Resul t [facility] [address] [address] [phone] * URINALYSIS WI REFLEX TO CULTURE (04/27/2020 6:20 AM BOAT RIDE OPERATOR) COLOR (U) YELLOW YELLOW [facility] APPEARANCE SEMEN CLEAR CLEAR [facility] SPECIFIC GRAVITY (U) 1.005 1.001 - 1.035 [facility] PH (U) 5.5 5.0 - 8.0 [facility] URINE GLUCOSE NEGATIVE NEGATIVE [facility] BILIRUBIN (U) NEGATIVE NEGATIVE [facility] KETONE (U) NEGATIVE NEGATIVE [facility] BLOOD (U) NEGATIVE NEGATIVE [facility] PROTEIN (U) NEGATIVE NEGATIVE [facility] NITRITES NEGATIVE NEGATIVE [facility] LEUKOCYTES (U) NEGATIVE NEGATIVE [facility] WBC/HPF NONE SEEN < OR = 5 /HPF [facility] RBC/HPF NONE SEEN < OR = 2 /HPF [facility] SQUAMOUS EPITHELIAL (U) 0-5 < OR = 5 /HPF [facility] BACTERIA (U) NONE SEEN NONE SEEN /HPF [facility] HYALINE CASTS NONE SEEN NONE SEEN /LPF [facility] REFLEX URINE CULTURE: [facility] Comment:NO CULTURE INDICATED 04/27/2020 6:20 AM BOAT RIDE OPERATOR 04/27/2020 6:22 AM BOAT RIDE OPERATOR Narrative [facility] - 04/30/2020 6:30 PM BOAT RIDE OPERATOR FASTING:YES FASTING: YES Lise MCDOWELL URINE ORDERABLES Final Resu lt [facility] [id number] [address] [phone] * (ABNORMAL) COMPREHENSIVE METABOLIC PANEL (04/27/2020 6:20 AM BOAT RIDE OPERATOR) GLUCOSE 84 65 - 99 mg/dL [facility] Comment: ? Fasting reference interval BUN 19 7 - 25 mg/dL [facility] CREATININE S/P/B 1.06(H) 0.50 - 1.05 mg/dL [facility] Comment: For patients >49 years of age, the reference limit for Creatinine is approximately 13% higher for people identified as -Tunisian. EGFR NON-AFR. AMER. 59(L) > OR = 60 mL/min/1. 73m2 [facility] EGFR AFR. AMER. 69 > OR = 60 mL/min/1. 73m2 [facility] BUN CREATININE RATIO 18 6 - 22 (calc) [facility] SODIUM S/P/B 139 135 - 146 mmol/L [facility] POTASSIUM S/P/B 4.3 3.5 - 5.3 mmol/L [facility] CHLORIDE S/P/B 104 98 - 110 mmol/L [facility] CO2 28 20 - 32 mmol/L [facility] CALCIUM S/P/B 9.4 8.6 - 10.4 mg/dL [facility] TOTAL PROTEIN S/P/B 6.9 6.1 - 8.1 g/dL [facility] ALBUMIN S/P/B 4.2 3.6 - 5.1 g/dL [facility] GLOBULIN 2.7 1.9 - 3.7 g/dL (calc) [facility] ALBUMIN/GLOBULIN RATIO 1.6 1.0 - 2.5 (calc) [facility] BILIRUBIN TOTAL S/P/B 0.8 0.2 - 1.2 mg/dL [facility] ALKALINE PHOSPHATASE S/P/B 87 37 - 153 U/L [facility] AST 18 10 - 35 U/L [facility] ALT 13 6 - 29 U/L [facility] 04/27/2020 6:20 AM BOAT RIDE OPERATOR 04/27/2020 6:22 AM BOAT RIDE OPERATOR Narrative [facility] - 04/30/2020 6:30 PM BOAT RIDE OPERATOR FASTING:YES FASTING: YES Lise [facility]OW[facility]ORAT[facility] Final Resul t Performing Organization Address [facility] de Phone Number [facility] [address] [address] [phone] * TSH W/REFLEX (04/27/2020 6:20 AM BOAT RIDE OPERATOR) TSH 1.63 mIU/L [facility] Comment: ?Reference Range ?> or = 20 Years ??0.40-4.50 ? Ranges ?First trimester ?0.26-2.66 ?Second trimester ?? 0.55-2.73 ?Third trimester ?0.43-2.91 04/27/2020 6:20 AM BOAT RIDE OPERATOR 04/27/2020 6:22 AM BOAT RIDE OPERATOR Narrative [facility] - 04/30/2020 6:30 PM BOAT RIDE OPERATOR FASTING:YES FASTING: YES Lise MCDOWELL LABORATORY Final Resul t Performing Organization Address [facility] Co de Phone Number [facility] [address] [address] [phone] * (ABNORMAL) LIPID PANEL (04/27/2020 6:20 AM BOAT RIDE OPERATOR) Pathologist [facility] CHOLESTEROL 179 <200 mg/dL [facility] HDL 54 > OR = 50 mg/dL [facility] TRIGLYCERIDES 101 <150 mg/dL [facility] LDL (CALCULATED) 106(H) mg/dL (calc) [facility] Comment: Reference [...] LDL-C. Owen SILVEIRA et al. VIKI. 2013;310(19): 0608-0458 (http://education.YouNoodle/faq/NXY013) CHOL/HDL RATIO 3.3 <5.0 (calc) [facility] NON HDL CHOLESTEROL 125 <130 mg/dL (calc) [facility] Comment: For patients with diabetes plus 1 major ASCVD risk factor, treating to a non-HDL-C goal of <100 mg/dL (LDL-C of <70 mg/dL) is considered a therapeutic option. 04/27/2020 6:20 AM BOAT RIDE OPERATOR 04/27/2020 6:22 AM BOAT RIDE OPERATOR Narrative [facility] - 04/30/2020 6:30 PM BOAT RIDE OPERATOR FASTING:YES FASTING: YES Lise MCDOWELL LABORAT[facility] Final Resul t [facility] [address] [address] [phone] * CBC W/DIFF AUTOMATED (04/27/2020 6:20 AM BOAT RIDE OPERATOR) Pathologist [facility] WBC 4.6 3.8 - 10.8 Thousand/u L [facility] RBC 3.96 3.80 - 5.10 Million/uL [facility] HGB 12.2 11.7 - 15.5 g/dL [facility] HCT 36.4 35.0 - 45.0 % [facility] MCV 91.9 80.0 - 100.0 fL [facility] MCH 30.8 27.0 - 33.0 pg [facility] MCHC 33.5 32.0 - 36.0 g/dL [facility] RDW 12.3 11.0 - 15.0 % [facility] PLT 258 140 - 400 Thousand/u L [facility] MPV 10.4 7.5 - 12.5 fL [facility] ABS. NEUTROPHILS 2,369 1,500 - 7,800 cells/uL [facility] ABS. LYMPHOCYTES 1,504 850 - 3,900 cells/uL [facility] ABS. MONOCYTES 382 200 - 950 cells/uL [facility] ABS. EOSINOPHILS 304 15 - 500 cells/uL [facility] ABS. BASOPHILS 41 0 - 200 cells/uL [facility] SEG NEUTROPHILS 51.5 % [facility] LYMPHOCYTES 32.7 % [facility] MONOCYTES 8.3 % [facility] EOSINOPHILS 6.6 % [facility] BASOPHILS 0.9 % [facility] 04/27/2020 6:20 AM BOAT RIDE OPERATOR 04/27/2020 6:22 AM BOAT RIDE OPERATOR Narrative [facility] - 04/30/2020 6:30 PM BOAT RIDE OPERATOR FASTING:YES FASTING: YES Lise [facility]OWE[facility] Final Resul t [facility] [address] [address] [phone] documented in this encounter Visit Diagnoses Diagnosis General medical examination- Primary Unspecified general medical examination Essential hypertension Unspecified essential hypertension Vitamin D deficiency Unspecified vitamin D deficiency Lupus Systemic lupus erythematosus BMI 29.0-29.9,adult Body Mass Index 29.0-29.9, adult Encounter for screening mammogram for malignant neoplasm of breast Other screening mammogram Colon cancer screening Special screening for malignant neoplasms, colon Need for hepatitis C screening test Special screening examination for other specified viral diseases documented in this encounter Care Teams Proof Reader Relationship Specialty Start Date End Date Lise Garces APNP [address] [place] [address] PCP - General NURSE PRACTITIONER 10/03/18 documented as of this encounter
--- OUTSIDE RECORDS SUMMARY | 2024-06-21 08:57 | XMS_ITS | Encounter Summary ---
Author Organization [facility] Address [address] [place] [address]. [place], [place] [address] [place] [address] Care Team Providers Care School Curriculum Developer Name Role Phone Unavailable Primary Care Provider Unavailabl e Encounter Details Date Type Department Care Team (Late st Contact Info) Description 02/05/2003 Abstract [facility] [address] [place] [address] Valdo Barrios MD Social History Tobacco Use Types Packs/Day Years Used Date Smoking Tobacco: Never Assessed Comments Unknown Sex and Gender Information Value Date Recorded Sex Assigned at Female 05/21/2024 8:15 AM SAFETY ADMINISTRATOR Legal Sex Female 4:43 PM CDT Gender Identity Female 05/21/2024 8:15 AM SAFETY ADMINISTRATOR Sexual Orientation Not on file documented as of this encounter Plan of Treatment Not on file documented as of this encounter Visit Diagnoses Not on filedocumented in this encounter
--- OUTSIDE RECORDS SUMMARY | 2024-06-21 08:57 | XMS_ITS | Encounter Summary ---
Author Organization [facility] Address [address] [place] [address]. [place], [place] [address] [place] [address] Care Team Providers Care Oil Rag Washer Name Role Phone Lise Garces Primary Care Provider [phone]- [phone] Encounter Details Date Type Department Care Team (Latest Contact Info) Description 06/29/2019 Scan [facility] INFO SRVCS Scanned, Documents [...] at Female 05/21/2024 8:15 AM DIRECTOR OF ADVERTISING SALES Legal Sex Female 4:43 PM CDT Gender Identity Female 05/21/2024 8:15 AM DIRECTOR OF ADVERTISING SALES Sexual Orientation Not on file documented as of this encounter Plan of Treatment Not on file documented as of this encounter Visit Diagnoses Not on filedocumented in this encounter Care Teams Oil Rag Washer Relationship Specialty Start Date End Date Lise Garces APNP [address] [place] [address] PCP - General NURSE PRACTITIONER 10/03/18 documented as of this encounter
--- OUTSIDE RECORDS SUMMARY | 2024-06-21 08:57 | XMS_ITS | Encounter Summary ---
Author Organization [facility] Address [address] [place] [address]. [place], [place] [address] [place] [address] Care Team Providers Care Principal Electrical Engineer Name Role Phone Lise Garces Primary Care Provider [phone]- [phone] Encounter Details Date Type Department Care Team (Latest Contact Info) Description 10/29/2018 Scan [facility] INFO SRVCS Scanned, Documents [...] Sex Assigned at Female 05/21/2024 8:15 AM GL ACCOUNTANT Legal Sex Female 4:43 PM CDT Gender Identity Female 05/21/2024 8:15 AM GL ACCOUNTANT Sexual Orientation Not on file documented as of this encounter Plan of Treatment Not on file documented as of this encounter Visit Diagnoses Not on filedocumented in this encounter Care Teams Principal Electrical Engineer Relationship Specialty Start Date End Date Lise Garces APNP [address] [place] [address] PCP - General NURSE PRACTITIONER 10/03/18 documented as of this encounter
--- OUTSIDE RECORDS SUMMARY | 2024-06-21 08:57 | XMS_ITS | Encounter Summary ---
Author Organization [facility] Address [address] [place] [address]. [place] [address] [place] [address] Care Team Providers Care Office Mover Name Role Phone Lise Garces Primary Care Provider [phone]- [phone] Reason for Visit * Reason Onset Date Comments Referral 10/30/2018 GI referral Encounter Details Date Type Department Care Team (Late st Contact Info) Description 10/30/2018 Telephone [facility] Family [facility] Internal Medicine [facility] [address] [place] [address] Lise Garces APNP [address] [place] [address] Referral (GI referral) Social History Tobacco Use Types Packs/Day Years [...] Sex Assigned at Female 05/21/2024 8:15 AM FILER METAL PATTERNS Legal Sex Female 4:43 PM CDT Gender Identity Female 05/21/2024 8:15 AM FILER METAL PATTERNS Sexual Orientation Not on file documented as of this encounter Progress Notes * Francia Gaitan, ROLL DOUGH DIVIDER - 10/31/2018 7:31 AM CDT Pt notified and given P# to call and schedule. No issues with P# in chart. * Francia Gaitan RRT - 10/30/2018 10:06 AM CDT Received a fax from [facility] stating they were unable to reach patient due to invalid #'s and busy signals. I called and [facility] to let patient know GI is trying to call her to schedule an appt and she can call them at [phone] to this up. documented in this encounter Plan of Treatment Not on file documented as of this encounter Visit Diagnoses Not on filedocumented in this encounter Care Teams Office Mover Relationship Specialty Start Date End Date Lise Garces APNP [address] [place] [address] PCP - General NURSE PRACTITIONER 10/03/18 documented as of this encounter
--- OUTSIDE RECORDS SUMMARY | 2024-06-21 08:57 | XMS_ITS | Encounter Summary ---
Author Organization [facility] Address [address] [place] [address]. [place] [address] [place] [address] Care Team Providers Care Electrical Appliance Repairer Name Role Phone Mili Lise MCDOWELL Primary Care Provider [phone]- [phone] Reason for Visit * Reason Comments Lab (SCAN) QUEST LIPID,A1C,UA,V IT D Encounter Details Date Type Department Care Team ([facility] Contact Info) Description 10/04/2018 Scan HEALTH INFO SRVCS Scanned, Documents Lab (SCAN) (QUEST LIPID,A1C,UA,VIT D) Social History Tobacco Use Types Packs/Day Years [...] Assigned at Female 05/21/2024 8:15 AM MOTOR CHECKER Legal Sex Female 4:43 PM CDT Gender Identity Female 05/21/2024 8:15 AM MOTOR CHECKER Sexual Orientation Not on file documented [...] on filedocumented in this encounter Care Teams Electrical Appliance Repairer Relationship Specialty Start Date End Date Lise Garces APNP [address] [place] [address] PCP - General NURSE PRACTITIONER 10/03/18 documented as of this encounter
--- OUTSIDE RECORDS SUMMARY | 2024-06-21 09:02 | XMS_ITS | CONTINUITY OF CARE DOCUMENT ---
Author Name [email or web address] Address Unknown Organization [facility] Address [id number] [place] [address] [address] [place] [address] Phone [phone] Care Team Providers Care Scaffold Setter Name Role Phone Jordan JAMISON, Karolina Unavailable GERMAN JAMISON, STAN Unavailable INSURANCE PROVIDERS Payer name Policy type / Coverage type Coulter red libertarian [id number] PPO Other [id number]
--- OUTSIDE RECORDS SUMMARY | 2024-06-21 09:03 | XMS_ITS ---
Author Organization [facility] Address [address] [place], [place] [address] Care Team Providers Care High School Football Coach Name Role Phone Lise Garces Unavailable Unavailable YOSEF KRUSE Unavailable [phone] REASON FOR VISIT L ft fracture check with X-ray Medications Medication SIG (Take, Route, Frequency, Duration) Notes Start Date End Date Status Hydroxychloroquine Sulfate Active Losartan Potassium A ctive Vital Signs Weight 195 lbs 08/26/2023 Weight-kg 88.45 kg 08/26/2023 Height 69 in 08/26/2023 Height-cm 175.26 cm 08/26/2023 BMI 28.79 kg/m2 08/26/2023 Encounters Encounter Location Date Provider Diagnosis [facility] [address] [facility] [address] [place], [place] [id number] 08/26/2023 YOSEF KRUSE Localized edema R60.0 ; Displaced fracture of fifth metatarsal bone, left foot, subsequent encounter for fracture with routine healing S92.352D and Pain in left foot M79.672 Assessments Encounter Date Diagnosis (ICD Code) Assessment Notes Treatment Notes Treatment Clinical Notes Section Notes 08/26/2023 Localized edema (ICD-10 - R60.0) 08/26/2023 Displaced fracture of fifth metatarsal bone, left foot, subsequent encounter for fracture with routine healing (ICD-10 - S92.352D) 08/26/2023 Pain in left foot (ICD-10 - M79.672) 08/26/2023 Other Fracture Care: I discussed the nature and etiology of the injury to the patient and answered all questions. I discussed rest, immobilization, and time frame for healing. I explained that lack of compliance can lead to delayed healing or nonunion. Edvin bandage compression wrap used to help immobilize and provider compression to left lower extremity fracture site. Continue with use of CAM boot with all weight bearing activity. Plan Of Treatment Treatment Notes Assessment Notes Other Fracture Care: I discussed the nature and etiology of the injury to the patient and answered all questions. I discussed rest, immobilization, and time frame for healing. I explained that lack of compliance can lead to delayed healing or nonunion. Edvin bandage compression wrap used to help immobilize and provider compression to left lower extremity fracture site. Continue with use of CAM boot with all weight bearing activity. Next Appt Details Follow Up: 2 Weeks, Reason: Progress Notes * Shanika VAZQUEZDOB:1965 ( 58 yo F)Acc No.[id number]:08/26/2023 Patient:?JAMELShanika Provider:?YOSEF KRUSE :1965???Age:58 Y???Sex:Female D ate:08/26/2023 Address:[address] [place], [place] [id number] Subjective: * Chief Complaints: * ???1. L ft fracture check wi X-ray. * HPI: ???HPI:?Follow Up Visit?Patient presents for follow up visit for left foot fracture check. ?Patient states their problem is improving. Patient states pain and swelling have gone down. Patient has been wearing Unna boot and Cam-Walker.?MA:SS.? * ROS:?General / Constitutional:?Patient denies?weakness.?Respiratory:?Patient denies?chronic cough, shortness of breath, sputum production.?Cardiovascular:?Patient denies?chest pain, history of [place], irregular heartbeat.?Musculoskeletal:?Patient complains of?joint pain, broken foot bone.?Peripheral Vascular:?Patient denies?blanching of skin, cold extremities, decreased sensation in extremities.?Skin:?Patient denies?fungal nails, itching.?Neurologic:?Patient denies?dizziness, gait abnormality, headache.? * Medical History:?MRSA, Back Trouble, Lupus, High blood pressure. * Social History:?No History of Tobacco or Alcohol/Beer. * Medications:?Taking Hydroxyc hloroquine Sulfate , Taking Losartan Potassium Objective: * Vitals:?Wt:195lbs, Wt-k .45 kg, Ht: 69 in, Ht-cm: 175.26 cm, BMI:28.79Index, Body Surface Area: 2.07. * Examination: ???Radiographs: ?Left Foot?3 views (AP, Medial Oblique, and lateral view) weightbearing of the left foot, Infection: there is no destructive bone changes, gas in the tissues or other radiographic signs of infection noted, Spiral oblique fracture is noted to distal fifth metatarsal shaft with no sagittal plane displacement noted.?Xray Order?Patient Name: Shanika Vazquez ?Clinical Indication: Left foot pain ?Test Requested: 3 Views Weightbearing (AP, LAT, Oblique) Left Foot, .?Physical Examination: ???Vascular: Dorsalis Pedis pulse noted at 2/4 right foot and 2/4 left foot and Posterior Tibial pulse noted at 2/4 right foot and 2/4 left foot, Capillary refill times noted to be less than three seconds x ten, Temperature gradient noted to be warm to cool to bilateral foot, pedal hair present to bilateral foot and no varicosities are noted, ecchymoses noted to left foot lateral midfoot and hindfoot ?Dermatologic: there are no open lesions, no signs of active clinical infection, no erythema noted, nails are at hygienic length during todays visit, interdigital spaces clean dry and intact ?Neurology: protective sensation intact to light touch bilateral digits one through five, vibratory sensation intact to first metatarsophalangeal joint bilaterally ?Musculoskeletal: mild pain to palpation left foot across fifth metatarsal shaft, mild pain to left fifth metatarsophalangeal joint, arch height 2/5 NWB bilateral 1/5 WB, no calf pain noted b/l. Assessment: * Assessment: 1.?Displaced fracture of fif th metatarsal bone, left foot, subsequent encounter for fracture with routine healing - S92.352D (Primary)?2.?Localized edema - R60.0?3.?Pain in left foot - M79.672? Plan: * Treatment: * Procedure Codes:?96702 X-RAY EXAM OF FOOT, Modifiers: LT * Follow Up:?2 Weeks * Billing Information: * Visit Code:? 70104 Office Visit, Est Pt., Level 3. * Procedure Codes:? 89091 X-RAY EXAM OF FOOT. Modifiers: LT * Sign off status: Completed true * Provider:ABELINO KRUSE Date:?08/26/2023 Generated for Heidi cerda/Klarissa/Ledy on:?06/21/2024 09:02 AM SOCIAL WORK LECTURER History and Physical Notes * HPI (History of Present Illness) Category Sub-Category Detail Notes Category Not es HPI Follow Up Visit Patient presents for follow up visit for left foot fracture check.Patient states their problem is improving. Patient states pain and swelling have gone down. Patient has been wearing Unna boot and Cam-Walker. MA:SS Examination Category Sub-Category Detail Notes Category Notes Physical Examination Vascular: Dorsalis Pedis pulse noted at 2/4 right foot and 2/4 left foot and Posterior Tibial pulse noted at 2/4 right foot and 2/4 left foot, Capillary refill times noted to be less than three seconds x ten, Temperature gradient noted to be warm to cool to bilateral foot, pedal hair present to bilateral foot and no varicosities are noted, ecchymoses noted to left foot lateral midfoot and hindfoot Dermatologic: there are no open lesions, no signs of active clinical infection, no erythema noted, nails are at hygienic length during todays visit, interdigital spaces clean dry and intact Neurology: protective sensation intact to light touch bilateral digits one through five, vibratory sensation intact to first metatarsophalangeal joint bilaterally Musculoskeletal: mild pain to palpation left foot across fifth metatarsal shaft, mild pain to left fifth metatarsophalangeal joint, arch height 2/5 NWB bilateral 1/5 WB, no calf pain noted b/l Radiographs Left Foot 3 views (AP, Med ial Oblique, and lateral view) weightbearing of the left foot, Infection: there is no destructive bone changes, gas in the tissues or other radiographic signs of infection noted, Spiral oblique fracture is noted to distal fifth metatarsal shaft with no sagittal plane displacement noted Xray Order Patient Name: Shanika Vazquez Clinical Indication: Left foot pain Test Requested: 3 Views Weightbearing (AP, LAT, Oblique) Left Foot,
--- OUTSIDE RECORDS SUMMARY | 2024-06-21 09:03 | XMS_ITS ---
Author Organization [facility] Address [address] [place], [place] [id number] Care Team Providers Care Corn Popper Name Role Phone Lise Garces Unavailable Unavailable YOSEF KRUSE Unavailable [phone] Allergies No Known Allergies REASON FOR VISIT L broken ft, tripped on sidewalk Medications Medication SIG (Take, Route, Frequency, Duration) Notes Start Date End Date Status Losartan Potassium A ctive Hydroxychloroquine Sulfate Active Vital Signs Weight 195 lbs 08/12/2023 Weight-kg 88.45 kg 08/12/2023 Height 69 in 08/12/2023 Height-cm 175.26 cm 08/12/2023 BMI 28.79 kg/m2 08/12/2023 Encounters Encounter Location Date Provider Diagnosis [facility] [address] [facility] [address] [place], [place] [id number] 08/12/2023 YOSEF KRUSE Displaced fracture of fifth metatarsal bone, left foot, initial encounter for closed fracture S92.352A ; Localized edema R60.0 and Pain in left foot M79.672 Assessments Encounter Date Diagnosis (ICD Code) Assessment Notes Treatment Notes Treatment Clinical Notes Section Notes 08/12/2023 Displaced fracture of fifth metatarsal bone, left foot, initial encounter for closed fracture (ICD-10 - S92.352A) Fracture Care: I discussed the nature and etiology of the injury to the patient and answered all questions. I discussed rest, immobilization, and time frame for healing. I explained that lack of compliance can lead to delayed healing or nonunion. Soft cast applied at todays visit to left lower extremity with use of unna boot coban to aid in immobilization and compression across injury site. Instructed patient keep dressing clean dry and intact. Continue with use of CAM boot with all weight bearing activity. 08/12/2023 Localized edema (ICD-10 - R60.0) 08/12/2023 Pain in left foot (ICD-10 - M79.672) Plan Of Treatment Treatment Notes Assessment Notes Displaced fracture of fifth metatarsal bone, left foot, initial encounter for closed fracture Fracture Care: I discussed the nature and etiology of the injury to the patient and answered all questions. I discussed rest, immobilization, and time frame for healing. I explained that lack of compliance can lead to delayed healing or nonunion. Soft cast applied at todays visit to left lower extremity with use of unna boot coban to aid in immobilization and compression across injury site. Instructed patient keep dressing clean dry and intact. Continue with use of CAM boot with all weight bearing activity. Next Appt Details Follow Up: 2 Weeks, Reason: Progress Notes * Shanika VAZQUEZDOB:1965 ( 58 yo F)Acc No.[id number]:08/12/2023 Progress Notes Patient:?Shanika VAZQUEZ Provider:?YOSEF KRUSE :1965???Age:58 Y???Sex:Female D ate:08/12/2023 Address:[address] [place], [place] [id number] Subjective: * Chief Complaints: * ???1. L broken ft, tripped o n sidewalk. * HPI: ???HPI:?New Complaint?Patient presents for a new patient consultation. ?Patient complains of an issue to left foot pain due to fracture in foot. Patient was walking on the sidewalk and her foot rolled under. Patient states the pain radiates from the top of the toes to the lateral side. There is swelling and discoloration on the foot. Patient states she is able to use walking boot but there is still a lot of pain.?Duration of problem is 1 week.?Patient was injured at home.?MA:SS.? * ROS:?General / Constitutional:?Patient denies?weakness.?Respiratory:?Patient denies?chronic cough, shortness of breath, sputum production.?Cardiovascular:?Patient denies?chest pain, history of [place], irregular heartbeat.?Musculoskeletal:?Patient complains of?joint pain, broken foot bone.?Peripheral Vascular:?Patient denies?blanching of skin, cold extremities, decreased sensation in extremities.?Skin:?Patient denies?fungal nails, itching.?Neurologic:?Patient denies?dizziness, gait abnormality, headache.? * Medical History:?MRSA, Back Trouble, Lupus, High blood pressure. * Social History:?No History of Tobacco or Alcohol/Beer. * Medications:?Taking Hydroxyc hloroquine Sulfate , Taking Losartan Potassium * Allergies:?N.K.D.A. Objective: * Vitals:?Shoe Size: 10, Wt:19 5lbs, Wt-k.45 kg, Ht: 69 in, Ht-cm: 175.26 cm, BMI:28.79Index, Body Surface Area: 2.07. * Examination: ???Physical Examination: ???Vascular: Dorsalis Pedis pulse noted at [...] intact to first metatarsophalangeal joint bilaterally ?Musculoskeletal: pain to palpation left foot across fifth metatarsal shaft, pain to left fifth metatarsophalangeal joint, arch height 2/5 NWB bilateral 1/5 WB, no calf pain noted b/l. ???Radiographs: ?Left Foot?3 views (AP, Medial Oblique, [...] Views Weightbearing (AP, LAT, Oblique) Left Foot, .? Assessment: * Assessment: 1.?Displaced fracture of fif th metatarsal bone, left foot, initial encounter for closed fracture - S92.352A (Primary)?2.?Localized edema - R60.0?3.?Pain in left foot - M79.672? Plan: * Treatment: * Procedure Codes:?05770 APPLI CATION OF PASTE BOOT, Modifiers: LT , 50108 X-RAY EXAM OF FOOT, Modifiers: LT * Follow Up:?2 Weeks * Billing Information: * Visit Code:? 11075 Office Visit, New Pt., Level 3. Modifiers: 25 * Procedure Codes:? 62809 APPLICATION OF PASTE BO[place]: [place] [address] X-RAY EXAM OF FOOT. Modifiers: LT * Sign off status: Completed true * Provider:ABELINO KRUSE Date:?08/12/2023 Generated for Heidi cerda/Klarissa/Ledy on:?06/21/2024 09:02 AM ENGINEER INTERNSHIP History and Physical Notes * HPI (History of Present Illness) Category Sub-Category Detail Notes Category Not es HPI New Complaint Patient presents for a new patient consultation.Patient complains of an issue to left foot pain due to fracture in foot. Patient was walking on the sidewalk and her foot rolled under. Patient states the pain radiates from the top of the toes to the lateral side. There is swelling and discoloration on the foot. Patient states she is able to use walking boot but there is still a lot of pain. Duration of problem is 1 week. Patient was injured at home. MA:SS Examination Category Sub-Category Detail Notes Category [...] intact to first metatarsophalangeal joint bilaterally Musculoskeletal: pain to palpation left foot across fifth metatarsal shaft, pain to left fifth metatarsophalangeal joint, arch [...]
--- OUTSIDE RECORDS SUMMARY | 2024-06-21 09:03 | XMS_ITS | Patient Health Record ---
Author Organization [facility] Address [address] [place], [place] [id number] Care Team Providers Care Imaging Technologist Name Role Phone Lise Garces Unavailable Unavailable YOSEF KRUSE Unavailable [phone] Allergies No Known Allergies Reason For Referral No Information Medications Medication SIG (Take, Route, Frequency, Duration) Notes Start Date End Date Status Losartan Potassium A ctive Hydroxychloroquine Sulfate Active Vital Signs Height-cm 175.26 cm 09/09/2023 Weight-kg 88.45 kg 09/09/2023 Height 69 in 09/09/2023 Weight 195 lbs 09/09/2023 BMI 28.79 kg/m2 09/09/2023 Encounters Encounter Location Date Provider Diagnosis [facility] [address] [id number] 08/12/2023 YOSEF KRUSE Displaced fracture of fifth metatarsal bone, left foot, initial encounter for closed fracture S92.352A ; Localized edema R60.0 and Pain in left foot M79.672 [facility] [address] [place], [place] [id number] 08/26/2023 YOSEF KRUSE Localized edema R60.0 ; Displaced fracture of fifth metatarsal bone, left foot, subsequent encounter for fracture with routine healing S92.352D and Pain in left foot M79.672 [facility] [address] [place], [place] [id number] 09/09/2023 YOSEF KRUSE Localized edema R60.0 ; Displaced fracture of fifth metatarsal bone, left foot, subsequent encounter for fracture with routine healing S92.352D and Pain in left foot M79.672 [facility] [address] [place], [place] [id number] 08/10/2023 Assessments Encounter Date Diagnosis (ICD Code) Assessment Notes Treatment Notes Treatment Clinical Notes Section Notes 08/12/2023 Localized edema (ICD-10 - R60.0) 08/12/2023 Displaced fracture of fifth metatarsal bone, [...] CAM boot with all weight bearing activity. 08/26/2023 Localized edema (ICD-10 - R60.0) 08/26/2023 Displaced fracture of fifth metatarsal bone, left foot, subsequent encounter for fracture with routine healing (ICD-10 - S92.352D) 09/09/2023 Localized edema (ICD-10 - R60.0) 09/09/2023 Displaced fracture of fifth metatarsal bone, left foot, subsequent encounter for fracture with routine healing (ICD-10 - S92.352D) - new films of right foot 3 views reviewed and results discussed with patient - instructed patient she can begin to transition out of CAM boot into sneaker without restriction as this time as tolerated, prn 08/12/2023 Pain in left foot (ICD-10 - M79.672) 09/09/2023 Pain in left foot (ICD-10 - M79.672) 08/26/2023 Pain in left foot (ICD-10 - [...] all weight bearing activity. Plan Of Treatment No Information Insurance Providers Payer Name Payer Address Payer Phone Subscriber Number Group Number Insured Name Patient Relationship to Insured Coverage Start Date Coverage End Date [facility] ATTN CLAIMS [address] [place] [address] [id number] Shanika Vazquez Self - patient is the insured Medical (General) History Medical History History ICD Code MRSA Back Trouble Lupus high blood pressure
--- OUTSIDE RECORDS SUMMARY | 2024-06-21 09:03 | XMS_ITS ---
Author Organization [facility] Address [address] [place], [place] [id number] Care Team Providers Care Device Repair Technician Name Role Phone Lise Garces Unavailable Unavailable YOSEF KRUSE Unavailable [phone] REASON FOR VISIT *Fracture check with Xrays Medications Medication SIG (Take, Route, Frequency, Duration) Notes Start Date End Date Status Losartan Potassium A ctive Hydroxychloroquine Sulfate Active Vital Signs Weight 195 lbs 09/09/2023 Weight-kg 88.45 kg 09/09/2023 Height 69 in 09/09/2023 Height-cm 175.26 cm 09/09/2023 BMI 28.79 kg/m2 09/09/2023 Encounters Encounter Location Date Provider Diagnosis [facility] [address] [facility] [address] [place], [place] [id number] 09/09/2023 YOSEF KRUSE Localized edema R60.0 ; Displaced fracture of fifth metatarsal bone, left foot, subsequent encounter for fracture with routine healing S92.352D and Pain in left foot M79.672 Assessments Encounter Date Diagnosis (ICD Code) Assessment Notes Treatment Notes Treatment Clinical Notes Section Notes 09/09/2023 Localized edema (ICD-10 - R60.0) 09/09/2023 Displaced fracture of fifth metatarsal bone, left foot, subsequent encounter for fracture with routine healing (ICD-10 - S92.352D) - new films of right foot 3 views reviewed and results discussed with patient - instructed patient she can begin to transition out of CAM boot into sneaker without restriction as this time as tolerated, prn 09/09/2023 Pain in left foot (ICD-10 - M79.672) Plan Of Treatment Treatment Notes Assessment Notes Displaced fracture of fifth metatarsal bone, left foot, subsequent encounter for fracture with routine healing - new films of right foot 3 views reviewed and results discussed with patient - instructed patient she can begin to transition out of CAM boot into sneaker without restriction as this time as tolerated, prn Next Appt Details Follow Up: prn, Reason: Progress Notes * Shanika VAZQUZEDOB:1965 ( 58 yo F)Acc No.[id number]:09/09/2023 Patient:?Shanika VAZQUEZ Provider:?YOSEF KRUSE :1965???Age:58 Y???Sex:Female D ate:09/09/2023 Address:[address] [place], [place] [id number] Subjective: * Chief Complaints: * ???1. *Fracture check with X rays. * HPI: ???HPI:?Follow Up Visit?Patient presents for follow up visit for left foot fracture.?Patient states their problem is improving. Patient states she has had bruising and spasms around the fifth toe. Patient states their problem is improving.?MA:SS.? * ROS:?General / Constitutional:?Patient denies?weakness.?Respiratory:?Patient denies?chronic cough, shortness of breath, sputum production.?Cardiovascular:?Patient denies?chest pain, history of OR, irregular heartbeat.?Musculoskeletal:?Patient complains of?joint pain, broken foot [...] metatarsal shaft with no sagittal plane displacement noted, bridging is noted across fracture site.?Xray Order?Patient Name: Shanika Vazquez ?Clinical Indication: Left [...] - M79.672? Plan: * Treatment: * Procedure Codes:?26917 X-RAY EXAM OF FOOT, Modifiers: LT * Follow Up:?prn * Billing Information: * Visit Code:? 25698 Office Visit, Est Pt., Level 3. * Procedure Codes:? 83235 X-RAY EXAM OF FOOT. Modifiers: LT * Sign off status: Completed true * Provider:ABELINO KRUSE Date:?09/09/2023 Generated for Heidi cerda/Klarissa/Ledy on:?06/21/2024 09:02 AM PAIN MANAGEMENT PHYSICIAN History and Physical Notes * HPI (History of Present Illness) Category Sub-Category Detail Notes Category Not es HPI Follow Up Visit Patient presents for follow up visit for left foot fracture. Patient states their problem is improving. Patient states she has had bruising and spasms around the fifth toe. Patient states their problem is improving. MA:SS Examination Category Sub-Category Detail Notes Category [...] metatarsal shaft with no sagittal plane displacement noted, bridging is noted across fracture site Xray Order Patient Name: Shanika Vazquez Clinical Indication: Left foot pain Test Requested: 3 Views Weightbearing (AP, LAT, Oblique) Left Foot,
--- OUTSIDE RECORDS SUMMARY | 2024-06-21 09:12 | XMS_ITS | CONTINUITY OF CARE DOCUMENT ---
Author Name wilnerjoyimelda Address Unknown Organization [facility] Address [address] [place] [address] [address] [place] [address] Phone [phone] Care Team Providers Care Reed Worker Name Role Phone Jordan JAMISON, Karolina Unavailable GERMAN JAMISON, STAN Unavailable [phone] INSURANCE PROVIDERS Payer name Policy type / Coverage type Sasser red republican ID [id number] PPO Other [id number]
== END 2024-06-14 20:40 | disposition home or self-care (01) ==
PROVIDERS: Emergency Provider Student in an Organized Health Care Education/Training Program; PCP Registered Nurse
DX: N39.0 Urinary tract infection, site not specified (principal); Z79.82 Long term (current) use of aspirin; E55.9 Vitamin D deficiency, unspecified
CPT/HCPCS: 81001; 87077; 87086; 87186; 99283; A9270

== ENCOUNTER 2024-10-30 18:50 | Emergency (ER) | payer BC, SELFPAY ==
[2024-10-30 18:57] VITALS: BP 123/71; PULSE 88; RESP 16; TEMP 36.8; O2SAT 98
--- NOTE | 2024-10-30 19:27 | ED.URI ---
HPI - URI/Sore Throat General Chief Complaint: Upper Respiratory Infection Stated Complaint: Sinus Time Seen by Provider: 10/30/24 19:27 Source: patient and RN notes reviewed Mode of arrival: ambulatory Limitations: no limitations History of Present Illness HPI Narrative: 59-year-old female presents with concern for 3 day history of sinus congestion, drainage, headache, sinus pressure under her eyes. Reports cough. Reports when her symptoms started she had chills and fever, but has not since then Reports taking Mucinex. MD elicited complaint: cough and nasal congestion Related Data Home Medications ?Medication ?Instructions ?Recorded ?Confirmed ?Last Taken ?Type losartan 25 mg tablet 25 mg PO DAILY 04/23/19 09/03/23 Unknown History aspirin 81 mg tablet,delayed 81 mg PO DAILY 01/05/20 09/03/23 Unknown History release loratadine 10 mg tablet (Claritin) 10 mg PO DAILY 01/05/20 09/03/23 Unknown History Allergies Allergy/AdvReac Type Severity Reaction Status Date / Time methotrexate AdvReac Mild Drowsy Verified 10/30/24 19:00 Review of Systems Review of Systems: CONSTITUTIONAL: Denies malaise, chills, sweats, or fever. EYES: Denies visual changes, redness, or discharge. ENT: Reports rhinorrhea, congestion, sinus pain, otalgia CARDIOVASCULAR: Denies chest pain, palpitations, or edema. RESPIRATORY: Reports cough. Denies dyspnea. GASTROINTESTINAL: Denies abdominal pain, nausea, vomiting, diarrhea SKIN: Denies rash or itching. MUSCULOSKELETAL: Denies myalgia. NEUROLOGIC: Reports headache. All systems reviewed & are unremarkable except as noted in HPI and below PMFSH Past Medical History Medical History Vitamin D deficiency Bilateral hand pain SLE (systemic lupus erythematosus related syndrome) (~2019) Other specified counseling Spondylosis without myelopathy or radiculopathy, lumbar region Mitral valve disorder Migraines Surgical History Surgical History History of section Family History Family History Mother Patient's mother is in good health Family history of thyroid disease Sibling Patient's sister is in good health Patient's brother is in good health Father Family history of cardiac disorder Family history of cardiovascular disease Grandparent Family history of cardiovascular disease Social History Social History Smoking status: Never smoker Alcohol intake: never Substance use: never Substance use type: does not use Do You Feel Safe in your Home?: Yes Lack of Transportation: No Lack of Food: Never True Current Housing: I Have Housing Concerned About Future Housing: No Difficulty Paying Gas/Electric Bills: No Difficulty Paying for Meds: No Currently Unemployed: No Education: Decline to Answer Difficulty w/ Childcare or Family Care: No Living arrangements: with family Comments At time of signature, agree with nursing past medical, surgical, social and family history. There is no relevant family history pertinent to the presenting complaint Exam Narrative: GENERAL: Well-appearing, well-nourished, and in no acute distress. HEAD: Normocephalic EYES: PERRLA, conjunctivae clear ENT: Nares clear, turbinates edematous and erythematous, clear discharge. Mucous membranes moist. TM pearly trevizo with dull light reflex bilaterally; no tragal tenderness. Oropharynx not erythematous without lesions. Tonsils not enlarged and without exudate, no drooling, no hoarseness, no trismus, uvula midline. NECK: Supple. No lymphadenopathy CHEST: Clear to auscultation, breath sounds equal. No wheezing, rhonchi, rales, or stridor. No respiratory distress, speaks in full sentences. HEART: Regular rate and rhythm. No murmur heard. SKIN: Warm, dry, no rash. NEURO: Alert and oriented x3. PSYCH: Normal mood and affect Course Course Emergency Course: Patient is aware of diagnosis, understands and agrees to treatment plan. Anticipatory guidance given. Patient agrees to follow-up as directed and is aware of reasons to seek care at the emergency department. Portions of this record may have been created with voice recognition software Level of Care: Express Care Visit Vital Signs Vital signs: Vital Signs Temperature 98.3 F 10/30/24 18:57 Pulse Rate 88 10/30/24 18:57 Respiratory Rate 16 10/30/24 18:57 Blood Pressure 123/71 10/30/24 18:57 Pulse Oximetry 98 10/30/24 18:57 Oxygen Delivery Room Air 10/30/24 18:57 Temperature 98.3 F 10/30/24 18:57 Pulse Rate 88 10/30/24 18:57 Respiratory Rate 16 10/30/24 18:57 Blood Pressure 123/71 10/30/24 18:57 Pulse Oximetry 98 10/30/24 18:57 Oxygen Delivery Room Air 10/30/24 18:57 Reviewed. MDM - URI/Sore Throat MDM Narrative Medical decision making narrative: Differential diagnosis considered: Bynum virus, strep pharyngitis, allergic rhinitis, upper respiratory tract infection, sinusitis, rhinosinusitis, nasopharyngitis. viral pharyngitis, otitis media, otitis externa, pneumonia, bronchitis, viral cough syndrome, viral syndrome, and influenza. Exam findings show no acute concerns or changes; patient is non-toxic appearing and is in no distress. Patient is appropriate for outpatient treatment and follow-up. Lab Data Attestation: I reviewed the patient's lab results. Critical Care Time Critical Care Time Critical Care Time: No Discharge Plan Discharge Clinical Impression: Upper respiratory infection Patient Disposition: Home Condition: Stable Instructions: Upper Respiratory Infection (ED) Additional Instructions: Viral illness may last between 7-21 days; antibiotics do not cure viral illness and are NOT recommended at this time. Recommend antihistamine such as Benadryl at night time and Zyrtec or Ana Luisa during the day Also, recommend symptomatic treatment includes: rest, fluids, and increase humidity of the air at home. Recommend Acetaminophen as directed on the bottle to reduce fever, pain, headache. Avoid smoking/second-hand smoke. Please schedule a follow-up visit with your personal physician for further evaluation and treatment within 3-5days. If your symptoms persist, change or worsen significantly before you can contact your personal physician then please, without delay, go to the emergency department for further evaluation. Patient Language: Belarusian Prescriptions: New methylprednisolone [Medrol (Luis)] 4 mg tablets,dose pack See Rx Instructions .ROUTE .COMPLEX Qty: 21 0RF Rx Instructions: orally per package directions ipratropium bromide 21 mcg (0.03 %) spray,non-aerosol 2 spray NASAL TID PRN (Reason: nasal drainage) Qty: 30 0RF Rx Instructions: administer into each nostril No Action losartan 25 mg Tablet 25 mg PO DAILY loratadine [Claritin] 10 mg tablet 10 mg PO DAILY aspirin 81 mg tablet,delayed release (DR/EC) 81 mg PO DAILY hydroxychloroquine 200 mg tablet See Rx Instructions .ROUTE .COMPLEX Qty: 180 1RF Dose Instruction: TAKE 2 TABLETS BY MOUTH DAILY Rx Instructions: TAKE 2 TABLETS BY MOUTH DAILY Follow-up/Referrals: Mili,JOSE Lezama [Primary Care Provider] - Time of Disposition: 19:37
[2024-10-30 19:44] LABS: EDCOVIDSCREEN Negative (Negative); EDINFLUASCREEN Negative (Negative); EDINFLUBSCREEN Negative (Negative)
== END 2024-10-30 19:45 | disposition home or self-care (01) ==
PROVIDERS: Emergency Provider Nurse Practitioner; PCP Registered Nurse
DX: J06.9 Acute upper respiratory infection, unspecified (principal); Z20.822 Contact with and (suspected) exposure to COVID-19; M32.9 Systemic lupus erythematosus, unspecified; I05.9 Rheumatic mitral valve disease, unspecified; M47.816 Spondylosis without myelopathy or radiculopathy, lumbar region; Z79.82 Long term (current) use of aspirin
CPT/HCPCS: 87426; 87804; 99213; G0463